=== PATIENT | female | born 1955 | race Asian ===

== ENCOUNTER 2017-10-02 04:01 | Emergency (ER) | payer BC, OTHER ==
[~2017-10-02] VITALS: Ht 165.1 cm; Wt 92.8 kg
[~2017-10-02 04:01] MED LIST: ACET-1311 PO; ADVAIR INHALER INH; ATOR10TA82 PO; CEVI30CA PO; ETAN50IN2 SQ; FENT25DI10 TD; FOLI1TAB8 PO; METH15TA2 PO; MIRT30TA2 PO; OMEP40CA PO; OXYC1TAB3 PO; PRED-301 PO; SNG10 PO; SYN25 PO
[2017-10-02 04:05] VITALS: TEMP 36.7; Ht 165.1 cm; Wt 92.8 kg
[2017-10-02 05:31] VITALS: BP 132/87; PULSE 65; O2SAT 96
--- NOTE | 2017-10-02 08:26 | EMERGENCY ROOM VISIT NOTE ---
History Report prepared by Joe: Kecia Dawson Under the Supervision of: Dr. Marian Gardner D.O. First contact with patient: 04:07 Chief Complaint: EYE ASSESSMENT Stated Complaint: VISUAL DISTURBANCE POST EYE SURGERY History of Present Illness The patient is a 62 year old female who presents to the Emergency Room for an eye assessment. The patient states that she had a shunt placed in her left eye for Glaucoma on September 13. She states that she has had follow ups on Fridays and the pressure has continued to increase. She states that they put her on Pred Forte and Combigan. She reports that tonight she had white flashes of light in her left eye that last a second. She states that she called the institute where she had the surgery and they told her to lie flat and come to the ED. The patient complains of a headache. She reports that she has been taking two 5 mg Oxycodone 2-3 times a day. She notes that she last took it 10 hours ago. The patient notes that the swelling has come down a lot. Source of History: patient Onset: this morning Position: eye (left) Quality: pressure Timing: worsening Associated Symptoms: + headache Note: The patient complains of a flashing white light. Review of Systems See HPI for pertinent positives & negatives. A total of 10 systems reviewed and were otherwise negative. Past Medical & Surgical Medical Problems: (1) Asthma (2) Bronchitis (3) Hypertension (4) Pneumonia Surgical Problems: (1) H/O arthroscopy of right knee Family History Diabetes mellitus Heart disease Hypertension Social History Smoking Status: Never Smoker Alcohol Use: none Drug Use: none Marital Status: Housing Status: lives with significant other Occupation Status: employed Current/Historical Medications Scheduled Acetaminophen (Tylenol), 325 MG PO Q4 Atorvastatin (Lipitor), 10 MG PO DAILY Cevimeline Hcl (Evoxac), 30 MG PO DAILY Etanercept (Enbrel), 50 MG SQ WK Fentanyl (Duragesic), 25 MCG TD [id number] Folic Acid (Folvite), 1 TAB PO DAILY Levothyroxine (Synthroid *), 0.025 MG PO DAILY Methotrexate (Trexall), 15 MG PO WK Mirtazapine Soltab (Remeron Soltab), 30 MG PO DAILY Montelukast (Singulair *), 10 MG PO DAILY Omeprazole (Prilosec), 40 MG PO DAILY Prednisone (Prednisone), 5 MG PO DAILY Scheduled PRN Oxycodone Ir (Roxicodone Ir), 1 TAB PO DAILY PRN for Severe Pain Miscellaneous Medications [Advair Inhaler], 1 PUFF INH Allergies Coded Allergies: Erythromycin (Verified Allergy, Intermediate, swelling of eyes, 10/11/15) pt states allergy to e-mycin eye drops Lisinopril (Verified Allergy, Intermediate, cough, 10/11/15) BEE STING (Verified Allergy, Unknown, swelling. sob, 02/26/14) Uncoded Allergies: NKDA (Allergy, Mild, 09/30/06) Physical Exam Vital Signs Date Time Temp Pulse Resp B/P (MAP) Pulse Ox O2 Delivery O2 Flow Rate FiO2 10/02/17 05:31 65 16 132/87 96 10/02/17 04:05 36.7 64 20 155/88 92 Room Air Physical Exam Eyes - Both pupils are 3 mm and reactive to light. Sclera is not injected. Normal extraocular eye movements. Some edema surrounding the left eye. Medical Decision & Procedures ED Course 0412: Past medical records reviewed. The patient was evaluated in room B9. A complete history and physical exam was performed. I performed an intraocular pressure read. The left was 43, 37, and 39. The right was 21, 22, and 22. 0458: I discussed the patient's case with Dr. Quick. She states that shee will get me in contact with whom I need. 0519: I discussed the patient's case with Dr. Ochoa. He states that the patient should come directly to their ER at [facility],. 0522: Upon reevaluation, the patient was doing okay. I discussed findings and results with her. She verbalized agreement of the treatment plan. The patient was discharged home. Medical Decision The patient is a 62 year old female who presents to the Emergency Room for an eye assessment. Differential diagnoses include worsening glaucoma, blocked shunt, retinal detachment, temporal arteritis. The patient underwent retinal surgery in August and glaucoma surgery in September. Upon follow-up appointments with the eye doctor, her intraocular pressure had increased slightly from 6 to 14 then to 20. On physical exam here in the emergency department, the patient was noted to have elevated intraocular pressures of the left eye. In light of a recent shunt placement and glaucoma, she would be best served back at the [facility]. The patient's family was willing to drive her there directly. Medication Reconcilliation Current Medication List: was personally reviewed by me Blood Pressure Screening Patient's blood pressure: Normal blood pressure Blood pressure disposition: Did not require urgent referral Consults Time Called: [phone] Consulting Physician: Dr. Quick- [facility] Returned Call: [phone] I discussed the patient's case with Dr. Quick. He states that he will get me in contact with whom I need. Additional Consults: Time Called: [phone] Consulted Physician: Dr. Ochoa- [facility] Returned Call: 518 Additional Comments: I discussed the patient's case with Dr. Ochoa. He states that the patient should come directly to their ER Impression Primary Impression: Elevated IOP Scribe Attestation The scribe's documentation has been prepared under my direction and personally reviewed by me in its entirety. I confirm that the note above accurately reflects all work, treatment, procedures, and medical decision making performed by me. Departure Information Dispostion Home / Self-Care Referrals Patricia Doran M.D. 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
== END 2017-10-02 05:30 | disposition home or self-care (01) ==
LOC: EDBD 04:01 → C.EDB 04:03
DX: H40.052 Ocular hypertension, left eye (principal); J45.909 Unspecified asthma, uncomplicated; I10 Essential (primary) hypertension; Z87.01 Personal history of pneumonia (recurrent); Z83.3 Family history of diabetes mellitus; Z82.49 Family history of ischemic heart disease and other diseases of the circulatory system; Z79.899 Other long term (current) drug therapy

== ENCOUNTER 2019-02-14 20:28 | Observation (INO) ==
--- OUTSIDE RECORDS SUMMARY | 2019-02-14 20:31 | External Medical Summary | Continuity of Care Document ---
:1955 Author Name Jeaneth Jimenez, Provider Address Unavailable Unavailable , Care Team Providers Name Role Phone Efren Carlisle M.D. Unavailable [email or web address] LENCHO LY Crow Unavailable Unavailable Unavailable Unavailable Unavailable Assessments Assessed Problems:HypothyroidAllergic rhinitisRheumatoid arthritisInterstitial lung disease Problems Osteoarthritis (715.90) (M19.90) Psoriasis (696.1) (L40.9) Cataract (366.9) (H26.9) Retinal edema (362.83) (H35.81) SOB (shortness of breath) (786.05) (R06.02) Allergic rhinitis (477.9) (J30.9) Hypothyroid (244.9) (E03.9) Interstitial lung disease (515) (J84.9) Rheumatoid arthritis (714.0) (M06.9) Allergies and Adverse Reactions Erythromycin OINT (Allergy) Lisinopril TABS (Allergy) Reaction: Coug h Bee sting (Allergy) Medications Losartan Potassium 25 MG Oral Tablet; TAKE 1 TABLET DAILY. Refills: 0 Levothyroxine Sodium 88 MCG Oral Tablet; TAKE 1 TABLET DAILY DIRECTED. Quantity: 30 Refills: 5 Lipitor 20 MG Oral Tablet; TAKE 1 TABLET DAILY AT BEDTIME. Refills: 0 Albuterol Sulfate HFA AERS; INHALE 2 PUFFS EVERY 4 HOURS NEEDED Refills: 0 Singulair 10 MG Oral Tablet; TAKE 1 TABLET AT BEDTIME DAILY. Refills: 0 Multi Vitamin/Minerals Oral Tablet; TAKE 1 TABLET DAILY. Refills: 0 Ipratropium-Albuterol 0.5-2.5 (3) MG/3ML Inhalation Solution; USE 1 UNIT DOSE IN NEBULIZER 4 TIMES DAILY. Tony Carlisle Start: 28-Oct-2015 Quantity: 2 3 ML Vial (60 Vials) Refills: 2 Calcium 500 + D TABS; TAKE 1 TABLET DAILY. Refills: 0 Ocuvite TABS; TAKE 1 TABLET DAILY. Refills: 0 EpiPen 2-Elmer 0.3 MG/0.3ML ERIC Refills: 0 OxyIR 5 MG CAPS; TAKE 1 CAPSULE EVERY 6 HOURS NEEDED FOR PAIN. Refills: 0 Enbrel SureClick 50 MG/ML Subcutaneous S olution Auto-injector; inject 50mg once weekly Refills: 0 Remeron 30 MG Oral Tablet; TAKE 1 TABLET AT BEDTIME. Refills: 0 fentaNYL 25 MCG/HR Transdermal Patch 72 Hour; APPLY 1 PATCH EVERY 3 DAYS Quantity: 5 Refills: 0 PrednisoLONE 5 MG TABS; one daily Refills: 0 Folic Acid 1 MG Oral Tablet; TAKE 1 TABLET DAILY. Quantity: 30 Refills: 5 Methotrexate 2.5 MG Oral Tablet; TAKE 6 TABLETS WEEKLY. Refills: 0 Omeprazole 40 MG Oral Capsule Delayed Release; TAKE 1 CAPSUL E TWICE DAILY. Quantity: 60 Refills: 5 Procedures History of Knee Replacement Status: Comp leted Immunizations Influenza On: 04-Aug-2013 Family History Mother Family history of eye disorder (V19.19) (Z83.518) Status: Ac tive Family history of glaucoma (V19.11) (Z83.511) Status: Active Family history of cardiac disorder (V17.49) (Z82.49) Status: Active Family history of diabetes mellitus (V18.0) (Z83.3) Status: Active Father Family history of cardiac disorder (V17.49) (Z82.49) Status: Active Family history of cataracts (V19.19) (Z83.518) Status: Activ e Family history of hypertension (V17.49) (Z82.49) Status: Act jm Brother Family history of diabetes mellitus (V18.0) (Z83.3) Status: Active Social History - Smoking Status Never smoker Interventions Medication ChangesIpratropium-Albuterol 0.5-2.5 (3) MG/3ML Inhalation Solution - StartFollow-ups/ReferralsFollow-up visit in 1 month; Done: 28 Oct 2015Suppdiana Nebulizer; Done: 30 Oct 2015Discussion/SummaryPatient will return to the clinic with pulmonary function studies after her visit to [place] where shewill be seeing her relatives. I see no reason why she cannot make this trip and we'll outfit with her a portable nebulizer with DuoNeb solution to use every 4 hours when necessary. I suspect patient ismore symptomatic then I can appreciate today and follow-up CT scan of her chest will need to be doneand possibly even bronchoscopic evaluation if her symptoms continue or worsen to rule out an opportunistic infection or other etiology. Suspect a degree of bronchiectasis and there is a suggestion of air trapping on CAT scan as well. Approximately 60 Minutes was spent with the patient. Greater than 50% of time with patient was spent on counseling and coordinating care. Plan of Treatment Planned Observations Planned Goals not documented Results No Known Results Results not documented Encounters Appointment; Efren Carlisle M.D. 28-Oct-2015 13:00 Encounter Diagnosis: Problem not documented
[2019-02-14] MEDS ORDERED: KETOROLAC TROMETHAMINE 15 MG/ML VIAL IV ONE (20:52)
[2019-02-14] MEDS ORDERED: ASPIRIN CHEW 324 MG PO STA (20:52)
[2019-02-14 22:31] LABS: Basophils # (auto) 0.03 K/uL (0-0.2); Basophils % (auto) 0.3 %; Eosinophils # (auto) 0.32 K/uL (0-0.5); Eosinophils % (auto) 3.4 %; Hematocrit (blood only) 41.6 % (37-47); Hemoglobin 14.2 g/dL (12.0-16.0); Immature Granulocytes # (auto) 0.03 K/uL (0.00-0.02); Immature Granulocytes % (auto) 0.3 %; Lymphocytes # (auto) 3.31 K/uL (1.2-3.4); Lymphocytes % (auto) 35.7 %; Mean Corpuscular Hgb Conc 34.1 g/dL (32-36); Mean Corpuscular Volume 93.1 fL (80-100); Mean Platelet Volume 9.5 fL (7.4-10.4); Monocytes # (auto) 0.63 K/uL (0.11-0.59); Monocytes % (auto) 6.8 %; Neutrophils # (auto) 4.96 K/uL (1.4-6.5); Neutrophils % (auto) 53.5 %; Platelet Count 315 K/uL (130-400); RDW Coefficient of Variation 12.5 % (11.5-14.5); RDW Standard Deviation 42.6 fL (36.4-46.3); Red Blood Count 4.47 M/uL (4.2-5.4); White Blood Count 9.28 K/uL (4.8-10.8)
--- NOTE | 2019-02-14 22:45 | XRay Report ---
SINGLE VIEW CHEST CLINICAL HISTORY: Atypical chest pain. FINDINGS: An AP, portable, upright chest radiograph is compared to study dated 02/26/2014 and correlat ed with chest CT dated 09/27/2015. The examination is degraded by portable technique and patient rotat ion. The heart is top normal for projection. The pulmonary vasculature is noncongested. Chronic inte rstitial thickening is similar to previous. Patchy airspace opacities are noted in the left midlung r ight lung appears clear. No large pleural effusion or pneumothorax is seen. The skeletal structures a re osteopenic. The bony thorax is grossly intact. IMPRESSION: 1. Patchy airspace opacities are identified in the left midlung. This could represent scarring/atelec tasis versus a mild infectious/inflammatory pneumonitis. Clinical correlation will be required and ra diographic follow-up to resolution is recommended. 2. The lungs are otherwise clear. Electronically signed by: Mo Daigle M.D. 02/14/2019 10:44 PM
[2019-02-14 22:57] LABS: Alanine Aminotransferase 68 U/L (12-78); Albumin Globulin Ratio 0.7 (0.9-2); Alkaline Phosphatase 82 U/L (45-117); BUN Creatinine Ratio 14.4 (10-20); Bilirubin,Total 0.4 mg/dl (0.2-1); Blood Urea Nitrogen 12 mg/dl (7-18); Calcium 9.4 mg/dl (8.5-10.1); Carbon Dioxide 25 mmol/L (21-32); Chloride 107 mmol/L (98-107); Creatinine Clr Calc Pharmacy 72.5 ml/min; Est GFR (African American) 84.5; Est GFR (Non-African American) 72.9; Globulin 4.4 gm/dl (2.5-4.0); Glucose 158 mg/dl (70-99); Sodium 142 mmol/L (136-145); Total Protein 7.4 gm/dl (6.4-8.2); Troponin I < 0.015 ng/ml (0-0.045)
[2019-02-14] MEDS ORDERED: LABETALOL HCL IV 5 MG/ML 20ML IV STA (23:24)
[2019-02-15] MEDS ORDERED: LABETALOL HCL IV 5 MG/ML 20ML IV STA (00:08)
--- NOTE | 2019-02-15 00:12 | Emergency Department Note ---
Entered by Kathy Chapman acting as a scribe for History of Present Illness General Chief complaint: Hypertension Stated complaint: HBP 224/214 REF BY DOC Source: patient History of Present Illness Onset (ago): day(s) 5 Severity: similar to prior episodes Pain Consistency: + other (persistent) Maximum Pain Intensity: 5 Quality: + other (high blood pressure) Associated symptoms: + other (negative diarrhea; positive left shoulder pain with radiation down left arm); no headaches, no nausea/vomiting and no shortness of breath Treatments prior to arrival: other (100mg Losartan; 5mg Norvasc) The patient is a 63 year old female who presents to the Emergency Room with complaints of persistent high blood pressure that began 5 days prior to arrival. The patient states that her PCP recently increased her Losartan dose to 100mg and began the patient on 5mg of Norvasc. She states that she took all of her medication today. The patient states that she took a nap today and states that when she woke up, she had left shoulder pain that radiated down her left arm. The patient denies headache, nausea, vomiting, diarrhea, and shortness of breath. Patient denies any chest pain. No exertional complaints. No cough or runny nose. Home Medications Home Medications Medication Instructions Recorded Confirmed Type C,E,zinc,copper [id number] 1 cap PO DAILY 02/14/19 02/14/19 History [Ocuvite Adult 50 Plus] abatacept [Orencia] 125 mg SUBCUT WK 02/14/19 02/14/19 History albuterol sulfate [ProAir HFA] 2 puff INHALATION Q6H PRN 02/14/19 02/14/19 History amlodipine 5 mg PO DAILY 02/14/19 02/14/19 History atorvastatin [Lipitor] 20 mg PO QPM 02/14/19 02/14/19 History bimatoprost 1 drp OPB HS 02/14/19 02/14/19 History brinzolamide-brimonidine 1 drp OPL BID 02/14/19 02/14/19 History [Simbrinza] calcium carbonate [Calcium 500] 500 mg PO DAILY 02/14/19 02/14/19 History clindamycin HCl 300 mg PO UD 02/14/19 02/14/19 History epinephrine [EpiPen] 0.3 mg IM UD PRN 02/14/19 02/14/19 History folic acid 1 mg PO DAILY 02/14/19 02/14/19 History levothyroxine [Synthroid] 112 mcg PO DAILY 02/14/19 02/14/19 History losartan [Cozaar] 25 mg PO DAILY 02/14/19 02/14/19 History metformin [Glucophage XR] 500 mg PO BID 02/14/19 02/14/19 History montelukast [Singulair] 10 mg PO PM 02/14/19 02/14/19 History multivitamin 1 tab PO DAILY 02/14/19 02/14/19 History oxycodone [Roxicodone] 5 mg PO Q4 PRN 02/14/19 02/14/19 History prednisone 3 mg PO DAILY 02/14/19 02/14/19 History timolol maleate [Timoptic] 1 drp OPL BID 02/14/19 02/14/19 History Allergies Allergy/AdvReac Type Severity Reaction Status Date / Time erythromycin base Allergy Intermediate swelling Verified 02/14/19 22:02 of eyes lisinopril Allergy Intermediate cough Verified 02/14/19 22:02 bee venom protein (honey bee) Allergy Unknown swelling. Verified 02/14/19 22:02 sob [id number] Allergy Mild Unknown Uncoded 02/14/19 22:02 Past Med/Surg History Medical History Diabetes Hypertension (Chronic) Asthma (Chronic) Social History Feels Safe at Home: Yes Smoking Status: Never smoker Review of Systems See HPI for pertinent positives & negatives. and A total of 10 systems reviewed and were otherwise negative Physical Exam Vital Signs Vital Signs - 24 hr 02/14/19 20:30 02/14/19 20:43 02/14/19 21:02 Temperature 36.9 C Temperature Source Oral Sepsis Action Taken by Nursing No Action Required Pulse Rate 96 H 77 76 Pulse Rate [Finger] Pulse Rate from SpO2 Sensor 74 76 Respiratory Rate 20 19 18 Respiratory Effort / Characteristics Non-Labored Spontaneous Respiratory Depth Normal Blood Pressure 184/109 H 169/115 H Blood Pressure [Right Arm] Blood Pressure Mean 134 133 Blood Pressure Mean [Right Arm] Pulse Oximetry 97 95 96 Oxygen Delivery Method Room Air 02/14/19 21:10 02/14/19 21:12 02/14/19 21:20 Temperature Temperature Source Sepsis Action Taken by Nursing Pulse Rate 79 76 Pulse Rate [Finger] Pulse Rate from SpO2 Sensor Respiratory Rate 23 14 Respiratory Effort / Characteristics Respiratory Depth Blood Pressure Blood Pressure [Right Arm] Blood Pressure Mean Blood Pressure Mean [Right Arm] Pulse Oximetry 98 Oxygen Delivery Method Room Air 02/14/19 21:30 02/14/19 21:40 02/14/19 21:48 Temperature Temperature Source Sepsis Action Taken by Nursing Pulse Rate 74 74 73 Pulse Rate [Finger] Pulse Rate from SpO2 Sensor 74 Respiratory Rate 20 18 13 Respiratory Effort / Characteristics Respiratory Depth Blood Pressure 175/109 H Blood Pressure [Right Arm] Blood Pressure Mean 131 Blood Pressure Mean [Right Arm] Pulse Oximetry 96 Oxygen Delivery Method 02/14/19 21:50 02/14/19 22:00 02/14/19 22:01 Temperature Temperature Source Sepsis Action Taken by Nursing Pulse Rate 71 73 74 Pulse Rate [Finger] Pulse Rate from SpO2 Sensor 71 Respiratory Rate 18 17 25 H Respiratory Effort / Characteristics Respiratory Depth Blood Pressure 167/99 H Blood Pressure [Right Arm] Blood Pressure Mean 121 Blood Pressure Mean [Right Arm] Pulse Oximetry 97 Oxygen Delivery Method 02/14/19 22:10 02/14/19 22:57 02/14/19 23:27 Temperature Temperature Source Sepsis Action Taken by Nursing Pulse Rate 79 Pulse Rate [Finger] 73 75 Pulse Rate from SpO2 Sensor 79 Respiratory Rate 22 18 18 Respiratory Effort / Characteristics Respiratory Depth Blood Pressure Blood Pressure [Right Arm] 190/119 H 179/106 H Blood Pressure Mean Blood Pressure Mean [Right Arm] 142 130 Pulse Oximetry 95 96 96 Oxygen Delivery Method Room Air Room Air GENERAL: Sitting up in bed. Alert, well appearing, well nourished, no distress, non-toxic EYE EXAM: normal conjunctiva OROPHARYNX: no exudate, no erythema, lips, buccal mucosa, and tongue normal and mucous membranes are moist NECK: supple, no nuchal rigidity, no adenopathy, non-tender LUNGS: Clear to auscultation. Normal chest wall mechanics HEART: no murmurs, S1 normal and S2 normal ABDOMEN: abdomen soft, non-tender, normo-active bowel sounds, no masses, no rebound or guarding. BACK: Back is symmetrical on inspection and there is no deformity, no midline tenderness, no CVA tenderness. SKIN: no rashes and no bruising UPPER EXTREMITIES: upper extremities are grossly normal. Tenderness on posterior left shoulder, similar to stated complaint but not same. Radial pulses 2/4. LOWER EXTREMITIES: No pitting edema. NEURO EXAM: Normal sensorium, cranial nerves II-XII grossly intact, normal speech, no gross weakness of arms, no gross weakness of legs. Course ED COURSE: Vital signs were reviewed and showed hypertensive. The patients medical record was reviewed The above diagnostic studies were performed and reviewed. ED treatments and interventions as stated above. 2046: The patient was evaluated in room B9. A complete history and physical examination was performed. 2222: Upon reevaluation, the patient is resting. I discussed my findings with the patient and she understands and agrees with the treatment plan. 2327: I discussed the case with Dr. Osborne Hospitalist. Based on the patients age, coexisting illnesses, exam and lab findings the decision to treat as an inpatient was made. The patient remained stable while under my care. The patient will be evaluated for further management. Administered Medications Discontinued Medications Aspirin (Aspirin) 324 mg PO NOW STA Stop: 02/14/19 20:53 Last Admin: 02/14/19 21:01 Dose: 324 mg Documented by: [id number] Ketorolac Tromethamine (Toradol) 10 mg IV NOW ONE Stop: 02/14/19 20:53 Last Admin: 02/14/19 22:18 Dose: 10 mg Documented by: [id number] Labetalol HCl (Normodyne) 10 mg IV NOW STA Stop: 02/14/19 23:25 Last Admin: 02/14/19 23:33 Dose: 10 mg Documented by: [id number] Cosigned by: [id number] Medical Decision Making Differential Diagnosis Differential diagnoses includes but is not limited to acute coronary syndrome, myocardial infarction, pericarditis, pulmonary embolus, aortic dissection, pneumonia, pneumothorax, musculoskeletal, shingles, esophageal. Medical Records Attestation: I reviewed the patient's medical records. Home Medications Current Medication List: was personally reviewed by me Laboratory Data Attestation: I reviewed the patient's lab results. Result diagrams: 02/14/19 22:11 02/14/19 22:11 Lab Results 02/14/19 02/14/19 Range/Units 22:11 22:11 WBC 9.28 (4.8-10.8) K/uL RBC 4.47 (4.2-5.4) M/uL Hgb 14.2 (12.0-16.0) g/dL Hct 41.6 (37-47) % MCV 93.1 (80-100) fL MCH 31.8 (25-34) pg MCHC 34.1 (32-36) g/dL RDW Std Deviation 42.6 (36.4-46.3) fL RDW Coeff of [place] 12.5 (11.5-14.5) % Plt Count 315 (130-400) K/uL MPV 9.5 (7.4-10.4) fL Immature Gran % (Auto) 0.3 % Neut % (Auto) 53.5 % Lymph % (Auto) 35.7 % [place] % (Auto) 6.8 % Eos % (Auto) 3.4 % Baso % (Auto) 0.3 % Immature Gran # (Auto) 0.03 H (0.00-0.02) K/uL Neut # (Auto) 4.96 (1.4-6.5) K/uL Lymph # (Auto) 3.31 (1.2-3.4) K/uL [place] # (Auto) 0.63 H (0.11-0.59) K/uL Eos # (Auto) 0.32 (0-0.5) K/uL Baso # (Auto) 0.03 (0-0.2) K/uL Sodium 142 (136-145) mmol/L Potassium (3.5-5.1) mmol/L Chloride 107 (98-107) mmol/L Carbon Dioxide 25 (21-32) mmol/L Anion Gap 9.0 (3-11) BUN 12 (7-18) mg/dl Creatinine 0.85 (0.6-1.2) mg/dl Est Cr Clr Drug Dosing 72.5 ml/min Est GFR ( Amer) 84.5 Est GFR (Non-Af Amer) 72.9 BUN/Creatinine Ratio 14.4 (10-20) Glucose 158 H (70-99) mg/dl Calcium 9.4 (8.5-10.1) mg/dl Total Bilirubin 0.4 (0.2-1) mg/dl AST (15-37) U/L ALT 68 (12-78) U/L Alkaline Phosphatase 82 (45-117) U/L Troponin I < 0.015 (0-0.045) ng/ml Total Protein 7.4 (6.4-8.2) gm/dl Albumin 3.0 L (3.4-5.0) gm/dl Globulin 4.4 H (2.5-4.0) gm/dl Albumin/Globulin Ratio 0.7 L (0.9-2) Lipase 134 (73-393) U/L Imaging Data Radiologist's Impression: Radiology results as stated below per my review and t he radiologist's interpretation: SINGLE VIEW CHEST CLINICAL HISTORY: Atypical chest pain. FINDINGS: An AP, portable, upright chest radiograph is compared to study dated 02/26/2014 and correlated with chest CT dated 09/27/2015. The examination is degraded by portable technique and patient rotation. The heart is top normal for projection. The pulmonary vasculature is noncongested. Chronic interstitial thickening is similar to previous. Patchy airspace opacities are noted in the left midlung right lung appears clear. No large pleural effusion or pneumothorax is seen. The skeletal structures are osteopenic. The bony thorax is grossly intact. IMPRESSION: 1. Patchy airspace opacities are identified in the left midlung. This could represent scarring/atelectasis versus a mild infectious/inflammatory pneumonitis. Clinical correlation will be required and radiographic follow-up to resolution is recommended. 2. The lungs are otherwise clear. Electronically signed by: Mo Daigle M.D. 02/14/2019 10:44 PM ECG Data Attestation: I personally reviewed and interpreted this ECG as follows: Indication: other (hypertension) Rate (beats per minute): 82 Rhythm: sinus rhythm Findings: + other (normal axis; nonspecific ST abnormalities high lateral leads ); no PVC Comparison ECG Date: from (02/26/2014) Change: no significant change Blood Pressure Blood Pressure Findings: Elevated blood pressure Blood Pressure Disposition: further management by hospitalist KAILA Naidu Patient is a 63-year-old female who over the past week has been having increasing elevations in her blood pressure. She is followed with Dr. Doran who is her PCP and placed her on Norvasc 5 mg and increased her losartan to 100 mg. Patient notes her systolic blood pressures at home have been in the 200s. She complains of some left shoulder pain as well. Upon presentation systolics are in the 190s. IV was established blood work was obtained showed no significant leukocytosis or anemia. BMP was unremarkable. Glucose was slightly elevated. ALT bilirubin and troponin were normal. Lipase was normal. EKG was nondiagnostic. Chest x-ray with a questionable infiltrate in the left midlung but no right upper respiratory symptoms. Patient was updated at bedside in regards to her lab work and EKG. Diastolic blood pressures were in the 130s. With these significant elevated systolic and diastolic blood pressure she was given 2 separate doses of IV labetalol 10mg and blood pressure did trend down. Patient was monitored closely. Discussed with hospitalist. Patient was admitted for further work-up of her hypertension. She denies any headaches or change in vision. No weakness or numbness in her arms or legs. She is otherwise at her baseline. Impression & Plan Hypertension, Shoulder pain, left Critical Care Time Critical Care Time: Yes Total Critical Care Time: 35 I have personally spent 35 minutes of critical care time in the direct managemen t of this patient. This includes bedside care, interpretation of diagnostic studies, and testing, discussion with consultants, patient, and family members, and other required patient management activities. This 35 minutes is in excess of all separately billable procedures. Discharge Plan Visit Data Chief Complaint: Hypertension Stated Complaint: HBP 224/214 REF BY DOC ED Provider: Sha Henderson Discharge Problem: Hypertension, Shoulder pain, left Patient Disposition: Being Evaluated by Hospitalist Forms Stand Alone Forms: My [facility] Prescriptions Prescriptions: No Action multivitamin Tablet 1 tab PO DAILY RF: 0 atorvastatin [Lipitor] 20 mg tablet 20 mg PO QPM RF: 0 clindamycin HCl 300 mg Capsule 300 mg PO UD RF: 0 bimatoprost 0.03 % drops 1 drp OPB HS RF: 0 amlodipine 5 mg Tablet 5 mg PO DAILY RF: 0 calcium carbonate [Calcium 500] 500 mg calcium (1,250 mg) Tablet 500 mg PO DAILY RF: 0 prednisone 1 mg tablet 3 mg PO DAILY RF: 0 losartan [Cozaar] 25 mg tablet 25 mg PO DAILY RF: 0 folic acid 1 mg Tablet 1 mg PO DAILY RF: 0 montelukast [Singulair] 10 mg Tablet 10 mg PO PM RF: 0 epinephrine [EpiPen] 0.3 mg/0.3 mL Auto-Injector 0.3 mg IM UD PRN (Reason: ALLERIC REACTION) RF: 0 albuterol sulfate [ProAir HFA] 90 mcg/actuation Hfa Aerosol Inhaler 2 puff INHALATION Q6H PRN (Reason: Shortness Of Breath Or Wheezing) RF: 0 timolol maleate [Timoptic] 0.5 % drops 1 drp OPL BID RF: 0 metformin [Glucophage XR] 500 mg tablet extended release 24 hr 500 mg PO BID RF: 0 levothyroxine [Synthroid] 112 mcg tablet 112 mcg PO DAILY RF: 0 oxycodone [Roxicodone] 5 mg tablet 5 mg PO Q4 PRN (Reason: Pain) RF: 0 Orencia 125 mg/mL Syringe 125 mg SUBCUT WK RF: 0 Ocuvite Adult 50 Plus 250-5-1 mg Capsule 1 cap PO DAILY RF: 0 Simbrinza 1-0.2 % drops,suspension 1 drp OPL BID RF: 0 Referrals Referrals: Patricia Doran MD [Primary Care Provider] - Discharge Problem: Hypertension Qualifiers: Hypertension type: unspecified Qualified Code(s): I10 - Essential (primary) hypertension Shoulder pain, left Qualifiers: Chronicity: acute Qualified Code(s): M25.512 - Pain in left shoulder The scribe's documentation has been prepared under my direction and personally reviewed by me in its entirety. I confirm that the note above accurately reflects all work, treatment, procedures, and medical decision making performed by me.
[2019-02-15] MEDS ORDERED: NITROGLYCERIN SL 0.4 MG/TAB TAB SL STA (00:26)
--- NOTE | 2019-02-15 00:32 | History & Physical Report ---
Date of Service February 15, 2019 Assessment & Plan (1) Chest pain: Likely from uncontrolled blood pressure Rule out ACS hyperlipidemia on statin Rx DM 2 on oral meds, well controlled as of recent outpatient hemoglobin A1c of 6.9 last December 2018 rheumatoid arthritis on daily prednisone Rx, stable symptoms hypothyroidism, euthyroid as of recent outpatient TSH OBS PCU Titrate home BP meds Aspirin for CAD prevention for now until ACS ruled out Follow troponin TTE, Cardiology consult RE chest pain ISS BG goal 140 to 180, may need basal insulin to attain goal DVT prophylaxis. Lovenox subcu Full code Patient's requesting updates from providers. Dr. Yuri Gramajo, contact #[phone]. History of Present Illness Chief Complaint: Chest discomfort Primary Care Provider: Patricia Doran MD History obtained from patient, family, and records. Medical history significant for hypertension, hyperlipidemia, DM 2 on oral meds, rheumatoid arthritis on daily prednisone Rx, hypothyroidism, glaucoma. Last week patient randomly checked her blood pressure at home, SBP 170s as per patient. Never that high. Patient denies unusual stress. Almost 2 weeks ago she started on a new diet which she is tolerating so far. Denies NSAID intake, dietary discretion. Patient also noted vertical headache symptoms with nausea, ice will get red from time to time. 2 days ago, patient noted transient left-sided chest discomfort. Patient seen at PCP's office yesterday. Blood pressure 156/104. PVCs noted on EKG as per . Home losartan increased to 50 mg BID dosing, Norvasc added to regimen. Outpatient Cardiology referral for stress test contemplated. Yesterday afternoon, patient woke up from her nap with left sided chest discomfort going to her shoulder and her back. Nonpleuritic, no SOB. At the ER, SBP 190s at the highest. Patient received aspirin, Toradol, labetalol at the ER without relief of discomfort. Some relief of chest discomfort with nitroglycerin administered at the ER. 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 Verified 02/14/19 22:02 sob [id number] Allergy Mild Unknown Uncoded 02/14/19 22:02 Home Medications Home Medications Medication Instructions Recorded Confirmed Type C,E,zinc,copper [id number] 1 cap PO DAILY 02/14/19 02/14/19 History [Ocuvite Adult 50 Plus] abatacept [Orencia] 125 mg SUBCUT WK 02/14/19 02/14/19 History albuterol sulfate [ProAir HFA] 2 puff INHALATION Q6H PRN 02/14/19 02/14/19 History amlodipine 5 mg PO DAILY 02/14/19 02/14/19 History atorvastatin [Lipitor] 20 mg PO QPM 02/14/19 02/14/19 History bimatoprost 1 drp OPB HS 02/14/19 02/14/19 History brinzolamide-brimonidine 1 drp OPL BID 02/14/19 02/14/19 History [Simbrinza] calcium carbonate [Calcium 500] 500 mg PO DAILY 02/14/19 02/14/19 History clindamycin HCl 300 mg PO UD 02/14/19 02/14/19 History epinephrine [EpiPen] 0.3 mg IM UD PRN 02/14/19 02/14/19 History folic acid 1 mg PO DAILY 02/14/19 02/14/19 History levothyroxine [Synthroid] 112 mcg PO DAILY 02/14/19 02/14/19 History losartan [Cozaar] 25 mg PO DAILY 02/14/19 02/14/19 History metformin [Glucophage XR] 500 mg PO BID 02/14/19 02/14/19 History montelukast [Singulair] 10 mg PO PM 02/14/19 02/14/19 History multivitamin 1 tab PO DAILY 02/14/19 02/14/19 History oxycodone [Roxicodone] 5 mg PO Q4 PRN 02/14/19 02/14/19 History prednisone 3 mg PO DAILY 02/14/19 02/14/19 History timolol maleate [Timoptic] 1 drp OPL BID 02/14/19 02/14/19 History Past Med/Surg History Medical History Diabetes Hypertension (Chronic) Asthma (Chronic) Social History Preferred Language: Salvad[place] Communication Ability: Effective 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 Beliefs That Will Affect Care: None Current Living Situation: Spouse Other Information That Helps Us Care for You: No Feels Safe at Home: Yes Safety Concerns: Feels Safe At This Time Smoking Status: Never smoker Do You Dip or Chew Tobacco: No Second Hand Exposure: No Tobacco Cessation Education Requested by Patient: No Hx Alcohol Use: No Hx Substance Use: No Review of Systems Review of Systems: As per HPI, all 10 systems reviewed, all other ROS negative Physical Exam Physical Exam: GENERAL: Slightly uncomfortable and slightly anxious, obese, no respiratory distress SKIN: Normal color, warm HEENT: [place] palpebral conjunctivae, no ptosis, dry buccal mucosa NECK : Supple, short neck, no tenderness CHEST : CTA, no tenderness HEART : RRR, systolic murmur ABDOMEN: Some distention, nontender EXTREMITIES : No LE swelling/tenderness, no other conspicuous deformities noted NEUROLOGIC : Coherent, no facial asymmetry, no other gross focality Results & Data Vital Signs (Past 12 Hours) Vital Signs Temp Pulse Pulse Resp BP BP Pulse Ox 02/15/19 00:15 66 18 145/91 H 99 02/14/19 23:27 75 18 179/106 H 96 02/14/19 22:57 73 18 190/119 H 96 02/14/19 22:10 79 22 95 02/14/19 22:01 74 25 H 167/99 H 02/14/19 22:00 73 17 02/14/19 21:50 71 18 97 02/14/19 21:48 73 13 175/109 H 96 02/14/19 21:40 74 18 02/14/19 21:30 74 20 02/14/19 21:20 76 14 02/14/19 21:12 98 02/14/19 21:10 79 23 02/14/19 21:02 76 18 96 02/14/19 20:43 77 19 169/115 H 95 02/14/19 20:30 36.9 C 96 H 20 184/109 H 97 Laboratory Results Laboratory Results WBC 9.28 K/uL (4.8-10.8) 02/14/19 22:11 RBC 4.47 M/uL (4.2-5.4) 02/14/19 22:11 Hgb 14.2 g/dL (12.0-16.0) 02/14/19 22:11 Hct 41.6 % (37-47) 02/14/19 22:11 MCV 93.1 fL (80-100) 02/14/19 22:11 MCH 31.8 pg (25-34) 02/14/19 22:11 MCHC 34.1 g/dL (32-36) 02/14/19 22:11 RDW Std Deviation 42.6 fL (36.4-46.3) 02/14/19 22:11 RDW Coeff of [place] 12.5 % (11.5-14.5) 02/14/19 22:11 Plt Count 315 K/uL (130-400) 02/14/19 22:11 MPV 9.5 fL (7.4-10.4) 02/14/19 22:11 Immature Gran % (Auto) 0.3 % 02/14/19 22:11 Neut % (Auto) 53.5 % 02/14/19 22:11 Lymph % (Auto) 35.7 % 02/14/19 22:11 [place] % (Auto) 6.8 % 02/14/19 22:11 Eos % (Auto) 3.4 % 02/14/19 22:11 Baso % (Auto) 0.3 % 02/14/19 22:11 Immature Gran # (Auto) 0.03 K/uL (0.00-0.02) H 02/14/19 22:11 Neut # (Auto) 4.96 K/uL (1.4-6.5) 02/14/19 22:11 Lymph # (Auto) 3.31 K/uL (1.2-3.4) 02/14/19 22:11 [place] # (Auto) 0.63 K/uL (0.11-0.59) H 02/14/19 22:11 Eos # (Auto) 0.32 K/uL (0-0.5) 02/14/19 22:11 Baso # (Auto) 0.03 K/uL (0-0.2) 02/14/19 22:11 Sodium 142 mmol/L (136-145) 02/14/19 22:11 Potassium mmol/L (3.5-5.1) 02/14/19 22:11 Chloride 107 mmol/L (98-107) 02/14/19 22:11 Carbon Dioxide 25 mmol/L (21-32) 02/14/19 22:11 Anion Gap 9.0 (3-11) 02/14/19 22:11 BUN 12 mg/dl (7-18) 02/14/19 22:11 Creatinine 0.85 mg/dl (0.6-1.2) 02/14/19 22:11 Est Cr Clr Drug Dosing 72.5 ml/min 02/14/19 22:11 Est GFR ( Amer) 84.5 02/14/19 22:11 Est GFR (Non-Af Amer) 72.9 02/14/19 22:11 BUN/Creatinine Ratio 14.4 (10-20) 02/14/19 22:11 Glucose 158 mg/dl (70-99) H 02/14/19 22:11 Calcium 9.4 mg/dl (8.5-10.1) 02/14/19 22:11 Total Bilirubin 0.4 mg/dl (0.2-1) 02/14/19 22:11 AST U/L (15-37) 02/14/19 22:11 ALT 68 U/L (12-78) 02/14/19 22:11 Alkaline Phosphatase 82 U/L (45-117) 02/14/19 22:11 Troponin I < 0.015 ng/ml (0-0.045) 02/14/19 22:11 Total Protein 7.4 gm/dl (6.4-8.2) 02/14/19 22:11 Albumin 3.0 gm/dl (3.4-5.0) L 02/14/19 22:11 Globulin 4.4 gm/dl (2.5-4.0) H 02/14/19 22:11 Albumin/Globulin Ratio 0.7 (0.9-2) L 02/14/19 22:11 Lipase 134 U/L (73-393) 02/14/19 22:[address] head initial read: No acute intracranial process. Involutional changes. Bilateral cataract surgery. CT chest initial read: No aortic dissection. No central pulmonary embolus. Mild patchy infiltrates EKG as per my interpretation: Rate 80, NSR, LAD, LAFB, LAE, no ischemia
[2019-02-15] MEDS ORDERED: TRAMADOL HCL 50 MG TABLET PO PRN (00:33)
[2019-02-15] MEDS ORDERED: PROMETHAZINE HCL 12.5 MG in SODIUM CHLORIDE 0.9% 50 ML IV PRN (00:33)
[2019-02-15 00:46] LABS: Potassium 3.8 mmol/L (3.5-5.1)
[2019-02-15 00:58] LABS: Partial Thromboplastin Ratio 0.9; Partial Thromboplastin Time 23.1 Seconds (21.0-31.0)
[2019-02-15] MEDS ORDERED: POTASSIUM CHLORIDE 20 MEQ TABCR PO STA (01:09)
[2019-02-15] MEDS ORDERED: LACTATED RINGER'S 1,000 ML IV SCH (01:15)
[2019-02-15] MEDS ORDERED: MoRPHine SULFATE 4 MG/ML 1 ML CARP\\VIAL IV PRN (01:33)
[2019-02-15] MEDS ORDERED: OPTIRAY 320 125ml IV PRN (01:50)
[2019-02-15] MEDS ORDERED: LOSARTAN POTASSIUM 50 MG TAB PO SCH ×2 (03:10→21:00)
[2019-02-15] MEDS ORDERED: GLUCOSE 10 TABS/TUBE PO PRN (03:39)
[2019-02-15] MEDS ORDERED: DEXTROSE 50% 50 ML SYRINGE IV PRN (03:39)
[2019-02-15] MEDS ORDERED: GLUCAGON FOR INJ 1 MG VIAL SQ PRN (03:39)
[2019-02-15] MEDS ORDERED: NITROGLYCERIN SL 0.4 MG/TAB TAB SL PRN (03:39)
[2019-02-15] MEDS ORDERED: LORazepam 0.25 MG/0.5 ML VIAL IV PRN (03:39)
[2019-02-15] MEDS ORDERED: GLUCOSE 40% GEL 15 GM TUBE PO PRN (03:39)
[2019-02-15] MEDS ORDERED: CARBOHYDRATES FOR HYPOGLYCEMIA PO PRN (03:39)
[2019-02-15] MEDS: ACETAMINOPHEN 325 MG TAB PO PRN ×2 (04:10→23:31)
[2019-02-15 04:11] LABS: Basophils # (auto) 0.04 K/uL (0-0.2); Basophils % (auto) 0.4 %; Eosinophils # (auto) 0.25 K/uL (0-0.5); Eosinophils % (auto) 2.7 %; Hematocrit (blood only) 43.2 % (37-47); Hemoglobin 14.8 g/dL (12.0-16.0); Immature Granulocytes # (auto) 0.02 K/uL (0.00-0.02); Immature Granulocytes % (auto) 0.2 %; Lymphocytes % (auto) 31.8 %; Mean Corpuscular Hgb Conc 34.3 g/dL (32-36); Mean Corpuscular Volume 93.5 fL (80-100); Mean Platelet Volume 9.7 fL (7.4-10.4); Monocytes # (auto) 0.56 K/uL (0.11-0.59); Monocytes % (auto) 5.9 %; Neutrophils # (auto) 5.55 K/uL (1.4-6.5); Platelet Count 297 K/uL (130-400); RDW Coefficient of Variation 12.6 % (11.5-14.5); RDW Standard Deviation 42.3 fL (36.4-46.3); Red Blood Count 4.62 M/uL (4.2-5.4); White Blood Count 9.42 K/uL (4.8-10.8)
[2019-02-15 04:22] LABS: Partial Thromboplastin Ratio 0.9; Partial Thromboplastin Time 24.9 Seconds (21.0-31.0)
[2019-02-15] MEDS: INSULIN ASPART 100 UNITS/ML 3 ML PEN SC SCH ×5 (04:24→20:35)
[2019-02-15 04:29] LABS: Blood Urea Nitrogen 11 mg/dl (7-18); Carbon Dioxide 26 mmol/L (21-32); Chloride 106 mmol/L (98-107); Creatinine Clr Calc Pharmacy 68.9 ml/min; Est GFR (African American) 79.9; Glucose 134 mg/dl (70-99); Potassium 3.9 mmol/L (3.5-5.1); Sodium 139 mmol/L (136-145)
[2019-02-15 04:34] LABS: Chol HDL Ratio 5; Cholesterol 219 mg/dl (0-200); HDL Cholesterol 48 mg/dl; LDL Cholesterol Calculated 143 mg/dl; Triglycerides 141 mg/dl (0-150); Troponin I < 0.015 ng/ml (0-0.045); VLDL Cholesterol 28 mg/dl
[2019-02-15 05:51] LABS: Albumin Level 3.2 gm/dl (3.4-5.0); Bilirubin Direct 0.1 mg/dl (0-0.2); Bilirubin,Total 0.5 mg/dl (0.2-1); Total Protein 7.6 gm/dl (6.4-8.2)
[2019-02-15] MEDS: LEVOTHYROXINE SODIUM 112 MCG TABLET PO SCH (05:59)
--- NOTE | 2019-02-15 06:34 | CT Scan Report ---
CT head/brain wo con CLINICAL HISTORY: 63 years-old Female with fulton. Acute headache TECHNIQUE: Multiple axial CT images of the head were obtained without contrast. A dose lowering tech nique was utilized adhering to the principles of ALARA. CT DOSE: 638.56 mGycm COMPARISON: None. FINDINGS: No acute intracranial hemorrhage, midline shift, intracranial mass, hydrocephalus, territorial ischem ia or abnormal extra-axial collection. Cerebral vascular calcifications are noted. Mild degree of pat seth white matter hypodensities suggest chronic microvascular ischemic disease. Homogeneous increased density about the left globe. Prior right-sided cataract repair. The calvarium is intact. The paranasal sinuses, mastoid air cells, and middle ear cavities are clear. IMPRESSION: No acute intracranial abnormality. The above report was generated using voice recognition software. It may contain grammatical, syntax o r spelling errors. Electronically signed by: Pa Hall M.D. 02/15/2019 6:33 AM
--- NOTE | 2019-02-15 06:51 | CT Scan Report ---
CT ANGIOGRAPHY OF THE CHEST, ABDOMEN, AND PELVIS CLINICAL HISTORY: Chest and back pain. Evaluate for dissection. COMPARISON STUDY: Chest CT September 27, 2015. Chest radiograph February 14, 2019. TECHNIQUE: Before and following the IV administration of 118 mL of Optiray-320, helical axial images of the chest, abdomen and pelvis were obtained. Maximal intensity projections and sagittal and coron al reformats were viewed on an independent 3D workstation. IV contrast was administered without comp lication. Automated exposure control was utilized for the study. A dose lowering technique was util ized adhering to the principles of ALARA. CT DOSE: 806.70 mGycm FINDINGS: The caliber of the thoracic aorta is normal. There is no intramural hematoma or thoracic a ortic dissection. The size of the heart is at the upper limits of normal. There is no pericardial eff usion. There is no pulmonary embolus. Prominent mediastinal lymph nodes are unchanged and CT of 2015. These are benign. There is no pneumothorax or pleural effusion. The central airways are patent. Note is made of right middle lobe and lingular mild airspace opacity with bronchiectasis. Sim ilar findings were shown CT of September 27, 2015. There is no lobar consolidation. Bony thorax is unre markable. Upper abdomen is unremarkable. IMPRESSION: 1. No thoracic aortic dissection. 2. No pulmonary embolus. 3. Mild right middle lobe and lingular airspace opacities with bronchiectasis. The findings may refle ct an atypical infectious process. Electronically signed by: Michael Navas M.D. 02/15/2019 6:49 AM
[2019-02-15] MEDS ORDERED: PERFLUTREN LIPID MICROSPHERE (DEFINITY) IV ONE (07:17)
[2019-02-15] MEDS: FOLIC ACID 1 MG TAB PO SCH (08:16)
[2019-02-15] MEDS: predniSONE 1 MG TAB PO SCH (08:16)
[2019-02-15] MEDS: ASPIRIN 81 MG ECTAB PO SCH (08:16)
[2019-02-15] MEDS: AMLODIPINE BESYLATE 5 MG TAB PO SCH (08:16)
[2019-02-15] MEDS: MULTIVITAMIN TAB PO SCH (08:16)
[2019-02-15] MEDS: SIMBRINZA~ORDER AWAITING ACTION SCH ×2 (08:17→15:15)
[2019-02-15] MEDS: TIMOLOL MALEATE 0.25% OP SOLN 5 ML BTL OPL SCH ×2 (08:17→20:34)
[2019-02-15 08:19] LABS: INR 1.1 (0.9-1.1); Prothrombin Time 10.9 Seconds (9.0-12.0)
[2019-02-15] MEDS: OXYCODONE HCL IR 5 MG TAB (IMMEDIATE RELEASE) PO PRN ×3 (08:19→20:27)
[2019-02-15] MEDS: ENOXAPARIN INJ 40 MG/0.4 ML SYR SQ SCH (10:26)
--- NOTE | 2019-02-15 11:54 | Cardiology Consultation ---
Date of Consultation February 15, 2019 Assessment & Plan (1) Chest pain: Atypical for angina , however , has significant risk factors. Need to optimize BP prior to pursuing ischemic work-up. (2) Hypertension: Blood pressure noted to be significantly elevated recently compared to her previous well-controlled baseline. The patient and her who is a retired physician brings up a good point that she recently started the immune modulating medication Orencia. This is a small incidence of causing high blood pressure. This however may be [id number]-mill hypertension. Further evaluation will proceed with a renal duplex for noninvasive assessment of renal artery stenosis. I have added a random serum aldosterone and renin level. These are send out laboratories. After these are drawn, will consider adding spironolactone as I find that this is a useful blood pressure medication it is very effective. It is noted that she has approximately a 20 mmHg difference between her arms. The blood pressure in the left arm at 9:43 AM was 145/88, right arm it was 167/102. She had a CT of the chest, but evaluation of the right arm circulation is somewhat limited because of where the contrast bolus fluids from the venous system obscuring the right arm. (3) Dyslipidemia: Increase atorvastatin from 20 mg to 40 mg. Advance diet after renal duplex completed. Possible stress echo 02/16. History of Present Illness Attending Physician: Jose Manuel Espinal MD History of Present Illness Britni Gramajo is a 63 year old female seen in cardiology consultation per the request of Dr. Enriquez for the evaluation of chest discomfort and hypertension. She does not follow as outpatient with cardiology and this is her first assessment. She has a past medical history of hypertension, dyslipidemia, hypothyroidism, type 2 diabetes mellitus, and rheumatoid arthritis. She is on a chronic dose of prednisone 3 mg daily. She describes that she has been on the immune modulating medication Orencia (abatacept) for the last 2 months. Recently the patient's mother who was in her 80s and has a history of hypertension was visiting her. The patient was therefore monitoring her mother's blood pressure and helping administer her medications. She had taken her mother's blood pressure and thought that she would take her own blood pressure also. She therefore found a reading on herself at home in the 170/150 mmHg range. She contacted her primary care provider and her losartan dose of 25 mg 1 time per day was increased to 50 mg daily. The patient continue to follow her blood pressure at home and the dose of losartan was increased to 50 mg 2 times per day. She was then seen in office follow-up and amlodipine was added to her regimen. She notes recent occasional left shoulder pain and mild chest discomfort that has not occurred with exertion. The symptoms persisted yesterday prompting evaluation in the emergency room. Her initial blood pressure reading in the emergency room was 184/109. Her systolic blood pressures remained elevated for the most part overnight last n ight and even into the 170s this morning. Her most recent reading at 1115 having had her morning medications was 138/87. Last night and again this morning revealed normal sinus rhythm with very mild nonspecific repolarization abnormalities. Troponin has been negative x2 thus far. Allergies Allergy/AdvReac Type Severity Reaction Status Date / Time erythromycin base Allergy Intermediate swelling Verified 02/14/19 22:02 of eyes lisinopril Allergy Intermediate cough Verified 02/14/19 22:02 bee venom protein (honey bee) Allergy Unknown swelling. Verified 02/14/19 22:02 sob [id number] Allergy Mild Unknown Uncoded 02/14/19 22:02 Home Medications Home Medications Medication Instructions Recorded Confirmed Type C,E,zinc,copper [id number] 1 cap PO DAILY 02/14/19 02/14/19 History [Ocuvite Adult 50 Plus] abatacept [Orencia] 125 mg SUBCUT WK 02/14/19 02/14/19 History albuterol sulfate [ProAir HFA] 2 puff INHALATION Q6H PRN 02/14/19 02/14/19 History amlodipine 5 mg PO DAILY 02/14/19 02/14/19 History atorvastatin [Lipitor] 20 mg PO QPM 02/14/19 02/14/19 History bimatoprost 1 drp OPB HS 02/14/19 02/14/19 History brinzolamide-brimonidine 1 drp OPL BID 02/14/19 02/14/19 History [Simbrinza] calcium carbonate [Calcium 500] 500 mg PO DAILY 02/14/19 02/14/19 History clindamycin HCl 300 mg PO UD 02/14/19 02/14/19 History epinephrine [EpiPen] 0.3 mg IM UD PRN 02/14/19 02/14/19 History folic acid 1 mg PO DAILY 02/14/19 02/14/19 History levothyroxine [Synthroid] 112 mcg PO DAILY 02/14/19 02/14/19 History losartan [Cozaar] 25 mg PO DAILY 02/14/19 02/14/19 History metformin [Glucophage XR] 500 mg PO BID 02/14/19 02/14/19 History montelukast [Singulair] 10 mg PO PM 02/14/19 02/14/19 History multivitamin 1 tab PO DAILY 02/14/19 02/14/19 History oxycodone [Roxicodone] 5 mg PO Q4 PRN 02/14/19 02/14/19 History prednisone 3 mg PO DAILY 02/14/19 02/14/19 History timolol maleate [Timoptic] 1 drp OPL BID 02/14/19 02/14/19 History Patient History Medical History Diabetes Hypertension (Chronic) Asthma (Chronic) Social History Preferred Language: Estonian Communication Ability: Effective 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 Beliefs That Will Affect Care: None Current Living Situation: Spouse Other Information That Helps Us Care for You: No Feels Safe at Home: Yes Safety Concerns: Feels Safe At This Time Smoking Status: Never smoker Do You Dip or Chew Tobacco: No Second Hand Exposure: No Tobacco Cessation Education Requested by Patient: No Hx Alcohol Use: No Hx Substance Use: No Review of Systems Review of Systems: All systems reviewed & are unremarkable except as noted in HPI & below Physical Exam Physical Exam: General: no acute distress and stated age Eyes: conjunctiva are pink and non-injected, sclera clear Neck: normal jugular venous pulse, no hepatojugular reflux Chest: normal shape and normal respiratory effort Lungs: clear to auscultation and percussion Cardiac Exam: - regular heart sounds, no murmurs, rubs, or gallops, no jugular venous distention Abdomen: abdomen soft, non-tender, no abnormal masses and no hepatosplenomegaly Extremities: no edema and no cyanosis Neuro:awake, coversant, follows commands, no focal motor deficits Psych: appropriate affect and insight. Results & Data Vital Signs (Past 12 Hours) Vital Signs Temp Pulse Pulse Resp BP BP Pulse Ox 02/15/19 11:15 36.6 C 62 18 138/87 97 02/15/19 09:43 145/88 H 167/102 H 02/15/19 08:00 69 02/15/19 07:54 36.6 C 66 20 164/100 H 179/120 H 96 02/15/19 06:00 36.7 C 68 20 141/88 H 98 02/15/19 03:57 68 02/15/19 03:30 36.6 C 70 18 147/105 H 94 02/15/19 03:07 75 20 164/100 H 96 02/15/19 01:57 73 18 158/94 H 98 02/15/19 00:50 78 18 135/87 90 02/15/19 00:43 68 18 158/102 H 68 L 02/15/19 00:15 66 18 145/91 H 99 Laboratory Results Cardiac Enzymes 02/14/19 02/15/19 02/15/19 Range/Units 22:11 00:24 03:58 AST 58 H (15-37) U/L Troponin I < 0.015 < 0.015 (0-0.045) ng/ml 02/15/19 Range/Units 03:58 AST 52 H (15-37) U/L Troponin I (0-0.045) ng/ml Coagulation 02/15/19 02/15/19 02/15/19 Range/Units 00:24 03:58 03:58 PT 10.9 (9.0-12.0) Seconds APTT 23.1 24.9 Cancelled (21.0-31.0) Seconds Lipids 02/15/19 Range/Units 03:58 Triglycerides 141 (0-150) mg/dl Cholesterol 219 H (0-200) mg/dl HDL Cholesterol 48 mg/dl Cholesterol/HDL Ratio 5 CBC 02/14/19 02/15/19 Range/Units 22:11 03:58 WBC 9.28 9.42 (4.8-10.8) K/uL RBC 4.47 4.62 (4.2-5.4) M/uL Hgb 14.2 14.8 (12.0-16.0) g/dL Hct 41.6 43.2 (37-47) % Plt Count 315 297 (130-400) K/uL Neut # (Auto) 4.96 5.55 (1.4-6.5) K/uL Lymph # (Auto) 3.31 3.00 (1.2-3.4) K/uL [place] # (Auto) 0.63 H 0.56 (0.11-0.59) K/uL Eos # (Auto) 0.32 0.25 (0-0.5) K/uL Baso # (Auto) 0.03 0.04 (0-0.2) K/uL Comprehensive Metabolic Panel 02/14/19 02/15/19 02/15/19 Range/Units 22:11 00:24 03:58 Sodium 142 139 (136-145) mmol/L Potassium 3.8 3.9 (3.5-5.1) mmol/L Chloride 107 106 (98-107) mmol/L Carbon Dioxide 25 26 (21-32) mmol/L BUN 12 11 (7-18) mg/dl Creatinine 0.85 0.89 (0.6-1.2) mg/dl Glucose 158 H 134 H (70-99) mg/dl Calcium 9.4 9.0 (8.5-10.1) mg/dl Direct Bilirubin (0-0.2) mg/dl AST 58 H (15-37) U/L ALT 68 (12-78) U/L Alkaline Phosphatase 82 (45-117) U/L Total Protein 7.4 (6.4-8.2) gm/dl Albumin 3.0 L (3.4-5.0) gm/dl 02/15/19 Range/Units 03:58 Sodium (136-145) mmol/L Potassium (3.5-5.1) mmol/L Chloride (98-107) mmol/L Carbon Dioxide (21-32) mmol/L BUN (7-18) mg/dl Creatinine (0.6-1.2) mg/dl Glucose (70-99) mg/dl Calcium (8.5-10.1) mg/dl Direct Bilirubin 0.1 (0-0.2) mg/dl AST 52 H (15-37) U/L ALT 67 (12-78) U/L Alkaline Phosphatase 84 (45-117) U/L Total Protein 7.6 (6.4-8.2) gm/dl Albumin 3.2 L (3.4-5.0) gm/dl Intake and Output 02/14/19 02/15/19 02/15/19 22:59 06:59 14:59 Output Total 200 / 200 Balance -200 / -200 Output: Urine 200 / 200 Other: Weight 84 kg 83.2 kg Diagnostic Findings Echocardiogram revealed normal resting wall motion, no significant left ventricular hypertrophy, no significant valvular heart disease. CT of the brain without acute intracranial process CT of the chest: No thoracic aortic dissection, no pulmonary embolism, radiology report raises concern for airspace opacities bronchiectasis. Medications Administered Current Inpatient Medications Acetaminophen (Tylenol) 650 mg PO Q4H PRN PRN Reason: Pain or Fever Stop: 03/17/19 03:38 Last Admin: 02/15/19 04:10 Dose: 650 mg Documented by: Amlodipine Besylate (Norvasc) 5 mg PO DAILY [facility] Stop: 03/17/19 08:59 Last Admin: 02/15/19 08:16 Dose: 5 mg Documented by: Aspirin (Ecotrin Ectab) 81 mg PO QAM [facility] Stop: 03/17/19 08:59 Last Admin: 02/15/19 08:16 Dose: 81 mg Documented by: Atorvastatin Calcium (Lipitor) 40 mg PO HS [facility] Stop: 03/17/19 20:59 Bimatoprost (Lumigan 0.01%) 1 drops OPB HS [facility] Stop: 03/17/19 20:59 Dextrose (Dextrose 50%) 25 - 50 ml IV UD PRN; Protocol PRN Reason: Hypoglycemia Protocol Stop: 03/17/19 03:38 Enoxaparin Sodium (Lovenox) 40 mg SQ QAM [facility] Stop: 03/17/19 08:59 Last Admin: 02/15/19 10:26 Dose: 40 mg Documented by: Folic Acid (Folvite) 1 mg PO DAILY [facility] Stop: 03/17/19 08:59 Last Admin: 02/15/19 08:16 Dose: 1 mg Documented by: Glucagon (Glucagen) 1 mg SQ UD PRN; Protocol PRN Reason: Hypoglycemia Protocol Stop: 03/17/19 03:38 Glucose (Glucose 40%) 15 - 30 gm PO UD PRN; Protocol PRN Reason: Hypoglycemia Protocol Stop: 03/17/19 03:38 Glucose (Dex4 Glucose) 4 - 8 tabs PO UD PRN; Protocol PRN Reason: Hypoglycemia Protocol Stop: 03/17/19 03:38 Promethazine HCl 12.5 mg/ (Sodium Chloride) 50.5 mls @ 202 mls/hr IV Q6H PRN PRN Reason: Nausea And Vomiting Stop: 03/17/19 00:32 Lactated Ringer's (Lr) 1,000 mls @ 40 mls/hr IV .Q24H [facility] Stop: 03/17/19 01:14 Last Admin: 02/15/19 02:08 Dose: 40 mls/hr Documented by: Lorazepam (Ativan) 0.25 mg in 0.5 mls @ 0.5 mls/min IV Q4H PRN PRN Reason: Anxiety Stop: 03/17/19 03:38 Insulin Aspart (Novolog Flexpen) 0 units SC ACHS [facility] Stop: 03/17/19 03:38 Last Admin: 02/15/19 07:49 Dose: Not Given Documented by: Levothyroxine Sodium (Synthroid) 112 mcg PO DAILYBB [facility] Stop: 03/17/19 06:29 Last Admin: 02/15/19 05:59 Dose: 112 mcg Documented by: Losartan Potassium (Cozaar) 50 mg PO BID [facility] Stop: 03/17/19 11:29 Miscellaneous (Order Awaiting Action) 1 ea N/A QS [facility] Stop: 03/17/19 07:59 Last Admin: 02/15/19 08:17 Dose: Not Given Documented by: Miscellaneous (Carbohydrates For Hypoglycemia) 15 - 30 gm PO UD PRN PRN Reason: Hypoglycemia Treatment Stop: 03/17/19 03:38 Montelukast Sodium (Singulair) 10 mg PO PM [facility] Stop: 03/17/19 20:59 Morphine Sulfate (Morphine Sulfate) 4 mg IV Q4H PRN PRN Reason: Pain Stop: 03/01/19 01:32 Multivitamins (Multivitamin Tab) 1 tab PO DAILY [facility] Stop: 03/17/19 08:59 Last Admin: 02/15/19 08:16 Dose: 1 tab Documented by: Nitroglycerin (Nitrostat) 0.4 mg SL UD PRN PRN Reason: Chest Pain Stop: 03/17/19 03:38 Oxycodone HCl (Roxicodone Immediate Rel) 5 mg PO Q4 PRN PRN Reason: Pain Stop: 03/01/19 03:38 Last Admin: 02/15/19 08:19 Dose: 5 mg Documented by: Prednisone (Prednisone) 3 mg PO DAILY [facility] Stop: 03/17/19 08:59 Last Admin: 02/15/19 08:16 Dose: 3 mg Documented by: Timolol Maleate (Timoptic 0.25% Oph) 1 drops OPL BID [facility] Stop: 03/17/19 08:59 Last Admin: 02/15/19 08:17 Dose: 1 drops Documented by: (1) Hypertension Hypertension type: unspecified Qualified Code(s): I10 - Essential (primary) hypertension
[2019-02-15] MEDS: LOSARTAN POTASSIUM 50 MG TAB PO SCH ×2 (12:05→20:33)
--- NOTE | 2019-02-15 14:01 | Ultrasound Report ---
US duplex renal artery CLINICAL HISTORY: hypertension COMPARISON STUDY: None. FINDINGS: The right kidney measures 10.5 cm and the left kidney measures 10.4 cm. Peak systolic veloc ities within the right renal artery is 99 cm/s in the left renal artery is 79 cm/s. A few small galls tones are noted. Resistive indices within the bilateral renal arcuate arteries are less than 0.7. The bilateral renal veins are patent. IMPRESSION: 1. No evidence for renal artery stenosis. 2. Cholelithiasis. Electronically signed by: Manny Hutchins M.D. 02/15/2019 2:00 PM
--- NOTE | 2019-02-15 15:02 | Communication Note ---
Date of Service: February 15, [address] scan of the chest were reviewed with radiology. Test is insufficient to exclude upper extremity peripheral arterial disease. The blood pressure taken noninvasively in the right arm is 20 mmHg higher than that taken in the left upper arm. We will proceed with bilateral upper extremity arterial duplex studies to exclude PAD.
--- NOTE | 2019-02-15 16:19 | Ultrasound Report ---
US carotid doppler BI CLINICAL HISTORY: 63 years-old Female presenting with syncope, nausea and vomiting, subclavian diseas e suspected due to asymmetric pressures, BP 20 mm Hg higher in right arm. TECHNIQUE: Real-time grayscale and color and spectral Doppler ultrasound imaging of the bilateral car otid arteries was performed. Stenosis measurements were based on NASCET-like criteria (distal lumen d iameter as the denominator for stenosis measurement). COMPARISON: None. FINDINGS: RIGHT: Common carotid artery (CCA): Patent. Peak systolic velocity (PSV) 70 cm/s. Internal carotid artery (ICA): Patent. PSV 52 cm/s. End diastolic velocity (EDV) 19 cm/s. ICA/CCA (systolic) ratio: 0.7. External carotid artery (ECA): Patent. PSV 46 cm/s. Subclavian artery: Patent. PSV 75 cm/s. LEFT: CCA: Atherosclerosis at the carotid bulb. PSV 81 cm/s. ICA: Atherosclerosis of the proximal ICA. PSV 50 cm/s. EDV 19 cm/s. ICA/CCA (systolic) ratio: 0.6. ECA: Patent. PSV 72 cm/s. Subclavian artery: Patent. 88 cm/s. Bilateral antegrade flow within the vertebral arteries. Blood pressure: Brachial: Right: 163/101 mmHg, Left: 161/83 mmHg. Reference ranges: Stenosis measurements are compared to reference velocity parameters by the Society of Radiologists in Ultrasound (SRU) consensus and Sonographic NASCET index (S-NASCET). * SRU Primary parameters: ICA PSV <125 cm/s = normal or less than 50% stenosis; ICA PSV 125-230 cm/s = 50-69% stenosis; ICA PSV >230 cm/s = greater than or equal to 70% stenosis. * SRU Additional parameters: ICA/CCA PSV ratio <2 = normal or less than 50% stenosis; ratio 2-4 = 5 0-69% stenosis; ratio >4 = greater than or equal to 70% stenosis. ICA EDV <40 cm/s = normal or less t fletcher 50% stenosis; ICA EDV 40-100 cm/s = 50-69% stenosis; ICA EDV >100 cm/s = greater than or equal to 70% stenosis. * S-NASCET parameters: Deceleration spectral broadening + PSV <125 cm/s = less than 50% stenosis; pa nsystolic spectral broadening + PSV <125 cm/s = 16-49% stenosis; pansystolic spectral broadening + PS V >125 cm/s + EDV <110 cm/s or ICA/CCA PSV ratio 2-4 = 50-69% stenosis; pansystolic spectral broadeni ng + PSV >270 cm/s OR EDV >110 cm/s OR ICA/CCA PSV ratio >4 = 70-79% stenosis; EDV >140 cm/s = 80-99% stenosis. IMPRESSION: 1. No hemodynamically significant stenosis seen within the carotid arteries. 2. Systemic hypertension. 3. Asymmetric right upper extremity diastolic hypertension. Electronically signed by: Rahul Newton M.D. 02/15/2019 4:17 PM
[2019-02-15] MEDS: MONTELUKAST SODIUM 10 MG TABLET PO SCH (20:33)
[2019-02-15] MEDS: ATORVASTATIN 40 MG TAB PO SCH (20:33)
[2019-02-15] MEDS: BIMATOPROST 0.01% OP SOLN 2.5 ML BTL OPB SCH (20:34)
[2019-02-15] MEDS ORDERED: ATORVASTATIN 20 MG TAB PO SCH (21:00)
[2019-02-15] MEDS ORDERED: SIMBRINZA~NON-FORMULARY PATIENT'S OWN MED OPL SCH (21:00)
[2019-02-15] MEDS: SIMBRINZA~NON-FORMULARY PATIENT'S OWN MED OPL SCH (21:03)
--- NOTE | 2019-02-15 21:49 | Hospitalist Progress Note ---
Date of Service February 15, 2019 Assessment & Plan (1) Chest pain: Patient presented with chest pain. Serum troponins negative x2. Cardiology consulted. Echocardiogram demonstrated normal left ventricular wall motion and systolic function. Further evaluation per Cardiology. (2) Hypertension: Blood pressures as high as 190/119. Blood pressures in right upper extremity noted to be about 20 mm higher than the left upper extremity. No apparent renal vascular disease on renal arterial duplex. Serum aldosterone and plasma renin activity ordered, results pending. Continue amlodipine 5 mg daily. Losartan dose increased to 50 mg BID. Follow and titrate therapy. (3) Asthma: Pulmonary status stable. (4) Diabetes mellitus type 2, controlled: Diabetes type 2 managed with metformin. Recent hemoglobin A1c in clinic was 6.9 in December. Hold metformin during hospital stay. Fasting blood sugar this morning = 121. Insulin coverage as necessary. (5) Dyslipidemia: LDL-C 143. Continue atorvastatin; consider increasing dose, depending on findings from cardiovascular evaluation. (6) Hypothyroidism: Continue levothyroxine. (7) Rheumatoid arthritis: Continue prednisone. (8) DVT prophylaxis: SQ enoxaparin. Ambulate. (9) Discharge planning issues: Anticipated discharge to home. Internal Medicine follow-up with Dr. Patricia Doran. Subjective Recheck for chest pain and elevated blood pressures. Patient seen in their room around 17:45. Her was visiting. Feels better. No further chest pain. No shortness of breath. Review of Systems: Constitutional- no fever. Cardiac- as noted above. Pulmonary- no cough or SOB. GI- no nausea, vomiting, diarrhea, melena, hematochezia. - no urinary symptoms. Otherwise, as noted above. Physical Exam Constitutional: no acute distress Respiratory: no respiratory distress Auscultation: lungs clear to auscultation bilaterally Cardiovascular: Rate/Rhythm: regular rate and regular rhythm Heart Sounds: no gallop, no murmur and no cardiac rub Vessels: no JVD Extremities: no calf tenderness and no edema Gastrointestinal (Abdomen): normal bowel sounds, soft, nontender, no hepatosplenomegaly Skin: no rashes, warm and dry Psychiatric: Orientation: alert and oriented x 3 Results & Data Vital Signs (Past 12 Hours) Vital Signs Temp Pulse Resp BP BP Pulse Ox 02/15/19 19:38 36.3 C L 68 20 132/77 97 02/15/19 17:27 141/87 H 120/81 02/15/19 15:19 36.3 C L 71 18 145/91 H 93 02/15/19 11:15 36.6 C 62 18 138/87 97 Laboratory Results Troponin less than 0.015 ECG Additional Comments: EKG performed at 08: 5 4 reviewed and demonstrated normal sinus rhythm at 66/mi nute, some baseline artifact, low T wave amplitude in aVL, V5-V6. (1) Hypertension Hypertension type: unspecified Qualified Code(s): I10 - Essential (primary) hypertension
[2019-02-16] MEDS: OXYCODONE HCL IR 5 MG TAB (IMMEDIATE RELEASE) PO PRN ×2 (05:45→22:09)
[2019-02-16] MEDS: LEVOTHYROXINE SODIUM 112 MCG TABLET PO SCH (05:45)
[2019-02-16 07:22] LABS: Basophils # (auto) 0.04 K/uL (0-0.2); Basophils % (auto) 0.5 %; Eosinophils # (auto) 0.27 K/uL (0-0.5); Eosinophils % (auto) 3.1 %; Hematocrit (blood only) 41.3 % (37-47); Hemoglobin 13.8 g/dL (12.0-16.0); Immature Granulocytes # (auto) 0.01 K/uL (0.00-0.02); Immature Granulocytes % (auto) 0.1 %; Lymphocytes # (auto) 3.59 K/uL (1.2-3.4); Mean Corpuscular Hgb Conc 33.4 g/dL (32-36); Mean Corpuscular Volume 94.7 fL (80-100); Monocytes # (auto) 0.62 K/uL (0.11-0.59); Monocytes % (auto) 7.1 %; Neutrophils # (auto) 4.22 K/uL (1.4-6.5); Neutrophils % (auto) 48.2 %; Platelet Count 319 K/uL (130-400); RDW Coefficient of Variation 12.6 % (11.5-14.5); RDW Standard Deviation 43.5 fL (36.4-46.3); Red Blood Count 4.36 M/uL (4.2-5.4); White Blood Count 8.75 K/uL (4.8-10.8)
[2019-02-16] MEDS: INSULIN ASPART 100 UNITS/ML 3 ML PEN SC SCH ×4 (08:15→22:10)
[2019-02-16] MEDS: ENOXAPARIN INJ 40 MG/0.4 ML SYR SQ SCH (11:20)
[2019-02-16] MEDS: SIMBRINZA~NON-FORMULARY PATIENT'S OWN MED OPL SCH ×2 (11:21→22:04)
[2019-02-16] MEDS: predniSONE 1 MG TAB PO SCH (11:21)
[2019-02-16] MEDS: FOLIC ACID 1 MG TAB PO SCH (11:21)
[2019-02-16] MEDS: MULTIVITAMIN TAB PO SCH (11:21)
[2019-02-16] MEDS: ASPIRIN 81 MG ECTAB PO SCH (11:21)
[2019-02-16] MEDS: AMLODIPINE BESYLATE 5 MG TAB PO SCH (11:21)
[2019-02-16] MEDS: TIMOLOL MALEATE 0.25% OP SOLN 5 ML BTL OPL SCH ×2 (11:22→22:04)
[2019-02-16] MEDS: LOSARTAN POTASSIUM 50 MG TAB PO SCH ×2 (11:22→22:02)
--- NOTE | 2019-02-16 14:20 | Cardiology Progress Note ---
Date of Service February 16, 2019 Assessment & Plan (1) Chest pain: Patient's chest pain is atypical for angina, cardiac enzymes negative. She underwent an exercise stress echocardiogram and achieved a below average workload of just barely over 3 minutes on a Clarke protocol. The EKG and post exercise wall motion were grossly normal. I counseled the patient that there was no focal abnormality in the test, I would consider it somewhat equivocal as due to her exercise capacity, the sensitivity the test is reduced. We discussed her significant underlying coronary heart risk factors including diabetes, hypertension, dyslipidemia, rheumatoid arthritis, and her ethnicity. Although her symptoms are atypical, I believe her pretest probability for underlying coronary heart disease is high, I think she would be best served by proceeding with invasive coronary angiography to definitively rule in or rule out obstructive CAD. Had a long conversation with the patient, the patient's , as well as her 2 children who are both physicians. I also discussed things per her request with her primary care provider Dr. Doran. Patient is agreeable to proceeding with cardiac catheterization which is to be performed by Dr. Ansari of interventional cardiology. (2) Hypertension: Blood pressure improved with current treatment plan of losartan, amlodipine. (3) Dyslipidemia: Continue atorvastatin. Subjective Chief complaint: Follow-up chest pain, hypertension Subjective: Patient seen prior to, during, and post exercise stress echocardiogram this morning. This morning at breakfast while sitting in bed, she had a recurrent brief episode of left-sided chest discomfort that radiated down her left shoulder and arm. This resolved without intervention. She went on to have a light breakfast. She then underwent exercise stress echocardiogram as delineated below. Review of Systems Review of Systems: All systems reviewed & are unremarkable except as noted in HPI & below Physical Exam Physical Exam: General: no acute distress and stated age Eyes: conjunctiva are pink and non-injected, sclera clear Neck: normal jugular venous pulse, no hepatojugular reflux Chest: normal shape and normal respiratory effort Lungs: clear to auscultation and percussion Cardiac Exam: - regular heart sounds, no murmurs, rubs, or gallops, no jugular venous distention Abdomen: abdomen soft, non-tender, no abnormal masses and no hepatosplenomegaly Extremities: no edema and no cyanosis Neuro:awake, coversant, follows commands, no focal motor deficits Psych: appropriate affect and insight. Results & Data Vital Signs (Past 12 Hours) Vital Signs Temp Pulse Resp BP BP Pulse Ox 02/16/19 11:26 36.9 C 74 18 129/87 95 02/16/19 03:17 36.5 C 73 18 119/79 131/87 97 Laboratory Results CBC 02/16/19 Range/Units 06:52 WBC 8.75 (4.8-10.8) K/uL RBC 4.36 (4.2-5.4) M/uL Hgb 13.8 (12.0-16.0) g/dL Hct 41.3 (37-47) % Plt Count 319 (130-400) K/uL Neut # (Auto) 4.22 (1.4-6.5) K/uL Lymph # (Auto) 3.59 H (1.2-3.4) K/uL [place] # (Auto) 0.62 H (0.11-0.59) K/uL Eos # (Auto) 0.27 (0-0.5) K/uL Baso # (Auto) 0.04 (0-0.2) K/uL Intake and Output 02/15/19 02/16/19 02/16/19 22:59 06:59 14:59 Intake Total 840 / 960 120 / 960 200 / 200 Output Total 200 / 750 350 / 750 Balance 640 / 210 -230 / 210 200 / 200 Intake: IV 520 / 520 Lr 1,000 ml @ 40 mls/hr IV . 520 / 520 Q24H [facility] Rx#:[id number] Oral 320 / 440 120 / 440 200 / 200 Output: Urine 200 / 750 350 / 750 Other: # Unmeasured Voids 2 Weight 83.2 kg 82.6 kg Medications Administered Current Inpatient Medications Acetaminophen (Tylenol) 650 mg PO Q4H PRN PRN Reason: Pain or Fever Stop: 03/17/19 03:38 Last Admin: 02/15/19 23:31 Dose: 650 mg Documented by: Amlodipine Besylate (Norvasc) 5 mg PO DAILY [facility] Stop: 03/17/19 08:59 Last Admin: 02/16/19 11:21 Dose: 5 mg Documented by: Aspirin (Ecotrin Ectab) 81 mg PO QAM [facility] Stop: 03/17/19 08:59 Last Admin: 02/16/19 11:21 Dose: 81 mg Documented by: Atorvastatin Calcium (Lipitor) 40 mg PO HS [facility] Stop: 03/17/19 20:59 Last Admin: 02/15/19 20:33 Dose: 40 mg Documented by: Bimatoprost (Lumigan 0.01%) 1 drops OPB HS [facility] Stop: 03/17/19 20:59 Last Admin: 02/15/19 20:34 Dose: 1 drops Documented by: Dextrose (Dextrose 50%) 25 - 50 ml IV UD PRN; Protocol PRN Reason: Hypoglycemia Protocol Stop: 03/17/19 03:38 Enoxaparin Sodium (Lovenox) 40 mg SQ QAM [facility] Stop: 03/17/19 08:59 Last Admin: 02/16/19 11:20 Dose: 40 mg Documented by: Folic Acid (Folvite) 1 mg PO DAILY [facility] Stop: 03/17/19 08:59 Last Admin: 02/16/19 11:21 Dose: 1 mg Documented by: Glucagon (Glucagen) 1 mg SQ UD PRN; Protocol PRN Reason: Hypoglycemia Protocol Stop: 03/17/19 03:38 Glucose (Glucose 40%) 15 - 30 gm PO UD PRN; Protocol PRN Reason: Hypoglycemia Protocol Stop: 03/17/19 03:38 Glucose (Dex4 Glucose) 4 - 8 tabs PO UD PRN; Protocol PRN Reason: Hypoglycemia Protocol Stop: 03/17/19 03:38 Promethazine HCl 12.5 mg/ (Sodium Chloride) 50.5 mls @ 202 mls/hr IV Q6H PRN PRN Reason: Nausea And Vomiting Stop: 03/17/19 00:32 Lorazepam (Ativan) 0.25 mg in 0.5 mls @ 0.5 mls/min IV Q4H PRN PRN Reason: Anxiety Stop: 03/17/19 03:38 Insulin Aspart (Novolog Flexpen) 0 units SC ACHS [facility] Stop: 03/17/19 03:38 Last Admin: 02/16/19 11:36 Dose: Not Given Documented by: Levothyroxine Sodium (Synthroid) 112 mcg PO DAILYBB [facility] Stop: 03/17/19 06:29 Last Admin: 02/16/19 05:45 Dose: 112 mcg Documented by: Losartan Potassium (Cozaar) 50 mg PO BID [facility] Stop: 03/17/19 11:29 Last Admin: 02/16/19 11:22 Dose: 50 mg Documented by: Miscellaneous (Carbohydrates For Hypoglycemia) 15 - 30 gm PO UD PRN PRN Reason: Hypoglycemia Treatment Stop: 03/17/19 03:38 Montelukast Sodium (Singulair) 10 mg PO PM [facility] Stop: 03/17/19 20:59 Last Admin: 02/15/19 20:33 Dose: 10 mg Documented by: Morphine Sulfate (Morphine Sulfate) 4 mg IV Q4H PRN PRN Reason: Pain Stop: 03/01/19 01:32 Multivitamins (Multivitamin Tab) 1 tab PO DAILY [facility] Stop: 03/17/19 08:59 Last Admin: 02/16/19 11:21 Dose: 1 tab Documented by: Nitroglycerin (Nitrostat) 0.4 mg SL UD PRN PRN Reason: Chest Pain Stop: 03/17/19 03:38 Simbrinza~Non- Formulary Patient's Own Med 1 ea OPL BID [facility] Stop: 03/17/19 20:59 Last Admin: 02/16/19 11:21 Dose: 1 drops Documented by: Oxycodone HCl (Roxicodone Immediate Rel) 5 mg PO Q4 PRN PRN Reason: Pain Stop: 03/01/19 03:38 Last Admin: 02/16/19 05:45 Dose: 5 mg Documented by: Prednisone (Prednisone) 3 mg PO DAILY [facility] Stop: 03/17/19 08:59 Last Admin: 02/16/19 11:21 Dose: 3 mg Documented by: Timolol Maleate (Timoptic 0.25% Oph) 1 drops OPL BID [facility] Stop: 03/17/19 08:59 Last Admin: 02/16/19 11:22 Dose: 1 drops Documented by: (1) Hypertension Hypertension type: unspecified Qualified Code(s): I10 - Essential (primary) hypertension
[2019-02-16] MEDS ORDERED: MIDAZOLAM HCL 1 MG/ML 2ML VIAL ONE (14:29)
[2019-02-16] MEDS ORDERED: fentaNYL citrate 100 MCG/2 ML VIAL ONE (14:29)
[2019-02-16] MEDS ORDERED: NiCARDipine HCL INJ 2.5 MG/ML 10 ML AMP ONE (14:29)
[2019-02-16] MEDS ORDERED: HEPARIN (PORCINE) 1000 UNIT/ML 10 ML (CATH LAB USE ONLY) ONE (14:29)
[2019-02-16] MEDS ORDERED: NITROGLYCERIN/D5W 100MCG/ML 20ML SYR ONE (14:30)
--- NOTE | 2019-02-16 15:10 | Pre Anesthesia Assessment ---
Date of Service February 16, 2019 Pre Sedation Assessment Vital Signs Temp Pulse Pulse Resp BP BP Pulse Ox 02/16/19 11:26 36.9 C 74 18 129/87 95 02/16/19 03:17 36.5 C 73 18 119/79 131/87 97 02/15/19 23:25 36.7 C 65 18 143/88 H 136/85 98 02/15/19 22:50 65 02/15/19 19:38 36.3 C L 68 20 132/77 97 02/15/19 17:27 141/87 H 120/81 02/15/19 15:19 36.3 C L 71 18 145/91 H 93 Cardiovascular RRR, no murmur, no edema Respiratory normal respiratory effort, lungs clear to auscultation Pre-Sedation Airway Assessment Smoking Status: Never smoker Hx Sleep Apnea: No Hx Difficult Intubation: No Short, Thick Neck: No Thyromental Distance: > or= 3.5 Finger Breadths Oral Cavity: + WNL Mallampati Class: III Procedure Planning Contraindications for Sedation: none Current Medications Reviewed: Yes Notes The planned sedation has been discussed with the patient. Informed Consent was obtained. I have identified the patient, determined the appropriateness of sedation and have assessed the patient immediately prior to the procedure. All medicine(s) and interventions are by my order.
--- NOTE | 2019-02-16 16:01 | Cardiac Catheterization ---
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 Essentially normal coronary arteries 2. Normal intracardiac filling pressure Recommendations: Continued ASCVD risk factor modification and evaluation for noncardiac causes of chest pain. 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
--- NOTE | 2019-02-16 16:01 | Post Anesthesia Assessment ---
Date of Service February 16, 2019 Post Sedation Assessment Vital Signs Temp Pulse Pulse Resp BP BP Pulse Ox 02/16/19 11:26 36.9 C 74 18 129/87 95 02/16/19 03:17 36.5 C 73 18 119/79 131/87 97 02/15/19 23:25 36.7 C 65 18 143/88 H 136/85 98 02/15/19 22:50 65 02/15/19 19:38 36.3 C L 68 20 132/77 97 02/15/19 17:27 141/87 H 120/81 Recovery Score Activity: Moves 4 extremities Respiration: Deep Breath/Cough Circulation: +/-20% PreAnes Value Consciousness: Fully Awake Oxygen Saturation: O2 needed for >90% Discharge Sedation Level of Care: Fast Track Phase II Post Sedation Plan On clinical assessment, the patient appears to have tolerated the sedation without complications. Patient is recovering as anticipated. Patient will continue to be monitored by nursing and may be discharged when sedation discharge criteria are met per below protocol. Upon Completions of procedure and additional 15 minutes continue every 5 minute vital signs and the P.A.R. score; then discharge to a Phase I or Fast Track to Phase II per the following guidelines: * Discharge Patient to appropriate Phase II area if PAR is 8 or greater or return to pre- procedure baseline. The post - procedure orders will be as directed. * If PAR score is less than 8 or not return to pre-procedure baseline then patient will follow Phase I monitoring till PAR is reached for Phase II. The Phase I may be done in procedure room or may call to secure a Phase I area. * If naloxone or flumazenil are used for reversal, hold in Phase I for continued monitoring from when last reversal dose was given for a minimum of 60 minutes or longer pending the nurse and/or physician discretion of patient condition before discharge to Phase II. Please call the Sedation Physician to re-evaluate and complete post-note for discharge to Phase II area. Do NOT discharge from procedure sedation or Phase 1 until post- sedation evaluation note is complete by procedure /sedation MD Sedation Discharge Instructions to be given to the patient at discharge to home.
[2019-02-16] MEDS: SODIUM CHLORIDE 0.9% 1000ML 1,000 ML IV SCH (16:15)
--- NOTE | 2019-02-16 18:28 | Communication Note ---
Date of Service: February 16, 2019 Patient reassessed post cardiac catheterization. Coronary angiography revealed mild luminal irregularities, no obstructive CAD to explain her chest pain symptoms. She tolerated the procedure well and is resting comfortably in bed. She feels exhausted, and would like to remain in the hospital overnight for recovery and for further optimization of her blood pressure. I have ordered a diet for her, and normal saline solution, 80 mL's per hour, x1 L.
--- NOTE | 2019-02-16 21:35 | Hospitalist Progress Note ---
Date of Service February 16, 2019 Assessment & Plan (1) Chest pain: Patient presented with chest pain. Serum troponins negative x2. Cardiology consulted. Echocardiogram demonstrated normal left ventricular wall motion and systolic function. Exercise stress echocardiogram did not show any evidence of stress-induced ischemia, but adequate workload was not achieved. Cardiac catheterization showed essentially normal coronaries. Ongoing risk factor reduction. (2) Hypertension: Blood pressures as high as 190/119. Blood pressures in right upper extremity noted to be about 20 mm higher than the left upper extremity. No apparent renal vascular disease on renal arterial duplex. Serum aldosterone and plasma renin activity ordered, results pending. Continue amlodipine 5 mg daily. Losartan dose increased to 50 mg BID. Follow and titrate therapy. BP's should be followed in RUE. (3) Asthma: Pulmonary status stable. (4) Diabetes mellitus type 2, controlled: Diabetes type 2 managed with metformin. Recent hemoglobin A1c in clinic was 6.9 in December. Hold metformin during hospital stay. Fasting blood sugar this morning = 130. Insulin coverage as necessary. (5) Dyslipidemia: LDL-C 143. Atorvastatin dose increased to 40 mg daily. (6) Hypothyroidism: Continue levothyroxine. (7) Rheumatoid arthritis: Continue prednisone. (8) DVT prophylaxis: SQ enoxaparin. Ambulate. (9) Discharge planning issues: Anticipated discharge to home. Internal Medicine follow-up with Dr. Patricia Doran. Subjective Recheck for chest pain and elevated blood pressures. Patient seen in their room around 20:00. visiting. Stress echocardiogram performed earlier today; there was no apparent stress-induced ischemia, but target heart rate was not achieved. Cardiac catheterization recommended and patient agreed. Procedure was performed by Dr. Ansari using a right radial approach. There was no significant coronary disease. Tired after events of the day. No further chest pain. No shortness of breath. Review of Systems: Constitutional- no fever. Cardiac- as noted above. Pulmonary- no cough or SOB. GI- no nausea, vomiting Otherwise, as noted above. Physical Exam Constitutional: no acute distress Respiratory: no respiratory distress Auscultation: lungs clear to auscultation bilaterally Cardiovascular: Rate/Rhythm: regular rate and regular rhythm Heart Sounds: no gallop, no murmur and no cardiac rub Vessels: no JVD Extremities: no calf tenderness and no edema Gastrointestinal (Abdomen): normal bowel sounds, soft, nontender, no hepato splenomegaly Musculoskeletal: Extremities: extremities normal to inspection (compression band right wrist; no hematoma) Skin: no rashes, warm and dry Psychiatric: Orientation: alert and oriented x 3 Results & Data Vital Signs (Past 12 Hours) Vital Signs Temp Pulse Resp BP Pulse Ox 02/16/19 20:07 36.4 C L 72 18 128/82 95 02/16/19 19:38 36.4 C L 73 16 134/75 95 02/16/19 19:37 36.4 C L 73 16 134/75 95 02/16/19 18:38 84 140/84 02/16/19 18:25 81 143/84 H 02/16/19 18:23 77 133/85 02/16/19 17:16 68 H 129/85 02/16/19 17:01 67 124/83 02/16/19 16:46 69 138/90 02/16/19 16:30 76 145/93 H 96 02/16/19 16:15 36.9 C 69 16 139/86 94 02/16/19 11:26 36.9 C 74 18 129/87 95 Laboratory Results Laboratory Results - last 24 hr 02/16/19 02/16/19 02/16/19 06:52 07:28 11:24 WBC 8.75 RBC 4.36 Hgb 13.8 Hct 41.3 MCV 94.7 MCH 31.7 MCHC 33.4 RDW Std Deviation 43.5 RDW Coeff of [place] 12.6 Plt Count 319 MPV 10.0 Immature Gran % (Auto) 0.1 Neut % (Auto) 48.2 Lymph % (Auto) 41.0 [place] % (Auto) 7.1 Eos % (Auto) 3.1 Baso % (Auto) 0.5 Immature Gran # (Auto) 0.01 Neut # (Auto) 4.22 Lymph # (Auto) 3.59 H [place] # (Auto) 0.62 H Eos # (Auto) 0.27 Baso # (Auto) 0.04 POC Glucose 130 H 134 H 02/16/19 02/16/19 16:14 20:14 WBC RBC Hgb Hct MCV MCH MCHC RDW Std Deviation RDW Coeff of [place] Plt Count MPV Immature Gran % (Auto) Neut % (Auto) Lymph % (Auto) [place] % (Auto) Eos % (Auto) Baso % (Auto) Immature Gran # (Auto) Neut # (Auto) Lymph # (Auto) [place] # (Auto) Eos # (Auto) Baso # (Auto) POC Glucose 129 H 146 H (1) Hypertension Hypertension type: unspecified Qualified Code(s): I10 - Essential (primary) hypertension
[2019-02-16] MEDS: ATORVASTATIN 40 MG TAB PO SCH (22:03)
[2019-02-16] MEDS: BIMATOPROST 0.01% OP SOLN 2.5 ML BTL OPB SCH (22:03)
[2019-02-16] MEDS: MONTELUKAST SODIUM 10 MG TABLET PO SCH (22:05)
[2019-02-17] MEDS: SODIUM CHLORIDE 0.9% 1000ML 1,000 ML IV SCH (05:53)
[2019-02-17] MEDS: LEVOTHYROXINE SODIUM 112 MCG TABLET PO SCH (06:11)
[2019-02-17] MEDS: OXYCODONE HCL IR 5 MG TAB (IMMEDIATE RELEASE) PO PRN (06:11)
[2019-02-17] MEDS: FOLIC ACID 1 MG TAB PO SCH (07:57)
[2019-02-17] MEDS: predniSONE 1 MG TAB PO SCH (07:58)
[2019-02-17] MEDS: MULTIVITAMIN TAB PO SCH (07:59)
[2019-02-17] MEDS: ASPIRIN 81 MG ECTAB PO SCH (07:59)
[2019-02-17] MEDS: AMLODIPINE BESYLATE 5 MG TAB PO SCH (07:59)
[2019-02-17] MEDS: LOSARTAN POTASSIUM 50 MG TAB PO SCH (07:59)
[2019-02-17] MEDS: ENOXAPARIN INJ 40 MG/0.4 ML SYR SQ SCH (08:00)
[2019-02-17] MEDS: TIMOLOL MALEATE 0.25% OP SOLN 5 ML BTL OPL SCH (08:01)
[2019-02-17] MEDS: INSULIN ASPART 100 UNITS/ML 3 ML PEN SC SCH ×2 (08:02→12:17)
[2019-02-17] MEDS ORDERED: FAMOTIDINE 20 MG TAB PO SCH (09:00)
[2019-02-17] MEDS: SIMBRINZA~NON-FORMULARY PATIENT'S OWN MED OPL SCH (09:14)
[2019-02-17 10:08] LABS: BUN Creatinine Ratio 9.6 (10-20); Calcium 8.6 mg/dl (8.5-10.1); Creatinine Clr Calc Pharmacy 66.4 ml/min; Est GFR (African American) 76.8; Est GFR (Non-African American) 66.3; Potassium 3.4 mmol/L (3.5-5.1)
[2019-02-17] MEDS ORDERED: POTASSIUM CHLORIDE 20 MEQ TABCR PO STA (11:21)
--- NOTE | 2019-02-17 11:35 | Cardiology Progress Note ---
Date of Service February 17, 2019 Assessment & Plan (1) Hypertension: Continue current medication program including amlodipine 5 mg daily, losartan 50 mg twice daily (can be transitioned to 100 mg daily as an outpatient after she is out of her 50 mg tablets for ease of administration). -Future considerations include adding a potassium sparing diuretic such as spironolactone as her potassium is typically on the lower end. Follow-up renin aldosterone level as an outpatient. Not back yet. (2) Unequal blood pressure in upper extremities: No evidence of obstructive left subclavian stenosis. Her blood pressure in the right upper extremity in the right arm has for the most part persistently been 20 points higher. On recent vital signs, they have been relatively similar. CT angiogram excluded thoracic aortic pathology, no significant subclavian stenosis noted by a carotid duplex evaluation of the subclavian's. -After right radial artery cardiac catheterization site he has couple would preferentially use the right upper arm for blood pressures so that we are not underestimating her blood pressure. -She has no symptoms of symptomatic subclavian disease. (3) Chest pain: Symptoms were atypical for angina however the patient had significant underlying risk factors noted including age, diabetes, hypertension, dyslipidemia, and rheumatoid arthritis is a chronic inflammatory condition. A stress echocardiogram was negative at a low level of exercise it was felt that the sensitivity for detecting ischemia was therefore compromised due to the low workload having only achieved 3 minutes on a standard Clarke protocol. She therefore underwent invasive coronary angiography performed 02/16/[address] Elan Wilson -angiographically normal LAD -moderate caliber vessel with luminal irregularities Circumflex -large caliber vessel, angiographically normal RCA -large caliber vessel, dominant, mid segment luminal irregularities -I do not believe her symptoms were due to angina. Continue risk factor modification. -Given very mild CAD, would consider discharge on aspirin 81 mg daily (4) Dyslipidemia: Atorvastatin has been increased from 20 mg daily to 40 mg daily. If she has problems with myalgias, will consider transitioning to rosuvastatin as outpatient. (5) Rheumatoid arthritis: Continue prior to hospital dose of prednisone, continue Orencia, discontinue meloxicam as it may provoke hypertension and increased risk of coronary heart event. -Follow-up with rheumatology at [facility]. -Patient is stable from my perspective for discharge after she receives her potassium supplementation. She would like to follow-up with me regarding hypertension as an outpatient, and appointment will be arranged. Recommend short-term follow-up with PCP, cardiology follow-up with an interval of 4 to 6 weeks. Subjective Chief complaint: Follow-up chest pain Subjective: Patient feeling very well today. She feels well rested. I think the reassurance of having had a normal cardiac catheterization is improved her outlook. Blood pressures have trended toward improvement. Many of these readings however were taken via the left arm as we are trying to spare the right arm given recent radial artery access. Kidney function is stable, potassium is mildly low. Review of Systems Review of Systems: All systems reviewed & are unremarkable except as noted in HPI & below Physical Exam Physical Exam: General: no acute distress and stated age Eyes: conjunctiva are pink and non-injected, sclera clear Neck: normal jugular venous pulse, no hepatojugular reflux Chest: normal shape and normal respiratory effort Lungs: clear to auscultation and percussion Cardiac Exam: - regular heart sounds, no murmurs, rubs, or gallops, no jugular venous distention Abdomen: abdomen soft, non-tender, no abnormal masses and no hepatosplenomegaly Musculoskeletal: no gait disturbance, no weakness Extremities: no edema and no cyanosis -Right radial artery access site, very minimal ecchymosis, no stigmata of peripheral emboli, no hematoma Neuro:awake, coversant, follows commands, no focal motor deficits Psych: appropriate affect and insight. Results & Data Vital Signs (Past 12 Hours) Vital Signs Temp Pulse Pulse Resp BP BP Pulse Ox 02/17/19 11:19 36.6 C 69 18 121/79 94 02/17/19 10:47 36.6 C 78 18 138/88 144/88 H 96 02/17/19 07:03 36.6 C 78 18 138/88 96 02/17/19 07:00 77 02/17/19 04:26 36.7 C 78 16 144/88 H 96 02/17/19 03:00 02/16/19 23:25 36.8 C 78 16 122/81 96 Pulse Ox 02/17/19 11:19 02/17/19 10:47 02/17/19 07:03 02/17/19 07:00 02/17/19 04:26 02/17/19 03:00 97 02/16/19 23:25 Laboratory Results Comprehensive Metabolic Panel 02/17/19 Range/Units 09:19 Sodium 142 (136-145) mmol/L Potassium 3.4 L (3.5-5.1) mmol/L Chloride 109 H (98-107) mmol/L Carbon Dioxide 26 (21-32) mmol/L BUN 9 (7-18) mg/dl Creatinine 0.92 (0.6-1.2) mg/dl Glucose 197 H (70-99) mg/dl Calcium 8.6 (8.5-10.1) mg/dl Intake and Output 02/16/19 02/17/19 02/17/19 22:59 06:59 14:59 Intake Total 560 / 1960 1200 / 1960 169.333 / 169.333 Output Total 425 / 725 300 / 725 Balance 135 / 1235 900 / 1235 169.333 / 169.333 Intake: IV 1000 / 1000 169.333 / 169.333 Nss 1000ML 1,000 ml @ 80 mls/hr 1000 / 1000 169.333 / 169.333 IV .[id number] [facility] Rx#:[id number] Oral 560 / 960 200 / 960 Output: Urine 425 / 725 300 / 725 Other: Weight 82.6 kg Patient Weight 02/18/19 06:59 Weight 82.6 kg Diagnostic Findings Calculated LDL cholesterol this admission was 143 mg/dL Total cholesterol 219 HDL cholesterol 48 Triglyceride level 141 Medications Administered Current Inpatient Medications Acetaminophen (Tylenol) 650 mg PO Q4H PRN PRN Reason: Pain or Fever Stop: 03/17/19 03:38 Last Admin: 02/15/19 23:31 Dose: 650 mg Documented by: Amlodipine Besylate (Norvasc) 5 mg PO DAILY [facility] Stop: 03/17/19 08:59 Last Admin: 02/17/19 07:59 Dose: 5 mg Documented by: Aspirin (Ecotrin Ectab) 81 mg PO QAM [facility] Stop: 03/17/19 08:59 Last Admin: 02/17/19 07:59 Dose: 81 mg Documented by: Atorvastatin Calcium (Lipitor) [address] [facility] Stop: 03/17/19 20:59 Last Admin: 02/16/19 22:03 Dose: 40 mg Documented by: Bimatoprost (Lumigan 0.01%) [address] [facility] Stop: 03/17/19 20:59 Last Admin: 02/16/19 22:03 Dose: 1 drops Documented by: Dextrose (Dextrose 50%) 25 - 50 ml IV UD PRN; Protocol PRN Reason: Hypoglycemia Protocol Stop: 03/17/19 03:38 Enoxaparin Sodium (Lovenox) 40 mg SQ QAM [facility] Stop: 03/17/19 08:59 Last Admin: 02/17/19 08:00 Dose: 40 mg Documented by: Famotidine (Pepcid) 20 mg PO BID [facility] Stop: 03/19/19 08:59 Last Admin: 02/17/19 09:11 Dose: 20 mg Documented by: Folic Acid (Folvite) 1 mg PO DAILY [facility] Stop: 03/17/19 08:59 Last Admin: 02/17/19 07:57 Dose: 1 mg Documented by: Glucagon (Glucagen) 1 mg SQ UD PRN; Protocol PRN Reason: Hypoglycemia Protocol Stop: 03/17/19 03:38 Glucose (Glucose 40%) 15 - 30 gm PO UD PRN; Protocol PRN Reason: Hypoglycemia Protocol Stop: 03/17/19 03:38 Glucose (Dex4 Glucose) 4 - 8 tabs PO UD PRN; Protocol PRN Reason: Hypoglycemia Protocol Stop: 03/17/19 03:38 Promethazine HCl 12.5 mg/ (Sodium Chloride) 50.5 mls @ 202 mls/hr IV Q6H PRN PRN Reason: Nausea And Vomiting Stop: 03/17/19 00:32 Lorazepam (Ativan) 0.25 mg in 0.5 mls @ 0.5 mls/min IV Q4H PRN PRN Reason: Anxiety Stop: 03/17/19 03:38 Insulin Aspart (Novolog Flexpen) 0 units SC ACHS [facility] Stop: 03/17/19 03:38 Last Admin: 02/17/19 08:02 Dose: Not Given Documented by: Levothyroxine Sodium (Synthroid) 112 mcg PO DAILYBB [facility] Stop: 03/17/19 06:29 Last Admin: 02/17/19 06:11 Dose: 112 mcg Documented by: Losartan Potassium (Cozaar) 50 mg PO BID [facility] Stop: 03/17/19 11:29 Last Admin: 02/17/19 07:59 Dose: 50 mg Documented by: Miscellaneous (Carbohydrates For Hypoglycemia) 15 - 30 gm PO UD PRN PRN Reason: Hypoglycemia Treatment Stop: 03/17/19 03:38 Montelukast Sodium (Singulair) 10 mg PO PM [facility] Stop: 03/17/19 20:59 Last Admin: 02/16/19 22:05 Dose: 10 mg Documented by: Morphine Sulfate (Morphine Sulfate) 4 mg IV Q4H PRN PRN Reason: Pain Stop: 03/01/19 01:32 Multivitamins (Multivitamin Tab) 1 tab PO DAILY [facility] Stop: 03/17/19 08:59 Last Admin: 02/17/19 07:59 Dose: 1 tab Documented by: Nitroglycerin (Nitrostat) 0.4 mg SL UD PRN PRN Reason: Chest Pain Stop: 03/17/19 03:38 Simbrinza~Non- Formulary Patient's Own Med 1 ea OPL BID [facility] Stop: 03/17/19 20:59 Last Admin: 02/17/19 09:14 Dose: 1 drops Documented by: Oxycodone HCl (Roxicodone Immediate Rel) 5 mg PO Q4 PRN PRN Reason: Pain Stop: 03/01/19 03:38 Last Admin: 02/17/19 06:11 Dose: 5 mg Documented by: Potassium Chloride (Klor-Con M20) 40 meq PO NOW STA Stop: 02/17/19 11:22 Prednisone (Prednisone) 3 mg PO DAILY [facility] Stop: 03/17/19 08:59 Last Admin: 02/17/19 07:58 Dose: 3 mg Documented by: Timolol Maleate (Timoptic 0.25% Oph) 1 drops OPL BID [facility] Stop: 03/17/19 08:59 Last Admin: 02/17/19 08:01 Dose: 1 drops Documented by: (1) Hypertension Hypertension type: unspecified Qualified Code(s): I10 - Essential (primary) hypertension
--- NOTE | 2019-02-17 12:08 | Hospitalist Progress Note ---
Date of Service February 17, 2019 Assessment & Plan (1) Chest pain: Patient presented with chest pain. Serum troponins negative x2. Cardiology consulted. Echocardiogram demonstrated normal left ventricular wall motion and systolic function. Exercise stress echocardiogram did not show any evidence of stress-induced ischemia, but adequate workload was not achieved. Cardiac catheterization showed essentially normal coronaries. Ongoing risk factor reduction. (2) Hypertension: Blood pressures as high as 190/119. Blood pressures in right upper extremity noted to be about 20 mm higher than the left upper extremity. No significant stenosis of left subclavian artery noted on CTA chest or carotid duplex (although imaging was suboptimal). No apparent renal vascular disease on renal arterial duplex. Serum aldosterone and plasma renin activity ordered, results pending. Continue amlodipine 5 mg daily. Losartan dose increased to 50 mg BID. Follow and titrate therapy. BP's should be followed in RUE. (3) Carotid artery disease: Carotid duplex 02/15/19 showed atherosclerosis of left common carotid and left ICA without significant stenosis. ASA + lipid management. Follow-up carotid duplex in 1-2 years recommended. (4) Asthma: Pulmonary status stable. (5) Diabetes mellitus type 2, controlled: Diabetes type 2 managed with metformin. Recent hemoglobin A1c in clinic was 6.9 in December. Hold metformin during hospital stay. Received insulin coverage as necessary. Fasting blood sugar today = 125. Discharge on usual dose of metformin. (6) Dyslipidemia: LDL-C 143. Atorvastatin dose increased to 40 mg daily. (7) Hypothyroidism: Continue levothyroxine. (8) Rheumatoid arthritis: Continue prednisone. (9) Hypokalemia: K 3.4. Received oral KCl. Will not discharge on KCl replacement because of recently increased dose of losartan. Follow. (10) DVT prophylaxis: SQ enoxaparin. Ambulate. (11) Discharge planning issues: Anticipated discharge to home. Internal Medicine follow-up with Dr. Patricia Doran. Subjective Recheck for chest pain and elevated blood pressures. Feels well. No chest pain or shortness of breath. Blood pressures under better control. Ambulating. Physical Exam Constitutional: no acute distress Respiratory: no respiratory distress Auscultation: lungs clear to auscultation bilaterally Cardiovascular: Rate/Rhythm: regular rate and regular rhythm Heart Sounds: no gallop, no murmur and no cardiac rub Vessels: no JVD Extremities: no calf tenderness and no edema Gastrointestinal (Abdomen): normal bowel sounds, soft, nontender, no hepatosplenomegaly Musculoskeletal: Extremities: extremities normal to inspection (no hematoma right wrist) Skin: no rashes, warm and dry Psychiatric: Orientation: alert and oriented x 3 Results & Data Vital Signs (Past 12 Hours) Vital Signs Temp Pulse Pulse Resp BP BP Pulse Ox 02/17/19 11:19 36.6 C 69 18 121/79 94 02/17/19 10:47 36.6 C 78 18 138/88 144/88 H 96 02/17/19 07:03 36.6 C 78 18 138/88 96 02/17/19 07:00 77 02/17/19 04:26 36.7 C 78 16 144/88 H 96 02/17/19 03:00 Pulse Ox 02/17/19 11:19 02/17/19 10:47 02/17/19 07:03 02/17/19 07:00 02/17/19 04:26 02/17/19 03:00 97 (1) Hypertension Hypertension type: unspecified Qualified Code(s): I10 - Essential (primary) hypertension
--- NOTE | 2019-02-19 08:47 | Discharge Summary ---
Date of Service Date of Admission: 02/15/19 Date of Discharge: 02/17/19 Admission HPI Per Admitting Provider History obtained from patient, family, and records. Medical history significant for hypertension, hyperlipidemia, DM 2 on oral meds, rheumatoid arthritis on daily prednisone Rx, hypothyroidism, glaucoma. Last week patient randomly checked her blood pressure at home, SBP 170s as per patient. Never that high. Patient denies unusual stress. Almost 2 weeks ago she started on a new diet which she is tolerating so far. Denies NSAID intake, dietary discretion. Patient also noted vertical headache symptoms with nausea, ice will get red from time to time. 2 days ago, patient noted transient left-sided chest discomfort. Patient seen at PCP's office yesterday. Blood pressure 156/104. PVCs noted on EKG as per . Home losartan increased to 50 mg BID dosing, Norvasc added to regimen. Outpatient Cardiology referral for stress test contemplated. Yesterday afternoon, patient woke up from her nap with left sided chest discomfort going to her shoulder and her back. Nonpleuritic, no SOB. At the ER, SBP 190s at the highest. Patient received aspirin, Toradol, labetalol at the ER without relief of discomfort. Some relief of chest discomfort with nitroglycerin administered at the ER. Admission Exam Per Admitting Provider GENERAL: Slightly uncomfortable and slightly anxious, obese, no respiratory distress SKIN: Normal color, warm HEENT: [place] palpebral conjunctivae, no ptosis, dry buccal mucosa NECK : Supple, short neck, no tenderness CHEST : CTA, no tenderness HEART : RRR, systolic murmur ABDOMEN: Some distention, nontender EXTREMITIES : No LE swelling/tenderness, no other conspicuous deformities noted NEUROLOGIC : Coherent, no facial asymmetry, no other gross focality Principal Diagnosis chest pain hypertensive urgency Discharge Data Allergies Allergy/AdvReac Type Severity Reaction Status Date / Time erythromycin base Allergy Intermediate swelling Verified 02/14/19 22:02 of eyes lisinopril Allergy Intermediate cough Verified 02/14/19 22:02 bee venom protein (honey bee) Allergy Unknown swelling. Verified 02/14/19 22:02 sob [id number] Allergy Mild Unknown Uncoded 02/14/19 22:02 Consultations 02/14/19 23:24 ED Decision to Admit Stat 02/15/19 03:39 Consult Cardiology Routine Procedures Performed Operation Date: 02/16/19 15:00 Actual Procedures p Cath, Left with Cors and Vent - Chet Ansari MD s Cineradiography w/Routine Exam - Chet Ansari MD Ordered Studies 02/15/19 00:27 CT angio chest dissec wo/w con Urgent CT head/brain wo con Urgent 02/15/19 10:46 US duplex renal artery Routine 02/15/19 15:05 US carotid doppler BI Routine 02/16/19 14:41 CL Cath Imgs for PACS use only Routine Hospital Course (1) Chest pain: Patient presented with chest pain. Serum troponins negative x2. Cardiology consulted. Echocardiogram demonstrated normal left ventricular wall motion and systolic f unction. Exercise stress echocardiogram did not show any evidence of stress-induced ischemia, but adequate workload was not achieved. Cardiac catheterization showed essentially normal coronaries. Ongoing risk factor reduction. (2) Hypertension: Blood pressures as high as 190/119. Blood pressures in right upper extremity noted to be about 20 mm higher than the left upper extremity. No significant stenosis of left subclavian artery noted on CTA chest or carotid duplex (although imaging was suboptimal). No apparent renal vascular disease on renal arterial duplex. Serum aldosterone and plasma renin activity ordered, results pending at time of discharge. Continue amlodipine 5 mg daily. Losartan dose increased to 50 mg BID. BP's morning of DC 138/88, 121/79. Follow and titrate therapy. BP's should be followed in RUE. (3) Carotid artery disease: Carotid duplex 02/15/19 showed atherosclerosis of left common carotid and left ICA without significant stenosis. ASA + lipid management. Follow-up carotid duplex in 1-2 years recommended. (4) Asthma: Pulmonary status stable. (5) Diabetes mellitus type 2, controlled: Diabetes type 2 managed with metformin. Recent hemoglobin A1c in clinic was 6.9 in December. Hold metformin during hospital stay. Received insulin coverage as necessary. Fasting blood sugar day of discharge was 125. Discharge on usual dose of metformin. (6) Dyslipidemia: LDL-C 143. Atorvastatin dose increased to 40 mg daily in light of carotid artery disease and risk factors for CAD. (7) Hypothyroidism: Continue levothyroxine. (8) Rheumatoid arthritis: Continue prednisone and abatacept. (9) Hypokalemia: K 3.4. Received oral KCl. Did not discharge on KCl replacement because of recently increased dose of losartan. Follow. (10) DVT prophylaxis: SQ enoxaparin. Ambulate. (11) Discharge planning issues: Anticipated discharge to home. Internal Medicine follow-up with Dr. Patricia Doran. Total Time Total Time Spent Total Time Spent (In Minutes): 30 Discharge Plan Discharge Items Patient Disposition: Home - Self-Care Reason For Visit: HYPERTENSION Discharge Diagnosis: chest pain- no sign of heart attack hypertension Condition: Good Discharge Goals: Decrease discomfort, Improve disease control and Prevent disease Activity: As commented below Activity Comment: See cardiac cath instructions. Non-emergency contact: Primary Care Provider and Hospitalist Call non-emergency contact if: you have any medication questions and your symptoms worsen Follow-up/Referrals: Mukesh Laird DO [Seismograph Recorder] - Patricia Doran MD [Primary Care Provider] - (Date & Time 02/21/2019 11:00 AM Leticia Mckeon MD (covering for Dr. Doran) General Internal Medicine [facility] ) Diet: Heart Healthy Add Provider Instructions: SUMMARY OF TEST RESULTS: LDL cholesterol = 143 CT angiogram of chest did not show any signs of pulmonary emboli (blood clots) or aortic dissection. Ultrasound of kidney arteries did not show any sign of blockage; gallstones were noted in the gallbladder. Ultrasound of carotid arteries showed some plaque, but did not show any significant blockage. Cardiac catheterization did not show any significant blockage in coronary arteries. MEDICATION CHANGES: losartan (Cozaar) dose increased to 50 mg twice a day for better blood pressure control atorvastatin (Lipitor) dose increased to 40 mg at bedtime for better cholesterol control aspirin, enteric coated 81 mg daily to help prevent heart attacks and strokes New prescriptions sent to [facility]. Best to avoid medications like ibuprofen (Advil and Motrin), naproxen (Aleve), meloxicam (Mobic) and other anti-inflammatory medications. They can cause high blood pressure, ulcers, and other complications. OTHER INSTRUCTIONS: Blood pressure runs higher in your right arm compared to left. Have your blood pressure checked in the right arm for more consistent readings. Please have blood work done in the office next week: basic metabolic profile (will include kidney tests and potassium) Seek medical attention if you have: * temperature above 101 * chest pain or trouble breathing * abdominal pain, nausea, vomiting * diarrhea, dark stools or bloody stools * any unanswered questions or concerns Call 911 if symptoms are severe. Please take good care of yourself. Call if you have any questions or problems. My cell # is [phone]. You can also reach a [facility] hospitalist on duty at [facility] 24 hours a day by calling [phone]. Prescriptions: New atorvastatin 40 mg tablet 40 mg PO HS Qty: 30 RF: 5 losartan 50 mg tablet 50 mg PO BID Qty: 60 RF: 5 aspirin [Aspirin Low Dose] 81 mg tablet,delayed release (DR/EC) 81 mg PO DAILY Qty: 30 RF: 12 Continued multivitamin Tablet 1 tab PO DAILY RF: 0 clindamycin HCl 300 mg Capsule 300 mg PO UD RF: 0 bimatoprost 0.03 % drops 1 drp OPB HS RF: 0 amlodipine 5 mg Tablet 5 mg PO DAILY RF: 0 calcium carbonate [Calcium 500] 500 mg calcium (1,250 mg) Tablet 500 mg PO DAILY RF: 0 prednisone 1 mg tablet 3 mg PO DAILY RF: 0 folic acid 1 mg Tablet 1 mg PO DAILY RF: 0 montelukast [Singulair] 10 mg Tablet 10 mg PO PM RF: 0 epinephrine [EpiPen] 0.3 mg/0.3 mL Auto-Injector 0.3 mg IM UD PRN (Reason: ALLERIC REACTION) RF: 0 albuterol sulfate [ProAir HFA] 90 mcg/actuation Hfa Aerosol Inhaler 2 puff INHALATION Q6H PRN (Reason: Shortness Of Breath Or Wheezing) RF: 0 timolol maleate [Timoptic] 0.5 % drops 1 drp OPL BID RF: 0 metformin [Glucophage XR] 500 mg tablet extended release 24 hr 500 mg PO BID RF: 0 levothyroxine [Synthroid] 112 mcg tablet 112 mcg PO DAILY RF: 0 oxycodone [Roxicodone] 5 mg tablet 5 mg PO Q4 PRN (Reason: Pain) RF: 0 Orencia 125 mg/mL Syringe 125 mg SUBCUT WK RF: 0 Ocuvite Adult 50 Plus 250-5-1 mg Capsule 1 cap PO DAILY RF: 0 Simbrinza 1-0.2 % drops,suspension 1 drp OPL BID RF: 0 Discontinued atorvastatin [Lipitor] 20 mg tablet 20 mg PO QPM RF: 0 losartan 50 mg Tablet 50 mg PO DAILY RF: 0 Stand-Alone Forms: [facility] Discharge Orders: Discharge Order (Routine); Ordered 02/17/19 Ordered By: Jose Manuel Espinal Admission Data Admit Date/Time: 02/15/19 02:42 Attending Provider: Jose Manuel Espinal Admit Provider: Aaron Aguila Primary Care Provider: Patricia Doran Other Providers: Aaron Aguila ; Jose Guadalupe Wayne Service: Telemetry Other Interventions: Discharge Summary Assessment (RN) Last Done: 02/17/19 10:47 DC Date/Time DO NOT enter until pt leaves facility: 02/17/19 13:05
== END 2019-02-17 13:05 | disposition home or self-care (01) ==
LOC: 2S 20:28 → ED 20:28 → 2S 02-15 03:25

== ENCOUNTER 2021-01-01 22:34 | Inpatient (IN) ==
--- NOTE | 2021-01-01 23:47 | Emergency Department Note ---
Impression & Plan Acute CVA (cerebrovascular accident) ED Provider Note NAME: PINKY CLARK AGE: 65 SEX: F ARRIVES VIA: Ambulance INFORMANT: Patient, and her ED PROVIDER(S): Marian Gardner DO CHIEF COMPLAINT: Left leg weakness; difficulty with ambulation PLAN: Disposition: Admitted to the [facility] service Condition: Stable MEDICAL DECISION MAKING: This is a 65-year-old female patient with a history of stroke who presents to the emergency department with worsening lower extremity weakness and gait instab ility. The patient was outside the window for TPA as she had some onset of symptoms yesterday. Initially, on nursing assessment, the patient had to use her upper extremities to move her left lower extremity because she seems so weak in that extremity. On my evaluation and exam of the patient, she was easily able to move the left leg and hold it up in the air without any difficulty. I felt this was an improvement in her symptoms and described this as waxing and waning neurological symptoms. The and the patient did not agree with this assessment and felt that the patient's overall condition had declined since she arrived here in the emergency department. For example, when she got up from the bed to ambulate to the bathroom she seemed to be less stable or steady on her feet and needed more assistance. Because of this decline, I had the patient evaluated by the [facility]. The neurologist did not believe that she was a candidate for TPA at this point since some of her symptoms began yesterday and that she was not a candidate for any more aggressive therapies. I discussed the case with the [facility] and they will evaluate for inpatient care and order the MRI of the brain. Triage Nursing notes reviewed and agree with them. Additional history obtained from the patient's who is at the bedside Prior medical records reviewed Vital Signs: reviewed and remarkable for mild hypertension Differential diagnosis: TIA, CVA, UTI, hypoglycemia ER treatment provided: IV normal saline hydration Diagnostics interpreted by me: ECG: Normal sinus rhythm at a rate of 68 with T wave inversions in lead III. This is a new finding comparison to an EKG from 2019. There is no acute signs of ischemia and no ectopy. Cardiac Monitoring: Normal sinus rhythm at a rate of 65 Laboratory studies: See below Imaging studies: As per stat rad CT head: Comparison made to prior study of February 15, 2019 No ICH, mass-effect or edema. No evidence of acute cortical stroke. Visualized sinuses and mastoid air cells are clear. CTA head: Intracranial vascular structures including the anterior, middle and posterior cerebral arteries and the basilar artery enhance normally. Dural sinuses enhance normally. There is no enhancing mass. Impression no vascular occlusion. CTA neck: Cervical vascular structures including the common carotid arteries, internal carotid arteries and vertebral arteries enhance normally with no aneurysm dissection or occlusion. There are coarse interstitial markings in the pulmonary upper lobes with areas of bronchiectasis and some peripheral tree-in-bud configuration suggesting chronic inflammation. Consultations: Dr. Sin neurology HPI: 65/F arrives for evaluation of strokelike symptoms. The patient explains that she did not feel like herself since yesterday. She describes a headache and extreme fatigue and tiredness since yesterday. She noticed that she had to hold onto things in order to ambulate around her house. Last night she took her usual dose of aspirin but also took a half a tablet of Plavix. The patient had been prescribed Plavix back in September when she suffered a stroke of her thalamus but the Plavix has been stopped because of rectal bleeding. Patient also noticed some tingling in the left lower lip was unsure whether this was stroke symptoms were just dry lips. The patient became more concerned tonight at around 9:30 PM when she noticed more specific weakness in her left leg and difficulty with walking as well as a heaviness to the left side of her face. ROS: See above HPI for pertinent positives & negatives. A total of 10 systems reviewed and were otherwise negative. PAST MEDICAL HISTORY:Thalamic stroke; see below PAST SURGICAL HISTORY:See Below FAMILY HISTORY:See Below SOCIAL HISTORY:See Below HOME MEDICATIONS:See list ALLERGIES:See list VITALS:See Below PHYSICAL EXAMINATION: HEENT: Head - normocephalic and atraumatic. Pupils are equal, round, and reactive to light. Extraocular eye muscles are intact and sclera are anicteric. Ears - bilaterally patent canals with noninjected tympanic membranes and no evidence of hemotympanum. Nose - moist nasal mucosa without discharge. Mouth - moist buccal mucosa. Oropharynx is nonerythematous and there is no tonsillar exudate or edema noted. Neck: Supple; no JVD, nuchal rigidity, cervical lymphadenopathy. Heart: Regular rate and rhythm. There is a normal S1 and S2 with no murmurs, clicks, or gallops appreciated. Lungs: Clear to auscultation bilaterally with no wheezes, rales, or rhonchi. Abdomen: Soft, completely nontender, nondistended, with good bowel sounds. There are no palpable pulsatile masses or hepatosplenomegaly. There is no guarding, rigidity, or rebound noted. Extremities: No evidence of cyanosis, clubbing, or edema. There are easily palpable peripheral pulses. Neuro:The patient is awake and alert, oriented to day, time, and place. With cerebellar testing, the patient has normal rapid alternating hand movement on the right but slow rapid alternating hand movement on the left. The patient has equal life insurance specialist strength bilaterally. There is some questionable weakness with shoulder abduction on the left. Patient does have some weakness of the left hip with flexion. However there is normal pedal push and pull in both feet. The patient has difficulty performing haho-ah-lobm testing. Cranial nerves II through XII are grossly intact. The patient has slight left hand/arm drift with testing. ED COURSE: Times/Reassessments: 2300: The patient was evaluated in room B5. A complete history and physical was performed. Laboratory studies were drawn as above. A twelve-lead EKG was obtained. An order was placed for continuous cardiac monitoring. The patient was in a normal sinus rhythm at a rate of 65. The patient went for CT scan of the brain along with a CTA of the head and neck. I reviewed these results with the patient and her . The voiced concern that the patient's lower extremity weakness has progressed since the onset of symptoms at 9:30 PM. I offered to have the patient acutely evaluated by the [facility] neurologist. I discussed the case with Dr. Castellon to make her aware of the patient. She performed an independent evaluation of the patient. She recommended IV fluid hydration, oral Aggrenox, and MRI of the brain. I discussed the case with the [facility] and they will evaluate for further inpatient management. Marian Gardner DO Past Med/Surg History Medical History (Updated 01/02/21 @ 05:24 by Marian Gardner DO) Asthma Carotid artery disease duplex 02/15/19 atherosclerosis of left common carotid and left ICA without significant stenosis Diabetes mellitus type 2, controlled Dyslipidemia Hypertension Hypothyroidism Rheumatoid arthritis Unequal blood pressure in upper extremities Social History Smoking Status: Never smoker Second Hand Exposure: No; Do You Dip or Chew Tobacco: No; Hx Alcohol Use: No Hx Substance Use: No Preferred Language: Ethiopian Communication Ability: Effective Inserter Promotional Item Required: No Beliefs That Will Affect Care: None Current Living Situation: Spouse Other Information That Helps Us Care for You: No Feels Safe at Home: Yes Safety Concerns: Feels Safe At This Time Assistive Devices: Glasses Allergies Allergies Allergy/AdvReac Type Severity Reaction Status Date / Time erythromycin base Allergy Intermediate swelling Verified 01/02/21 00:20 of eyes lisinopril Allergy Intermediate cough Verified 01/02/21 00:20 bee venom protein (honey bee) Allergy Unknown swelling. Verified 01/02/21 00:20 sob Sulfa (Sulfonamide Allergy Difficulty Verified 01/02/21 00:20 Antibiotics) Breathing Home Meds Home Medications Medication Instructions Recorded Confirmed Orencia 125 mg SUBCUT WK 02/14/19 01/02/21 Simbrinza 1 drp OPL BID 02/14/19 01/02/21 albuterol sulfate [ProAir HFA] 2 puff INHALATION Q6H PRN 02/14/19 01/02/21 bimatoprost 1 drp OPB HS 02/14/19 01/02/21 clindamycin HCl 300 mg PO UD PRN 02/14/19 01/02/21 epinephrine [EpiPen] 0.3 mg IM UD PRN 02/14/19 01/02/21 folic acid 1 mg PO DAILY 02/14/19 01/02/21 levothyroxine [Synthroid] 112 mcg PO DAILY 02/14/19 01/02/21 metformin [Glucophage XR] 500 mg PO QAM 02/14/19 01/02/21 montelukast [Singulair] 10 mg PO PM 02/14/19 01/02/21 multivitamin 1 tab PO DAILY 02/14/19 01/02/21 oxycodone [Roxicodone] 5 mg PO Q4 PRN 02/14/19 01/02/21 prednisone 2 mg PO DAILY 02/14/19 01/02/21 timolol maleate [Timoptic] 1 drp OPL BID 02/14/19 01/02/21 aspirin 325 mg PO DAILY 01/02/21 01/02/21 atorvastatin 40 mg PO DAILY 01/02/21 01/02/21 duloxetine 20 mg PO DAILY 01/02/21 01/02/21 hydroxychloroquine 400 mg PO DAILY 01/02/21 01/02/21 Results & Data (ED) Vital Signs Vital Signs - 24 hr 01/01/21 22:46 01/01/21 23:00 01/02/21 00:01 Temperature 36.8 C Temperature Source Oral Pulse Rate 67 69 66 Pulse Rate [Apical] Respiratory Rate 12 18 20 Respiratory Effort / Characteristics Respiratory Depth Normal Respiratory Pattern Blood Pressure 146/94 H 133/92 159/87 H Blood Pressure [Left Arm] Blood Pressure Mean 111 105 111 Blood Pressure Mean [Left Arm] Blood Pressure Position [Left Arm] Pulse Oximetry 97 98 98 Oxygen Delivery Method Room Air Room Air Sepsis Recent Fever Within 48 Hours No Sepsis New/Unexplained Change in Mental Status No Sepsis Action Taken by Nursing No Action Required 01/02/21 01:30 01/02/21 03:00 01/02/21 03:30 Temperature Temperature Source Pulse Rate 67 Pulse Rate [Apical] 68 63 Respiratory Rate 19 18 16 Respiratory Effort / Characteristics Non-Labored Spontaneous Non-Labored Spontaneous Respiratory Depth Normal Normal Respiratory Pattern Regular Regular Blood Pressure 151/95 H Blood Pressure [Left Arm] 155/98 H 150/91 H Blood Pressure Mean 113 Blood Pressure Mean [Left Arm] 117 110 Blood Pressure Position [Left Arm] Lying Pulse Oximetry 99 97 97 Oxygen Delivery Method Room Air Room Air Room Air Sepsis Recent Fever Within 48 Hours Sepsis New/Unexplained Change in Mental Status Sepsis Action Taken by Nursing 01/02/21 04:00 Temperature Temperature Source Pulse Rate Pulse Rate [Apical] 61 Respiratory Rate 18 Respiratory Effort / Characteristics Non-Labored Spontaneous Respiratory Depth Normal Respiratory Pattern Regular Blood Pressure Blood Pressure [Left Arm] 133/88 Blood Pressure Mean Blood Pressure Mean [Left Arm] 103 Blood Pressure Position [Left Arm] Lying Pulse Oximetry 97 Oxygen Delivery Method Room Air Sepsis Recent Fever Within 48 Hours Sepsis New/Unexplained Change in Mental Status Sepsis Action Taken by Nursing Laboratory Data Result diagrams: 01/01/21 23:44 01/01/21 23:44 Lab Results 01/01/21 01/01/21 01/01/21 Range/Units 23:44 23:44 23:44 WBC 8.15 (4.8-10.8) K/uL RBC 4.80 (4.2-5.4) M/uL Hgb 14.9 (12.0-16.0) g/dL Hct 44.2 (37-47) % MCV 92.1 (80-100) fL MCH 31.0 (25-34) pg MCHC 33.7 (32-36) g/dL RDW Std Deviation 44.2 (36.4-46.3) fL RDW Coeff of [place] 13.1 (11.5-14.5) % Plt Count 269 (130-400) K/uL MPV 10.1 (7.4-10.4) fL Immature Gran % (Auto) 0.1 % Neut % (Auto) 41.8 % Lymph % (Auto) 48.5 % [place] % (Auto) 6.5 % Eos % (Auto) 2.9 % Baso % (Auto) 0.2 % Neut # (Auto) 3.40 (1.4-6.5) K/uL Lymph # (Auto) 3.95 H (1.2-3.4) K/uL [place] # (Auto) 0.53 (0.11-0.59) K/uL Eos # (Auto) 0.24 (0-0.5) K/uL Baso # (Auto) 0.02 (0-0.2) K/uL Immature Gran # (Auto) 0.01 (0.00-0.02) K/uL PT 10.5 (9.0-12.0) Seconds INR 1.0 (0.9-1.1) APTT 25.1 (21.0-31.0) Seconds PTT Ratio 1.0 Sodium (136-145) mmol/L Potassium (3.5-5.1) mmol/L Chloride (98-107) mmol/L Carbon Dioxide (21-32) mmol/L Anion Gap (3-11) BUN (7-18) mg/dl Creatinine (0.6-1.2) mg/dl Est Cr Clr Drug Dosing ml/min Est GFR ( Amer) Est GFR (Non-Af Amer) BUN/Creatinine Ratio (10-20) Glucose (70-99) mg/dl Calcium (8.5-10.1) mg/dl Magnesium (1.8-2.4) mg/dl Total Bilirubin (0.2-1) mg/dl AST (15-37) U/L ALT (12-78) U/L Alkaline Phosphatase (45-117) U/L Troponin I (0-0.045) ng/ml Total Protein (6.4-8.2) gm/dl Albumin (3.4-5.0) gm/dl Globulin (2.5-4.0) gm/dl Albumin/Globulin Ratio (0.9-2) COVID-19 Eval Order SARS-CoV-2 (PCR) (Negative) Influenza Type A (PCR) (Neg) Influenza Type B (PCR) (Neg) RSV (RT-PCR) (Neg) Blood Type B Positive Antibody Screen NEGATIVE 01/01/21 01/02/21 01/02/21 Range/Units 23:44 01:02 01:02 WBC (4.8-10.8) K/uL RBC (4.2-5.4) M/uL Hgb (12.0-16.0) g/dL Hct (37-47) % MCV (80-100) fL MCH (25-34) pg MCHC (32-36) g/dL RDW Std Deviation (36.4-46.3) fL RDW Coeff of [place] (11.5-14.5) % Plt Count (130-400) K/uL MPV (7.4-10.4) fL Immature Gran % (Auto) % Neut % (Auto) % Lymph % (Auto) % [place] % (Auto) % Eos % (Auto) % Baso % (Auto) % Neut # (Auto) (1.4-6.5) K/uL Lymph # (Auto) (1.2-3.4) K/uL [place] # (Auto) (0.11-0.59) K/uL Eos # (Auto) (0-0.5) K/uL Baso # (Auto) (0-0.2) K/uL Immature Gran # (Auto) (0.00-0.02) K/uL PT (9.0-12.0) Seconds INR (0.9-1.1) APTT (21.0-31.0) Seconds PTT Ratio Sodium 142 (136-145) mmol/L Potassium 3.8 (3.5-5.1) mmol/L Chloride 108 H (98-107) mmol/L Carbon Dioxide 30 (21-32) mmol/L Anion Gap 4.0 (3-11) BUN 8 (7-18) mg/dl Creatinine 0.70 (0.6-1.2) mg/dl Est Cr Clr Drug Dosing 83.7 ml/min Est GFR ( Amer) 105.4 Est GFR (Non-Af Amer) 90.9 BUN/Creatinine Ratio 11.6 (10-20) Glucose 85 (70-99) mg/dl Calcium 9.1 (8.5-10.1) mg/dl Magnesium 2.2 (1.8-2.4) mg/dl Total Bilirubin 0.4 (0.2-1) mg/dl AST 24 (15-37) U/L ALT 31 (12-78) U/L Alkaline Phosphatase 88 (45-117) U/L Troponin I < 0.015 (0-0.045) ng/ml Total Protein 8.5 H (6.4-8.2) gm/dl Albumin 3.6 (3.4-5.0) gm/dl Globulin 4.9 H (2.5-4.0) gm/dl Albumin/Globulin Ratio 0.7 L (0.9-2) COVID-19 Eval Order CovFluRsv at [facility] SARS-CoV-2 (PCR) NEGATIVE (Negative) Influenza Type A (PCR) Negative (Neg) Influenza Type B (PCR) Negative (Neg) RSV (RT-PCR) Negative (Neg) Blood Type Antibody Screen Administered Medications Dipyridamole/Aspirin (Dipyridamole/Aspirin Cap) 1 cap PO BID FOR[facility]LY [facility], 1928–1983 Stop: 02/01/21 03:59 Last Admin: 01/02/21 04:12 Dose: 1 cap Documented by: [id number] Discontinued Medications Sodium Chloride (Nss) 500 mls @ 125 mls/hr IV .Q4H FOR[facility]LY [facility], 1928–1983 Stop: 02/01/21 03:14 Last Admin: 01/02/21 03:12 Dose: 125 mls/hr Documented by: [id number] Ioversol (Optiray 350 500ml) 125 ml IV ONCE ONE Stop: 01/02/21 01:07 Last Admin: 01/02/21 01:06 Dose: 121 ml Documented by: [id number] Discharge Plan Visit Data Chief Complaint: Neuro Symptoms/Deficit Stated Complaint: Abnormal gait ED Provider: Marian Gardner Discharge Problem: Acute CVA (cerebrovascular accident) Patient Disposition: Admitted As Inpatient
[2021-01-02] LABS: Basophils # (auto) 0.02 K/uL (0-0.2); Basophils % (auto) 0.2 %; Eosinophils # (auto) 0.24 K/uL (0-0.5); Eosinophils % (auto) 2.9 %; Hematocrit (blood only) 44.2 % (37-47); Hemoglobin 14.9 g/dL (12.0-16.0); Immature Granulocytes # (auto) 0.01 K/uL (0.00-0.02); Immature Granulocytes % (auto) 0.1 %; Lymphocytes # (auto) 3.95 K/uL (1.2-3.4); Lymphocytes % (auto) 48.5 %; Mean Corpuscular Hgb Conc 33.7 g/dL (32-36); Mean Corpuscular Volume 92.1 fL (80-100); Mean Platelet Volume 10.1 fL (7.4-10.4); Monocytes # (auto) 0.53 K/uL (0.11-0.59); Monocytes % (auto) 6.5 %; Neutrophils % (auto) 41.8 %; Platelet Count 269 K/uL (130-400); RDW Coefficient of Variation 13.1 % (11.5-14.5); RDW Standard Deviation 44.2 fL (36.4-46.3); White Blood Count 8.15 K/uL (4.8-10.8)
[2021-01-02 00:10] LABS: Partial Thromboplastin Time 25.1 Seconds (21.0-31.0); Prothrombin Time 10.5 Seconds (9.0-12.0)
[2021-01-02 00:18] LABS: Alanine Aminotransferase 31 U/L (12-78); Albumin Level 3.6 gm/dl (3.4-5.0); Aspartate Aminotransferase 24 U/L (15-37); BUN Creatinine Ratio 11.6 (10-20); Blood Urea Nitrogen 8 mg/dl (7-18); Calcium 9.1 mg/dl (8.5-10.1); Carbon Dioxide 30 mmol/L (21-32); Chloride 108 mmol/L (98-107); Creatinine Clr Calc Pharmacy 83.7 ml/min; Est GFR (African American) 105.4; Est GFR (Non-African American) 90.9; Glucose 85 mg/dl (70-99); Magnesium 2.2 mg/dl (1.8-2.4); Potassium 3.8 mmol/L (3.5-5.1); Sodium 142 mmol/L (136-145)
[2021-01-02 00:23] LABS: Albumin Globulin Ratio 0.7 (0.9-2); Alkaline Phosphatase 88 U/L (45-117); Bilirubin,Total 0.4 mg/dl (0.2-1); Globulin 4.9 gm/dl (2.5-4.0); Total Protein 8.5 gm/dl (6.4-8.2); Troponin I < 0.015 ng/ml (0-0.045)
[2021-01-02] MEDS ORDERED: OPTIRAY 350 500ml IV ONE (01:06)
[2021-01-02 01:52] LABS: Influenza A virus by PCR Negative (Neg); Influenza B virus by PCR Negative (Neg); RSV by PCR Negative (Neg); SARS CoV2 RNA(COVID-19) InHosp NEGATIVE (Negative)
[2021-01-02] MEDS ORDERED: SODIUM CHLORIDE 0.9% 500 ML IV SCH (03:15)
[2021-01-02] MEDS: DIPYRIDAMOLE/ASPIRIN CAP PO SCH ×2 (04:12→08:29)
[2021-01-02] MEDS ORDERED: POLYETHYLENE (MIRALAX) 17 GM PACK PO PRN (04:46)
[2021-01-02] MEDS ORDERED: PHARMACIST DISCHARGE MED REC CONSULT PRN (04:46)
[2021-01-02] MEDS ORDERED: ONDANSETRON INJ 2 MG/ML 2 ML VIAL IV PRN (04:46)
[2021-01-02] MEDS ORDERED: SODIUM CHLORIDE 0.9% 1000ML 1,000 ML IV SCH (04:46)
[2021-01-02] MEDS ORDERED: NITROGLYCERIN SL 0.4 MG/TAB TAB SL PRN (04:46)
[2021-01-02] MEDS ORDERED: EPINEPHrine INJ 1 MG/ML AMP IM PRN (04:58)
[2021-01-02] MEDS ORDERED: DEXTROSE 50% 50 ML SYRINGE IV PRN (05:00)
[2021-01-02] MEDS ORDERED: GLUCOSE 40% GEL 15 GM TUBE PO PRN (05:00)
[2021-01-02] MEDS ORDERED: GLUCAGON FOR INJ 1 MG VIAL SQ PRN (05:00)
[2021-01-02] MEDS ORDERED: CARBOHYDRATES FOR HYPOGLYCEMIA PO PRN (05:00)
[2021-01-02] MEDS ORDERED: ALBUTEROL HFA 8 GM INHALER INH PRN (05:00)
[2021-01-02] MEDS ORDERED: GLUCOSE 10 TABS/TUBE PO PRN (05:00)
[2021-01-02] MEDS ORDERED: oxyCODONE HCL IR 5 MG TAB (IMMEDIATE RELEASE) PO PRN (05:06)
[2021-01-02] MEDS ORDERED: LEVOTHYROXINE SODIUM 112 MCG TABLET PO SCH (06:30)
--- NOTE | 2021-01-02 06:57 | CT Scan Report ---
CT angio neck with con, CT angio head w con, CT head/brain wo con CLINICAL HISTORY: 65 years-old Female with Stroke Like Symptoms. Acute strokelike symptoms COMPARISON STUDY: Head CT 02/15/2019, CTA chest 02/15/2019 TECHNIQUE: Following the IV administration of 121 mL of Optiray, CT angiogram of the head and neck wa s performed from the aortic arch to the skull apex. Images are reviewed in the axial, sagittal, and c oronal planes. 3-D MIPS images are created and assessed. IV contrast was administered without complic ation. Noncontrast head CT also obtained. All measurements were calculated based on NASCET criteria. A dose lowering technique was utilized adhering to the principles of ALARA. CT DOSE: 1206.41 mGy.cm FINDINGS: CT HEAD: No acute intracranial hemorrhage, midline shift, abnormal extra-axial collection, hydrocephalus, acut e territorial infarct or intracranial mass. 4 mm hypodensity of the right thalamus appears new from c omparison. Increased density of the left globe suggestive of a lobular prosthesis. Prior right-sided lens replacement. No acute calvarial fracture. Mastoid air cells and paranasal sinuses are clear. Unr emarkable soft tissues. CTA HEAD AND NECK: The opacified imaged pulmonary artery is unremarkable. Three-vessel morphology of the thoracic aortic arch. There is patency of the imaged great vessels. Mild mixed plaque of the left carotid bulb. The common and internal carotid arteries are widely patent. The middle and anterior cerebral arteries are patent. Codominant and widely patent vertebral arteries. The basilar and posterior cerebral arteries are patent. The cerebral venous sinuses are patent. No abnormal intracranial enhancement. Airspace and reticular nodular opacities of the lung apices, right middle lobe and lingula with bronc hiectasis has progressed from comparison. IMPRESSION: 1. No acute intracranial hemorrhage, midline shift or acute territorial infarct. 2. 4 mm hypodensity of the right thalamus is new from 2019 suggestive of an age-indeterminate lacunar infarct. 3. Unremarkable CTA of the head and neck. 4. 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 ACT 112: Negative or not required by law. The above report was generated using voice recognition software. It may contain grammatical, syntax o r spelling errors. Electronically signed by: Pa Hall M.D. 01/02/2021 6:56 AM
[2021-01-02] MEDS ORDERED: GADOBUTROL 65ML VIAL IV ONE (07:30)
[2021-01-02] MEDS ORDERED: SIMBRINZA~ORDER AWAITING ACTION SCH (08:00)
--- NOTE | 2021-01-02 08:03 | Magnetic Resonance Report ---
MR brain wo/w con HISTORY: 65 years-old Female cva acute strokelike symptoms COMPARISON: CT of the head, CTA head and neck studies of same day TECHNIQUE: Multiplanar multisequence MRI of the brain was obtained both with and without the use of 6 .2 mL Gadavist FINDINGS: Floor Installer localizer images demonstrate no gross extracranial abnormality. Motion degraded exam. No restri cted diffusion to suggest acute or subacute infarct. No acute intracranial hemorrhage, midline shift, abnormal extra-axial collection, hydrocephalus or intracranial mass. No pathologic blooming artifact . Cerebral venous sinuses and major arterial flow voids are patent. Mastoid air cells are clear. Left globe prosthesis. Paranasal sinuses are clear. The skull and soft tissues are within normal limits. Prior right-sided lens repair. Age-related involutional changes. Mild white matter hypodensities are noted throughout the white matter. No abnormal intra-axial or extra-axial enhancement. IMPRESSION: 1. No acute intracranial abnormality, specifically there is no acute or subacute infarct. 2. Age-related involutional changes with mild chronic microvascular ischemic disease. 3. No abnormal enhancement. ACT 112: Negative or not required by law. The above report was generated using voice recognition software. It may contain grammatical, syntax o r spelling errors. Electronically signed by: Pa Hall M.D. 01/02/2021 8:02 AM
--- NOTE | 2021-01-02 08:17 | History and Physical Report ---
DATE OF ADMISSION: 01/02/2021 CHIEF COMPLAINT: Stroke-like symptoms. HISTORY OF PRESENT ILLNESS: A 65-year-old female with past medical history significant for rheumatoid arthritis, hypothyroidism, diabetes, history of bronchiectasis, history of pneumonia with pseudomonas species, allergic rhinitis, restrictive lung disease, asthma, urge incontinence of urine, macular degeneration, psoriasis, history of CVA, who presents with stroke-like symptoms. The patient had loss of balance and weakness in the left hand and left leg at the end of September and she was taken to hospital and MRI showed right thalamus chronic infarct and subacute left subcortical infarct and she was treated with aspirin and Plavix for 3 weeks. Plavix was stopped because of rectal bleed .She also had an MRI scan in October, which did not show any new lesions. Today presents because of lower extremity weakness that started around 9:30 p.m. tonight, more in the left lower extremity, but she also had some weakness in the right lower extremity and also some facial heaviness in the left side and some tingliness in her left side lips which worried her and she came to the hospital. There were waxing and waning symptoms. Initial workup with CT scan of the head and CTA of the head and neck were unremarkable. Because of ongoing symptoms, [facility] was contacted by the ER and was recommended for MRI scan and to start on Aggrenox. The patient is currently resting comfortably and hemodynamically stable. She has some headache, no blurred visions, no earache, no runny nose, no sore throat, no cough. She has some chronic cough and sometimes food feels like it is stuck in the throat, which is nothing new. Denies any chest pain, no shortness of breath, no nausea, no abdominal pain. She is constipated from her chronic pain medications. Normal bladder movements. ALLERGIES: BEE VENOM, ERYTHROMYCIN BASE, LISINOPRIL, SULFASALAZINE. PAST MEDICAL HISTORY: As mentioned above. PAST SURGICAL HISTORY: Right total knee arthroplasty, colonoscopy, EGDs, cataracts, repair of detached retina. MEDICATIONS: The patient is on albuterol 2 puffs inhalation q.6h. p.r.n., aspirin 325 mg p.o. daily, atorvastatin 40 mg p.o. daily, bimatoprost 1 drop ophthalmic at bedtime, clindamycin 300 mg p.r.n., duloxetine 20 mg p.o. daily, EpiPen 0.3 mg IM p.r.n., folic acid 1 mg p.o. daily, hydroxychloroquine 400 mg p.o. daily, levothyroxine 112 mcg p.o. daily, metformin XR 500 mg p.o. a.m., Singulair 10 mg p.o. p.m., multivitamin 1 tablet p.o. daily, Orencia 125 mg subcutaneous weekly, oxycodone 5 mg p.o. q. 4 hours p.r.n., prednisone 2 mg p.o. daily, Simbrinza 1 drop ophthalmic b.i.d., timolol 1 drop ophthalmic b.i.d. FAMILY HISTORY: Significant for father had ARDS, cataracts, heart disorder, hypertension; brother has diabetes; mother had diabetes, eye problems, glaucoma, heart disorder. SOCIAL HISTORY: . No smoking, no alcohol, no drug use. REVIEW OF SYSTEMS: As per HPI. Rest of the review of systems negative. PHYSICAL EXAMINATION: GENERAL: The patient is of moderate build, not in acute distress. VITAL SIGNS: Temperature 36.8, pulse 61, respiratory rate 18, blood pressure 133/88, oxygen 97% on room air. HEENT: Pupils equal, round, and reactive to light. Oral mucosa moist. Tongue midline. No facial droop seen. NECK: No JVD, no neck masses. CARDIOVASCULAR: S1, S2 heard, regular rate and rhythm, no murmur, no gallop. RESPIRATORY SYSTEM: Normal AP diameter. No accessory muscle use. No wheezing, no crackles. ABDOMEN: Soft, bowel sounds present, nontender. No distention. CENTRAL NERVOUS SYSTEM: Alert and oriented. Cranial nerves II-XII grossly intact. Power 5/5 in right side extremities, 4/5 in left upper extremity and 2/5 in the left lower extremity. Sensation is intact. Coordination of movement normal. No pronator drift. Position sense intact. Difficult to do [id number] test. EXTREMITIES: No edema, no erythema. LABORATORY DATA: WBC 8.15, hemoglobin 14.9, hematocrit 44.2, platelets 269. PT 10.5, INR 1, APTT 25.1. Sodium 142, potassium 3.8, chloride 108, bicarbonate 30, BUN 8, creatinine 0.7, serum glucose 85, calcium 9.1, magnesium 2.2, total bilirubin 0.4, AST 24, ALT 31, alkaline phosphatase 88, troponin I less than 0.015. SARS-CoV-2 PCR negative. Influenza A and B PCR negative, RSV PCR negative. IMAGING DATA: CT of the head, preliminary report, no acute findings. CTA of the head, no acute findings. CTA of the neck, no acute findings. EKG: Normal sinus rhythm at a rate of 65, some nonspecific T-wave abnormality in the inferior leads. ASSESSMENT AND PLAN: This is a 65-year-old female who presents with stroke-like symptoms. 1. Stroke-like symptoms: There is more increased weakness in the lower extremities and imbalance. Had a right thalamic and left subcortical stroke in September; on aspirin and statin. [facility] was contacted by the ER and recommended MRI scan and Aggrenox, will start it. Will do a full stroke workup with MRI scan of the head, echo, speech evaluation, neuro evaluation, PT and OT evaluation, and monitor in the tele floor. Continue her statin, aspirin, and start on Aggrenox for now. 2. Diabetes: Hold metformin. Placed on insulin sliding scale. Follow the blood sugars, follow HbA1c levels. 3. History of rheumatoid arthritis: Continue her Plaquenil and prednisone, chronic pain medication, and she is also on Orencia subcutaneous q. weekly. Follow up with rheumatology. 4. History of hypothyroidism: Continue Synthroid. 5. Hyperlipidemia: On statin. Follow the lipid profile. 6. History of depression: Continue duloxetine. 7. History of asthma: Albuterol p.r.n. 8. Deep venous thrombosis prophylaxis: Sequential compression devices. DISPOSITION: Admit to tele floor. PT and OT prior to discharge. Social service to help with discharge planning. Level 1 full code. MTDD
[2021-01-02] MEDS: INSULIN ASPART 100 UNITS/ML 3 ML PEN SC SCH ×2 (08:47→12:39)
[2021-01-02] MEDS ORDERED: TIMOLOL MALEATE 0.25% OP SOLN 5 ML BTL OPL SCH (09:00)
[2021-01-02] MEDS ORDERED: ASPIRIN 325 MG ECTAB PO SCH (09:00)
[2021-01-02] MEDS ORDERED: HYDROXYCHLOROQUINE SULFATE 200 MG TAB PO SCH (09:00)
[2021-01-02] MEDS ORDERED: DULoxetine HCL 20 MG CAP PO SCH (09:00)
[2021-01-02] MEDS ORDERED: MULTIVITAMIN TAB PO SCH (09:00)
[2021-01-02] MEDS ORDERED: ATORVASTATIN 40 MG TAB PO SCH (09:00)
[2021-01-02] MEDS ORDERED: predniSONE 1 MG TAB PO SCH (09:00)
[2021-01-02] MEDS ORDERED: FOLIC ACID 1 MG TAB PO SCH (09:00)
[2021-01-02] MEDS: ACETAMINOPHEN 325 MG TAB PO PRN ×2 (10:58→12:50)
--- NOTE | 2021-01-02 11:36 | Neurology Consultation ---
Date of Consultation January 02, 2021 Supervising Physician Co-Signing Physician Notes I have seen and discussed above patient with Dr Jose Manuel Jewell, neurology History of Present Illness Reason for Consultation: stroke like symptoms Requesting Physician: Lilibeth Lerma MD Attending Physician: Lilibeth Lerma MD History of Present Illness Britni is a 65 year old female with PMH RA, hypothyroidism, DM, bronchiectasis, pneumonia, allergic rhinitis, restrictive lung disease, asthma, urge incontinence of urine, MD, psoriasis, history of CVA vs L hemicranial headache. she presented to the [facility] 01/02/2021 with stroke-like symptoms. She had a loss of balance and weakness in the left hand and left leg at the end of September and she was taken to hospital and MRI showed right thalamus chronic infarct and subacute left subcortical infarct and she was treated with aspirin and Plavix for 3 weeks. She also had an MRI scan in October, which did not show any new lesions. There were waxing and waning symptoms. CT scan of the head and CTA of the head and neck were unremarkable. She had some headache. Allergies Allergy/AdvReac Type Severity Reaction Status Date / Time erythromycin base Allergy Intermediate swelling Verified 01/02/21 00:20 of eyes lisinopril Allergy Intermediate cough Verified 01/02/21 00:20 bee venom protein (honey bee) Allergy Unknown swelling. Verified 01/02/21 00:20 sob Sulfa (Sulfonamide Allergy Difficulty Verified 01/02/21 00:20 Antibiotics) Breathing Home Medications Medication Instructions Recorded Confirmed Type Orencia 125 mg SUBCUT WK 02/14/19 01/02/21 History Simbrinza 1 drp OPL BID 02/14/19 01/02/21 History albuterol sulfate [ProAir HFA] 2 puff INHALATION Q6H PRN 02/14/19 01/02/21 History bimatoprost 1 drp OPB HS 02/14/19 01/02/21 History clindamycin HCl 300 mg PO UD PRN 02/14/19 01/02/21 History epinephrine [EpiPen] 0.3 mg IM UD PRN 02/14/19 01/02/21 History folic acid 1 mg PO DAILY 02/14/19 01/02/21 History levothyroxine [Synthroid] 112 mcg PO DAILY 02/14/19 01/02/21 History metformin [Glucophage XR] 500 mg PO QAM 02/14/19 01/02/21 History montelukast [Singulair] 10 mg PO PM 02/14/19 01/02/21 History multivitamin 1 tab PO DAILY 02/14/19 01/02/21 History oxycodone [Roxicodone] 5 mg PO Q4 PRN 02/14/19 01/02/21 History prednisone 2 mg PO DAILY 02/14/19 01/02/21 History timolol maleate [Timoptic] 1 drp OPL BID 02/14/19 01/02/21 History aspirin 325 mg PO DAILY 01/02/21 01/02/21 History atorvastatin 40 mg PO DAILY 01/02/21 01/02/21 History duloxetine 20 mg PO DAILY 01/02/21 01/02/21 History hydroxychloroquine 400 mg PO DAILY 01/02/21 01/02/21 History Patient History Medical History (Updated 01/02/21 @ 05:24 by Marian Gardner DO) Asthma Carotid artery disease duplex 02/15/19 atherosclerosis of left common carotid and left ICA without significant stenosis Diabetes mellitus type 2, controlled Dyslipidemia Hypertension Hypothyroidism Rheumatoid arthritis Unequal blood pressure in upper extremities Social History Smoking Status: Never smoker Second Hand Exposure: No; Do You Dip or Chew Tobacco: No; Hx Alcohol Use: No Hx Substance Use: No Preferred Language: Iranian Communication Ability: Effective Community Outreach Coordinator Required: No Beliefs That Will Affect Care: None marital status: Current Living Situation: Spouse How many Children do You have: 4 Other Information That Helps Us Care for You: No Feels Safe at Home: Yes Safety Concerns: Feels Safe At This Time Assistive Devices: Glasses Results & Data ([facility]) Vital Signs (Past 12 Hours) Vital Signs Temp Pulse Pulse Resp BP BP BP 01/02/21 04:49 36.7 C 65 16 158/93 H 01/02/21 04:00 61 18 133/88 01/02/21 03:30 63 16 150/91 H 01/02/21 03:00 68 18 155/98 H 01/02/21 01:30 67 19 151/95 H 01/02/21 00:01 66 20 159/87 H Pulse Ox 01/02/21 04:49 98 04/29/21 04:00 97 01/02/21 03:30 97 01/02/21 03:00 97 01/02/21 01:30 99 01/02/21 00:01 98 Laboratory Results Abnormal lab results 01/01/21 01/01/21 Range/Units 23:44 23:44 Lymph # (Auto) 3.95 H (1.2-3.4) K/uL Chloride 108 H (98-107) mmol/L Total Protein 8.5 H (6.4-8.2) gm/dl Globulin 4.9 H (2.5-4.0) gm/dl Albumin/Globulin Ratio 0.7 L (0.9-2) Diagnostic Findings MRI brain-No acute intracranial abnormality, specifically there is no acute or subacute infarct. Age-related involutional changes with mild chronic microvascular ischemic disease. No abnormal enhancement. CTA head/neck-. No acute intracranial hemorrhage, midline shift or acute territorial infarct. 4 mm hypodensity of the right thalamus is new from 2019 suggestive of an age-indeterminate lacunar infarct. Unremarkable CTA of the head and neck. Reticular nodular and airspace opacities of the lung apices, right middle lobe and lingula with associated areas of bronchiectasis have progressed from comparison and are suggestive of an atypical infectious pneum onitis such as nontuberculous mycobacterium.
[2021-01-02] MEDS ORDERED: MoRPHine SULFATE 2 MG/ML CARP ONE (12:42)
--- NOTE | 2021-01-02 17:07 | Communication Note ---
Date of Service: January 02, 2021 Spoke with [facility], discussed with on-call neurology is Dr Falcon Patient is accepted to be transferred, Currently neurology does not have any bed opening, patient is placed on the earliest waiting list, Tentative bed availability either late today or early as tomorrow Will finish up discharge paperwork's Will be transferred to [facility] whenever bed available, excepting physician/neurology Dr. Ezekiel Lerma MD
[2021-01-02] MEDS ORDERED: ACETAMINOPHEN 325 MG TAB PO PRN (20:37)
[2021-01-02] MEDS ORDERED: ATORVASTATIN 40 MG TAB PO STA (20:49)
[2021-01-02] MEDS ORDERED: MONTELUKAST SODIUM 10 MG TABLET PO SCH (21:00)
--- NOTE | 2021-01-03 06:24 | Electrocardiogram Report ---
Test Reason : Blood Pressure : / mmHG Vent. Rate : 065 BPM Atrial Rate : 065 BPM P-R Int : 220 ms QRS Dur : 102 ms QT Int : 416 ms P-R-T Axes : 000 -28 146 degrees QTc Int : 432 ms Sinus rhythm with 1st degree A-V block Low voltage QRS Inferior infarct , age undetermined Nonspecific T wave abnormality Abnormal ECG When compared with ECG of 16-FEB-2019 08:44, Nonspecific T wave abnormality now evident in Inferior leads Confirmed by Yosef Mazariegos ([id number]) on 01/03/2021 6:23:38 AM Referred By: REFERRED SELF Confirmed By:Yosef Mazariegos
[2021-01-03] MEDS ORDERED: CLOTRIMAZOLE 10 MG TROCHE BUCCAL PRN (07:37)
[2021-01-03] MEDS ORDERED: ALBUTEROL HFA 8 GM INHALER INH PRN (07:42)
[2021-01-03] MEDS ORDERED: NITROGLYCERIN SL 0.4 MG/TAB TAB SL PRN (07:43)
[2021-01-03] MEDS ORDERED: POLYETHYLENE (MIRALAX) 17 GM PACK PO PRN (07:43)
[2021-01-03] MEDS ORDERED: EPINEPHrine INJ 1 MG/ML AMP IM PRN (07:43)
[2021-01-03] MEDS ORDERED: ONDANSETRON INJ 2 MG/ML 2 ML VIAL IV PRN (07:43)
[2021-01-03] MEDS ORDERED: oxyCODONE HCL IR 5 MG TAB (IMMEDIATE RELEASE) PO PRN (07:44)
[2021-01-03] MEDS ORDERED: GLUCOSE 40% GEL 15 GM TUBE PO PRN (07:45)
[2021-01-03] MEDS ORDERED: PHARMACIST DISCHARGE MED REC CONSULT PRN (07:45)
[2021-01-03] MEDS ORDERED: LEVOTHYROXINE SODIUM 112 MCG TABLET PO SCH (07:45)
[2021-01-03] MEDS ORDERED: DEXTROSE 50% 50 ML SYRINGE IV PRN (07:46)
[2021-01-03] MEDS ORDERED: GLUCAGON FOR INJ 1 MG VIAL SQ PRN (07:46)
[2021-01-03] MEDS ORDERED: CARBOHYDRATES FOR HYPOGLYCEMIA PO PRN (07:46)
[2021-01-03] MEDS ORDERED: GLUCOSE 10 TABS/TUBE PO PRN (07:46)
[2021-01-03] MEDS: INSULIN ASPART 100 UNITS/ML 3 ML PEN SC SCH ×3 (08:38→17:07)
[2021-01-03] MEDS ORDERED: ATORVASTATIN 40 MG TAB PO SCH (09:00)
[2021-01-03] MEDS ORDERED: DULoxetine HCL 20 MG CAP PO SCH (09:00)
[2021-01-03] MEDS ORDERED: TIMOLOL MALEATE 0.25% OP SOLN 5 ML BTL OPL SCH (09:00)
[2021-01-03] MEDS ORDERED: predniSONE 1 MG TAB PO SCH (09:00)
[2021-01-03] MEDS ORDERED: DIPYRIDAMOLE/ASPIRIN CAP PO SCH (09:00)
[2021-01-03] MEDS ORDERED: MULTIVITAMIN TAB PO SCH (09:00)
[2021-01-03] MEDS ORDERED: FOLIC ACID 1 MG TAB PO SCH (09:00)
[2021-01-03] MEDS ORDERED: HYDROXYCHLOROQUINE SULFATE 200 MG TAB PO SCH (09:00)
[2021-01-03] MEDS ORDERED: ACETAMINOPHEN 500 MG TAB PO ONE (10:54)
[2021-01-03] MEDS ORDERED: KETOROLAC TROMETHAMINE 15 MG/ML VIAL IV ONE (11:54)
[2021-01-03] MEDS ORDERED: STROKE PATIENT DISCHARGE STA (15:07)
--- NOTE | 2021-01-03 16:36 | Communication Note ---
Date of Service: January 02, 2021 Patient developed intractable headache, Associated with nausea, headache improved after giving Toradol Patient reports he has been having on and off headache for past several years, was seen with neurology Her presentation is not typical of her migraine headache. No aura, no photo or sound sensitivity. Still has persistently bilateral lower extremity weakness with not much improvement Waiting for bed availability at [facility] Gabriele Lerma MD
--- NOTE | 2021-01-03 16:40 | Discharge Summary ---
Date of Service January 03, 2021 Admission HPI Per Admitting Provider Prior History of stroke bilateral lower extremity paraplegia Left sided weakness Principal Diagnosis Prior History of stroke bilateral lower extremity paraplegia Left sided weakness Discharge Exam Physical exam: General: No acute distress, alert awake oriented x3 HEENT: PERRLA, EOMI, Heart: Regular S1-S2, no carotid bruit, no JVD, no lower extremity edema Lungs: Clear to auscultate, no wheeze or rales Abdomen: Soft nontender, no organomegaly Extremity: No cyanosis, no deformity, weakness on bilateral lower ext , shuffling gait Neuro: No focal neurological deficit normal speech, normal visual field, Motor strength : normal sensation , wekness on left upper ext 3/5 , bilateral lower ext weakness , un able to do heel [place] test Psych: Alert awake oriented x3, normal affect Discharge Data Allergies Allergy/AdvReac Type Severity Reaction Status Date / Time erythromycin base Allergy Intermediate swelling Verified 01/02/21 00:20 of eyes lisinopril Allergy Intermediate cough Verified 01/02/21 00:20 bee venom protein (honey bee) Allergy Unknown swelling. Verified 01/02/21 00:20 sob Sulfa (Sulfonamide Allergy Difficulty Verified 01/02/21 00:20 Antibiotics) Breathing Consultations 01/02/21 03:04 ED Decision to Admit Stat Ordered Studies 01/01/21 23:33 CT angio head w con Urgent CT angio neck with con Urgent CT head/brain wo con Urgent 01/02/21 03:55 MR brain wo/w con Urgent Hospital Course (1) Lower extremity weakness: Patient admitted with bilateral lower extremity weakness, unable to walk, shuffling gait. History of prior stroke almost a year ago, Has been on aspirin and Plavix for short duration, Plavix was discontinued secondary to bright red blood per rectum/possible GI bleed Taking aspirin full-strength 325 mg daily Presented with sudden onset of worsening of left-sided weakness, unable to walk, no dysphagia, no dysarthria no change in consciousness Patient was seen by neurology in the ER Detail imaging CTA of head neck, MRI of brain, shows old right thalamic infarct, no evidence of acute CVA Patient's presentation is not correlates any acute stroke, Differentials could be given very symptoms at typical presentation of transverse myelitis, Dr. Jewell, neurologist, commence, patient will benefit with transfer to tertiary/higher level of care, [facility] for further neuro evaluation, May require intravenous IgG, EMG study. Case discussed with on-call [facility] neurology in [place] Dr. Falcon Patient is accepted to be transferred neurology bed available at [facility] today Patient is transferred to [place] in stable condition, accepting physician neurology Dr. Ezekiel Lerma MD Total Time Total Time Spent Total Time Spent (In Minutes): 40 mins Total Time Includes: Examination of the Patient, Discharge Planning, Medication Reconciliation and Communication With Other Providers Discharge Plan Discharge Items Patient Disposition: Transfer Acute Care Hospital Reason For Visit: Abnormal gait Discharge Diagnosis: Prior History of stroke bilateral lower extremity paraplegia Left sided weakness Activity: Resume your previous activity Non-emergency contact: Primary Care Provider Call non-emergency contact if: you have any medication questions Follow-up/Referrals: Patricia Doran MD [Primary Care Provider] - Diet: Heart Healthy Addtl Attending Provider Instructions: pt is transferred to [facility] for further care , accepting physician Neurology Dr Falcon Pending Studies at Discharge: No Stand-Alone Forms: My [facility] Skilled Items Patient informed of condition?: Yes DNR: No Discharge Level of Care: Other Communicable Disease: No Discharge Prognosis: Stable Lines: None Urinary Catheter: No Medications and DC Order Prescriptions: Continued multivitamin Tablet 1 tab PO DAILY RF: 0 clindamycin HCl 300 mg Capsule 300 mg PO UD PRN (Reason: Prophylaxis) RF: 0 bimatoprost 0.03 % drops 1 drp OPB HS RF: 0 prednisone 1 mg tablet 2 mg PO DAILY RF: 0 folic acid 1 mg Tablet 1 mg PO DAILY RF: 0 montelukast [Singulair] 10 mg Tablet 10 mg PO PM RF: 0 epinephrine [EpiPen] 0.3 mg/0.3 mL Auto-Injector 0.3 mg IM UD PRN (Reason: ALLERIC REACTION) RF: 0 albuterol sulfate [ProAir HFA] 90 mcg/actuation Hfa Aerosol Inhaler 2 puff INHALATION Q6H PRN (Reason: Shortness Of Breath Or Wheezing) RF: 0 timolol maleate [Timoptic] 0.5 % drops 1 drp OPL BID RF: 0 metformin [Glucophage XR] 500 mg tablet extended release 24 hr 500 mg PO QAM RF: 0 levothyroxine [Synthroid] 112 mcg tablet 112 mcg PO DAILY RF: 0 oxycodone [Roxicodone] 5 mg tablet 5 mg PO Q4 PRN (Reason: Pain) RF: 0 Orencia 125 mg/mL Syringe 125 mg SUBCUT WK RF: 0 Simbrinza 1-0.2 % drops,suspension 1 drp OPL BID RF: 0 duloxetine 20 mg capsule,delayed release(DR/EC) 20 mg PO DAILY RF: 0 hydroxychloroquine 200 mg tablet 400 mg PO DAILY RF: 0 atorvastatin 40 mg tablet 40 mg PO DAILY RF: 0 clotrimazole 10 mg Mary 10 mg PO QID PRN (Reason: Mouth Irritation) RF: 0 Discontinued aspirin 325 mg Tablet 325 mg PO DAILY RF: 0 Discharge Orders: Discharge Order (Routine); Ordered 01/03/21 Ordered By: Liilbeth Lerma Admission Data Admit Date/Time: 01/02/21 03:50 Attending Provider: Lilibeth Lerma Admit Provider: Anam Duran Primary Care Provider: Patricia Doran Other Providers: Maximo May ; Anam Duran
== END 2021-01-03 17:25 | disposition short-term general hospital (02) | DRG 53 ==
LOC: ED 22:34 → 2S 01-02 03:50 → ED 01-02 04:12 → SUATTDRO 01-02 04:12 → EDINP 01-02 04:12 → 2W 01-02 13:58
DX: E78.5 Hyperlipidemia, unspecified; G82.20 Paraplegia, unspecified; Z88.2 Allergy status to sulfonamides; Z83.3 Family history of diabetes mellitus; E03.9 Hypothyroidism, unspecified; J45.909 Unspecified asthma, uncomplicated; Z86.73 Personal history of transient ischemic attack (TIA), and cerebral infarction without residual deficits; R53.1 Weakness; Z79.84 Long term (current) use of oral hypoglycemic drugs; I65.22 Occlusion and stenosis of left carotid artery; E11.9 Type 2 diabetes mellitus without complications; M06.9 Rheumatoid arthritis, unspecified; Z79.82 Long term (current) use of aspirin

== ENCOUNTER 2023-08-07 11:20 | Inpatient (IN) ==
--- OUTSIDE RECORDS SUMMARY | 2023-08-07 11:26 | External Medical Summary | Summary of Care ---
Author Name Unknown Organization [facility] Address [address] [facility] [place] [address] Phone [phone] Care Team Providers Care [employer] Specialist Name Role Phone Patricia Doran MD Primary Care Provider + Reason for Visit * Reason Onset Date Comments Films 06/15/2023 Encounter Details Date Type Department Care Team Description 06/15/2023 Telephone Radiology Film File [address], [place] [id number] Edward Champion MD [address] [place], [place] [id number] Films Allergies Active Allergy Reactions Severity Noted Date Comments Bee Venom 06/07/2015 Celecoxib 03/02/2023 Increased BP Erythromycin Base Conjunctivitis 01/17/2010 Opthalmic ointment Lisinopril 02/10/2012 cough Sulfasalazine 02/15/2020 GI upset,swealling in hands documented as of this encounter (statuses as of 06/15/2023) Medications Medication Sig Dispensed Refills Start Date End Date Status MULTIVITAMINS OR TABS daily 0 06/12/2002 Active OCUVITE PO TABS Take by mouth . 0 01/19/2014 Active Clindamycin HCl 300 MG Capsule Takes when goes to dentist 0 04/07/2017 Active Calcium 500 MG TabletIndications: Vitamin D deficiency Take 1 Tablet by mouth in the morning. With food.. 100 Tab 11 01/20/2018 Active bimatoprost (LUMIGAN) 0.01 % ophthalmic solution Instill 1 Drop into both eyes at bedtime. 3 mL 12 01/20/2018 Active Brinzolamide-Brimo nidine 1-0.2 % Ophthalmic Suspension Instill into eye 2 times a day. L eye only. 0 Active predniSONE (DELTASONE) 1 MG Tablet Take 2 Tablets by mouth in the morning. Patient taking 2mg daily. . 0 Active Dextran 70-Hypromellose (PF) 0.1-0.3 % Ophthalmic Solution Instill 0.1 Drops into both eyes as needed. 0 11/13/2018 Active fluticasone-salmet rand (ADVAIR DISKUS) 500-50 MCG/DOSE inhaler Inhale 1 Puff by mouth 2 times a day. 1 Each 5 11/24/2019 Active loratadine ODT (CLARITIN REDITAB) 10 MG TBDPIndications:Se asonal allergic rhinitis due to pollen Place 1 Tab on tongue daily. 30 Tab 3 03/20/2020 Active Folic Acid 1 MG Oral TabletIndications: Arthritis, rheumatoid (HCC) Take 1 Tab by mouth daily. 90 Tab 1 07/05/2020 Active EpiPen 2-Elmer 0.3 MG/0.3ML Injection Solution Auto-injector For a severe reaction: Inject in outer thigh following instructions on package and go to the Emergency room. 2 Each 3 06/05/2021 Active diphenhydrAMINE HCl 25 MG Oral Tablet (Benadryl) Take 2 tablets at onset suspected insect sting allergic reaction; may repeat every 4-6 hrs. as needed. 30 Tab 0 06/05/2021 Active guaiFENesin 100 MG/5ML Oral Liquid Take 10 mL by mouth 3 times a day as needed for Cough. 0 Active Compressor NebulizerIndicatio ns:Moderate persistent asthma without complication,Bronc hiectasis without complication (HCC) Inhale via nebulizer . Use as directed. Pt has diagnosis of bronchiectasis and mild persistent asthma 1 Each 1 04/23/2022 Active Clobetasol Propionate 0.05 % External Gel (Temovate) APPLY A THIN AMOUNT TO AFFECTED AREA TWICE DAILY 0 07/20/2022 Active Levothyroxine Sodium 88 MCG Oral Tablet Take 112 mcg by mouth in the morning. 0 08/03/2022 Active Timolol Maleate 0.5 % Ophthalmic Solution (Timoptic) INSTILL 1 DROP INTO THE LEFT EYE DAILY 0 08/03/2022 Active Montelukast Sodium 10 MG Oral Tablet (Singulair)Indicat ions:Allergic rhinitis Take 1 Tablet by mouth every evening. 90 Tablet 1 12/29/2022 Active oxygen IN GAS Administer 2 L/min(Oxygen) into nostril as needed for Shortness of Breath. Diagnosis: MAAME, Bronchiectesis, aspergillus infection of the lung. 1 Each 0 02/26/2023 Active Hydroxychloroquine Sulfate 200 MG Oral Tablet (Plaquenil) One and half pill daily 60 Tablet 3 03/02/2023 Active Ipratropium-Albute rol 0.5-2.5 (3) MG/3ML Inhalation Solution (Duoneb) Inhale 3 mL via nebulizer in the morning and 3 mL at noon and 3 mL in the evening and 3 mL before bedtime. 120 mL 3 03/02/2023 Active Respiratory Therapy Supplies Device Please provide Acapella Device for expectoration assist as instructed. 1 Each 3 03/18/2023 Active DULoxetine HCl 60 MG Oral Capsule Delayed Release Particles (Cymbalta) Take 1 Capsule by mouth in the morning. 1 daily. 0 02/24/2023 Active Leflunomide 10 MG Oral Tablet (Arava) Take 1.5 tabs daily 135 Tablet 4 05/24/2023 Active dexAMETHasone Sodium Phosphate 4 MG/ML Injection Solution (Decadron) To use with ionophoresis as per physical therapy. PT states needs 120 mg. 30 mL 0 06/04/2023 Active documented as of this encounter (statuses as of 06/15/2023) Active Problems Problem Noted Date Encounter for therapeutic drug monitorin g 09/30/2021 Immunodeficiency 02/18/2021 Ambulatory dysfunction 01/04/2021 Restrictive lung disease 07/17/2020 Bronchiectasis without complication 07/07 Pulmonary nodules 07/17/2020 Moderate persistent asthma without compl ication 07/17/2020 Advanced directives, counseling/discussi on 02/24/2019 Urge incontinence of urine 02/24/2019 Diabetes mellitus without complication 0 12/05/2018 Controlled substance agreement signed Rheumatoid arthritis involvi ng multiple sites with positive rheumatoid factor 02/27/2016 Retinal edema 11/21/2009 After cataract not obscuring vision 11/2001 Overview: ICD-10 update of inactive term GENERAL OSTEOARTHROSIS 12/13/2000 Other psoriasis 12/13/2000 Acquired hypothyroidism Allergic rhinitis Subjective weakness documented as of this encounter (statuses as of 06/15/2023) Resolved Problems Problem Noted Date Resolved Date Protein-calorie malnutrition 02/18/2021 Atherosclerosis of aorta 02/18/2021 022 Pneumonia of right middle lobe due to Pseudomona s species 07/17/2020 04/23/2022 Osteomyelitis 12/05/2018 07/17/2020 Diabetic cataract 12/05/2018 07/17/2020 Exudative age-related macula r degeneration, left eye, with inactive choroidal neovascularization 12/05/2018 04/23/2022 Arthritis, rheumatoid 11/01/2014 02/27/2016 Asthma with severity to be determined 02/10/2005 08/08/2013 Overview: ICD-10 update of inactive term Other cataract 07/03/2002 07/06/2017 Asthma with severity to be determined 07/19/2012 Overview: ICD-10 update of inactive term Allergic rhinitis 08/14/2020 documented as of this encounter (statuses as of 06/15/2023) Immunizations Name Administration Dates Next Due COVID-19 mRNA, LNP-s, No Pre serve, 2-Dose Series (Moderna) 09/10/2020 COVID-19 mRNA, LNP-s, No Pre serve, 2-Dose Series (Pfizer) 08/25/2021,12/14/2020,11/23/2020 PPD 11/01/2014,11/08/2008 Pneumococcal Conjugate Vacc, 13 Valent (Prevnar) 01/20/2018 Pneumococcal Polysaccharide PPV23 (Pneumovax) 06/20/2019,11/08/2008 SEASONAL INFLUENZA, PF, 6 M & Above, IM , (FLULAVAL or FLUZONE) 06/17/2020,06/20/2019,07/07/2018,07/06 Seasonal Influenza, Quadriva lent Hd (Fluzone Hd) 07/16/2022,06/20/2021 Seasonal Influenza, Quadriva lent, No Preserve, IM 07/08/2016 Seasonal Influenza, Split, I IV3, With Preserve, Inj 06/10/2015,08/04/2013 TD, Preservative Free 02/26/2015 TDAP (age 11 and older)(Adacel) 03/18/2011 Zoster Vaccine Recombinant (Shingrix) 06/17/2020 ,03/14/2020 documented as of this encounter Social History Tobacco Use Types Packs/Day Years Used Date Smoking Tobacco: Never Smokeless Tobacco: Never Comments:No passive smoke ex posures Alcohol Use Standard Drinks/Week Comments No 0 (1 standard drink = 0.6 oz pur e alcohol) Food Insecurity Answer Date Recorded Within the past 12 months, y ou worried that your food would run out before you got money to buy more. Never true 03/14/2020 Within the past 12 months, t he food you bought just didn't last and you didn't have money to get more. Never true 03/14/2020 Sex Assigned at Date Recorded Female 02/14/2019 9:09 AM E DT Job Start Date Occupation Industry Not on file Not on file Not on file documented as of this encounter Functional Status Functional Status Response Date of Assess ment Are you deaf or do you have serious difficulty h earing? No 01/03/2021 Are you blind or do you have serious difficulty seeing, even when wearing glasses? No 01/03/2021 Do you have serious difficul ty walking or climbing stairs? (5 years old or older) Yes 01/03/2021 Do you have difficulty dress ing or bathing? (5 years old or older) No 01/03/2021 Because of a physical, menta l, or emotional condition, do you have difficulty doing errands alone such as visiting a doctor s office or shopping? (15 years old or older) No 01/04/20 21 Cognitive Status Response Date of Assessm ent Because of a physical, menta l, or emotional condition, do you have serious difficulty concentrating, remembering, or making decisions? (5 years old or older No 01/03/2021 documented as of this encounter Miscellaneous Notes * Telephone Encounter - JULIUS Joseph - 06/15/2023 3:05 PM EDT Received a fax requesting the 06/10/23 CT images be shared with [facility]. [place] Authorization not on file however documentation in the chart can be used to ascertain established care with this provider/office. Images uploaded to [facility]. documented in this encounter Plan of Treatment Upcoming Encounters Date Type Specialty Care Team Description 06/17/2023 Office Visit Internal Medicine Patricia Doran MD [address] [facility] [place] [address] 07/02/2023 Office Visit Cardiology Erik Sosa, DO [address] [place] [address] 08/10/2023 Office Visit Pulmonary Mc Randall [facility] [address] [facility] [address] 10/15/2023 Office Visit Rheumatology Saran Boateng MD [address] [place] [address] 11/05/2023 Office Visit Cardiology Mukesh Laird, DO [address] [place] [address] Scheduled Procedures Name Priority Associated Diagnoses Date/Ti me COLONOSCOPY FLEXIBLE PROXIMAL DIAGNOSTIC Recall History of colon polyps Health Maintenance Due Date Last Done Comments DIABETES-EYE EXAM 06/20/2020 06/20/2019, , 06/24/2011, Additional history exists Depression Screening 05/21/2021 05/21/2020 Albumin/Creatinine Ratio 03/05/2023 022, 02/18/2021, 06/20/2019, Additional history exists Mammogram 03/05/2023 03/05/2022, 06/07, 02/20/2020, Additional history exists COVID-19 Vaccine (3-24 season) 2023 08/25/2021, 12/14/2020, 11/23/2020, Additional history exists Influenza Vaccine (FLU shot) (#1) 2023 07/16/2022, 06/20/2021, 06/17/2020, Additional history exists HbA1c 09/01/2023 03/02/2023, 07/08, 03/05/2022, Additional history exists Diabetic Foot Exam 03/02/2024 03/02/2023, 0 03/05/2022, 06/17/2020, Additional history exists TSH 03/02/2024 03/02/2023, 07/08, 03/05/2022, Additional history exists GFR 06/02/2024 06/02/2023, 02/05, 11/06/2022, Additional history exists Pneumococcal Vaccine: 65+ Years (4 - PPSV23 or PCV20) 06/20/2024 06/20/2019, 01/20/2018, 11/08/2008 DTaP,Tdap,and Td Vaccines (3 - Td or Tdap) 02/26/2025 02/26/2015, 03/18/2011 COLONOSCOPY-EVERY 5 YRS AGES 18-100 02/26/2026 02/26/2021, 02/26/2021, 04/16/2014, Additional history exists Lipid Panel 07/24/2026 07/24/2021, 07/0 05/2020, 09/20/2019, Additional history exists DXA Scan 06/16/2029 06/16/2022, 01/06, 02/03/2019, Additional history exists Pap Smear Discontinued 05/19/2019, 05/07, 11/08/2008, Additional history exists Zoster Vaccines Completed 06/17/2020, 03/14/2020 GARDASIL-HPV IMMUNIZATION SERIES Aged Out No longer eligible based on patient's age to complete this topic Hepatitis B Aged Out No longer eligi ble based on patient's age to complete this topic MENINGOCOCCAL (MENACTRA/MENVEO) Aged Out No longer eligible based on patient's age to complete this topic documented as of this encounter Medical Devices Implanted Type Area Rim Fire Priming Operator Device Identifier Shelf Expiration Date Model / Serial / Lot Lens 6.0 Sa60at - [id number] Implanted:Qty: 1 on 03/23/2007 at OR [facility] Left: Eye BETTY : SURGICAL 08/06/2011 SA60AT / [id number] / documented as of this encounter Advance Directives Latest Code Status on File Code Status Date Activated Date Inactivated Comments Full Code 01/03/2021 8:00 PM 01/10/2021 5:07 PM This o rder reflects the patients wishes and were consensually agreed upon. Question Answer Comments Discussion of Advance Directives occurred with: Patient Care Teams Diabetes [employer] Specialist Relationship Specialty Start Date End Date Patricia Doran MD [address] [place], [place] [address] PCP - General 12/17/08 documented as of this encounter
--- OUTSIDE RECORDS SUMMARY | 2023-08-07 11:26 | External Medical Summary ---
Author Name Unknown Address Unknown Organization K01:[facility] - [address] [place] [address] Laboratory Report Ordering Provider Test Date Status MALACHI MUSA 06/17/2023 16:49:27 Final Observation Date Value Abnormality Reference (Units ) Status TSH 06/17/2023 16:49:27 4.75 Above high normal 0. 27-4.20 (uIU/mL) Final Performing Location [facility] - [address] [place] [address]
--- OUTSIDE RECORDS SUMMARY | 2023-08-07 11:26 | External Medical Summary | Summary of Care ---
Author Name Unknown Organization [facility] Address [address] [facility] [place] [address] Phone [phone] Care Team Providers Care Clothes Marker Name Role Phone Patricia Doran MD Primary Care Provider + Encounter Details Date Type Department Care Team (Late st Contact Info) Description 04/09/2023 Telephone General Internal Medicine [facility] [address] [facility] [place] [address] [facility] [address] [facility] [address] Allergies Active Allergy Reactions Criticality Noted Date Comments Bee Venom 06/07/2015 Celecoxib 03/02/2023 Increased BP Erythromycin Base Conjunctivitis 01/17/2010 Opthalmic ointment Lisinopril 02/10/2012 cough Sulfasalazine 02/15/2020 GI upset,swealling in hands documented as of this encounter (statuses as of 07/09/2023) Medications Medication Sig Dispensed Refills Start Date End Date Status MULTIVITAMINS OR TABS daily 0 06/12/20 02 Active OCUVITE PO TABS Take by mouth . 0 01/20/20 14 Active Clindamycin HCl 300 MG Capsule Takes when goes to dentist 0 04/07/20 17 Active Calcium 500 MG TabletIndications :Vitamin D deficiency Take 1 Tablet by mouth in the morning. With food.. 100 Tab 11 01/21/20 18 Active bimatoprost (LUMIGAN) 0.01 % ophthalmic solution Instill 1 Drop into both eyes at bedtime. 3 mL 12 01/21/20 18 Active Brinzolamide-Brim onidine 1-0.2 % Ophthalmic Suspension Instill into eye 2 times a day. L eye only. 0 Active predniSONE (DELTASONE) 1 MG Tablet Take 2 Tablets by mouth in the morning. Patient taking 2mg daily. . 0 Active Dextran 70-Hypromellose (PF) 0.1-0.3 % Ophthalmic Solution Instill 0.1 Drops into both eyes as needed. 0 11/14/19 19 Active fluticasone-salme terol (ADVAIR DISKUS) 500-50 MCG/DOSE inhaler Inhale 1 Puff by mouth 2 times a day. 1 Each 5 11/24/19 20 Active Additional Information Patient not taking.Reported on 06/17/2023 loratadine ODT (CLARITIN REDITAB) 10 MG TBDPIndications:S easonal allergic rhinitis due to pollen Place 1 Tab on tongue daily. 30 Tab 3 03/20/20 20 Active Folic Acid 1 MG Oral TabletIndications :Arthritis, rheumatoid (HCC) Take 1 Tab by mouth daily. 90 Tab 1 07/05/20 20 Active EpiPen 2-Elmer 0.3 MG/0.3ML Injection Solution Auto-injector For a severe reaction: Inject in outer thigh following instructions on package and go to the Emergency room. 2 Each 3 06/05/20 21 Active diphenhydrAMINE HCl 25 MG Oral Tablet (Benadryl) Take 2 tablets at onset suspected insect sting allergic reaction; may repeat every 4-6 hrs. as needed. 30 Tab 0 06/05/20 21 Active guaiFENesin 100 MG/5ML Oral Liquid Take 10 mL by mouth 3 times a day as needed for Cough. 0 Active Compressor NebulizerIndicati ons:Moderate persistent asthma without complication,Bron chiectasis without complication (HCC) Inhale via nebulizer . Use as directed. Pt has diagnosis of bronchiectasis and mild persistent asthma 1 Each 1 04/23/20 22 Active Clobetasol Propionate 0.05 % External Gel (Temovate) APPLY A THIN AMOUNT TO AFFECTED AREA TWICE DAILY 0 11/14/20 22 Active Levothyroxine Sodium 88 MCG Oral Tablet Take 112 mcg by mouth in the morning. 0 08/03/20 Active Timolol Maleate 0.5 % Ophthalmic Solution (Timoptic) INSTILL 1 DROP INTO THE LEFT EYE DAILY 0 08/03/20 Active Montelukast Sodium 10 MG Oral Tablet (Singulair)Indica tions:Allergic rhinitis Take 1 Tablet by mouth every evening. 90 Tablet 1 12/30/19 Active oxygen IN GAS Administer 2 L/min(Oxygen) into nostril as needed for Shortness of Breath. Diagnosis: MAAME, Bronchiectesis, aspergillus infection of the lung. 1 Each 0 02/27/20 Active Additional Information Patient not taking.Reported on 06/17/2023 Hydroxychloroquin e Sulfate 200 MG Oral Tablet (Plaquenil) One and half pill daily 60 Tablet 3 03/02/20 Active Ipratropium-Albut rand 0.5-2.5 (3) MG/3ML Inhalation Solution (Duoneb) Inhale 3 mL via nebulizer in the morning and 3 mL at noon and 3 mL in the evening and 3 mL before bedtime. 120 mL 3 03/02/20 Active Respiratory Therapy Supplies Device Please provide Acapella Device for expectoration assist as instructed. 1 Each 3 03/18/20 Active DULoxetine HCl 60 MG Oral Capsule Delayed Release Particles (Cymbalta) Take 1 Capsule by mouth in the morning. 1 daily. 0 02/25/20 23 Active Orencia 250 MG Intravenous Solution Reconstituted (Abatacept) Administer intravenously Every Month. 0 023 Discontinued Leflunomide 10 MG Oral Tablet (Arava) Take 15 mg by mouth in the morning. 0 08/14/20 22 023 Discontinued(Re fill) Voriconazole 200 MG Oral Tablet (Vfend) 400 mg twice daily (every 12 hours) on day 1 and day 2, then 200 mg twice a day (every 12 hours) until end of therapy. 90 Tablet 2 11/05/19 23 023 Discontinued Sodium Chloride 3 % Inhalation Nebulization Solution Inhale 3 mL via nebulizer in the morning and 3 mL at noon and 3 mL before bedtime. 360 mL 0 03/18/20 023 documented as of this encounter (statuses as of 07/09/2023) Active Problems Problem Noted Date Diagnosed Date Encounter for therapeutic drug monitoring 2021 Immunodeficiency 02/18/2021 Ambulatory dysfunction 01/04/2021 Restrictive lung disease 07/17/2020 Bronchiectasis without complication 07/17/2020 Pulmonary nodules 07/17/2020 Moderate persistent asthma without complication 07/17/2020 Advanced directives, counseling/discussion 02/24 Urge incontinence of urine 02/24/2019 Controlled substance agreement signed 07/06/2017 Rheumatoid arthritis involvi ng multiple sites with positive rheumatoid factor 02/27/2016 Retinal edema 11/21/2009 After cataract not obscuring vision 08/08/2002 Overview: ICD-10 update of inactive term GENERAL OSTEOARTHROSIS 12/13/2000 Other psoriasis 12/13/2000 Acquired hypothyroidism Allergic rhinitis Subjective weakness documented as of this encounter (statuses as of 07/09/2023) Resolved Problems Problem Noted Date Diagnosed Date Resolved Date Protein-calorie malnutrition 02/18/2021 05/21/2022 Atherosclerosis of aorta 02/18/2021 Pneumonia of right middle lo be due to Pseudomonas species 07/17/2020 04/23/2022 Osteomyelitis 12/05/2018 07/17/2020 Diabetic cataract 12/05/2018 07/17/2020 Diabetes mellitus without complication 12/05/2018 06/17/2023 Exudative age-related macula r degeneration, left eye, with inactive choroidal neovascularization 12/05/2018 04/23/2022 Arthritis, rheumatoid 11/01/20142015 Asthma with severity to be determined 02/10/2005 08/08/2013 Overview: ICD-10 update of inactive term Other cataract 07/03/2002 07/06/2017 Asthma with severity to be determined 07/19/2012 Overview: ICD-10 update of inactive term Allergic rhinitis 08/14/2020 documented as of this encounter (statuses as of 07/09/2023) Immunizations Name Administration Dates Next Due COVID-19 [...] drink = 0.6 oz pur e alcohol) PHQ-2 Answer Date Recorded PHQ-2 Score 0 05/21/2020 Hunger Vital Sign Answer Date Recorded Worried About Running Out of Food in the Last Ye ar Never true 03/14/2020 Ran Out of Food in the Last Year Never true 03/14/2020 Sex and Gender Information Value Date Recorded Sex Assigned at Female 02/14/2019 9:09 AM EDT Gender Identity Female 02/14/2019 9:09 AM EDT Sexual Orientation Straight 02/14/2019 9: 09 AM EDT Job Start Date Occupation Industry Not on [...] No 01/03/2021 documented as of this encounter Plan of Treatment Upcoming Encounters Date Type Department Care Team (Late st Contact Info) Description 10/15/2023 11:00 AM EST Office Visit Rheumatology [place] [id number] [facility] [place] [address] Saran Boateng MD [address] [place] [address] 11/05/2023 2:30 PM EST Office Visit Cardiology, [facility] [address] [place] [address] Mukesh Laird, [address] [place] [address] 12/30/2023 10:00 AM EDT Office Visit General Internal Medicine [facility] [place] [address] [place] [address] Patricia Doran MD [address] [facility] [place] [address] Scheduled Procedures Name Priority Associated Diagnoses Date/Ti me COLONOSCOPY FLEXIBLE PROXIMAL DIAGNOSTIC Recall History of colon polyps Health Maintenance Due Date Last Done Comments Hepatitis B (1 of 3 - Risk 3-dose series) 2015 Depression Screening 05/21/2021 05/21/2020 Mammogram 03/05/2023 03/05/2022, 06/07, 02/20/2020, Additional history exists COVID-19 Vaccine ( season) 2023 08/25/2021, 12/14/2020, 11/23/2020, Additional history exists Influenza Vaccine (FLU shot) (#1) 2023 07/16/2022, 06/20/2021, 06/17/2020, Additional history exists TSH 06/17/2024 06/17/2023, 02/05, 07/31/2022, Additional history exists Pneumococcal Vaccine: 65+ Years (4 - PPSV23 or PCV20) 06/20/2024 06/20/2019, 01/20/2018, 11/08/2008 DTaP,Tdap,and Td Vaccines (3 - Td or Tdap) 02/26/2025 02/26/2015, 03/18/2011 COLONOSCOPY-EVERY 5 YRS AGES 18-100 02/26/2026 02/26/2021, 02/26/2021, 04/16/2014, Additional history exists Diabetes Screening 06/02/2026 06/02/2023, 0 03/02/2023, 03/02/2023, Additional history exists Lipid Panel 07/24/2026 07/24/2021, 07/0 05/2020, 09/20/2019, Additional history exists DXA Scan 06/16/2029 06/16/2022, 01/06, 02/03/2019, Additional history exists Pap Smear Discontinued 05/19/2019, 05/07, 11/08/2008, Additional history exists Zoster Vaccines Completed 06/17/2020, 03/14/2020 Albumin/Creatinine Ratio Discontinued 03/05/ 022, 02/18/2021, 06/20/2019, Additional history exists Diabetic Foot Exam Discontinued 03/02/2023, 0 03/05/2022, 06/17/2020, Additional history exists Diabetic Eye Exam Discontinued 06/04/2023, , 06/03/2023, Additional history exists GARDASIL-HPV IMMUNIZATION SERIES Aged Out No longer eligible based on patient's age to complete this topic MENINGOCOCCAL (MENACTRA/MENVEO) Aged Out No longer eligible based on patient's age to complete this topic documented as of this encounter Medical Devices Implanted Type Area Crop Duster Helper Device Identifier Shelf Expiration Date Model / Serial / Lot Lens 6.0 Sa60at - [id number] Implanted:Qty: 1 on 03/23/2007 at OR [facility] Left: Eye BETTY : SURGICAL 08/06/2011 SA60AT / [id number] / documented as of this encounter Advance Directives Latest Code Status on File Code Status Date Activated Date Inactivated Comments Full Code 01/03/2021 8:00 PM 01/10/2021 5:07 PM This o rder reflects the patients wishes and were consensually agreed upon. Question Answer Comments Discussion of Advance Directives occurred with: Patient Care Teams Clothes Marker Relationship Specialty Start Date End Date Patricia Doran MD [address] [place] [address] PCP - General 12/17/08 documented as of this encounter
--- OUTSIDE RECORDS SUMMARY | 2023-08-07 11:26 | External Medical Summary | Summary of Care ---
Author Name Unknown Organization [facility] Address [address] [place] [address] Phone [phone] Care Team Providers Care Community Engagement Coordinator Name Role Phone Patricia Doran MD Primary Care Provider + Reason for Visit * Reason Comments Follow Up Pt here for a 3m f/u Encounter Details Date Type Department Care Team (Late st Contact Info) Description 06/17/2023 3:40 PM EDT Office Visit General Internal Medicine [facility] [place] [address] [facility] [place] [id number] Patricia Doran MD [address] [facility] [place] [address] Rheumatoid arthritis involving multiple sites with positive rheumatoid factor (HCC)*; Immunodeficiency (HCC); Risk and functional assessment; Restrictive lung disease; Bronchiectasis without complication (HCC); Acquired hypothyroidism; Ambulatory dysfunction; Moderate persistent asthma without complication; Encounter for screening mammogram for breast cancer Allergies Active Allergy Reactions Criticality Noted Date Comments Bee Venom 06/07/2015 Celecoxib 03/02/2023 Increased BP Erythromycin Base Conjunctivitis 01/17/2010 Opthalmic ointment Lisinopril 02/10/2012 cough Sulfasalazine 02/15/2020 GI upset,swealling in hands documented as of this encounter (statuses as of 07/01/2023) Medications Medication Sig Dispensed Refills Start Date [...] a day. 1 Each 5 11/24/2019 Active Additional Information Patient not taking.Reported on 06/17/2023 loratadine ODT (CLARITIN REDITAB) 10 MG TBDPIndications:Se [...] the lung. 1 Each 0 02/26/2023 Active Additional Information Patient not taking.Reported on 06/17/2023 Hydroxychloroquine Sulfate 200 MG Oral Tablet (Plaquenil) [...] as of this encounter (statuses as of 07/01/2023) Active Problems Problem Noted Date Diagnosed Date [...] as of this encounter (statuses as of 07/01/2023) Resolved Problems Problem Noted Date Diagnosed Date [...] as of this encounter (statuses as of 07/01/2023) Immunizations Name Administration Dates Next Due COVID-19 [...] Date Smoking Tobacco: Never Smokeless Tobacco: Never Tobacco Cessation:Counseling Given: Not Answered Comments:No passive smoke exposures Alcohol Use Standard Drinks/Week Comments No 0 [...] on file documented as of this encounter Last Filed Vital Signs Vital Sign Reading Time Taken Comments Blood Pressure 122/76 06/17/2023 3:47 PM EDT Pulse 80 06/17/2023 3:47 PM EDT Temperature 37.2 C (98.9 F) 06/17/2023 3:47 PM ED T Respiratory Rate 16 06/17/2023 3:47 PM EDT Oxygen Saturation 95% 06/17/2023 3:47 PM EDT Inhaled Oxygen Concentration - - Weight - - Height - - Body Mass Index - - documented in this encounter Functional Status Functional Status Response [...] No 01/03/2021 documented as of this encounter Patient Instructions * Patient Instructions* Shirley Bowden LPN - 06/17/2023 3:47 PM EDT Patient Instructions - Fall Prevention (This education is for all patients over 65 regardless of symptoms) Remember to take your current medications as prescribed. In order to prevent falls, you are encouraged to: Exercise Utilize assistive/adaptive devices Avoid multifocal lenses when walking Avoid hazards in home Maintain a regular toileting schedule Any questions please contact our office. Preventing Falls in the Home (This education is for all patients over 65 regardless of symptoms) As you get older, falls are more likely. Thats because your reaction time slows. Your muscles and joints may also get stiffer, making them less flexible. Illness, medications, and vision changes can also affect your balance. A fall could leave you unable to live on your own. To make your home safer, follow these tips: Floors Put nonskid pads under area rugs Remove throw rugs Replace worn floor coverings Tack carpets firmly to each step on carpeted stairs. Put nonskid strips on the edges of uncarpeted stairs Keep floors and stairs free of clutter and cords Arrange furniture so there are clear pathways Clean up any spills right away Bathrooms Install grab bars in the tub or shower Apply nonskid strips or put a nonskid rubber mat in the tub or shower Sit on a bath chair to bathe Use bathmats with nonskid backing Lighting Keep a flashlight in each room Put a nightlight along the pathway between the bedroom and the bathroom [employer] Patient Education Copyright 2008 - 2010 Ian except where otherwise noted Preventing Falls: Exercises to Improve Balance, Flexibility, Strength, and Staying Power (This education is for all patients over 65 regardless of symptoms) Certain types of exercises may help make you less likely to fall. Try the ones below. Or do other exercises that your healthcare provider suggests. Depending on your health, you may need to start slowly. Dont let that stop you. Even small amounts of exercise can help you. Be sure to talk to yourhealthcare provider before starting any exercise program. Improve Balance Many types of exercise can help improve balance. Arturo chi and yoga are good examples. Heres another one to try. You can do it anytime and almost anywhere. Stand next to a counter or solid support. Push yourself up onto your tiptoes. Hold for 5 seconds. If you start to lose your balance, hold on to the counter. Rest and repeat 5 times. Work up to holding for 20 to 30 seconds, if you can. Increase Flexibility Being more flexible makes it easier for you to move around safely. Try exercises like the seated hamstring stretch. Sit in a chair and put one foot on a stool. Straighten your leg and reach with both hands down either side of your leg. Reach as far down your leg as you can. Hold for about 20 seconds. Go back to the starting position. Then repeat 5 times. Switch legs. Build Strength Resistance exercises help build strength. You can do them without equipment. Or you can use weights, elastic bands, or special machines. One such exercise is called the biceps curl. You can hold a 1 pound weight or even a can of soup. Do this exercise at least 3 times a week. Strive for everyday. Sit up straight in a chair. Keep your elbow close to your body and your wrist straight. Bend your arm, moving your hand up to your shoulder. Then slowly lower your arm. Repeat 5 times. Switch to the other arm. Build Your Staying Power Aerobic exercises make your heart and lungs stronger so you can keep moving longer. Walking and swimming are two of the best types of exercises you can do. Using a stationary bike is great, too. Find an aerobic exercise that you enjoy. Start slowly and build up. Even 5 minutes is helpful. Aimfor a goal of 30 minutes, at least 3 times a week. You dont have to do 30 minutes in one session. Break it up and walk a little throughout the day. More Helpful Tips Start easy. Slowly work up to doing more. Talk with your healthcare provider about the best exercises for you. Call senior centers or health clubs about exercise programs. If needed, have a family member watch you walk every so often to check your stability. Exercise with a friend. Choose an activity you both enjoy. Try exercises that you can do anytime, anywhere. Here are two examples. Have someone with you when you first try these: Practice walking by placing one foot right in front of the other. Stand up and sit down 10 times. Repeat this throughout the day. Ian Patient Education Copyright 2008 - 2010 Ian except where otherwise noted. Preventing Falls: Moving Safely Using a Cane or Walker (This education is for all patients over 65 regardless of symptoms) Keep the cane away from your feet so you dont trip. A walking aid, such as a cane or walker, can help you stay more independent and avoid falls. Remember to keep your walking aid within easy reach when youre in a chair or in bed. And learn how to use it safely so you dont injure yourself. Using a Cane If you have a stronger side, hold the cane on that side. Get your balance. Move the cane and your weaker leg forward. Support your weight on both the cane and your weaker side. Step with your stronger leg. Start again from step 1. If youre using a folding walker, be sure you know how to lock it open. Check that its locked open before each use. Using a Walker Roll the walker (or lift it, if youre using one without wheels) forward about 12 inches. Step forward with your weaker leg first. Use the walker to help keep your balance. Bring your other foot forward to the center of the walker. Start again from step 1. Helpful Tips Check with your healthcare provider about the right walking aid to use. Ask about a walker with a seat attached. Check the tips of your cane or walker to make sure they have nonskid covers. Move slowly from room to room. Dont dillon. Sit down to get dressed. Use a zahra pack or backpack to keep your hands free. Get help for jobs that mean climbing, even on a stepstool. Ian Patient Education Copyright 2008 - 2010 Ian except where otherwise noted. Urinary Incontinence Plan of Care Documentation: (This education is for all patients over 65 regardless of symptoms) Current medications reconciled. Patient encouraged to: Practice kegal exercises Provide education materials Use the restroom every 2 hours throughout the day Limit caffeine, alcohol, spicy foods and acidic foods Keep a bladder diary Limit fluid intake 3-4 hours before bed Lose weight Prevent constipation Take fluid pills at a time when you can get to the bathroom quickly Control sugar better if diabetic Limit fluid intake to 60 oz. per day Wear support stockings (TEDs)if you have edema Shirley Bowden LPN 06/17/2023 Kegel Exercises Kegel exercises dont require special clothing or equipment. Theyre easy to learn and simple to do. And if you do them right, no one can tell youre doing them, so they can be done almost anywhere. Your doctor, nurse, or physical therapist can answer any questions you have and help you get started. A Weak Pelvic Floor The pelvic floor muscles may weaken due to aging, and vaginal childbirth, injury, surgery, chronic cough, or lack of exercise. If the pelvic floor is weak, your bladder and other pelvic organs may sag out of place. The urethra may also open too easily and allow urine to leak out. Kegel exercises can help you strengthen your pelvic floor muscles so they can better support the pelvic organs and control urine flow. How Kegel Exercises Are Done Try each of the Kegel exercises described below. When youre doing them, try not to move your leg, buttock, or stomach muscles. While youre urinating, try to stop the flow of urine. Start and stop it as often as you can. Contract as if you were stopping your urine stream, but do it when youre not urinating. Tighten your rectum as if trying not to pass gas. Contract your anus, but dont move your buttocks. Helpful Hints Do your Kegels as often as you can. The more you do them, the faster youll feel the results. Pick an activity you do often as a reminder. For instance, do your Kegels every time you sit down. Tighten your pelvic floor before you sneeze, get up from a chair, cough, laugh, or lift. This protects your pelvic floor from injury and can help prevent urine leakage. Try to hold each Kegel for a slow count to five. You probably wont be able to hold them for thatlong at first, but keep practicing. It will get easier as your pelvic floor gets stronger. Eventually, special weights that you place in your vagina may be recommended to help make your Kegels even more effective. Ian Patient Education Copyright 2008 - 2010 Ian except where otherwise noted. Here are some helpful tips for your urinary incontinence: (This education is for all patients over 65 regardless of symptoms) Practice Kegel exercises Use the restroom every 2 hours throughout the day Limit caffeine, alcohol, spicy foods, and acidic foods Keep a bladder diary Limit fluid intake 3-4 hours before bed Lose weight Prevent constipation Take fluid pills at a time when can get to the bathroom quickly Control sugar better if diabetic Limit fluid intake to 60 oz. per day Any questions, please feel free to contact our office. documented in this encounter Progress Notes * Shirley Bowden LPN - 06/17/2023 3:47 PM EDT Fall Risk Plan of Care Documentation: - Current medications reconciled Patient encouraged to: - Exercise - Provide education materials for Core strengthening - Utilize assistive/adaptive devices - Provide education materials - Avoid multifocal lenses when walking - Avoid hazards in home - Provide education materials - Maintain a regular toileting schedule Shirley Bowden LPN 06/17/2023 Urinary Incontinence Plan of Care Documentation: (This education is for all patients over 65 regardless of symptoms) Current medications reconciled. Patient encouraged to: Practice kegal exercises Provide education materials Use the restroom every 2 hours throughout the day Limit caffeine, alcohol, spicy foods and acidic foods Keep a bladder diary Limit fluid intake 3-4 hours before bed Lose weight Prevent constipation Take fluid pills at a time when you can get to the bathroom quickly Control sugar better if diabetic Limit fluid intake to 60 oz. 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 As she had a very high worry levels on monitoring her dose was reduced to 150 mg twice daily. She started having some side effects from voriconazole initially saw her ID team recommended switching to posaconazole however this ended up being prohibitively expensive so she stayed on voriconazole. Patient did notice some dry peeling lips and skin while on that medication with diffuse muscle weakness, worsened balanced and coordination which patient felt was secondary to voriconazole. Patient did have improvement in her cough though while on voriconazole after taking it for few weeks. Patient also ended up at [facility] in [place] end of December in the setting of new occipital stroke. She also had parainfluenza pneumonia and sepsis during that admission. After staying in the hospital for around we she was discharged to rehab for 5 weeks and finally went home on 02/15. Patient is currently on prednisone 2 mg, aura, Plaquenil. Previously she was on abatacept with a good response but this was put on hold in setting of or aspergillosis treatment. Patient also had a right total knee replacement for a tibial tubercle fracture following a fall in the past. Patient has done PT and OT and have also tried cortisone injection. She has been following up with ophthalmology for retinal and corneal care. Hemoglobin AIC Results: Lab Results Component Value Date/Time HEMOGLOBIN A1C - [facility] 5.5 03/02/2023 12:27 PM HEMOGLOBIN A1C - [facility] 5.8 (H) 07/31/2022 02:06 PM HEMOGLOBIN A1C - [facility] 6.2 (H) 03/05/2022 11:17 AM HEMOGLOBIN A1C - [facility] 6.3 (H) 03/14/2020 10:49 AM HEMOGLOBIN A1C - [facility] 7.0 (H) 06/20/2019 01:12 PM HEMOGLOBIN A1C - [facility] 6.9 (H) 12/05/2018 11:08 AM HEMOGLOBIN A1C POCT - [facility] 5.6 02/18/2021 12:00 PM Patient was also seen by Dr. Laird and also Dr. Sosa for essential hypertension and hyperlipidemia. Last visit was on 03/25/2023 . As per recent visit at [facility]: Chest imaging: Chest CT (including site performed if outside [facility]): CTA chest 01/04/23 ([facility]) CT chest 10/16/22 ([facility]) Cavitary nodules ADRIANE, bronchiectasis RML and lingula Pulmonary Function Testing: PFT Results on 11/17/22 PFT Absolute Value % Predicted Post BD Absolute Post BD % Predicted FEV1 1.73 80 FVC 2.06 75 FEV1/FVC 84 67 TLC 3.27 70 RV 1.22 63 DLCO 13.48 mL/min/mmHg 78 Last six FEV1 % predicted: Lab Results Component Value Date FEV1PP 80 11/17/2022 Other testing: TTE: EKG 11/18/22: normal sinus rhythm, QTc 470 At this point patient has completed 6 months of voriconazole and at recent visit she was advised tostop the medication and get the repeat CT chest as a follow- up. It was also decided that patient would likely need a repeat bronchoscopy for culture in the future. Patient has been following up with Dr. Boateng for rheumatoid arthritis here locally 2. She was advised to stay off on Orencia at this time and continue Arava, Plaquenil and low dose of prednisone.Patient had CBCD and CMP done which she usually gets every 3 months by Rheumatology. Reviewed all the labs. Discussed portion control, hydration, diet, regular walking with fall precautions. Patient was also seen by ortho Dr. Gann in [place] for her right knee pain where she had surgerydone. No further workup needed as patient was overall feeling well at the visit. X-ray showed chronic changes and nothing acute. Chief Complaint Patient presents with Follow Up Pt here for a 3m f/u Patient is here for the recheck. Chart reviewed with the patient including current meds, last labs and HM. Overall stable but concerned about her eye sight. Follows with Dr. Graham. Overall breathing is okay. Discussed fall precautions, balanced diet, hydration. Feels some anxiety and sadness with what's going on with her health. Family and very supportive. No fever, chills. Patient Active Problem List Diagnosis Code GENERAL OSTEOARTHROSIS M15.9 Other psoriasis L40.8 After cataract not obscuring vision H26.499 Acquired hypothyroidism E03.9 Allergic rhinitis J30.9 Retinal edema H35.81 Rheumatoid arthritis involving multiple sites with positive rheumatoid factor ([facility]) M05.79 Controlled substance agreement signed Z79.899 Diabetes mellitus without complication ([facility]) E11.9 Advanced directives, counseling/discussion Z71.89 Urge incontinence of urine N39.41 Restrictive lung disease J98.4 Bronchiectasis without complication ([facility]) J47.9 Pulmonary nodules R91.8 Moderate persistent asthma without complication J45.40 Ambulatory dysfunction R26.2 Subjective weakness R53.1 Immunodeficiency ([facility]) D84.9 Encounter for therapeutic drug monitoring Z51.81 Current Outpatient Medications Medication Sig Dispense Refill MULTIVITAMINS OR TABS daily 0 OCUVITE PO TABS Take by mouth . Clindamycin HCl 300 MG Capsule Takes when goes to dentist Calcium 500 MG Tablet Take 1 Tablet by mouth in the morning. With food.. 100 Tab 11 bimatoprost (LUMIGAN) 0.01 % ophthalmic solution Instill 1 Drop into both eyes at bedtime. 3 mL 12 Brinzolamide-Brimonidine 1-0.2 % Ophthalmic Suspension Instill into eye 2 times a day. L eye only. predniSONE (DELTASONE) 1 MG Tablet Take 2 Tablets by mouth in the morning. Patient taking 2mg daily. . Dextran 70-Hypromellose (PF) 0.1-0.3 % Ophthalmic Solution Instill 0.1 Drops into both eyes as needed. fluticasone-salmeterol (ADVAIR DISKUS) 500-50 MCG/DOSE inhaler Inhale 1 Puff by mouth 2 times a day. 1 Each 5 loratadine ODT (CLARITIN REDITAB) [address] 1 Tab on tongue daily. 30 Tab 3 Folic Acid 1 MG Oral Tablet Take 1 Tab by mouth daily. 90 Tab 1 EpiPen 2-Elmer 0.3 MG/0.3ML Injection Solution Auto-injector For a severe reaction: Inject in outer thigh following instructions on package and go to the Emergency room. 2 Each 3 diphenhydrAMINE HCl 25 MG Oral Tablet (Benadryl) Take 2 tablets at onset suspected insect sting allergic reaction; may repeat every 4-6 hrs. as needed. 30 Tab 0 guaiFENesin 100 MG/5ML Oral Liquid Take 10 mL by mouth 3 times a day as needed for Cough. Compressor Nebulizer Inhale via nebulizer . Use as directed. Pt has diagnosis of bronchiectasis and mild persistent asthma 1 Each 1 Clobetasol Propionate 0.05 % External Gel (Temovate) APPLY A THIN AMOUNT TO AFFECTED AREA TWICE DAILY Levothyroxine Sodium 88 MCG Oral Tablet Take 112 mcg by mouth in the morning. Timolol Maleate 0.5 % Ophthalmic Solution (Timoptic) INSTILL 1 DROP INTO THE LEFT EYE DAILY Montelukast Sodium 10 MG Oral Tablet (Singulair) Take 1 Tablet by mouth every evening. 90 Tablet 1 oxygen IN GAS Administer 2 L/min(Oxygen) into nostril as needed for Shortness of Breath. Diagnosis:MAAME, Bronchiectesis, aspergillus infection of the lung. 1 Each 0 Hydroxychloroquine Sulfate 200 MG Oral Tablet (Plaquenil) One and half pill daily 60 Tablet 3 Ipratropium-Albuterol 0.5-2.5 (3) MG/3ML Inhalation Solution (Duoneb) Inhale 3 mL via nebulizer in the morning and 3 mL at noon and 3 mL in the evening and 3 mL before bedtime. 120 mL 3 Respiratory Therapy Supplies Device Please provide Acapella Device for expectoration assist as instructed. 1 Each 3 DULoxetine HCl 60 MG Oral Capsule Delayed Release Particles (Cymbalta) Take 1 Capsule by mouth in the morning. 1 daily. Leflunomide 10 MG Oral Tablet (Arava) Take 1.5 tabs daily 135 Tablet 4 dexAMETHasone Sodium Phosphate 4 MG/ML Injection Solution (Decadron) To use with ionophoresis as per physical therapy. PT states needs 120 mg. 30 mL 0 No current facility-administered medications for this visit. The patient's medication list was reviewed and updated as needed. Review of patient's allergies indicates: Allergen Reactions Bee Venom Celebrex [Celecoxib] Increased BP Erythromycin Base Conjunctivitis Opthalmic ointment Lisinopril cough Sulfasalazine GI upset,swealling in hands Past Medical History: Diagnosis Date Allergic rhinitis Asthma Asthma with severity to be determined Atherosclerosis of aorta ([facility]) 02/18/2021 Benign neoplasm of colon 04/16/2013 adenomatous polyp, repeat 5 yrs Bronchiectasis without complication ([facility]) 07/17/2020 Diabetes mellitus without complication ([facility]) 12/05/2018 Exudative age-related macular degeneration, left eye, with inactive choroidal neovascularization ([facility]) 12/05/2018 GENERAL OSTEOARTHROSIS 12/13/2000 Glaucoma Hypercholesterolemia Hypothyroidism Other psoriasis 12/13/2000 Pneumonia Pneumonia of right middle lobe due to Pseudomonas species ([facility]) 07/17/2020 Protein-calorie malnutrition ([facility]) 02/18/2021 Pulmonary nodules 07/17/2020 Restrictive lung disease 07/17/2020 Retinal edema 11/21/2009 Rheumatoid arthritis involving multiple sites with positive rheumatoid factor ([facility]) 02/27/2016 Senile cataract Cataract Senile Urge incontinence of urine 02/24/2019 Social History Socioeconomic History Marital status: Spouse name: Yuri Number of children: 4 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 History 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 Tobacco Use Smoking status: Never Smokeless tobacco: Never Tobacco comments: No passive smoke exposures Vaping Use Vaping Use: Never used Substance and Sexual Activity Alcohol use: No Drug use: No Sexual activity: Not Currently Family History Problem Relation Age of Onset Eye Problems Mother Glaucoma Mother Heart Disorder Mother Diabetes Mother Arthritis Father RA Heart Disorder Father Hypertension Father Cataracts Father Other (ARDS) Father Other (Diabetes, HTN) Sister Asthma Brother Diabetes Brother No Known Problems Daughter Psoriasis Daughter PsA as well No Known Problems Daughter No Known Problems Son All system negative except as per hpi. OBJECTIVE: LMP 05/15/2002 Blood pressure 122/76, pulse 80, temperature 37.2 C (98.9 F), resp. rate 16, last menstrual period 05/15/2002, SpO2 95%. PHYSICAL EXAM: HEENT: PERRLA, EOMI, anicteric sclera, b/l tympanic membrane is pearly white, no erythema, no pharyngeal erythema, no lymphadenopathy, neck supple CVS: RRR, no murmurs, rubs or gallops, s1 s 2normal. RESP: clear to auscultation, no wheezing or crackles ABD: soft, NT/ND EXT: no edema, cyanosis, peripheral pulses palpable bilaterally No large joint swelling, no redness, range of motion normal. Skin normal. Gait normal. Mood stable No focal weakness ASSESSMENT AND PLAN: Rheumatoid arthritis involving multiple sites with positive rheumatoid factor (HCC) (Primary) Continue current meds. Follows with Rheumatology. Immunodeficiency (HCC) Risk and functional assessment Restrictive lung disease Reviewed all records from [facility] s/s at this time. Bronchiectasis without complication (HCC) Acquired hypothyroidism - TSH; Future; Expected date: 06/17/2023 On levoxyl. Ambulatory dysfunction Fall precautions advised. Moderate persistent asthma without complication Encounter for screening mammogram for breast cancer - MAMMOGRAM SCREENING DONNA BILATERAL; Future; Expected date: 06/24/2023 Follow Up: Return in about 6 months (around 12/17/2023) for Return with Physician, Labs Today. | For: Return with Physician, Labs Today Patricia Doran MD documented in this encounter Plan of Treatment Upcoming Encounters Date Type Department Care Team (Late st Contact Info) Description 07/02/2023 2:00 PM EDT Office Visit Cardiology, [facility] [address] [facility] [place] [address] Erik Sosa, [address] [facility] [place] [address] 07/08/2023 12:30 PM EDT Imaging Radiology [facility] [address] [facility] [address] [place] [address] 08/10/2023 1:40 PM EST Office Visit Pulmonary Medicine, [facility] [address] [facility] [place] [address] Mc Randall MD [address] [facility] [place] [address] 10/15/2023 11:00 AM EST Office Visit Rheumatology [facility] [address] [facility] [place], [place] [address] Saran Boateng MD [address] [facility] [place] [address] 11/05/2023 2:30 PM EST Office Visit Cardiology, [facility] [address] [place] [address] Mukesh Laird, [address] [place] [address] 12/30/2023 10:00 AM EDT Office Visit General Internal Medicine [facility] [address] [facility] [place] [address] Patricia Doran MD [address] [facility] [place] [address] Scheduled Orders Name Type Priority Associated Diagnoses Orde r Schedule MAMMOGRAM SCREENING DONNA BILATERAL Medical Imaging Routine Encounter for screening mammogram for breast cancer Expected: 06/24/2023, Expires: 07/18/2024 Scheduled Procedures Name Priority Associated Diagnoses Date/Ti [...] Additional history exists Lipid Panel 07/24/2026 07/24/2021, 0705/2020, 09/20/2019, Additional history exists DXA Scan 06/16/2029 06/16/2022, 01/06, 02/03/2019, Additional history exists Pap Smear Discontinued 05/19/2019, 05/07, 11/08/2008, Additional history exists Zoster Vaccines Completed 06/17/2020, 03/14/2020 Albumin/Creatinine Ratio Discontinued 022, 02/18/2021, 06/20/2019, Additional history exists Diabetic Foot Exam Discontinued 03/02/2023, 0 03/05/2022, 06/17/2020, Additional history exists GARDASIL-HPV IMMUNIZATION SERIES Aged Out No longer eligible based on patient's age to complete this topic MENINGOCOCCAL (MENACTRA/MENVEO) Aged Out No longer eligible based on patient's age to complete this topic documented as of this encounter Medical Devices Implanted Type Area Corn Detasseler Device Identifier Shelf Expiration Date Model / Serial / Lot Lens 6.0 Sa60at - [id number] Implanted:Qty: 1 on 03/23/2007 at OR [facility] Left: Eye BETTY : SURGICAL 08/06/2011 SA60AT / [id number] / documented as of this encounter Results * (ABNORMAL) TSH (06/17/2023 4:49 PM EDT) TSH 4.75(H) 0.27 - 4.20 uIU/mL 06/17/2023 10:14 PM EDT LABORATORY [facility] Blood Venous blood specimen / Unknown Venipuncture / Unknown 06/17/2023 4:49 PM EDT 06/17/2023 4:49 PM EDT Patricia Doran MD LAB BLOOD ORDERA BLES [facility] [address] [place] [address] documented in this encounter Visit Diagnoses Diagnosis Rheumatoid arthritis involving multiple sites with positive rheumatoid factor (HCC)- Primary Immunodeficiency (HCC) Unspecified immunity deficiency Risk and functional assessment Screening for unspecified condition Restrictive lung disease Other diseases of lung, not elsewhere classified Bronchiectasis without complication (HCC) Bronchiectasis without acute exacerbation Acquired hypothyroidism Unspecified hypothyroidism Ambulatory dysfunction Moderate persistent asthma without complication Unspecified asthma Encounter for screening mammogram for breast cancer documented in this encounter Advance Directives Latest Code Status on File Code Status Date Activated Date Inactivated Comments Full Code 01/03/2021 8:00 PM 01/10/2021 5:07 PM This o rder reflects the patients wishes and were consensually agreed upon. Question Answer Comments Discussion of Advance Directives occurred with: Patient Care Teams Community Engagement Coordinator Relationship Specialty Start Date End Date Patricia Doran MD [address] [place] [address] [place] [address] PCP - General 12/17/08 documented as of this encounter"
--- OUTSIDE RECORDS SUMMARY | 2023-08-07 11:26 | External Medical Summary | Summary of Care ---
Author Name Unknown Organization [facility] Address [address] [facility] [address] Phone [phone] Care Team Providers Care Sorority Mother Name Role Phone Patricia Doran MD Primary Care Provider + Reason for Visit * Reason Comments Outpatient Testing Encounter Details Date Type Department Care Team Description 06/17/2023 Laboratory [facility] [place] [address] [place] [address] [facility] [address] [facility] [place] [address] Acquired hypothyroidism Allergies Active Allergy Reactions Severity Noted Date Comments Bee Venom 06/07/2015 Celecoxib 03/02/2023 Increased BP Erythromycin Base Conjunctivitis 01/17/2010 Opthalmic ointment Lisinopril 02/10/2012 cough Sulfasalazine 02/15/2020 GI upset,swealling in hands documented as of this encounter (statuses as of 06/17/2023) Medications Medication Sig Dispensed Refills Start Date [...] as of this encounter (statuses as of 06/17/2023) Active Problems Problem Noted Date Encounter for therapeutic drug monitorin g 09/30/2021 Immunodeficiency 02/18/2021 Ambulatory dysfunction 01/04/2021 Restrictive lung disease 07/17/2020 Bronchiectasis without complication 07/07 Pulmonary nodules 07/17/2020 Moderate persistent asthma without compl ication 07/17/2020 Advanced directives, counseling/discussi on 02/24/2019 Urge incontinence of urine 02/24/2019 Controlled substance agreement signed Rheumatoid arthritis involvi ng multiple sites with positive rheumatoid factor 02/27/2016 Retinal edema 11/21/2009 After cataract not obscuring vision 11/2001 Overview: ICD-10 update of inactive term GENERAL OSTEOARTHROSIS 12/13/2000 Other psoriasis 12/13/2000 Acquired hypothyroidism Allergic rhinitis Subjective weakness documented as of this encounter (statuses as of 06/17/2023) Resolved Problems Problem Noted Date Resolved Date Protein-calorie malnutrition 02/18/2021 Atherosclerosis of aorta 02/18/2021 022 Pneumonia of right middle lobe due to Pseudomona s species 07/17/2020 04/23/2022 Osteomyelitis 12/05/2018 07/17/2020 Diabetic cataract 12/05/2018 07/17/2020 Diabetes mellitus without complication 9 06/17/2023 Exudative age-related macula r degeneration, left eye, with inactive choroidal neovascularization 12/05/2018 04/23/2022 Arthritis, rheumatoid 11/01/2014 02/27/2016 Asthma with severity to be determined 02/10/2005 08/08/2013 Overview: ICD-10 update of inactive term Other cataract 07/03/2002 07/06/2017 Asthma with severity to be determined 07/19/2012 Overview: ICD-10 update of inactive term Allergic rhinitis 08/14/2020 documented as of this encounter (statuses as of 06/17/2023) Immunizations Name Administration Dates Next Due COVID-19 [...] Encounters Date Type Specialty Care Team Description 07/02/2023 Office Visit Cardiology Erik Sosa, DO [address] [place] [address] 07/08/2023 Imaging Radiology 08/10/2023 Office Visit Pulmonary Mc Randall MD [address] [facility] [place] [id number] 10/15/2023 Office Visit Rheumatology Saran Boateng MD [address] [place] [address] 11/05/2023 Office Visit Cardiology Mukesh Laird, DO [address] [place] [address] 12/30/2023 Office Visit Internal Medicine Patricia Doran MD [address] [place] [address] Pending Results Name Type Priority Associated Diagnoses Date /Time TSH Lab Routine Acquired hypothyroidism 06/17/2023 4:49 PM EDT Scheduled Procedures Name Priority Associated Diagnoses Date/Ti me COLONOSCOPY FLEXIBLE PROXIMAL DIAGNOSTIC Recall History of colon polyps Health Maintenance Due Date Last Done Comments Depression Screening 05/21/2021 05/21/2020 Mammogram 03/05/2023 03/05/2022, 06/07, 02/20/2020, Additional history exists COVID-19 Vaccine ( season) 2023 08/25/2021, 12/14/2020, 11/23/2020, Additional history exists Influenza Vaccine (FLU shot) (#1) 2023 07/16/2022, 06/20/2021, 06/17/2020, Additional history exists TSH 03/02/2024 03/02/2023, 07/08, 03/05/2022, Additional history exists Pneumococcal Vaccine: 65+ Years [...] this encounter Medical Devices Implanted Type Area Software Controls Engineer Device Identifier Shelf Expiration Date Model / Serial / Lot Lens 6.0 Sa60at - [id number] Implanted:Qty: 1 on 03/23/2007 at OR [facility] Left: Eye BETTY : SURGICAL 08/06/2011 [id number] / [id number] / documented as of this encounter Visit Diagnoses Diagnosis Acquired hypothyroidism Unspecified hypothyroidism documented in this encounter Advance Directives Latest Code Status on File Code Status Date Activated Date Inactivated Comments Full Code 01/03/2021 8:00 PM 01/10/2021 5:07 PM This o rder reflects the patients wishes and were consensually agreed upon. Question Answer Comments Discussion of Advance Directives occurred with: Patient Care Teams Sorority Mother Relationship Specialty Start Date End Date Patricia Doran MD [address] [facility] [place] [address] PCP - General 12/17/08 documented as of this encounter
--- OUTSIDE RECORDS SUMMARY | 2023-08-07 11:27 | External Medical Summary | Summary of Care ---
Author Name Unknown Organization [facility] Address [address] [place] [address] Phone [phone] Care Team Providers Care Jewel Inspector Name Role Phone Patricia Doran MD Primary Care Provider + Reason for Visit * Reason Onset Date Comments Order Request 06/01/2023 Encounter Details Date Type Department Care Team Description 06/01/2023 Telephone Rheumatology [address] [place] [address] Services, Scheduling [address] [place] [address] Order Request Allergies Active Allergy Reactions Severity Noted Date Comments Bee Venom 06/07/2015 Celecoxib 03/02/2023 Increased BP Erythromycin Base Conjunctivitis 01/17/2010 Opthalmic ointment Lisinopril 02/10/2012 cough Sulfasalazine 02/15/2020 GI upset,swealling in hands documented as of this encounter (statuses as of 06/14/2023) Medications Medication Sig Dispensed Refills Start Date End Date Status MULTIVITAMINS OR TABS daily 0 2 Active OCUVITE PO TABS Take by mouth . 0 4 Active Clindamycin HCl 300 MG Capsule Takes when goes to dentist 0 7 Active Calcium 500 MG TabletIndication s:Vitamin D deficiency Take 1 Tablet by mouth in the morning. With food.. 100 Tab 11 8 Active bimatoprost (LUMIGAN) 0.01 % ophthalmic solution Instill 1 Drop into both eyes at bedtime. 3 mL 12 8 Active Brinzolamide-Amee monidine 1-0.2 % Ophthalmic Suspension Instill into eye 2 times a day. L eye only. 0 Active predniSONE (DELTASONE) 1 MG Tablet Take 2 Tablets by mouth in the morning. Patient taking 2mg daily. . 0 Active Dextran 70-Hypromellose (PF) 0.1-0.3 % Ophthalmic Solution Instill 0.1 Drops into both eyes as needed. 0 9 Active fluticasone-salm eterol (ADVAIR DISKUS) 500-50 MCG/DOSE inhaler Inhale 1 Puff by mouth 2 times a day. 1 Each 5 0 Active loratadine ODT (CLARITIN REDITAB) 10 MG TBDPIndications: Seasonal allergic rhinitis due to pollen Place 1 Tab on tongue daily. 30 Tab 3 0 Active Folic Acid 1 MG Oral TabletIndication s:Arthritis, rheumatoid (HCC) Take 1 Tab by mouth daily. 90 Tab 1 0 Active EpiPen 2-Elmer 0.3 MG/0.3ML Injection Solution Auto-injector For a severe reaction: Inject in outer thigh following instructions on package and go to the Emergency room. 2 Each 3 1 Active diphenhydrAMINE HCl 25 MG Oral Tablet (Benadryl) Take 2 tablets at onset suspected insect sting allergic reaction; may repeat every 4-6 hrs. as needed. 30 Tab 0 1 Active guaiFENesin 100 MG/5ML Oral Liquid Take 10 mL by mouth 3 times a day as needed for Cough. 0 Active Compressor NebulizerIndicat ions:Moderate persistent asthma without complication,Bro nchiectasis without complication (HCC) Inhale via nebulizer . Use as directed. Pt has diagnosis of bronchiectasis and mild persistent asthma 1 Each 1 2 Active Clobetasol Propionate 0.05 % External Gel (Temovate) APPLY A THIN AMOUNT TO AFFECTED AREA TWICE DAILY 0 2 Active Levothyroxine Sodium 88 MCG Oral Tablet Take 112 mcg by mouth in the morning. 0 2 Active Timolol Maleate 0.5 % Ophthalmic Solution (Timoptic) INSTILL 1 DROP INTO THE LEFT EYE DAILY 0 2 Active Montelukast Sodium 10 MG Oral Tablet (Singulair)Indic ations:Allergic rhinitis Take 1 Tablet by mouth every evening. 90 Tablet 1 3 Active oxygen IN GAS Administer 2 L/min(Oxygen) into nostril as needed for Shortness of Breath. Diagnosis: MAAME, Bronchiectesis, aspergillus infection of the lung. 1 Each 0 3 Active Hydroxychloroqui ne Sulfate 200 MG Oral Tablet (Plaquenil) One and half pill daily 60 Tablet 3 3 Active Ipratropium-Albu terol 0.5-2.5 (3) MG/3ML Inhalation Solution (Duoneb) Inhale 3 mL via nebulizer in the morning and 3 mL at noon and 3 mL in the evening and 3 mL before bedtime. 120 mL 3 3 Active Respiratory Therapy Supplies Device Please provide Acapella Device for expectoration assist as instructed. 1 Each 3 3 Active DULoxetine HCl 60 MG Oral Capsule Delayed Release Particles (Cymbalta) Take 1 Capsule by mouth in the morning. 1 daily. 0 3 Active Leflunomide 10 MG Oral Tablet (Arava) Take 1.5 tabs daily 135 Tablet 4 3 Active dexAMETHasone Sodium Phosphate 4 MG/ML Injection Solution (Decadron) To use with ionophoresis as per physical therapy. PT states needs 120 mg. 30 mL 0 3 Active Voriconazole 200 MG Oral Tablet (Vfend) 400 mg twice daily (every 12 hours) on day 1 and day 2, then 200 mg twice a day (every 12 hours) until end of therapy. 90 Tablet 2 3 06/07/20 23 Discontinued documented as of this encounter (statuses as of 06/14/2023) Active Problems Problem Noted Date Encounter for [...] edema 11/21/2009 After cataract not obscuring vision 12/11/2001 Overview: ICD-10 update of inactive term GENERAL OSTEOARTHROSIS 12/13/2000 Other psoriasis 12/13/2000 Acquired hypothyroidism Allergic rhinitis Subjective weakness documented as of this encounter (statuses as of 06/14/2023) Resolved Problems Problem Noted Date Resolved Date [...] as of this encounter (statuses as of 06/14/2023) Immunizations Name Administration Dates Next Due COVID-19 [...] Miscellaneous Notes * Telephone Encounter - JULIUS Chambers - 06/01/2023 2:48 PM EDT I have Lavinia from [facility] calling and requesting medication for this patient. Dexamethasone. Please advise [phone] is her number to call documented in this encounter Plan of Treatment Upcoming Encounters Date Type Specialty Care Team Description 06/17/2023 Office Visit Internal Medicine Patricia Doran MD [address] [facility] [place] [address] 07/02/2023 Office Visit Cardiology Erik Sosa, [address] [place] [address] 08/10/2023 Office Visit Pulmonary [facility] Randall [facility] [address] [facility] [id number] 10/15/2023 Office Visit Rheumatology Saran Boateng MD [address] [place] [address] 11/05/2023 Office Visit Cardiology Mukesh Laird, DO [address] [place] [address] Scheduled Procedures Name Priority Associated Diagnoses Date/Ti me COLONOSCOPY FLEXIBLE PROXIMAL DIAGNOSTIC Recall History of colon polyps Health Maintenance Due Date Last Done Comments DIABETES-EYE EXAM 06/20/2020 06/20/2019, , 06/24/2011, Additional history exists Depression Screening 05/21/2021 05/21/2020 Albumin/Creatinine Ratio 03/05/2023 022, 02/18/2021, 06/20/2019, Additional history exists Mammogram 03/05/2023 03/05/2022, 06/07, 02/20/2020, Additional history exists COVID-19 Vaccine ( - 2022- season) 2023 08/25/2021, 12/14/2020, 11/23/2020, Additional history [...] this encounter Medical Devices Implanted Type Area Corporate Counselor Device Identifier Shelf Expiration Date Model / Serial / Lot Lens 6.0 Sa60at - [id number] Implanted:Qty: 1 on 03/23/2007 at OR [facility] Left: Eye BETTY : SURGICAL 08/06/2011 SA60AT / [id number] / documented as of this encounter Advance Directives Latest Code Status on File Code Status Date Activated Date Inactivated Comments Full Code 01/03/2021 8:00 PM 01/10/2021 5:07 PM This o rder reflects the patients wishes and were consensually agreed upon. Question Answer Comments Discussion of Advance Directives occurred with: Patient Care Teams Jewel Inspector Relationship Specialty Start Date End Date Patricia Doran [facility] [address] [facility] [address] PCP - General 12/17/08 documented as of this encounter
--- OUTSIDE RECORDS SUMMARY | 2023-08-07 11:27 | External Medical Summary | Summary of Care ---
Author Name Unknown Organization [facility] Address [address] [place] [address] Phone [phone] Care Team Providers Care Fashion Consultant Name Role Phone Patricia Doran MD Primary Care Provider + Reason for Visit * Reason Onset Date Comments Appointment 04/30/2023 Encounter Details Date Type Department Care Team Description 04/30/2023 Telephone Rheumat[address] [place] [address] Services, Scheduling [address] [place] [address] Appointment Allergies Active Allergy Reactions Severity Noted Date Comments Bee Venom 06/07/2015 Celecoxib 03/02/2023 Increased BP Erythromycin Base Conjunctivitis 01/17/2010 Opthalmic ointment Lisinopril 02/10/2012 cough Sulfasalazine 02/15/2020 GI upset,swealling in hands documented as of this encounter (statuses as of 05/05/2023) Medications Medication Sig Dispensed Refills Start Date End Date Status MULTIVITAMINS OR TABS daily 0 06/12/2002 Active OCUVITE PO TABS Take by mouth . 0 01/19/2014 Active Clindamycin HCl 300 MG Capsule Takes when goes to dentist 0 04/07/2017 Active Calcium 500 MG TabletIndications:V itamin D deficiency Take 1 Tablet by mouth in the morning. With food.. 100 Tab 11 01/20/2018 Active bimatoprost (LUMIGAN) 0.01 % ophthalmic solution Instill 1 Drop into both eyes at bedtime. 3 mL 12 01/20/2018 Active Brinzolamide-Brimon idine 1-0.2 % Ophthalmic Suspension Instill into eye 2 times a day. L eye only. 0 Active predniSONE (DELTASONE) 1 MG Tablet Take 2 Tablets by mouth in the morning. Patient taking 2mg daily. . 0 Active Dextran 70-Hypromellose (PF) 0.1-0.3 % Ophthalmic Solution Instill 0.1 Drops into both eyes as needed. 0 11/13/2018 Active fluticasone-salmete rol (ADVAIR DISKUS) 500-50 MCG/DOSE inhaler Inhale 1 Puff by mouth 2 times a day. 1 Each 5 11/24/2019 Active loratadine ODT (CLARITIN REDITAB) 10 MG TBDPIndications:Sea cyndy allergic rhinitis due to pollen Place 1 Tab on tongue daily. 30 Tab 3 03/20/2020 Active Folic Acid 1 MG Oral TabletIndications:A rthritis, rheumatoid (HCC) Take 1 Tab by mouth [...] day as needed for Cough. 0 Active Orencia 250 MG Intravenous Solution Reconstituted (Abatacept) Administer intravenously Every Month. 0 Active Compressor NebulizerIndication s:Moderate persistent asthma without complication,Bronch iectasis without complication (HCC) Inhale via nebulizer . Use as directed. Pt has diagnosis of bronchiectasis and mild persistent asthma 1 Each 1 04/23/2022 Active Clobetasol Propionate 0.05 % External Gel (Temovate) APPLY A THIN AMOUNT TO AFFECTED AREA TWICE DAILY 0 07/20/2022 Active Leflunomide 10 MG Oral Tablet (Arava) Take 1 Tablet by mouth in the morning. 0 08/14/2022 Active Levothyroxine Sodium 88 MCG Oral Tablet Take 112 mcg by mouth in the morning. 0 08/03/2022 Active Timolol Maleate 0.5 % Ophthalmic Solution (Timoptic) INSTILL 1 DROP INTO THE LEFT EYE DAILY 0 08/03/2022 Active Voriconazole 200 MG Oral Tablet (Vfend) 400 mg twice daily (every 12 hours) on day 1 and day 2, then 200 mg twice a day (every 12 hours) until end of therapy. 90 Tablet 2 11/04/2022 Active Montelukast Sodium 10 MG Oral Tablet (Singulair)Indicati ons:Allergic rhinitis Take 1 Tablet by mouth every evening. 90 Tablet 1 12/29/2022 Active oxygen IN GAS Administer 2 L/min(Oxygen) into nostril as needed for Shortness of Breath. Diagnosis: MAAME, Bronchiectesis, aspergillus infection of the lung. 1 Each 0 02/26/2023 Active Hydroxychloroquine Sulfate 200 MG Oral Tablet (Plaquenil) One and half pill daily 60 Tablet 3 03/02/2023 Active Ipratropium-Albuter ol 0.5-2.5 (3) MG/3ML Inhalation Solution (Duoneb) Inhale [...] the morning. 1 daily. 0 02/24/2023 Active documented as of this encounter (statuses as of 05/05/2023) Active Problems Problem Noted Date Encounter for [...] as of this encounter (statuses as of 05/05/2023) Resolved Problems Problem Noted Date Resolved Date [...] as of this encounter (statuses as of 05/05/2023) Immunizations Name Administration Dates Next Due COVID-19 mRNA, LNP-s, No Pre serve, 2-Dose Series (Moderna) 09/10/2020 COVID-19 mRNA, LNP-s, No Pre serve, 2-Dose Series (Pfizer) 08/25/2021,12/14/2020,11/23/2020 PPD 11/01/2014,11/08/2008 Pneumococcal Conjugate Vacc, 13 Valent (Prevnar) 01/20/2018 Pneumococcal Polysaccharide PPV23 (Pneumovax) 06/20/2019,11/08/2008 Seasonal Influenza, PF, 6 mo ns & Above, IM , (Flulaval) 06/17/2020,06/20/2019,07/07/2018,07/06 Seasonal Influenza, Quadriva lent Hd (Fluzone [...] encounter Miscellaneous Notes * Telephone Encounter - Saran Boateng MD - 05/05/2023 12:47 PM EDT Email sent the patient to discuss * Telephone Encounter - JULIUS Everett - 05/03/2023 9:36 AM EDT Pt last appt 03/19/23. Please advise as to whether pt needs a appt sooner than Oct. * Telephone Encounter - JULIUS Chambers - 04/30/2023 3:20 PM EDT Patient's ortho doctor is suggesting she sees her Rhuem doctor. She is scheduled with Dr. Boateng, but not until October. Please advise documented in this encounter Plan of Treatment Upcoming Encounters Date Type Specialty Care Team Description 06/07/2023 Office Visit Orthopedics Carlo Gann MD [address] [place] [id number] 06/17/2023 Office Visit Internal Medicine Patricia Doran MD [address] [place] [address] 07/02/2023 Office Visit Cardiology Erik Sosa DO [address] [place] [address] 08/10/2023 Office Visit Pulmonary Mc Randall MD [address] [place] [address] 10/15/2023 Office Visit Rheumatology Saran Boateng MD [facility] [place] [address] 11/05/2023 Office Visit Cardiology Mukesh Laird, DO [address] [place] [address] Scheduled Procedures Name Priority Associated Diagnoses Date/Ti me COLONOSCOPY FLEXIBLE PROXIMAL DIAGNOSTIC Recall History of colon polyps Health Maintenance Due Date Last Done Comments DIABETES-EYE EXAM 06/20/2020 06/20/2019, , 06/24/2011, Additional history exists Depression Screening, Annual for Pts 12 and Over 05/21/2021 05/21/2020 COVID-19 Vaccine (5 - Mixed Product risk series) 10/20/2021 08/25/2021, 12/14/2020, 11/23/2020, Additional history exists Albumin/Creatinine Ratio 03/05/2023 022, 02/18/2021, 06/20/2019, Additional history exists Mammogram 03/05/2023 03/05/2022, 06/07, 02/20/2020, Additional history exists Influenza Vaccine (FLU shot) (#1) 2023 07/16/2022, 06/20/2021, 06/17/2020, Additional history exists HbA1c 09/01/2023 03/02/2023, 07/08, 03/05/2022, Additional history exists DIABETES-FOOT EXAM 03/02/2024 03/02/2023, 0 03/05/2022, 06/17/2020, Additional history exists GFR 03/02/2024 03/02/2023, 03/0 11/2022, 07/31/2022, Additional history exists TSH 03/02/2024 03/02/2023, 07/08, 03/05/2022, Additional history exists Pneumococcal Vaccine: 65+ Years (4 - PPSV23 or PCV20) 06/20/2024 06/20/2019, 01/20/2018, 11/08/2008 DTaP,Tdap,and Td Vaccines (3 - Td or Tdap) 02/26/2025 02/26/2015, 03/18/2011 COLONOSCOPY-EVERY 5 YRS AGES 18-100 02/26/2026 02/26/2021, 02/26/2021, 04/16/2014, Additional history exists Lipid Panel 07/24/2026 07/24/2021, 070 05/2020, 09/20/2019, Additional history exists DXA Scan [...] this encounter Medical Devices Implanted Type Area Carpentry Professional Device Identifier Shelf Expiration Date Model / Serial / Lot Lens 6.0 Sa60at - [id number] Implanted:Qty: 1 on 03/23/2007 at OR [facility] Left: Eye BETTY : SURGICAL 08/06/2011 SA60AT / [id number] / documented as of this encounter Advance Directives Latest Code Status on File Code Status Date Activated Date Inactivated Comments Full Code 01/03/2021 8:00 PM 01/10/2021 5:07 PM This o rder reflects the patients wishes and were consensually agreed upon. Question Answer Comments Discussion of Advance Directives occurred with: Patient Care Teams Fashion Consultant Relationship Specialty Start Date End Date Patricia Doran MD [address] [place] [address] [place] [address] PCP - General 12/17/08 documented as of this encounter
--- OUTSIDE RECORDS SUMMARY | 2023-08-07 11:27 | External Medical Summary | Summary of Care ---
Author Name Unknown Organization [facility] Address [address] [facility] [place] [address] Phone [phone] Care Team Providers Care Technical Administrator Name Role Phone Patricia Doran MD Primary Care Provider + Reason for Visit * Reason Comments Rheum Follow Up RA Encounter Details Date Type Department Care Team Description 05/24/2023 Office [address] [place] [address] Saran Boateng MD [facility] [employer] [facility] [place] [address] Rheumatoid arthritis involving multiple sites with positive rheumatoid factor (HCC)*; Bronchiectasis without complication (HCC); Encounter for therapeutic drug monitoring Allergies Active Allergy Reactions Severity Noted Date Comments Bee Venom 06/07/2015 Celecoxib 03/02/2023 Increased BP Erythromycin Base Conjunctivitis 01/17/2010 Opthalmic ointment Lisinopril 02/10/2012 cough Sulfasalazine 02/15/2020 GI upset,swealling in hands documented as of this encounter (statuses as of 05/24/2023) Medications Medication Sig Dispensed Refills Start Date [...] day. 1 Each 5 11/24/19 20 Active loratadine ODT (CLARITIN REDITAB) 10 MG TBDPIndications:S [...] AMOUNT TO AFFECTED AREA TWICE DAILY 0 07/20/20 Active Levothyroxine Sodium 88 MCG Oral Tablet Take 112 mcg by mouth in the morning. 0 08/03/20 Active Timolol Maleate 0.5 % Ophthalmic Solution (Timoptic) INSTILL 1 DROP INTO THE LEFT EYE DAILY 0 08/03/20 Active Voriconazole 200 MG Oral Tablet (Vfend) 400 mg twice daily (every 12 hours) on day 1 and day 2, then 200 mg twice a day (every 12 hours) until end of therapy. 90 Tablet 2 11/05/19 23 Active Montelukast Sodium 10 MG Oral Tablet (Singulair)Indica tions:Allergic rhinitis Take 1 Tablet by mouth every evening. 90 Tablet 1 12/30/19 Active oxygen IN GAS Administer 2 L/min(Oxygen) into nostril as needed for Shortness of Breath. Diagnosis: MAAME, Bronchiectesis, aspergillus infection of the lung. 1 Each 0 02/27/20 Active Hydroxychloroquin e Sulfate 200 MG Oral Tablet (Plaquenil) One and half pill daily 60 Tablet 3 03/02/20 23 Active Ipratropium-Albut rand 0.5-2.5 (3) MG/3ML Inhalation Solution (Duoneb) Inhale 3 mL via nebulizer in the morning and 3 mL at noon and 3 mL in the evening and 3 mL before bedtime. 120 mL 3 03/02/20 Active Respiratory Therapy Supplies Device Please provide Acapella Device for expectoration assist as instructed. 1 Each 3 03/18/20 23 Active DULoxetine HCl 60 MG Oral Capsule Delayed Release Particles (Cymbalta) Take 1 Capsule by mouth in the morning. 1 daily. 0 02/25/20 23 Active Leflunomide 10 MG Oral Tablet (Arava) Take 1.5 tabs daily 135 Tablet 4 05/24/20 23 Active Orencia 250 MG Intravenous Solution Reconstituted (Abatacept) Administer intravenously Every Month. 0 023 Discontinued Leflunomide 10 MG Oral Tablet (Arava) Take 15 mg by mouth in the morning. 0 08/14/20 22 023 Discontinued(Re fill) documented as of this encounter (statuses as of 05/24/2023) Active Problems Problem Noted Date Encounter for [...] as of this encounter (statuses as of 05/24/2023) Resolved Problems Problem Noted Date Resolved Date [...] as of this encounter (statuses as of 05/24/2023) Immunizations Name Administration Dates Next Due COVID-19 [...] Sign Reading Time Taken Comments Blood Pressure 118/62 05/24/2023 9:31 AM EDT Pulse - - Temperature 36.1 C (97 F) 05/24/2023 9:31 AM EDT Respiratory Rate - - Oxygen Saturation - - Inhaled Oxygen Concentration - - Weight - [...] No 01/03/2021 documented as of this encounter Progress Notes * Saran Boateng MD - 05/24/2023 9:35 AM EDT Images from the original note were not included. Assessment and Plan Rheumatoid arthritis involving multiple sites with positive rheumatoid factor (HCC) Bronchiectasis without complication (HCC) Encounter for therapeutic drug monitoring Her rheumatoid arthritis is actually doing well with soft tissue tenderness around her right replaced knee. No evidence for active RA of the knee. Can stay off Orencia even if she comes off the antifungals. Continue with Plaquenil and leflunomide. Continue with labs every 3 months. Return to clinicin October as scheduled. Rheumatology Synopsis: [facility] RA SYNOPSIS Date of RA Diagnosis: 09/06/14 (03/19/2023 1:00 PM) Current Treatment: HCQ; LEF (03/19/2023 1:00 PM) Previous Treatment: ABT; TCZ; MTX; ETA; ADA (03/19/2023 1:00 PM) 2009 Classification Criteria: Y (03/19/2023 1:00 PM) Seropositive or seronegative: Seropositive (03/19/2023 1:00 PM) RF and/or CCP: Dual Positive (03/19/2023 1:00 PM) Disease activity: Stable Patient History History of Present Illness HPI:67 year old female presented to rheumatology clinic for Rheum Follow Up (RA) She reports that she developed sudden onset of sharp pain of the right replaced knee. She states that she had pain with walking but ok with rest. She went to ED and imaging was was fine for the hardware. She saw Dr Gann orthopaedics and did not feel it was the hardware either. He wondered if it was her RA since she has been off her biologic for some time now. She is following with [facility] for lung infections (on antifungal) and sees them again on . Hoping the treatments end on Wednesday. She remains on Plaquenil and Arava at 15 mg daily. She is been off Orencia for some time. Feels likeshe does not need to go back to it even if she stops lung treatments. She is being sent to physicaltherapy for her knee. She did see [facility] as well who replaced her knee. ROS: Review of Systems was asked and the following other significant symptoms are present: cough, joint pain, GI issues Subjective Patient's past history, medications, and allergies were reviewed. Medications: Current Outpatient Medications Medication Instructions bimatoprost (LUMIGAN) 0.01 % ophthalmic solution 1 Drop, Both eyes, HS Brinzolamide-Brimonidine 1-0.2 % Ophthalmic Suspension Ophthalmic, BID (.AM/PM), L eye only. Calcium 500 mg, Oral, Daily(AM), With food. Clindamycin HCl 300 MG Capsule Takes when goes to dentist Clobetasol Propionate 0.05 % External Gel (Temovate) APPLY A THIN AMOUNT TO AFFECTED AREA TWICE DAILY Compressor Nebulizer Nebulizer, Use as directed.

Pt has diagnosis of bronchiectasis and mild persistent asthma Dextran 70-Hypromellose (PF) 0.1-0.3 % Ophthalmic Solution 0.1 Drops, Both eyes, PRN diphenhydrAMINE HCl 25 MG Oral Tablet (Benadryl) Take 2 tablets at onset suspected insect sting allergic reaction; may repeat every 4-6 hrs. as needed. DULoxetine (CYMBALTA) 60 mg, Oral, Daily(AM), 1 daily EpiPen 2-Elmer 0.3 MG/0.3ML Injection Solution Auto-injector For a severe reaction: Inject in outer thigh following instructions on package and go to the Emergency room. fluticasone-salmeterol (ADVAIR DISKUS) 500-50 MCG/DOSE inhaler 1 Puff, Inhalation, BID (.AM/PM) folic acid 1 mg, Oral, Daily(AM) guaiFENesin (ROBITUSSIN) 200 mg, Oral, TID PRN Hydroxychloroquine Sulfate 200 MG Oral Tablet (Plaquenil) One and half pill daily Ipratropium-Albuterol 0.5-2.5 (3) MG/3ML Inhalation Solution (Duoneb) 3 mL, Nebulizer, QID(AM/NOON/PM/HS) Leflunomide (ARAVA) 15 mg, Oral, Daily(AM) levothyroxine (LEVOXYL) 112 mcg, Oral, Daily(AM) loratadine ODT (CLARITIN REDITAB) 10 mg, On Tongue, Daily(AM) montelukast (SINGULAIR) 10 mg, Oral, QPM-2000 MULTIVITAMINS OR TABS daily OCUVITE PO TABS Take by mouth . Orencia 250 MG Intravenous Solution Reconstituted (Abatacept) Intravenous, QMONTH oxygen IN GAS 2 L/min(Oxygen), Nasal, PRN, Diagnosis: MAAME, Bronchiectesis, aspergillus infection ofthe lung. predniSONE (DELTASONE) 2 mg, Oral, Daily(AM), Patient taking 2mg daily. Respiratory Therapy Supplies Device Please provide Acapella Device for expectoration assist as instructed. Timolol Maleate 0.5 % Ophthalmic Solution (Timoptic) INSTILL 1 DROP INTO THE LEFT EYE DAILY Voriconazole 200 MG Oral Tablet (Vfend) 400 mg twice daily (every 12 hours) on day 1 and day 2, then 200 mg twice a day (every 12 hours) until end of therapy. Objective Physical Exam BP 118/62 | Temp 36.1 C (97 F) | LMP 05/15/2002 Constitutional: no acute distress Neck: supple, normal range of motion CV: normal rate and rhythm, no murmur, gallops or rub Chest: coarse breath sounds and some rhonchi, no wheezing Abdomen: normal: soft, bowel sounds normal, no masses, tenderness or organomegaly Musculoskeletal: tenderness around replaced right knee. No synovitis Skin: warm, dry, intact: MSK/Joint exam (Homunculus) MSK Exam findings: Homunculus exam Studies: Labs and other studies reviewed with pertinent findings noted below: Disease Treatment Response CDAI Scoring - Patient Global: 50 mm Provider Global: 20 mm Tender: 1 Swollen: 0 CDAI: 8 CDAI (Clinical Disease Activity Index) [facility] Outcomes measures: Serial CDAI: Synopsis SmartLink 05/24/2023 09:20 03/19/2023 13:20 CDAI CDAI 8 34 - Serial CDAI: - Yes - Remission: - Yes - low disease activity - Disease Activity: Stable On csDMARD: Yes On Biologic DMARD: No Vaccination status: COVID: Vaccine and/or Health maintenance status Incomplete Influenza:Flu Vaccine pending for this season Pneumococcal:Vaccine Series complete Zoster:Vaccine Series Complete Last Hepatitis and TB testing: Hepatitis B: Tested, result reviewed Hepatitis C: Tested, result reviewed PPD or TB-Gold: Tested, result reviewed Lab Results Component Value Date HBSAG NEGATIVE 12/05/2018 HEPB <3.5 12/05/2018 HEPB NEGATIVE 12/05/2018 HCVAB NEGATIVE 12/05/2018 PPD INDURATION Date/Time Value Ref Range Status 11/10/2008 12:00 AM 0mm mm - documented in this encounter Nursing Notes * Shireen De Luna LPN - 05/24/2023 9:32 AM EDT Chief Complaint Patient presents with Rheum Follow Up RA documented in this encounter Plan of Treatment Upcoming Encounters Date Type Specialty Care Team Description 06/07/2023 Office Visit Orthopedics Carlo Gann MD [address] [place] [phone] 06/17/2023 Office Visit Internal Medicine Patricia Doran MD [address] [facility] [place], [place] [phone] 07/02/2023 Office Visit Cardiology Erik Sosa DO [address] [place] [address] 08/10/2023 Office Visit Pulmonary Mc Randall MD [address] [place] [address] 10/15/2023 Office Visit Rheumatology [facility] [address] [facility] [address] 11/05/2023 Office Visit Cardiology Mukesh Laird, DO [address] [place] [address] Scheduled Orders Name Type Priority Associated Diagnoses Orde r Schedule CBC WITH WBC DIFFERENTIAL Lab Routine Rheumatoid arthritis involving multiple sites with positive rheumatoid factor (HCC) Encounter for therapeutic drug monitoring Every 3 Months for 999 Occurrences starting 05/24/2023 until 05/24/2024 COMPREHENSIVE METABOLIC PANEL Lab Routine Rheumatoid arthritis involving multiple sites with positive rheumatoid factor (HCC) Encounter for therapeutic drug monitoring Every 3 Months for 999 Occurrences starting 05/24/2023 until 05/24/2024 Scheduled Procedures Name Priority Associated Diagnoses Date/Ti me COLONOSCOPY FLEXIBLE PROXIMAL DIAGNOSTIC Recall History of colon polyps Health Maintenance Due Date Last Done Comments DIABETES-EYE EXAM 06/20/2020 06/20/2019, , 06/24/2011, Additional history exists Depression Screening 05/21/2021 05/21/2020 COVID-19 Vaccine (5 - Mixed [...] 06/17/2020, Additional history exists GFR 03/02/2024 03/02/2023, 11/2022, 07/31/2022, Additional history exists TSH 03/02/2024 03/02/2023, 07/08, 03/05/2022, Additional history exists Pneumococcal Vaccine: 65+ Years (4 - PPSV23 or PCV20) 06/20/2024 06/20/2019, 01/20/2018, 11/08/2008 DTaP,Tdap,and Td Vaccines (3 - Td or Tdap) 02/26/2025 02/26/2015, 03/18/2011 COLONOSCOPY-EVERY 5 YRS AGES 18-100 02/26/2026 02/26/2021, 02/26/2021, 04/16/2014, Additional history exists Lipid Panel 07/24/2026 07/24/2021, 05/2020, 09/20/2019, Additional history exists DXA Scan [...] this encounter Medical Devices Implanted Type Area Railroad Signal Operator Device Identifier Shelf Expiration Date Model / Serial / Lot Lens 6.0 Sa60at - [id number] Implanted:Qty: 1 on 03/23/2007 at OR [facility] Left: Eye BETTY : SURGICAL 08/06/2011 SA60AT / [id number] / documented as of this encounter Visit Diagnoses Diagnosis Rheumatoid arthritis involving multiple sites with positive rheumatoid factor (HCC)- Primary Bronchiectasis without complication (HCC) Bronchiectasis without acute exacerbation Encounter for therapeutic drug monitoring documented in this encounter Advance Directives Latest Code Status on File Code Status Date Activated Date Inactivated Comments Full Code 01/03/2021 8:00 PM 01/10/2021 5:07 PM This o rder reflects the patients wishes and were consensually agreed upon. Question Answer Comments Discussion of Advance Directives occurred with: Patient Care Teams Technical Administrator Relationship Specialty Start Date End Date Patricia Doran MD [address] [facility] [place], [place] [id number] PCP - General 12/17/08 documented as of this encounter"
--- OUTSIDE RECORDS SUMMARY | 2023-08-07 11:27 | External Medical Summary ---
Author Name Unknown Address Unknown Organization [facility] [address] [place] [id number] Laboratory Report Ordering Provider Test Date Status TAMIKAMARCIO 06/02/2023 13:17:11 Final Observation Date Value Abnormality Reference (Units ) Status BUN 06/02/2023 13:17:11 13 6-20 (mg/dL) Final Creatinine 06/02/2023 13:17:11 0.7 0.5-1.0 (mg/dL) Final Glomerular filtration rate/1.73 sq M.predicted [Volume Rate/Area] in Serum, Plasma or Blood by Creatinine-based formula (CKD-EPI) 06/02/2023 13:17:11 89 >=60 (mL/min) Final eGFR is calculated based on the CKD-EPI 2020 equation SODIUM 06/02/2023 13:17:11 143 135-146 (m mol/L) Final Potassium 06/02/2023 13:17:11 4.0 3.5-5.1 (m mol/L) Final Cl 06/02/2023 13:17:11 107 98-107 (mm ol/L) Final CO2 06/02/2023 13:17:11 24 22-32 (mmo l/L) Final Anion gap 06/02/2023 13:17:11 12 7-15 (mmol /L) Final Glucose 06/02/2023 13:17:11 130 Above high normal 70 -120 (mg/dL) Final Albumin 06/02/2023 13:17:11 4.1 3.8-5.0 (g /dL) Final AST (Aspartate aminotransferase) 06/02/2023 13:17:11 28 10-35 (U/L) Fin al Alk Phos 06/02/2023 13:17:11 100 35-130 (U/ L) Final Bilirubin, Total 06/02/2023 13:17:11 0.2 <=1 .2 (mg/dL) Final Calcium 06/02/2023 13:17:11 9.4 8.4-10.2 ( mg/dL) Final Protein 06/02/2023 13:17:11 7.2 6.0-8.3 (g /dL) Final ALT (Alanine aminotransferase) 06/02/2023 13:17:11 22 10-35 (U/L) Phil cleaning Performing Location [facility] [address] [facility] [address]
--- OUTSIDE RECORDS SUMMARY | 2023-08-07 11:27 | External Medical Summary | Summary of Care ---
Author Name Unknown Organization [facility] Address [address] [facility] [address] Phone [phone] Care Team Providers Care Hand Polisher Name Role Phone Patricia Doran MD Primary Care Provider + Reason for Visit * Reason Comments NEW PATIENT Right knee pain x 1 month. Had right tka in 2015 at [facility]. * Evaluate & Treat - Unlimited Visits (Within 10 days (routine)) - Authorized Specialty Diagnoses / Procedures Referred By Rolf samayoa Referred To Contact Orthopaedic Surgery / Orthopedics Diagnoses Acute pain of right knee Hx of total knee replacement, right Tressa Patten MD [address] [place] [address] Carlo Gann MD [address] [place] [address] Referral ID Status Reason Start Date Expiration Date Visits Requested Visits Authorized [id number] Authorized Specialty Services Required 04/19/[phone] Encounter Details Date Type Department Care Team Description 04/30/2023 [place] [address] [place] [address] Carlo Gann MD [address] [place] [address] Acute pain of right knee* Allergies Active Allergy Reactions Severity Noted Date Comments Bee Venom 06/07/2015 Celecoxib 03/02/2023 Increased BP Erythromycin Base Conjunctivitis 01/17/2010 Opthalmic ointment Lisinopril 02/10/2012 cough Sulfasalazine 02/15/2020 GI upset,swealling in hands documented as of this encounter (statuses as of 04/30/2023) Medications Medication Sig Dispensed Refills Start Date [...] as of this encounter (statuses as of 04/30/2023) Active Problems Problem Noted Date Encounter for [...] as of this encounter (statuses as of 04/30/2023) Resolved Problems Problem Noted Date Resolved Date [...] as of this encounter (statuses as of 04/30/2023) Immunizations Name Administration Dates Next Due COVID-19 [...] Sign Reading Time Taken Comments Blood Pressure - - Pulse - - Temperature - - Respiratory Rate - - Oxygen Saturation - - Inhaled Oxygen Concentration - - Weight - - Height 162.6 cm (5' 4") 04/30/2023 1:38 PM EDT Body Mass Index - - documented in [...] (15 years old or older) No 01/04/20 Cognitive Status Response Date of Assessm ent Because of a physical, menta l, or emotional condition, do you have serious difficulty concentrating, remembering, or making decisions? (5 years old or older No 01/03/2021 documented as of this encounter Progress Notes * Carlo Gann MD - 04/30/2023 3:09 PM EDT Patient Name: Britni Gramajo PHD CC: NEW PATIENT (Right knee pain x 1 month. Had right tka in 2015 at [facility]. ) HPI: Britni Gramajo PHD, 67 year old female comes in for evaluation of Right knee pain. She had right total knee arthroplasty done in 2014 at [facility]. She is a known case of rheumatoid arthritis. 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 She also got some infection in her kidney and pyelonephritis in December for which she received antibiotic. She report pain in her right knee which is acute onset approximately started 4 weeks ago. She reported the pain is progressively getting worse. She denies any fever or chills. She is difficulty in walking and activities. ROS- Denies any recent illness. Past Medical History: Diagnosis Date Allergic rhinitis Asthma Asthma with severity to be determined Atherosclerosis of aorta (HCC) 02/18/2021 Benign neoplasm of colon 04/16/2013 adenomatous polyp, repeat 5 yrs Bronchiectasis without complication (HCC) 07/17/2020 Diabetes mellitus without complication (HCC) 12/05/2018 Exudative age-related macular degeneration, left eye, with inactive choroidal neovascularization (HCC) 12/05/2018 GENERAL OSTEOARTHROSIS 12/13/2000 Glaucoma Hypercholesterolemia Hypothyroidism Other psoriasis 12/13/2000 Pneumonia Pneumonia of right middle lobe due to Pseudomonas species ([facility]) 07/17/2020 Protein-calorie malnutrition (HCC) 02/18/2021 Pulmonary nodules 07/17/2020 Restrictive lung disease 07/17/2020 Retinal edema 11/21/2009 Rheumatoid arthritis involving multiple sites with positive rheumatoid factor ([facility]) 02/27/2016 Senile cataract Cataract Senile Urge incontinence of urine 02/24/2019 Past Surgical History: Procedure Laterality Date ANKLE ARTHROSCOPY/SURGERY Right fusion surgery ARTHROPLASTY KNEE TOTAL Right 2015 BRONCHOSCOPY, DIAGNOSTIC N/A 10/29/2022 BRONCHOSCOPY DIAGNOSTIC WITH OR WITHOUT WASHING performed by Mariano Pickard MD at [facility] COLONOSCOPY, DIAGNOSTIC (RECTUM) 04/16/2014 adenomatous polyp, repeat 5 yrs/COLONOSCOPY FLEXIBLE PROXIMAL DIAGNOSTIC performed by Palomo Griffiths MD at [facility]COPY [facility] COLONOSCOPY, DIAGNOSTIC (RECTUM) 02/26/2021 benign adenomatous polyp, diverticulosis, repeat 5 yrs / COLONOSCOPY FLEXIBLE PROXIMAL DIAGNOSTIC performed by Tevin Razo MD at [facility]COPY [facility] EGD, FLEXIBLE, DIAGNOSTIC 08/28/2015 duodenal ulcer, erosive duodenitis, normal bx EGD, FLEXIBLE, DIAGNOSTIC 08/28/2015 ESOPHAGOGASTRODUODENOSCOPY (EGD), FLEXIBLE, TRANSORAL, DIAGNOSTIC performed by Palomo Griffiths MD at [facility]COPY [facility] EGD, FLEXIBLE, DIAGNOSTIC 02/26/2021 mild acid reflux / ESOPHAGOGASTRODUODENOSCOPY (EGD), FLEXIBLE, TRANSORAL, DIAGNOSTIC performed by Tevin Razo MD at [facility]COPY [facility] EGD, FLEXIBLE, DIAGNOSTIC N/A 11/05/2022 [facility], EGD, white plaques seen in hypopharynx, GE junction at 36cm mild ring at the GE junction FLUORO GUIDED SPINE INJECTION 10/05/2022 FLUROSCOPIC GUIDANCE AND LOCALIZATION OF NEEDLE OR CATHETER TIP FOR SPINE OR PARASPINOUS DIAGNOSTICperformed by Shubham Sung DO at OR [facility] PLANNING MANAGEMENT IT SPECIALIST PAP DIAGNOSTIC 09/2000 INFORMATION Left 09/13/2017 Left Eye Ahmed Glaucoma Valve Implant model# FP7 INFORMATION 2019 Heart Cath. INJECTION OF EYE DRUG 11/22/2009 #1 Avastin OS, Dr. Castro INJECTION OF EYE DRUG 12/20/2009 #2 Avastin OS, Dr. Castro IR BIOPSY 10/20/2019 MAMMOGRAM - BILATERAL 01/2001 PARAVERTEBRAL BLOCK, THORACIC; SINGLE INJ 10/05/2022 PARAVERTEBRAL BLOCK (PVB) (PARASPINOUS BLOCK), THORACIC; SINGLE INJECTION SITE (INCLUDES IMAGING GUIDANCE, WHEN PERFORMED) performed by Shubham Sung DO at OR [facility] REMOVE CATARACT, INSERT LENS PROSTH 03/23/2007 EXTRACAPSULAR CATARACT REMOVAL WITH INTRAOCULAR LENS performed by ASHANTI ROSARIO at [facility] REPAIR DETACHED RETINA, INJECTION Left Family History Problem Relation Age of Onset Eye Problems Mother Glaucoma Mother Heart Disorder Mother Diabetes Mother Arthritis Father RA Heart Disorder Father Hypertension Father Cataracts Father Other (ARDS) Father Other (Diabetes, HTN) Sister Asthma Brother Diabetes Brother No Known Problems Daughter Psoriasis Daughter PsA as well No Known Problems Daughter No Known Problems Son Social History Social History Narrative Not on file Examination, Ht 1.626 m (5' 4") | LMP 05/15/2002 | BMI 25.75 kg/m | BSA 1.75 m General- Patient is Stable, oriented in time, place and person, not in acute distress, Right Knee- well-healed incision, no effusion, neutral alignment, generalized synovitis of the kneejoint. Generalized tenderness of the knee joint mediolaterally. Range of motion from 0-110 without any pain, good stability of the knee joint Hip ROM- Not painful Grossly intact neurovascular status. Radiographic evaluation- Radiographs reviewed independently shows cemented total knee arthroplasty without any loosening or acute complication without any significant joint effusion. Plan-I discussed all clinical and radiographic finding in detail with the patient patient accompanied. She has a complex history of her rheumatoid and complication related to rheumatoid medications. Had differential diagnosis discussion in detail with patient and patient's family member regarding her knee pain could be secondary to could be secondary to flare-up of the rheumatoid considering history of rheumatoid and discontinuation of the rheumatoid medication, periprosthetic joint infection,, possible loosening which is not obviously seen on radiographs, discussed possible some inflammation possibly from gout. Recommended patient to consider some lab work including CRP, ESR, which may not provide significantinformation considering her history of rheumatoid another infections. I also ordered blood culture and procalcitonin to see systemic effect of infection. Discussed option of aspiration of the knee joint discussed the possible complication associated with aspiration and possibly we may not get any fluid considering there is no effusion visible on radiographs and clinical examination. Patient patient's family would like to wait for aspiration they do not want to proceed with aspiration today. Patient has appointment with installation tech, I recommended them to follow-up with installation tech for possibly flare-up of the rheumatoid. Had very well understanding of all the discussion. They will follow up with us in a month her before that if any questions or consider worsening symptoms. They also will follow up with PCP to find out any more lab test that will help us to differentiate infection versus flare-up of the rheumatoid arthritis. They understood the discussion very well. I spent a total of 40-54 minutes (exact time 45 mins) on the date of service in preparation, delivery, and documentation of the care provided to Britni Gramajo PHD excluding any time spent in the performance of separately billed services. This chart was completed in part utilizing [employer] Speech Voice Recognition Software. Grammatical errors, random word insertions, prounoun errors and incomplete sentences are an occasional consequence of this system due to software limitations, ambient noise, and hardware issues. Any formal questions or concerns about the content, text, or information contained within the body of this dictation should be directly addressed to the provider for clarification. documented in this encounter Nursing Notes * Genesis Mosley LPN - 04/30/2023 1:39 PM EDT Chief Complaint Patient presents with NEW PATIENT Right knee pain x 1 month. Had right tka in 2015 at [facility]. documented in this encounter Plan of Treatment Upcoming Encounters Date Type Specialty Care Team Description 06/07/2023 Office Visit Orthopedics Carlo Gann MD [address] [place] [address] 06/17/2023 Office Visit Internal Medicine Patricia Doran MD [address] [place] [address] 07/02/2023 Office Visit Cardiology Erik Sosa, DO [address] [place] [address] 08/10/2023 Office Visit Pulmonary Mc Randall MD [address] [facility] [place] [address] 10/15/2023 Office Visit Rheumatology Saran Boateng MD [address] [facility] [place] [address] 11/05/2023 Office Visit Cardiology Mukesh Laird, DO [address] [place] [address] Pending Results Name Type Priority Associated Diagnoses Date /Time ERYTHROCYTE SEDIMENTATION RATE (ESR) Lab Routine Acute pain of right knee 04/30/2023 2:50 PM EDT CRP (INFLAMMATORY MARKER) Lab Routine Acute pain of right knee 04/30/2023 2:50 PM EDT CULTURE, BLOOD Lab Routine Acute pain of right knee 04/30/2023 2:50 PM EDT PROCALCITONIN Lab Routine Acute pain of right knee 04/30/2023 2:50 PM EDT Scheduled Procedures Name Priority Associated Diagnoses Date/Ti me COLONOSCOPY FLEXIBLE PROXIMAL DIAGNOSTIC Recall History of colon polyps Health Maintenance Due Date Last Done Comments DIABETES-EYE EXAM 06/20/2020 06/20/2019, , 06/24/2011, Additional history exists Depression Screening, Annual for Pts 12 and Over 05/21/2021 05/21/2020 COVID-19 Vaccine (5 - Mixed Product risk series) 10/20/2021 08/25/2021, 12/14/2020, 11/23/2020, Additional history exists Albumin/Creatinine Ratio 03/05/202303/05/2 022, 02/18/2021, 06/20/2019, Additional history exists Mammogram [...] this encounter Medical Devices Implanted Type Area Insurance Claims Examiner Device Identifier Shelf Expiration Date Model / Serial / Lot Lens 6.0 Sa60at - [id number] Implanted:Qty: 1 on 03/23/2007 at [facility] Left: Eye BETTY : SURGICAL 08/06/2011 SA60AT / [id number] / documented as of this encounter Visit Diagnoses Diagnosis Acute pain of right knee- Primary documented in this encounter Advance Directives Latest Code Status on File Code Status Date Activated Date Inactivated Comments Full Code 01/03/2021 8:00 PM 01/10/2021 5:07 PM This o rder reflects the patients wishes and were consensually agreed upon. Question Answer Comments Discussion of Advance Directives occurred with: Patient Care Teams Hand Polisher Relationship Specialty Start Date End Date Patricia Doran MD [address] [facility] [place] [address] PCP - General 12/17/08 documented as of this encounter
--- OUTSIDE RECORDS SUMMARY | 2023-08-07 11:27 | External Medical Summary | Summary of Care ---
Author Name Unknown Organization [facility] Address [address] [place] [address] Phone [phone] Care Team Providers Care Rehabilitation Services Coordinator Name Role Phone Patricia Doran MD Primary Care Provider + Reason for Visit * Reason Onset Date Comments Appointment 04/30/2023 Encounter Details Date Type Department Care Team Description 04/30/2023 Telephone Rheumatology [address] [place] [address] Services, Scheduling [address] [place] [address] Appointment Allergies Active Allergy Reactions Severity Noted [...] [address] [place] [id number] 06/17/2023 Office Visit Internal Medicine Patricia Doran MD [address] [place] [address] 07/02/2023 Office Visit Cardiology Erik Sosa DO [address] [place] [address] 08/10/2023 Office Visit Pulmonary Mc Randall MD [address] [place] [address] 10/15/2023 Office Visit Rheumatology Saran Boateng MD [facility] [place] [address] 11/05/2023 Office Visit Cardiology Mukesh Laird, DO [address] [place] [address] Scheduled Procedures Name Priority Associated Diagnoses Date/Ti [...] this encounter Medical Devices Implanted Type Area University President Device Identifier Shelf Expiration Date Model / Serial / Lot Lens 6.0 Sa60at - [id number] Implanted:Qty: 1 on 03/23/2007 at [facility] Left: Eye BETTY : SURGICAL 08/06/2011 SA60AT / [id number] / documented as of this encounter Advance Directives Latest Code Status on File Code Status Date Activated Date Inactivated Comments Full Code 01/03/2021 8:00 PM 01/10/2021 5:07 PM This o rder reflects the patients wishes and were consensually agreed upon. Question Answer Comments Discussion of Advance Directives occurred with: Patient Care Teams Rehabilitation Services Coordinator Relationship Specialty Start Date End Date Patricia Doran MD [address] [place] [address] [place] [address] PCP - General 12/17/08 documented as of this encounter
--- OUTSIDE RECORDS SUMMARY | 2023-08-07 11:27 | External Medical Summary | Summary of Care ---
Author Name Unknown Organization [facility] Address [address] [facility] [address] Phone [phone] Care Team Providers Care Manager Fixed Income Name Role Phone Patricia Doran MD Primary Care Provider + Reason for Visit * Reason Comments Outpatient Testing Encounter Details Date Type Department Care Team Description 06/02/2023 Laboratory [facility], [facility] [address] [facility] [place] [address] [place] [facility] [address] [facility] [address] Rheumatoid arthritis involving multiple sites with positive rheumatoid factor (HCC); Encounter for therapeutic drug monitoring Allergies Active Allergy Reactions Severity Noted Date Comments Bee Venom 06/07/2015 Celecoxib 03/02/2023 Increased BP Erythromycin Base Conjunctivitis 01/17/2010 Opthalmic ointment Lisinopril 02/10/2012 cough Sulfasalazine 02/15/2020 GI upset,swealling in hands documented as of this encounter (statuses as of 06/02/2023) Medications Medication Sig Dispensed Refills Start Date [...] tabs daily 135 Tablet 4 05/24/2023 Active documented as of this encounter (statuses as of 06/02/2023) Active Problems Problem Noted Date Encounter for [...] as of this encounter (statuses as of 06/02/2023) Resolved Problems Problem Noted Date Resolved Date [...] as of this encounter (statuses as of 06/02/2023) Immunizations Name Administration Dates Next Due COVID-19 [...] [address] [place] [address] 06/17/2023 Office Visit Internal Medicine Patricia Doran MD [address] [facility], [place] [phone] 07/02/2023 Office Visit Cardiology Erik Sosa, DO [address] [place] [address] 08/10/2023 Office Visit Pulmonary Mc Randall MD [address] [place] [phone] 10/15/2023 Office Visit Rheumatology Saran Boateng MD [address] [place] [address] 11/05/2023 Office Visit Cardiology Mukesh Laird, DO [address] [place] [address] Pending Results Name Type Priority Associated Diagnoses Date /Time COMPREHENSIVE METABOLIC PANEL Lab Routine Rheumatoid arthritis involving multiple sites with positive rheumatoid factor (HCC) Encounter for therapeutic drug monitoring 06/02/2023 1:17 PM EDT Scheduled Procedures Name Priority Associated Diagnoses Date/Ti me COLONOSCOPY FLEXIBLE PROXIMAL DIAGNOSTIC Recall History of colon polyps Health Maintenance Due Date Last Done Comments DIABETES-EYE EXAM 06/20/2020 06/20/2019, , 06/24/2011, Additional history exists Depression Screening 05/21/2021 05/21/2020 COVID-19 Vaccine (5 - Mixed Product risk series) 10/20/2021 08/25/2021, 12/14/2020, 11/23/2020, Additional history exists Albumin/Creatinine Ratio 03/05/202303/05/ 022, 02/18/2021, 06/20/2019, Additional history exists Mammogram [...] this encounter Medical Devices Implanted Type Area Remote Sensing Technologist Device Identifier Shelf Expiration Date Model / Serial / Lot Lens 6.0 Sa60at - [id number] Implanted:Qty: 1 on 03/23/2007 at [facility] Left: Eye BETTY : SURGICAL 08/06/2011 SA60AT / [id number] / documented as of this encounter Procedures Procedure Name Priority Date/Time Associated Diagnosis Comments DIFFERENTIAL, AUTOMATED Routine 06/02/2023 1:17 PM EDT Rheumatoid arthritis involving multiple sites with positive rheumatoid factor (HCC) Encounter for therapeutic drug monitoring CBC Routine 06/02/2023 1:17 PM EDT Rheumatoid arthritis involving multiple sites with positive rheumatoid factor (HCC) Encounter for therapeutic drug monitoring CBC Routine 06/02/2023 1:17 PM EDT Rheumatoid arthritis involving multiple sites with positive rheumatoid factor (HCC) Encounter for therapeutic drug monitoring documented in this encounter Results * (ABNORMAL) DIFFERENTIAL, AUTOMATED (06/02/2023 1:17 PM EDT) WBC 8.59 4.00 - 10.80 K/uL 06/02/2023 1:32 PM EDT [facility] Neutrophils % 57.6 40.0 - 75.0 % 06/02/2023 1:32 PM EDT [facility] Lymphocytes % 25.5 18.0 - 42.0 % 06/02/2023 1:32 PM EDT [facility] Monocytes % 7.6 1.0 - 11.0 % 06/02/2023 1:32 PM EDT [facility] Eosinophils % 8.5(H) 0.0 - 6.0 % 06/02/2023 1:32 PM EDT [facility] Basophils % 0.8 0.0 - 2.0 % 06/02/2023 1:32 PM EDT [facility] Absolute Neutrophils 4.95 1.80 - 7.70 K/uL 06/02/2023 1:32 PM EDT [facility] Absolute Lymphocytes 2.19 1.00 - 4.80 K/ul 06/02/2023 1:32 PM EDT [facility] Absolute Monocytes 0.65 0.00 - 1.10 K/uL 06/02/2023 1:32 PM EDT [facility] Absolute Eosinophils 0.73(H) 0.00 - 0.70 K/uL 06/02/2023 1:32 PM EDT [facility] Absolute Basophils 0.07 0.00 - 0.20 K/uL 06/02/2023 1:32 PM EDT [facility] Blood Venous blood specimen / Unknown Venipuncture / Unknown 06/02/2023 1:17 PM EDT 06/02/2023 1:17 PM EDT Saran Boateng MD LAB BLOOD ORDERABLE S Performing Organization Address City/State/[facility] Co de Phone Number [facility] [address] [place] [address] * CBC (06/02/2023 1:17 PM EDT) WBC 8.59 4.00 - 10.80 K/uL 06/02/2023 1:32 PM EDT [facility] RBC 4.33 3.85 - 5.15 M/uL 06/02/2023 1:32 PM EDT [facility] HGB 13.4 12.0 - 15.3 g/dL 06/02/2023 1:32 PM EDT [facility] HCT 42.3 36.0 - 45.2 % 06/02/2023 1:32 PM EDT [facility] MCV 97.7 81.5 - 97.5 fL 06/02/2023 1:32 PM EDT [facility] MCH 30.9 27.0 - 34.0 pg 06/02/2023 1:32 PM EDT [facility] MCHC 31.7 32.0 - 36.0 g/dL 06/02/2023 1:32 PM EDT [facility] RDW 13.1 11.5 - 15.5 % 06/02/2023 1:32 PM EDT [facility] PLT 302 140 - 400 K/uL 06/02/2023 1:32 PM EDT [facility] MPV 9.7 6.6 - 11.1 fL 06/02/2023 1:32 PM EDT [facility] Blood Venous blood specimen / Unknown Venipuncture / Unknown 06/02/2023 1:17 PM EDT 06/02/2023 1:17 PM EDT Saran Boateng MD LAB BLOOD ORDERABLE S [facility] [address] [facility] [place] [address] documented in this encounter Visit Diagnoses Diagnosis Rheumatoid arthritis involving multiple sites with positive rheumatoid factor (HCC) Encounter for therapeutic drug monitoring documented in this encounter Advance Directives Latest Code Status on File Code Status Date Activated Date Inactivated Comments Full Code 01/03/2021 8:00 PM 01/10/2021 5:07 PM This o rder reflects the patients wishes and were consensually agreed upon. Question Answer Comments Discussion of Advance Directives occurred with: Patient Care Teams Manager Fixed Income Relationship Specialty Start Date End Date Patricia Doran MD [address] [facility] [place] [address] PCP - General 12/17/08 documented as of this encounter
--- OUTSIDE RECORDS SUMMARY | 2023-08-07 11:27 | External Medical Summary ---
Author Name Unknown Address Unknown Organization [id number] [place] [address] Laboratory Report Ordering Provider Test Date Status MARCIO LUNDBERG 06/02/2023 13:17:11 Final Observation Date Value Abnormality Reference (Units ) Status SYNC LEUKOCYTES IN BLOOD BY AUTOMATED COUNT 06/02/2023 13:17:11 8.59 4.00-10.80 (K/uL) Final Segs 06/02/2023 13:17:11 57.6 40.0-75.0 (%) Final Lymphs % 06/02/2023 13:17:11 25.5 18.0-42.0 (%) Final Monos 06/02/2023 13:17:11 7.6 1.0-11.0 (%) Final Eosinophils 06/02/2023 13:17:11 8.5 Above high normal 0.0-6.0 (%) Final Basos 06/02/2023 13:17:11 0.8 0.0-2.0 (%) Final Absolute Segs 06/02/2023 13:17:11 4.95 1.80-7.70 (K/uL) Final Lymphs, absolute 06/02/2023 13:17:11 2.19 1.00-4.80 (K/ul) Final Monos, Abs 06/02/2023 13:17:11 0.65 0.00-1.10 (K/uL) Final Eos, Abs 06/02/2023 13:17:11 0.73 Above high normal 0.00-0.70 (K/uL) Final Basos, Abs 06/02/2023 13:17:11 0.07 0.00-0.20 (K/uL) Final Performing Location [facility] [place] [facility] [place] [id number]
--- OUTSIDE RECORDS SUMMARY | 2023-08-07 11:27 | External Medical Summary ---
Author Name Unknown Address Unknown Organization [id number] [facility] [address] [place] [address] Laboratory Report Ordering Provider Test Date Status TAMIKAANGELO FIERROTORO 06/02/2023 13:17:11 Final Observation Date Value Abnormality Reference (Units ) Status WBC, Total 06/02/2023 13:17:11 8.59 4.00-10.8 0 (K/uL) Final RBC 06/02/2023 13:17:11 4.33 3.85-5.15 (M/uL) Final Hemoglobin 06/02/2023 13:17:11 13.4 12.0-15.3 (g/dL) Final HCT 06/02/2023 13:17:11 42.3 36.0-45.2 (%) Final MCV 06/02/2023 13:17:11 97.7 81.5-97.5 (fL) Final MCH 06/02/2023 13:17:11 30.9 27.0-34.0 (pg) Final MCHC 06/02/2023 13:17:11 31.7 32.0-36.0 (g/dL) Final RDW 06/02/2023 13:17:11 13.1 11.5-15.5 (%) Final Platelets 06/02/2023 13:17:11 302 140-400 (K /uL) Final MPV 06/02/2023 13:17:11 9.7 6.6-11.1 ( fL) Final Performing Location [facility] [place] [address]
--- OUTSIDE RECORDS SUMMARY | 2023-08-07 11:27 | External Medical Summary | Summary of Care ---
Author Name Unknown Organization [facility] Address [address] [place] [address] Phone [phone] Care Team Providers Care Coagulator Name Role Phone Patricia Doran MD Primary Care Provider + Reason for Visit * Reason Onset Date Comments Order Request 06/01/2023 Encounter Details Date Type Department Care Team Description 06/01/2023 Telephone Rheumatology [address] [place] [address] Services, Scheduling [address] [place] [address] Order Request Allergies Active Allergy Reactions Severity Noted Date Comments Bee Venom 06/07/2015 Celecoxib 03/02/2023 Increased BP Erythromycin Base Conjunctivitis 01/17/2010 Opthalmic ointment Lisinopril 02/10/2012 cough Sulfasalazine 02/15/2020 GI upset,swealling in hands documented as of this encounter (statuses as of 06/04/2023) Medications Medication Sig Dispensed Refills Start Date [...] as of this encounter (statuses as of 06/04/2023) Active Problems Problem Noted Date Encounter for [...] as of this encounter (statuses as of 06/04/2023) Resolved Problems Problem Noted Date Resolved Date [...] as of this encounter (statuses as of 06/04/2023) Immunizations Name Administration Dates Next Due COVID-19 [...] medication for this patient. Dexamethasone. Please advise [phone] is her number to call documented in this encounter Plan of Treatment Upcoming Encounters Date Type Specialty Care Team Description 06/07/2023 Office Visit Orthopedics Carlo Gann MD [address] [place] [phone] 06/10/2023 Imaging Radiology 06/17/2023 Office Visit Internal Medicine Patricia Doran MD [address] [place], [place] [address] 07/02/2023 Office Visit Cardiology Erik Sosa, DO [address] [place] [address] 08/10/2023 Office Visit Pulmonary Mc Randall MD [address] [facility] [place] [phone] 10/15/2023 Office Visit Rheumatology Saran Boateng MD [address] [facility] [place], [place] [address] 11/05/2023 Office Visit Cardiology Mukesh Laird, DO [address] [place] [address] Scheduled Procedures Name Priority Associated Diagnoses Date/Ti [...] this encounter Medical Devices Implanted Type Area Transportation Planner Device Identifier Shelf Expiration Date Model / Serial / Lot Lens 6.0 Sa60at - [id number] Implanted:Qty: 1 on 03/23/2007 at OR [facility] Left: Eye BETTY : SURGICAL 08/06/2011 SA60AT / [id number] / documented as of this encounter Advance Directives Latest Code Status on File Code Status Date Activated Date Inactivated Comments Full Code 01/03/2021 8:00 PM 01/10/2021 5:07 PM This o rder reflects the patients wishes and were consensually agreed upon. Question Answer Comments Discussion of Advance Directives occurred with: Patient Care Teams Coagulator Relationship Specialty Start Date End Date Patricia Doran MD [address] [facility] [place] [address] PCP - General 12/17/08 documented as of this encounter
--- OUTSIDE RECORDS SUMMARY | 2023-08-07 11:27 | External Medical Summary | Summary of Care ---
Author Name Unknown Organization [facility] Address [address] [facility] [place] [address] Phone [phone] Care Team Providers Care Information Technology Director Name Role Phone Patricia Doran MD Primary Care Provider + Reason for Referral * Precert (Within 10 days (routine)) - Authorized Specialty Diagnoses / Procedures Referred By Contac t Referred To Contact Radiology Diagnoses Pulmonary mycobacteria (HCC) Procedures CT CHEST WO CONTRAST Edward Champion [address] [place] [address] Referral ID Status Reason Start Date Expiration Date V isits Requested Visits Authorized [id number] Authorized 06/02/2023 999 999 Encounter Details Date Type Department Care Team Description 06/02/2023 Orders Only Radiology [facility] 1st [facility] [address] [facility] [place] [address] Requisition, External Radiology [address] [place] [address] Pulmonary mycobacteria (HCC)* Allergies Active Allergy Reactions Severity Noted Date [...] [address] [place] [id number] 06/10/2023 Imaging Radiology 06/17/2023 Office Visit Internal Medicine Patricia Doran MD [address] [place] [facility] [place] [address] 07/02/2023 Office Visit Cardiology Erik Sosa, DO [address] [place] [address] 08/10/2023 Office Visit Pulmonary Mc Randall MD [address] [facility] [address] 10/15/2023 Office Visit Rheumatology Saran Boateng MD [address] [place] [address] 11/05/2023 Office Visit Cardiology Mukesh Laird, DO [address] [place] [address] Scheduled Orders Name Type Priority Associated Diagnoses Orde r Schedule CT CHEST WO CONTRAST Medical Imaging Routine Pulmonary mycobacteria (HCC) Ordered: 06/02/2023 Scheduled Procedures Name Priority Associated Diagnoses Date/Ti [...] this encounter Medical Devices Implanted Type Area Mechanical Test Technician Device Identifier Shelf Expiration Date Model / Serial / Lot Lens 6.0 Sa60at - [id number] Implanted:Qty: 1 on 03/23/2007 at [facility] Left: Eye BETTY : SURGICAL 08/06/2011 SA60AT / [id number] / documented as of this encounter Visit Diagnoses Diagnosis 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 Question Answer Comments Discussion of Advance Directives occurred with: Patient Care Teams Information Technology Director Relationship Specialty Start Date End Date Patricia Doran MD [address] [facility] [place] [address] PCP - General 12/17/08 documented as of this encounter
--- OUTSIDE RECORDS SUMMARY | 2023-08-07 11:27 | External Medical Summary | Summary of Care ---
Author Name Unknown Organization [facility] Address [address] [place] [address] Phone [phone] Care Team Providers Care Mortgage Branch Manager Name Role Phone Patricia Doran MD Primary Care Provider + Reason for Visit * Reason Onset Date Comments Appointment 04/30/2023 Encounter Details Date Type Department Care Team Description 04/30/2023 Telephone Rheumatology [address] [place] [address] Services, Scheduling [address] [place] [address] Appointment Allergies Active Allergy Reactions Severity Noted Date Comments Bee Venom 06/07/2015 Celecoxib 03/02/2023 Increased BP Erythromycin Base Conjunctivitis 01/17/2010 Opthalmic ointment Lisinopril 02/10/2012 cough Sulfasalazine 02/15/2020 GI upset,swealling in hands documented as of this encounter (statuses as of 05/07/2023) Medications Medication Sig Dispensed Refills Start Date [...] as of this encounter (statuses as of 05/07/2023) Active Problems Problem Noted Date Encounter for [...] as of this encounter (statuses as of 05/07/2023) Resolved Problems Problem Noted Date Resolved Date [...] as of this encounter (statuses as of 05/07/2023) Immunizations Name Administration Dates Next Due COVID-19 [...] Encounters Date Type Specialty Care Team Description 05/24/2023 Office Visit Rheumatology Saran Boateng MD [address] [facility] [place], [place] [address] 06/07/2023 Office Visit Orthopedics Carol Gann MD [address] [place] [address] 06/17/2023 Office Visit Internal Medicine Patricia Doran MD [address] [facility] [place] [address] 07/02/2023 Office Visit Cardiology Erik Sosa DO [address] [place] [address] 08/10/2023 Office Visit Pulmonary Mc Randall MD [address] [facility] [place] [phone] 10/15/2023 Office Visit Rheumatology Saran Boateng MD [address] [facility] [place], [place] [address] 11/05/2023 Office Visit Cardiology Mukesh Laird, DO [address] [place] [address] Scheduled Procedures Name Priority Associated Diagnoses Date/Ti [...] this encounter Medical Devices Implanted Type Area Marketing Analyst Device Identifier Shelf Expiration Date Model / Serial / Lot Lens 6.0 Sa60at - [id number] Implanted:Qty: 1 on 03/23/2007 at OR [facility] Left: Eye BETTY : SURGICAL 08/06/2011 SA60AT / [id number] / documented as of this encounter Advance Directives Latest Code Status on File Code Status Date Activated Date Inactivated Comments Full Code 01/03/2021 8:00 PM 01/10/2021 5:07 PM This o rder reflects the patients wishes and were consensually agreed upon. Question Answer Comments Discussion of Advance Directives occurred with: Patient Care Teams Mortgage Branch Manager Relationship Specialty Start Date End Date Patricia Doran MD [address] [facility] [place] [address] PCP - General 12/17/08 documented as of this encounter
--- OUTSIDE RECORDS SUMMARY | 2023-08-07 11:28 | External Medical Summary | Summary of Care ---
Author Name Unknown Organization [facility] Address [address] [facility] [place] [address] Phone [phone] Care Team Providers Care Planting Machine Crewman Name Role Phone Patricia Doran MD Primary Care Provider + Encounter Details Date Type Department Care Team Description 04/29/2023 Patient Reported Data Patient Survey Ortho [facility] Allergies Active Allergy Reactions Severity Noted Date Comments Bee Venom 06/07/2015 Celecoxib 03/02/2023 Increased BP Erythromycin Base Conjunctivitis 01/17/2010 Opthalmic ointment Lisinopril 02/10/2012 cough Sulfasalazine 02/15/2020 GI upset,swealling in hands documented as of this encounter (statuses as of 04/29/2023) Medications Medication Sig Dispensed Refills Start Date [...] as of this encounter (statuses as of 04/29/2023) Active Problems Problem Noted Date Encounter for [...] as of this encounter (statuses as of 04/29/2023) Resolved Problems Problem Noted Date Resolved Date [...] as of this encounter (statuses as of 04/29/2023) Immunizations Name Administration Dates Next Due COVID-19 [...] Encounters Date Type Specialty Care Team Description 04/30/2023 Office Visit Orthopedics Carlo Gann MD [address] [place] [address] 06/17/2023 Office Visit Internal Medicine Patricia Doran MD [address] [facility] [place] [address] 07/02/2023 Office Visit Cardiology Erik Sosa, DO [address] [place] [address] 08/10/2023 Office Visit Pulmonary Mc Randall MD [address] [place] [address] 10/15/2023 Office Visit Rheumatology Saran Boateng MD [address] [place] [address] 11/05/2023 Office Visit Cardiology Mukesh Laird, DO [address] [place] [address] Scheduled Procedures Name Priority Associated Diagnoses Date/Ti [...] 06/17/2020, Additional history exists GFR 03/02/2024 03/02/2023, 030 11/2022, 07/31/2022, Additional history exists TSH 03/02/2024 [...] Additional history exists Pap Smear Discontinued 05/19/2019, 01/2009, 11/08/2008 Zoster Vaccines Completed 06/17/2020, 03/14/2020 GARDASIL-HPV IMMUNIZATION SERIES Aged Out No longer eligible based on patient's age to complete this topic Hepatitis B Aged Out No longer eligi ble based on patient's age to complete this topic MENINGOCOCCAL (MENACTRA/MENVEO) Aged Out No longer eligible based on patient's age to complete this topic documented as of this encounter Medical Devices Implanted Type Area First Dyer Device Identifier Shelf Expiration Date Model / Serial / Lot Lens 6.0 Sa60at - [id number] Implanted:Qty: 1 on 03/23/2007 at [facility] Left: Eye BETTY : SURGICAL 08/06/2011 ANGELINA / [id number] / documented as of this encounter Advance Directives Latest Code Status on File Code Status Date Activated Date Inactivated Comments Full Code 01/03/2021 8:00 PM 01/10/2021 5:07 PM This o rder reflects the patients wishes and were consensually agreed upon. Question Answer Comments Discussion of Advance Directives occurred with: Patient Care Teams Planting Machine Crewman Relationship Specialty Start Date End Date Patricia Doran MD [address] [place] [address] PCP - General 12/17/08 documented as of this encounter
--- OUTSIDE RECORDS SUMMARY | 2023-08-07 11:28 | External Medical Summary | Summary of Care ---
Author Name Unknown Organization [facility] Address [address] [place] [address] Phone [phone] Care Team Providers Care Environmental Health And Safety Leader Name Role Phone Patricia Doran MD Primary Care Provider + Encounter Details Date Type Department Care Team Description 04/27/2023 Orders Only Outcomes Research Department [address] [place] [address] Irene Moody CHRA My[facility] Research Other*[id number] Allergies Active Allergy Reactions Severity Noted Date Comments Bee Venom 06/07/2015 Celecoxib 03/02/2023 Increased BP Erythromycin Base Conjunctivitis 01/17/2010 Opthalmic ointment Lisinopril 02/10/2012 cough Sulfasalazine 02/15/2020 GI upset,swealling in hands documented as of this encounter (statuses as of 04/27/2023) Medications Medication Sig Dispensed Refills Start Date [...] as instructed. 1 Each 3 03/18/2023 Active Sodium Chloride 3 % Inhalation Nebulization Solution Inhale 3 mL via nebulizer in the morning and 3 mL at noon and 3 mL before bedtime. 360 mL 0 03/18/2023 Active DULoxetine HCl 60 MG Oral Capsule Delayed Release Particles (Cymbalta) Take 1 Capsule by mouth in the morning. 1 daily. 0 02/24/2023 Active documented as of this encounter (statuses as of 04/27/2023) Active Problems Problem Noted Date Encounter for [...] as of this encounter (statuses as of 04/27/2023) Resolved Problems Problem Noted Date Resolved Date [...] as of this encounter (statuses as of 04/27/2023) Immunizations Name Administration Dates Next Due COVID-19 [...] [address] [place] [id number] 06/17/2023 Office Visit Internal Medicine Patricia Doran MD [address] [facility], [place] [phone] 07/02/2023 Office Visit Cardiology Erik Sosa, DO [address] [place] [address] 08/10/2023 Office Visit Pulmonary Mc Randall MD [address] [facility] [address] 10/15/2023 Office Visit Rheumatology Saran Boateng MD [address] [facility] [place] [address] 11/05/2023 Office Visit Cardiology Mukesh Laird, DO [address] [place] [address] Scheduled Orders Name Type Priority Associated Diagnoses Orde r Schedule MYCODE SUBSEQUENT ADULT Lab Routine [facility] Research Other*[id number] Every 6 Months for 2 Occurrences starting 04/27/2023 until 05/16/2024 Scheduled Procedures Name Priority Associated Diagnoses Date/Ti [...] this encounter Medical Devices Implanted Type Area Ammonia Distiller Device Identifier Shelf Expiration Date Model / Serial / Lot Lens 6.0 Sa60at - [id number] Implanted:Qty: 1 on 03/23/2007 at [facility] Left: Eye BETTY : SURGICAL 08/06/2011 SA60AT / [id number] / documented as of this encounter Visit Diagnoses Diagnosis My[facility] Research Other*[id number] documented in this encounter Advance Directives Latest Code Status on File Code Status Date Activated Date Inactivated Comments Full Code 01/03/2021 8:00 PM 01/10/2021 5:07 PM This o rder reflects the patients wishes and were consensually agreed upon. Question Answer Comments Discussion of Advance Directives occurred with: Patient Care Teams Environmental Health And Safety Leader Relationship Specialty Start Date End Date Patricia Doran MD [address] [facility] [place] [address] PCP - General 12/17/08 documented as of this encounter
--- OUTSIDE RECORDS SUMMARY | 2023-08-07 11:28 | External Medical Summary | Summary of Care ---
Author Name Unknown Organization [facility] Address [address] [facility] [place] [address] Phone [phone] Care Team Providers Care Piercer Operator Name Role Phone Patricia Doran MD Primary [...] Internal Medicine Patricia Doran MD [address] [place] [facility] [place] [address] 07/02/2023 Office Visit Cardiology Erik Sosa, DO [address] [place] [address] 08/10/2023 Office Visit Pulmonary Mc Randall MD [address] [place] [address] 10/15/2023 Office Visit Rheumatology Saran Boateng MD [address] [facility] [place] [address] 11/05/2023 Office Visit Cardiology Mukesh Laird, DO [address] [place] [address] Scheduled Procedures Name Priority Associated Diagnoses Date/Ti [...] this encounter Medical Devices Implanted Type Area Information Technology Professor Device Identifier Shelf Expiration Date Model / Serial / Lot Lens 6.0 Sa60at - [id number] Implanted:Qty: 1 on 03/23/2007 at OR [facility] Left: Eye BETTY : SURGICAL 08/06/2011 ANGELINA / [id number] / documented as of this encounter Advance Directives Latest Code Status on File Code Status Date Activated Date Inactivated Comments Full Code 01/03/2021 8:00 PM 01/10/2021 5:07 PM This o rder reflects the patients wishes and were consensually agreed upon. Question Answer Comments Discussion of Advance Directives occurred with: Patient Care Teams Piercer Operator Relationship Specialty Start Date End Date Patricia Doran MD 200 [place] [address] PCP - General 12/17/08 documented as of this encounter
--- OUTSIDE RECORDS SUMMARY | 2023-08-07 11:28 | External Medical Summary | Summary of Care ---
Author Name Unknown Organization [facility] Address [address] [facility] [place] [address] Phone [phone] Care Team Providers Care Sweater Operator Name Role Phone Patricia Doran MD [...] Internal Medicine Patricia Doran MD [address] [place] [facility] [place] [address] 07/02/2023 Office Visit Cardiology Erik Sosa, DO [address] [place] [address] 08/10/2023 Office Visit Pulmonary Mc Randall MD [address] [place] [address] 10/15/2023 Office Visit Rheumatology Saran Boateng MD [address] [place] [address] 11/05/2023 Office Visit Cardiology Mukesh Laird, DO [address] [place] [address] Scheduled Procedures Name Priority Associated Diagnoses Date/Ti [...] this encounter Medical Devices Implanted Type Area Power Shovel Engineer Device Identifier Shelf Expiration Date Model / Serial / Lot Lens 6.0 Sa60at - [id number] Implanted:Qty: 1 on 03/23/2007 at OR [facility] Left: Eye BETTY : SURGICAL 08/06/2011 ANGELINA / [id number] / documented as of this encounter Advance Directives Latest Code Status on File Code Status Date Activated Date Inactivated Comments Full Code 01/03/2021 8:00 PM 01/10/2021 5:07 PM This o rder reflects the patients wishes and were consensually agreed upon. Question Answer Comments Discussion of Advance Directives occurred with: Patient Care Teams Sweater Operator Relationship Specialty Start Date End Date Patricia Doran MD 200 [facility] [place] [address] PCP - General 12/17/08 documented as of this encounter
--- OUTSIDE RECORDS SUMMARY | 2023-08-07 11:28 | External Medical Summary ---
Author Name Unknown Address Unknown Organization K01:[facility] - [address] [place] [address] Laboratory Report Ordering Provider Test Date Status JUDY,CONN 04/30/2023 14:50:03 Final Observation Date Value Abnormality Reference (Units ) Status CRP, low-sensitivity 04/30/2023 14:50:03 <3 <=5 (mg/L) Final Performing Location [facility] - [address] [place] [address]
--- OUTSIDE RECORDS SUMMARY | 2023-08-07 11:28 | External Medical Summary | Summary of Care ---
Author Name Unknown Organization [facility] Address [address] [facility] [place] [address] Phone [phone] Care Team Providers Care Tape Deck Installer Name Role Phone Patricia Doran MD Primary [...] Internal Medicine Patricia Doran MD [address] [place] [address] 07/02/2023 Office Visit Cardiology Erik Sosa, DO [address] [place] [address] 08/10/2023 Office Visit Pulmonary Mc Randall MD [address] [place] [address] 10/15/2023 Office Visit Rheumatology Saran Boateng MD [address] [facility] [place] [address] 11/05/2023 Office Visit Cardiology Mukesh Laird, DO [address] [place] [address] Scheduled Procedures Name Priority Associated Diagnoses Date/Ti [...] this encounter Medical Devices Implanted Type Area Respite Provider Device Identifier Shelf Expiration Date Model / Serial / Lot Lens 6.0 Sa60at - [id number] Implanted:Qty: 1 on 03/23/2007 at OR [facility] Left: Eye BETTY : SURGICAL 08/06/2011 ANGELINA / [id number] / documented as of this encounter Advance Directives Latest Code Status on File Code Status Date Activated Date Inactivated Comments Full Code 01/03/2021 8:00 PM 01/10/2021 5:07 PM This o rder reflects the patients wishes and were consensually agreed upon. Question Answer Comments Discussion of Advance Directives occurred with: Patient Care Teams Tape Deck Installer Relationship Specialty Start Date End Date Patricia Doran MD [address] [facility] [place] [address] PCP - General 12/17/08 documented as of this encounter
--- OUTSIDE RECORDS SUMMARY | 2023-08-07 11:28 | External Medical Summary | Summary of Care ---
Author Name Unknown Organization [facility] Address [address] [facility] [place] [address] Phone [phone] Care Team Providers Care Cyber Reverse Engineer Name Role Phone Patricia Doran MD Primary [...] [id number] 06/17/2023 Office Visit Internal Medicine Patricia Droan MD [address] [place] [address] 07/02/2023 Office Visit Cardiology Erik Sosa, DO [address] [place] [address] 08/10/2023 Office Visit Pulmonary Mc Randall MD [address] [place] [address] 10/15/2023 Office Visit Rheumatology Saran Boateng MD [address] [place] [address] 11/05/2023 Office Visit Cardiology Mukesh Laird, DO [address] [place] [address] Scheduled Procedures Name Priority Associated Diagnoses Date/Ti [...] this encounter Medical Devices Implanted Type Area Tenoner Operator Device Identifier Shelf Expiration Date Model / Serial / Lot Lens 6.0 Sa60at - [id number] Implanted:Qty: 1 on 03/23/2007 at OR [facility] Left: Eye BETTY : SURGICAL 08/06/2011 ANGELINA / [id number] / documented as of this encounter Advance Directives Latest Code Status on File Code Status Date Activated Date Inactivated Comments Full Code 01/03/2021 8:00 PM 01/10/2021 5:07 PM This o rder reflects the patients wishes and were consensually agreed upon. Question Answer Comments Discussion of Advance Directives occurred with: Patient Care Teams Cyber Reverse Engineer Relationship Specialty Start Date End Date Patricia Doran MD 200 [place] [address] PCP - General 12/17/08 documented as of this encounter
--- OUTSIDE RECORDS SUMMARY | 2023-08-07 11:28 | External Medical Summary ---
Author Name Unknown Address Unknown Organization K01:[facility] - [address] [facility] [place] [address] Laboratory Report Ordering Provider Test Date Status FABIEN KIM 04/30/2023 14:50:03 Final Observation Date Value Abnormality Reference (Units ) Status Erythrocyte sedimentation rate by Photometric method 04/30/2023 14:50:03 51 Above high normal <30 (mm/hour) Final Performing Location [facility] - [address] [place] [address]
--- OUTSIDE RECORDS SUMMARY | 2023-08-07 11:28 | External Medical Summary ---
Author Name Unknown Address Unknown Organization K01:[facility] - [facility] [address] [facility] [address] [facility] [address] Laboratory Report Ordering Provider Test Date Status FABIEN KIM 04/30/2023 14:50:03 Final Less than 0.5 ng/mL: Low ris k for progression to sepsis. Review patients condition for localized infections.

0.5 to 2.0 ng/mL: Intermediate risk for progresion to sepsis. Review underlying conditions. Recommend repeat PCT after 6 hours has elapsed.

Greater than 2.0 ng/mL: high risk for progression to sepsis unless other causes are known. Observation Date Value Abnormality Reference (Units ) Status Procalcitonin [Mass/volume] in Serum or Plasma by Immunoassay 04/30/2023 14:50:03 <0.06 <0.10 (ng/mL) Final Performing Location [facility] - [address] [facility] [address] [facility] [address]
--- OUTSIDE RECORDS SUMMARY | 2023-08-07 11:28 | External Medical Summary | Summary of Care ---
Author Name Unknown Organization [facility] Address [address] [facility] [place] [address] Phone [phone] Care Team Providers Care Community Relations Police Lieutenant Name Role Phone Patricia Doran MD Primary [...] Internal Medicine Patricia Doran MD [address] [place] [facility] [place] [address] 07/02/2023 Office Visit Cardiology Erik Sosa, DO [address] [place] [address] 08/10/2023 Office Visit Pulmonary Mc Randall MD [address] [place] [address] 10/15/2023 Office Visit Rheumatology Saran Boateng MD [address] [facility] [place] [address] 11/05/2023 Office Visit Cardiology Mukesh Laird, DO [address] [place] [address] Scheduled Procedures Name Priority Associated Diagnoses Date/Ti [...] this encounter Medical Devices Implanted Type Area Inker Machine Device Identifier Shelf Expiration Date Model / Serial / Lot Lens 6.0 Sa60at - [id number] Implanted:Qty: 1 on 03/23/2007 at [facility] Left: Eye BETTY : SURGICAL 08/06/2011 ANGELINA / [id number] / documented as of this encounter Advance Directives Latest Code Status on File Code Status Date Activated Date Inactivated Comments Full Code 01/03/2021 8:00 PM 01/10/2021 5:07 PM This o rder reflects the patients wishes and were consensually agreed upon. Question Answer Comments Discussion of Advance Directives occurred with: Patient Care Teams Community Relations Police Lieutenant Relationship Specialty Start Date End Date Patricia Doran MD [address] [place] [address] PCP - General 12/17/08 documented as of this encounter
--- OUTSIDE RECORDS SUMMARY | 2023-08-07 11:28 | External Medical Summary | Summary of Care ---
Author Name Unknown Organization [facility] Address [address] [facility] [address] Phone [phone] Care Team Providers Care Toggle Press Operator Name Role Phone Patricia Doran MD Primary Care Provider + Reason for Visit * Reason Comments Outpatient Testing Encounter Details Date Type Department Care Team Description 04/30/2023 Laboratory Laboratory, [facility] [address] [place] [address] [facility], Lab [address] [place] [address] [employer] 3D Research Other*[id number] Allergies Active Allergy Reactions Severity Noted Date [...] [address] [place] [id number] 06/17/2023 Office Visit Internal Medicine Patricia Doran MD [address] [facility], [place] [phone] 07/02/2023 Office Visit Cardiology Erik Sosa, DO [address] [place] [address] 08/10/2023 Office Visit [facility] [address] [facility] [id number] 10/15/2023 Office Visit Rheumatology Saran Boateng MD [address] [place] [address] 11/05/2023 Office Visit Cardiology Mukesh Laird, DO [address] [place] [address] Pending Results Name Type Priority Associated Diagnoses Date /Time MYCODE SUBSEQUENT ADULT Lab Routine My[employer] Research Other*[id number] 04/30/2023 2:50 PM EDT MYCODE SST1 Lab Routine [employer] Other*[id number] 04/30/2023 2:50 PM EDT MYCODE SST2 Lab Routine My[employer] Research Other*[id number] 04/30/2023 2:50 PM EDT Scheduled Procedures Name [...] this encounter Medical Devices Implanted Type Area Bindery Library Technical Assistant Device Identifier Shelf Expiration Date Model / Serial / Lot Lens 6.0 Sa60at - [id number] Implanted:Qty: 1 on 03/23/2007 at [facility] Left: Eye BETTY : SURGICAL 08/06/2011 SA60AT / [id number] / documented as of this encounter Visit Diagnoses Diagnosis My[employer] Research Other*[id number] documented in this encounter Advance Directives Latest Code Status on File Code Status Date Activated Date Inactivated Comments Full Code 01/03/2021 8:00 PM 01/10/2021 5:07 PM This o rder reflects the patients wishes and were consensually agreed upon. Question Answer Comments Discussion of Advance Directives occurred with: Patient Care Teams Toggle Press Operator Relationship Specialty Start Date End Date Patricia Doran MD [address] [place] [address] PCP - General 12/17/08 documented as of this encounter
--- OUTSIDE RECORDS SUMMARY | 2023-08-07 11:28 | External Medical Summary ---
Author Name Unknown Address Unknown Organization K1F:[facility] - [address] [place] [address] Od[place] [address] Laboratory Report Ordering Provider Test Date Status MARGOT KIML 04/30/2023 14:50:03 Final Observation Date Value Abnormality Reference (Units ) Status Bacteria identified in Specimen by Culture 04/30/2023 14:50:03 No growth Final Test: Culture, Blood
Spe cimen Source: Blood, Venous
Specimen Type: Blood
Specimen Date: 04/30/2023 2:50 PM
Result Date: 05/05/2023 4:01 PM
Result Status: Final result
Resulting Lab: [facility]
[address] [place] [address]
Odalis CHAMPION [address]

CULTURE

No growth

null Performing Location [facility] - [address] [place] [address] Ave. Odalis [place] [address]
--- OUTSIDE RECORDS SUMMARY | 2023-08-07 11:29 | External Medical Summary | Summary of Care ---
Author Name Unknown Organization [facility] Address [address] [facility] [place] [address] Phone [phone] Care Team Providers Care Hop Farm Worker Name Role Phone Patricia Doran MD Primary Care Provider + Reason for Referral * Evaluate & Treat - Unlimited Visits (Within 10 days (routine)) - Authorized Specialty Diagnoses / Procedures Referred By Rolf samayoa Referred To Contact Orthopaedic Surgery / Orthopedics Diagnoses Left knee pain, unspecified chronicity Patricia Doran MD [address] [place] [address] Referral ID Status Reason Start Date Expiration Date Visits Requested Visits Authorized [id number] Authorized Specialty Services Required 04/09/2023 999 999 Question Answer Referral Priority Within 10 days (routine) What body part is the patient being seen for? Thigh/Knee What condition is the patient being seen for? Sprain/Strain/Tear/Other Comments Significant knee pain, swealling. Hx of knee surgery in 2017 ER work up no lyme or infection 2 days back at [facility]. Worsening pain. Thanks. Reason for Visit * Reason Onset Date Comments Advice 04/06/2023 Encounter Details Date Type Department Care Team Description 04/06/2023 Telephone General Internal Medicine [facility] [address] [place] [address] Patricia Doran MD [address] [place], [place] [address] Advice Allergies Active Allergy Reactions Severity Noted Date Comments Bee Venom 06/07/2015 Celecoxib 03/02/2023 Increased BP Erythromycin Base Conjunctivitis 01/17/2010 Opthalmic ointment Lisinopril 02/10/2012 cough Sulfasalazine 02/15/2020 GI upset,swealling in hands documented as of this encounter (statuses as of 04/09/2023) Medications Medication Sig Dispensed Refills Start Date [...] as of this encounter (statuses as of 04/09/2023) Active Problems Problem Noted Date Encounter for [...] as of this encounter (statuses as of 04/09/2023) Resolved Problems Problem Noted Date Resolved Date [...] as of this encounter (statuses as of 04/09/2023) Immunizations Name Administration Dates Next Due COVID-19 mRNA, LNP-s, No Pre serve, 2-Dose Series (Moderna) 09/10/2020 COVID-19 mRNA, LNP-s, No Pre serve, 2-Dose Series (Pfizer) 08/25/2021,12/14/2020,11/23/2020 PPD 11/01/2014,11/08/2008 Pneumococcal Conjugate Vacc, 13 Valent (Prevnar) 01/20/2018 Pneumococcal Polysaccharide PPV23 (Pneumovax) 06/20/2019,11/08/2008 Seasonal Influenza, Quadriva lent Hd (Fluzone Hd) 07/16/2022,06/20/2021 Seasonal Influenza, Quadriva lent, No Preserve, 6 Mons & Above, IM 06/17/2020,06/20/2019,07/07/2018,07/06 Seasonal Influenza, Quadriva lent, No Preserve, IM [...] encounter Miscellaneous Notes * Telephone Encounter - Patricia Doran MD - 04/09/2023 8:41 PM EDT I spoke with patient. Has been waiting on Ortho visit. Had knee surgey in 2017 and now has worsening knee swealling, Pain. Had to go to ER 2 day sback. Xray and work up showed no infection. Requesting sooner ortho visit. Referral is in.please help with scheduling at [place] or [facility] with Dr. Gann if sooner available. * Telephone Encounter - Archana Gilliam LPN - 04/06/2023 10:44 AM EDT Call dropped during transfer. attempted to call pt back. No answer. Left message to return call. * Telephone Encounter - JULIUS Maldonado - 04/06/2023 10:41 AM EDT Reason for patient's call: Knee pain, advice on what to do Caller was transferred to [place] at the nurse line. documented in this encounter Plan of Treatment Upcoming Encounters Date Type Specialty Care Team Description 06/17/2023 Office Visit Internal Medicine Patricia Doran MD [address] [facility] [place] [address] 07/02/2023 Office Visit Cardiology Erik Sosa, DO [address] [place] [address] 08/02/2023 Office Visit [facility]monary [facility] [address] [facility] [id number] 10/15/2023 Office Visit Rheumatology Saran Boateng MD [address] [place] [address] 11/05/2023 Office Visit Cardiology Mukesh Laird, DO [address] [place] [address] Scheduled Procedures Name Priority Associated Diagnoses Date/Ti me COLONOSCOPY FLEXIBLE PROXIMAL DIAGNOSTIC Recall History of colon polyps Scheduled Referrals Name Type Priority Associated Diagnoses Orde r Schedule ORTHOPAEDICS REFERRAL OP Referral Within 10 days (routine) Left knee pain, unspecified chronicity Ordered: 04/09/2023 Health Maintenance Due Date Last Done Comments [...] history exists DXA Scan 06/16/2029 06/16/2022, 01/06, 06/17/2015, Additional history exists Pap Smear Discontinued 05/19/2019, 0 01/2009, 11/08/2008 Zoster Vaccines Completed 06/17/2020, 03/14/2020 [...] this encounter Medical Devices Implanted Type Area Industrial Organizational Psychologist Device Identifier Shelf Expiration Date Model / Serial / Lot Lens 6.0 Sa60at - [id number] Implanted:Qty: 1 on 03/23/2007 at [facility] Left: Eye BETTY : SURGICAL 08/06/2011 SA60AT / [id number] / documented as of this encounter Visit Diagnoses Diagnosis Left knee pain, unspecified chronicity- Primary documented in this encounter Advance Directives Latest Code Status on File Code Status Date Activated Date Inactivated Comments Full Code 01/03/2021 8:00 PM 01/10/2021 5:07 PM This o rder reflects the patients wishes and were consensually agreed upon. Question Answer Comments Discussion of Advance Directives occurred with: Patient Care Teams Hop Farm Worker Relationship Specialty Start Date End Date Patricia Doran MD [address] [facility] [place] [address] PCP - General 12/17/08 documented as of this encounter
--- OUTSIDE RECORDS SUMMARY | 2023-08-07 11:29 | External Medical Summary | Summary of Care ---
Author Name Unknown Organization [facility] Address [address] [facility] [address] Phone [phone] Care Team Providers Care Property Clerk Name Role Phone Patricia Doran MD Primary Care Provider + Reason for Visit * Reason Onset Date Comments Forms Request 03/04/2023 Order Request 03/04/2023 Encounter Details Date Type Department Care Team Description 03/04/2023 Telephone General Internal Medicine [facility] [place] [address] [facility] [place] [address] Patricia Doran MD [address] [place] [address] Forms Request; Order Request Allergies Active Allergy Reactions Severity Noted Date Comments Bee Venom 06/07/2015 Celecoxib 03/02/2023 Increased BP Erythromycin Base Conjunctivitis 01/17/2010 Opthalmic ointment Lisinopril 02/10/2012 cough Sulfasalazine 02/15/2020 GI upset,swealling in hands documented as of this encounter (statuses as of 03/23/2023) Medications Medication Sig Dispensed Refills Start Date End Date Status MULTIVITAMINS OR TABS daily 0 2 Active OCUVITE PO TABS Take by mouth . 0 4 Active Clindamycin HCl 300 MG Capsule Takes when goes to dentist 0 7 Active Calcium 500 MG TabletIndications :Vitamin D deficiency Take 1 Tablet by mouth in the morning. With food.. 100 Tab 11 8 Active bimatoprost (LUMIGAN) 0.01 % ophthalmic solution Instill 1 Drop into both eyes at bedtime. 3 mL 12 8 Active Brinzolamide-Brim onidine 1-0.2 % Ophthalmic Suspension Instill into eye 2 times a day. L eye only. 0 Active predniSONE (DELTASONE) 1 MG Tablet Take 2 Tablets by mouth in the morning. Patient taking 2mg daily. . 0 Active Dextran 70-Hypromellose (PF) 0.1-0.3 % Ophthalmic Solution Instill 0.1 Drops into both eyes as needed. 0 9 Active fluticasone-salme terol (ADVAIR DISKUS) 500-50 MCG/DOSE inhaler Inhale 1 Puff by mouth 2 times a day. 1 Each 5 0 Active Additional Information Patient not taking.Reported on 03/02/2023 loratadine ODT (CLARITIN REDITAB) 10 MG TBDPIndications:S easonal allergic rhinitis due to pollen Place 1 Tab on tongue daily. 30 Tab 3 0 Active Folic Acid 1 MG Oral TabletIndications [...] Intravenous Solution Reconstituted (Abatacept) Administer intravenously Every Month . 0 Active Compressor NebulizerIndicati ons:Moderate persistent asthma without complication,Bron chiectasis without complication (HCC) Inhale via nebulizer . Use as directed. Pt has diagnosis of bronchiectasis and mild persistent asthma 1 Each 1 2 Active Clobetasol Propionate 0.05 % External Gel (Temovate) APPLY A THIN AMOUNT TO AFFECTED AREA TWICE DAILY 0 2 Active Leflunomide 10 MG Oral Tablet (Arava) Take 1 Tablet by mouth in the morning. 0 2 Active Levothyroxine Sodium 88 MCG Oral Tablet Take 112 mcg by mouth in the morning. 0 2 Active Timolol Maleate 0.5 % Ophthalmic Solution (Timoptic) INSTILL 1 DROP INTO THE LEFT EYE DAILY 0 2 Active Voriconazole 200 MG Oral Tablet (Vfend) 400 mg twice daily (every 12 hours) on day 1 and day 2, then 200 mg twice a day (every 12 hours) until end of therapy. 90 Tablet 2 3 Active Montelukast Sodium 10 MG Oral Tablet (Singulair)Indica tions:Allergic rhinitis Take 1 Tablet by mouth every evening. 90 Tablet 1 3 Active oxygen IN GAS Administer 2 L/min(Oxygen) into nostril as needed for Shortness of Breath. Diagnosis: MAAME, Bronchiectesis, aspergillus infection of the lung. 1 Each 0 3 Active Hydroxychloroquin e Sulfate 200 MG Oral Tablet (Plaquenil) One and half pill daily 60 Tablet 3 3 Active Ipratropium-Albut rand 0.5-2.5 (3) MG/3ML Inhalation Solution (Duoneb) Inhale 3 mL via nebulizer in the morning and 3 mL at noon and 3 mL in the evening and 3 mL before bedtime. 120 mL 3 3 Active ProAir HFA 108 (90 Base) MCG/ACT Inhalation Aerosol Solution Inhale by mouth 2 Puffs every 4 hours as needed for Cough, Shortness of Breath or Wheezing. 0 1 03/19/20 23 Discontinued Spiriva Respimat 2.5 MCG/ACT Inhalation Aerosol Solution (Tiotropium [place] Monohydrate) Inhale 2 Puffs by mouth in the morning. 4 g 11 2 03/19/20 23 Discontinued Dexamethasone 0.5 MG/5ML Oral Elixir (Decadron) RINSE WITH 1 TEASPOONFUL FOR 2 MINUTES AND EXPECTORATE. USE TWICE DAILY 0 2 03/19/20 23 Discontinued oxygen IN GASIndications:Br onchiectasis without complication (HCC),Restrictive lung disease,Moderate persistent asthma without complication Administer 2 L/min(Oxygen) into nostril as needed (Pulse ox less than 88%). 1 Each 0 3 03/19/20 23 Discontinued documented as of this encounter (statuses as of 03/23/2023) Active Problems Problem Noted Date Encounter for [...] as of this encounter (statuses as of 03/23/2023) Resolved Problems Problem Noted Date Resolved Date [...] as of this encounter (statuses as of 03/23/2023) Immunizations Name Administration Dates Next Due COVID-19 [...] as of this encounter Miscellaneous Notes * Addendum Note - Patricia Doran MD - 03/23/2023 2:26 PM EDTAddended by: PATRICIA DORAN on: 03/23/2023 02:26 PM Modules accepted: Orders * Telephone Encounter - Patricia Doran MD - 03/23/2023 2:25 PM EDT Signed the orders. * Addendum Note - Brennan Marie LPN - 03/23/2023 1:52 PM EDTAddended by: BRENNAN MARIE on: 03/23/2023 01:52 PM Modules accepted: Orders * Telephone Encounter - Brennan Marie LPN - 03/23/2023 1:49 PM EDT Orders pended and awaiting signature. * Telephone Encounter - JULIUS Kim - 03/23/2023 12:25 PM EDT Maritza with [facility] ([facility] Faust) calling to advise they need a new rx for "portable oxygen concentrator" and "stationary oxygen concentrator" The DME that was originally sent stated oxygen in gas on 03/04/23. Please fax new order if agreeable: [phone] * Telephone Encounter - Harpal Nieves CMA - 03/04/2023 2:52 PM EDT Has been faxed, Called, left message for patient to return call. * Telephone Encounter - Patricia Doran MD - 03/04/2023 2:47 PM EDT Signed. Please fax and inform the patient. Thanks. * Telephone Encounter - Roxanne Aaron LPN - 03/04/2023 2:24 PM EDT Patient's stopped by the office to request oxygen prescription from Dr. Doran. He has been emailing a medicare rep and was told to obtain script from us. Script needs faxed to Moh[facility] Faust at [phone]. Rx pended. documented in this encounter Plan of Treatment Upcoming Encounters Date Type Specialty Care Team Description 03/25/2023 Office Visit Cardiology Erik Sosa DO [address] [place] [address] 04/09/2023 Office Visit Gynecology Obstetrics Josseline Ceballos CRNP [address] [place] [address] 06/17/2023 Office Visit Internal Medicine Patricia Doran MD [address] [place] [address] 08/02/2023 Office Visit Pulmonary Mc Randall MD [address] [facility] [place] [phone] 10/15/2023 Office Visit Rheumatology Saran Boateng MD [address] [place] [address] 11/05/2023 Office Visit Cardiology Mukesh Laird, DO [address] [place] [address] Scheduled Procedures Name Priority Associated Diagnoses Date/Ti [...] 06/17/2020, Additional history exists GFR 03/02/2024 03/02/2023, 0 11/2022, 07/31/2022, Additional history exists TSH 03/02/2024 [...] this encounter Medical Devices Implanted Type Area Plumbing Assembler Installer Device Identifier Shelf Expiration Date Model / Serial / Lot Lens 6.0 Sa60at - [id number] Implanted:Qty: 1 on 03/23/2007 at [facility] Left: Eye BETTY : SURGICAL 08/06/2011 SA60AT / [id number] / documented as of this encounter Visit Diagnoses Diagnosis Bronchiectasis without complication (HCC)- Primary Bronchiectasis without acute exacerbation Restrictive lung disease Other diseases of lung, not elsewhere classified Moderate persistent asthma without complication Unspecified asthma documented in this encounter Advance Directives Latest Code Status on File Code Status Date Activated Date Inactivated Comments Full Code 01/03/2021 8:00 PM 01/10/2021 5:07 PM This o rder reflects the patients wishes and were consensually agreed upon. Question Answer Comments Discussion of Advance Directives occurred with: Patient Care Teams Property Clerk Relationship Specialty Start Date End Date Patricia Doran MD [address] [facility] [place] [place] [address] PCP - General 12/17/08 documented as of this encounter
--- OUTSIDE RECORDS SUMMARY | 2023-08-07 11:29 | External Medical Summary | Summary of Care ---
Author Name Unknown Organization [facility] Address [address] [facility] [address] Phone [phone] Care Team Providers Care Social Service Liaison Name Role Phone Patricia Doran MD Primary Care Provider + Reason for Visit * Reason Comments Follow Up * Evaluate & Treat - Unlimited Visits (Within 10 days (routine)) - Authorized Specialty Diagnoses / Procedures Referred By Contact Referred To Contact Cardiovascular Medicine / Cardiology Diagnoses Palpitations SOB (shortness of breath) Patricia Doran MD [address] [place] [address] Referral ID Status Reason Start Date Expiration Date Visits Requested Visits Authorized [id number] Authorized Specialty Services Required 03/02/[phone] Encounter Details Date Type Department Care Team Description 03/25/2023 Office Visit Cardiology, [facility] [address] [place] [address] Erik Sosa DO [address] [place] [address] Essential hypertension*; Dyslipidemia; Cerebrovascular disease, arteriosclerotic, post-stroke; Rheumatoid arthritis involving multiple sites with positive rheumatoid factor (HCC) Allergies Active Allergy Reactions Severity Noted Date Comments Bee Venom 06/07/2015 Celecoxib 03/02/2023 Increased BP Erythromycin Base Conjunctivitis 01/17/2010 Opthalmic ointment Lisinopril 02/10/2012 cough Sulfasalazine 02/15/2020 GI upset,swealling in hands documented as of this encounter (statuses as of 03/25/2023) Medications Medication Sig Dispensed Refills Start Date [...] as of this encounter (statuses as of 03/25/2023) Active Problems Problem Noted Date Encounter for [...] as of this encounter (statuses as of 03/25/2023) Resolved Problems Problem Noted Date Resolved Date [...] as of this encounter (statuses as of 03/25/2023) Immunizations Name Administration Dates Next Due COVID-19 [...] Never Smokeless Tobacco: Never Tobacco Cessation:Counseling Given: Yes Comments:No passive smoke exposures Alcohol Use Standard [...] Sign Reading Time Taken Comments Blood Pressure 122/78 03/25/2023 8:16 AM EDT Pulse 76 03/25/2023 8:16 AM EDT Temperature - - Respiratory Rate 20 03/25/2023 8:16 AM EDT Oxygen Saturation - - Inhaled Oxygen Concentration - - Weight 68 kg (150 lb) 03/25/2023 8:16 AM EDT Height - - Body Mass Index 25.75 03/18/2023 3:06 PM EDT documented in this encounter Functional Status Functional [...] as of this encounter Progress Notes * Erik Sosa, DO - 03/25/2023 8:52 AM EDT Cardiology Outpatient Follow-up Britni Gramajo PHD is a 67 year old female who is seen for follow-up of arrhythmia. HPI: This is a 67-year-old very complex patient with a history rheumatoid arthritis and restrictive lungdisease due to her inflammatory arthritis. Her care has been spread across several different institutions. She was last seen by Dr. Laird for essential hypertension and dyslipidemia. Following that visit she was visiting her daughter in [place] and waiting for the of her grandchild. Shefell and lost consciousness in the bathroom. She was taken to [facility] where she was found to have had a parietal occipital lobe stroke. She spent several days in the hospital and then wasreferred to a rehab hospital for several weeks. According the patient she had no fractures. She mayhave been dehydrated and had sepsis at the same time she had her stroke which complicated her care.Her has records from the [facility] and has promised to bring them in so that we can scan them into the chart. Currently they are not available to me. The patient had a Zio monitor placed after the above and unfortunately it was just mailed in this week so we do not have those results. She currently is utilizing a walker to ambulate. She has no ongoing cardiac complaints. Past Medical History: Diagnosis Date Allergic rhinitis Asthma Asthma with severity to be determined Atherosclerosis of aorta ([facility]) 02/18/2021 Benign neoplasm of colon 04/16/2013 adenomatous polyp, repeat 5 yrs Bronchiectasis without complication ([facility]) 07/17/2020 Diabetes mellitus without complication ([facility]) 12/05/2018 Exudative age-related macular degeneration, left eye, with inactive choroidal neovascularization ([facility]) 12/05/2018 GENERAL OSTEOARTHROSIS 12/13/2000 Glaucoma Hypercholesterolemia Hypothyroidism Other psoriasis 12/13/2000 Pneumonia Pneumonia of right middle lobe due to Pseudomonas species ([facility]) 07/17/2020 Protein-calorie malnutrition ([facility]) 02/18/2021 Pulmonary nodules 07/17/2020 Restrictive lung disease 07/17/2020 Retinal edema 11/21/2009 Rheumatoid arthritis involving multiple sites with positive rheumatoid factor ([facility]) 02/27/2016 Senile cataract Cataract Senile Urge incontinence of urine 02/24/2019 Patient Active Problem List Diagnosis Code GENERAL OSTEOARTHROSIS M15.9 Other psoriasis L40.8 After cataract not obscuring vision H26.499 Acquired hypothyroidism E03.9 Allergic rhinitis J30.9 Retinal edema H35.81 Rheumatoid arthritis involving multiple sites with positive rheumatoid factor ([facility]) M05.79 Controlled substance agreement signed Z79.899 Diabetes mellitus without complication ([facility]) E11.9 Advanced directives, counseling/discussion Z71.89 Urge incontinence of urine N39.41 Restrictive lung disease J98.4 Bronchiectasis without complication ([facility]) J47.9 Pulmonary nodules R91.8 Moderate persistent asthma without complication J45.40 Ambulatory dysfunction R26.2 Subjective weakness R53.1 Immunodeficiency ([facility]) D84.9 Encounter for therapeutic drug monitoring Z51.81 Past Surgical History: Procedure Laterality Date ANKLE ARTHROSCOPY/SURGERY Right fusion surgery ARTHROPLASTY KNEE TOTAL Right 2015 BRONCHOSCOPY, DIAGNOSTIC N/A 10/29/2022 BRONCHOSCOPY DIAGNOSTIC WITH OR WITHOUT WASHING performed by Mariano Pickard MD at OR [facility] COLONOSCOPY, DIAGNOSTIC (RECTUM) 04/16/2014 adenomatous polyp, repeat 5 yrs/COLONOSCOPY FLEXIBLE PROXIMAL DIAGNOSTIC performed by Palomo Griffiths MD at ENDOSCOPY [facility] COLONOSCOPY, DIAGNOSTIC (RECTUM) 02/26/2021 benign adenomatous polyp, diverticulosis, repeat 5 yrs / COLONOSCOPY FLEXIBLE PROXIMAL DIAGNOSTIC performed by Tevin Razo MD at ENDOSCOPY [facility] EGD, FLEXIBLE, DIAGNOSTIC 08/28/2015 duodenal ulcer, erosive duodenitis, normal bx EGD, FLEXIBLE, DIAGNOSTIC 08/28/2015 ESOPHAGOGASTRODUODENOSCOPY (EGD), FLEXIBLE, TRANSORAL, DIAGNOSTIC performed by Palomo Griffiths MD at ENDOSCOPY [facility] EGD, FLEXIBLE, DIAGNOSTIC 02/26/2021 mild acid reflux / ESOPHAGOGASTRODUODENOSCOPY (EGD), FLEXIBLE, TRANSORAL, DIAGNOSTIC performed by Tevin Razo MD at ENDOSCOPY [facility] FLUORO GUIDED SPINE INJECTION 10/05/2022 FLUROSCOPIC GUIDANCE AND LOCALIZATION OF NEEDLE OR CATHETER TIP FOR SPINE OR PARASPINOUS DIAGNOSTICperformed by Shubham Sung DO at OR [facility] CYBER ENGINEER PAP DIAGNOSTIC 09/2000 INFORMATION Left 09/13/2017 Left Eye Ahmed Glaucoma Valve Implant model# FP7 INFORMATION 2019 Heart Cath. INJECTION OF EYE DRUG 11/22/2009 #1 Avastin OS, Dr. Castro INJECTION OF EYE DRUG 12/20/2009 #2 Avastin OS, Dr. Castro MAMMOGRAM - BILATERAL 01/2001 PARAVERTEBRAL BLOCK, THORACIC; SINGLE INJ 10/05/2022 PARAVERTEBRAL BLOCK (PVB) (PARASPINOUS BLOCK), THORACIC; SINGLE INJECTION SITE (INCLUDES IMAGING GUIDANCE, WHEN PERFORMED) performed by Shubham Sung DO at OR [facility] REMOVE CATARACT, INSERT LENS PROSTH 03/23/2007 EXTRACAPSULAR CATARACT REMOVAL WITH INTRAOCULAR LENS performed by ASHANTI ROSARIO at OR [facility] DETACHED RETINA, INJECTION Left Family History Problem Relation Age of Onset Eye Problems Mother Glaucoma Mother Heart Disorder Mother Diabetes Mother Arthritis Father RA Heart Disorder Father Hypertension Father Cataracts Father Other (ARDS) Father Other (Diabetes, HTN) Sister Asthma Brother Diabetes Brother No Known Problems Daughter Psoriasis Daughter PsA as well No Known Problems Daughter No Known Problems Son Social History Tobacco Use Smoking status: Never Smokeless tobacco: Never Tobacco comments: No passive smoke exposures Vaping Use Vaping Use: Never used Substance Use Topics Alcohol use: No Drug use: No Review of patient's allergies indicates: Allergen Reactions Bee Venom Celebrex [Celecoxib] Increased BP Erythromycin Base Conjunctivitis Opthalmic ointment Lisinopril cough Sulfasalazine GI upset,swealling in hands Current Outpatient Medications Medication Sig Dispense Refill MULTIVITAMINS OR TABS daily 0 OCUVITE PO TABS Take by mouth . Clindamycin HCl 300 MG Capsule Takes when goes to dentist Calcium 500 MG Tablet Take 1 Tablet by mouth in the morning. With food.. 100 Tab 11 bimatoprost (LUMIGAN) 0.01 % ophthalmic solution Instill 1 Drop into both eyes at bedtime. 3 mL12 Brinzolamide-Brimonidine 1-0.2 % Ophthalmic Suspension Instill into eye 2 times a day. L eye only. predniSONE (DELTASONE) 1 MG Tablet Take 2 Tablets by mouth in the morning. Patient taking 2mg daily. . Dextran 70-Hypromellose (PF) 0.1-0.3 % Ophthalmic Solution Instill 0.1 Drops into both eyes as needed. fluticasone-salmeterol (ADVAIR DISKUS) 500-50 MCG/DOSE inhaler Inhale 1 Puff by mouth 2 times aday. 1 Each 5 loratadine ODT (CLARITIN REDITAB) [...] Take 2 tablets at onset suspected insect stingallergic reaction; may repeat every 4-6 hrs. as needed. 30 Tab 0 guaiFENesin 100 MG/5ML Oral Liquid Take 10 mL by mouth 3 times a day as needed for Cough. Orencia 250 MG Intravenous Solution Reconstituted (Abatacept) Administer intravenously Every Month. Compressor Nebulizer Inhale via nebulizer . Use as directed. Pt has diagnosis of bronchiectasis and mild persistent asthma 1 Each 1 Clobetasol Propionate 0.05 % External Gel (Temovate) APPLY A THIN AMOUNT TO AFFECTED AREA TWICEDAILY Leflunomide 10 MG Oral Tablet (Arava) Take 1 Tablet by mouth in the morning. Levothyroxine Sodium 88 MCG Oral Tablet Take 112 mcg by mouth in the morning. Timolol Maleate 0.5 % Ophthalmic Solution (Timoptic) INSTILL 1 DROP INTO THE LEFT EYE DAILY Voriconazole 200 MG Oral Tablet (Vfend) 400 mg twice daily (every 12 hours) on day 1 and day 2,then 200 mg twice a day (every 12 hours) until end of therapy. 90 Tablet 2 Montelukast Sodium 10 MG Oral Tablet (Singulair) [...] Inhalation Solution (Duoneb) Inhale 3 mL via nebulizerin the morning and 3 mL at noon and 3 mL in the evening and 3 mL before bedtime. 120 mL 3 Respiratory Therapy Supplies Device Please provide Acapella Device for expectoration assist as instructed. 1 Each 3 Sodium Chloride 3 % Inhalation Nebulization Solution Inhale 3 mL via nebulizer in the morning and 3 mL at noon and 3 mL before bedtime. 360 mL 0 DULoxetine HCl 60 MG Oral Capsule Delayed Release Particles (Cymbalta) Take 1 Capsule by mouth in the morning. 1 daily. No current facility-administered medications for this visit. ROS: Review of Systems: See HPI for pertinent positives. All other review of systems is negative. PHYSICAL EXAMINATION BP 122/78 | Pulse 76 | Resp 20 | Wt 68 kg (150 lb) | LMP 05/15/2002 | BMI 25.75 kg/m | BSA 1.75 m Body mass index is 25.75 kg/m. General: no acute distress and stated age Head: normocephalic, no masses, lesions, tenderness or abnormalities Eyes: conjunctiva are pink and non-injected, sclera clear Neck: supple, no adenopathy, no bruits, normal jugular venous pulse, no hepatojugular reflux Chest: normal shape and normal respiratory effort Lungs: clear to auscultation and percussion Cardiac Exam: - regular rate & rhythm, no murmurs gallops or rubs - normal S1, normal S2 Pulses: 2(+) throughout Abdomen: abdomen soft, non-tender, no abnormal masses and no hepatosplenomegaly Musculoskeletal: no gait disturbance, no joint inflammation, no deforming arthritis Extremities: no edema and no cyanosis Neuro: grossly normal exam Laboratory Data Review: Latest Reference Range & Units 03/02/23 12:27 Sodium 135 - 146 mmol/L 140 Potassium 3.5 - 5.1 mmol/L 4.4 Chloride 98 - 107 mmol/L 106 CO2 22 - 32 mmol/L 21 (L) BUN 6 - 20 mg/dL 11 Creatinine 0.5 - 1.0 mg/dL 0.8 Estimated Glomerular Filtration Rate >=60 mL/min 80 Anion Gap 7 - 15 mmol/L 13 Glucose 70 - 120 mg/dL 121 (H) Calcium 8.4 - 10.2 mg/dL 9.2 Protein 6.0 - 8.3 g/dL 6.8 Estimated Average Glucose <126 mg/dL 111 Hemoglobin A1C 4.0 - 5.6 % 5.5 TSH 0.27 - 4.20 uIU/mL 0.19 (L) CBC Rpt CBC WITH WBC DIFFERENTIAL Rpt WBC 4.00 - 10.80 K/uL 8.40 HGB 12.0 - 15.3 g/dL 13.8 HCT 36.0 - 45.2 % 43.3 MCV 81.5 - 97.5 fL 96.7 PLT 140 - 400 K/uL 314 Absolute Neutrophils 1.80 - 7.70 K/uL 5.20 Absolute Lymphocytes 1.00 - 4.80 K/ul 1.92 Absolute Monocytes 0.00 - 1.10 K/uL 0.85 Absolute Eosinophils 0.00 - 0.70 K/uL 0.38 Absolute Basophils 0.00 - 0.20 K/uL 0.05 Vitamin B12 232 - 1,245 pg/mL >2,000 (H) Albumin 3.8 - 5.0 g/dL 4.0 AST 10 - 35 U/L 25 ALT 10 - 35 U/L 20 Alkaline Phosphatase 35 - 130 U/L 70 Bilirubin, Total <=1.2 mg/dL 0.2 (L): Data is abnormally low (H): Data is abnormally high Rpt: View report in Results Review for more information Impression: 1. Recent occipital parietal lobe stroke 2. Rheumatoid arthritis with complications of interstitiallung disease Plan: The patient is currently clinically stable. She has been treated over multiple different institutions which complicates her care. Her most recent hospital admission we do not have those records yet but her will be bringing in copies so that we can scan them into the chart. I think the most important thing presently is to review her Zio monitor when it is available so that we can exclude atrial fibrillation which may have contributed to her stroke. She is under the care of rheumatology through [facility]. She is also under the care of a auto cleaner at [facility]. I plan follow-up again in 3 months or earlier if needed. This chart was completed in part utilizing [employer] Speech Voice Recognition Software. Grammatical errors, random word insertions, prounoun errors, and incomplete sentences are an occasional consequence of this system due to software limitations, ambient noise, and hardware issues. Any formal questions or concerns about the content, text, or information contained within the body of this dictation should be directly addressed to the provider for clarification. Erik Sosa DO Cardiology[address] [address] 03/25/2023 documented in this encounter Nursing Notes * Rosanna Lemon LPN - 03/25/2023 8:15 AM EDT Examination Room: 16 Name: Britni Rox MONROE Date of : 1955 Reason for Visit: Follow up Problems/Concerns: Sob/palpitations/fast hr Interim Hosp(s): January 03 in [place] for SOB/Palpitations Chest Pain/SOB: Denies CP Jake Discussed: YES Patient was instructed to not get up on the exam table until directed and assisted by their provider; patient is to remain seated in the chair/ wheelchair/ exam table for fall prevention and safety reasons. Patient is aware to have assistance to step down off exam table with personnel. documented in this encounter Plan of Treatment Upcoming Encounters Date Type Specialty Care Team Description 04/09/2023 Office Visit Gynecology Obstetrics Josseline Ceballos CRNP [address] [place] [address] 06/17/2023 Office Visit Internal Medicine Patricia Doran MD [address] [place] [address] 07/02/2023 Office Visit Cardiology Erik Sosa, DO [address] [place] [address] 08/02/2023 Office Visit Pulmonary Mc Randall MD [address] [facility] [place] [address] 10/15/2023 Office Visit Rheumatology Saran Boateng MD [address] [place] [address] 11/05/2023 Office Visit Cardiology Mukesh Laird, DO [address] [place] [address] Scheduled Procedures Name Priority Associated Diagnoses Date/Ti me COLONOSCOPY FLEXIBLE PROXIMAL DIAGNOSTIC Recall History of colon polyps Scheduled Referrals Name Type Priority Associated Diagnoses Orde r Schedule CARDIOLOGY REFERRAL OP Referral Within 10 days (routine) Palpitations SOB (shortness of breath) Ordered: 03/02/2023 Health Maintenance Due Date Last Done Comments [...] this encounter Medical Devices Implanted Type Area Toddler Caregiver Device Identifier Shelf Expiration Date Model / Serial / Lot Lens 6.0 Sa60at - [id number] Implanted:Qty: 1 on 03/23/2007 at OR [facility] Left: Eye BETTY : SURGICAL 08/06/2011 SA60AT / [id number] / documented as of this encounter Visit Diagnoses Diagnosis Essential hypertension- Primary Unspecified essential hypertension Dyslipidemia Other and unspecified hyperlipidemia Cerebrovascular disease, arteriosclerotic, post-stroke Cerebral atherosclerosis Rheumatoid arthritis involving multiple sites with positive rheumatoid factor (HCC) documented in this encounter Advance Directives Latest Code Status on File Code Status Date Activated Date Inactivated Comments Full Code 01/03/2021 8:00 PM 01/10/2021 5:07 PM This o rder reflects the patients wishes and were consensually agreed upon. Question Answer Comments Discussion of Advance Directives occurred with: Patient Care Teams Social Service Liaison Relationship Specialty Start Date End Date Patricia Doran MD [address] [facility] [place] [address] PCP - General 12/17/08 documented as of this encounter"
--- OUTSIDE RECORDS SUMMARY | 2023-08-07 11:29 | External Medical Summary | Summary of Care ---
Author Name Unknown Organization [facility] Address [address] [facility] [address] Phone [phone] Care Team Providers Care Roof Bolting Coal Miner Name Role Phone Patricia Doran MD Primary Care Provider + Reason for Visit * Reason Onset Date Comments Forms Request 03/04/2023 Order Request 03/04/2023 Encounter Details Date Type Department Care Team Description 03/04/2023 Telephone General Internal Medicine [facility] [address] [place] [address] Patricia Doran MD [address] [place] [address] Forms Request; Order Request Allergies Active Allergy [...] Respimat 2.5 MCG/ACT Inhalation Aerosol Solution (Tiotropium [place] Monohydrate) Inhale 2 Puffs by mouth in [...] encounter Miscellaneous Notes * Telephone Encounter - Lee Ann Shen LPN - 03/23/2023 3:34 PM EDT Provider to address: NA Reason for Call: Forms Request and Order Request Contact: Telephone Call Contact Type: Information Outcome: Patient is aware and verbalizes understanding. Total Time including non face to face (minutes): 5 * Telephone Encounter - Brennan Marie LPN - 03/23/2023 3:02 PM EDT Provider to address: Silvino Doran MD Attempted to see if pt is agreeable for us to send the forms to [facility]. Reason for Call: Forms Request and Order Request Contact: Telephone Call Contact Type: Orders Outcome: Left message for patient to return call. Total Time including non face to face (minutes): 5 * Addendum Note - Patricia Doran MD [...] 03/04/23. Please fax new order if agreeable: [phone] * Telephone Encounter - Harpal Nieves CMA [...] Script needs faxed to Mohan Faust at [phone]. Rx pended. documented in this encounter Plan of Treatment Upcoming Encounters Date Type Specialty Care Team Description 03/25/2023 Office Visit Cardiology Erik Sosa DO [address] [place] [address] 04/09/2023 Office Visit Gynecology Obstetrics Josseline Ceballos CRNP [address] [place] [address] 06/17/2023 Office Visit Internal Medicine Patricia Doran MD [address] [place] [address] 08/02/2023 Office Visit Pulmonary Mc Randall MD [address] [facility] [id number] 10/15/2023 Office Visit Rheumatology Saran Boateng MD [address] [place] [address] 11/05/2023 Office Visit Cardiology Mukesh Laird DO [address] [place] [address] Scheduled Procedures Name Priority Associated Diagnoses Date/Ti [...] Additional history exists DXA Scan 06/16/2029 06/16/2022, 05/3 09/2018, 06/17/2015, Additional history exists Pap Smear Discontinued [...] this encounter Medical Devices Implanted Type Area Certified Court Interpreter Device Identifier Shelf Expiration Date Model / Serial / Lot Lens 6.0 Sa60at - [id number] Implanted:Qty: 1 on 03/23/2007 at OR [facility] Left: Eye BETTY : SURGICAL 08/06/2011 SA60AT / [id number] / documented as of this encounter [...] Advance Directives occurred with: Patient Care Teams Roof Bolting Coal Miner Relationship Specialty Start Date End Date Patricia Doran MD [address] [place] [address] [place] [address] PCP - General 12/17/08 documented as of this encounter
--- OUTSIDE RECORDS SUMMARY | 2023-08-07 11:29 | External Medical Summary | Summary of Care ---
Author Name Unknown Organization [facility] Address [address] [place] [address] Phone [phone] Care Team Providers Care Salary And Wage Administrator Name Role Phone Patricia Doran MD Primary Care Provider + Reason for Referral * Evaluate & Treat - Unlimited Visits (Within 10 days (routine)) - Authorized Specialty Diagnoses / Procedures Referred By Contac t Referred To Contact Orthopaedic Surgery / Orthopedics Diagnoses Acute pain of right knee Hx of total knee replacement, right Tressa Patten MD [address] [place] [address] Carlo Gann MD [address] [place] [address] Referral ID Status Reason Start Date Expiration Date Visits Requested Visits Authorized [id number] Authorized Specialty Services Required 04/19/2023 999 999 Question Answer Referral Priority Within 10 days (routine) What body part is the patient being seen for? Thigh/Knee What condition is the patient being seen for? Sprain/Strain/Tear/Other Comments Hx of right knee replacement with acute pain Reason for Visit * Reason Comments NEW PATIENT Right knee * Evaluate & Treat - Unlimited Visits (Within 10 days (routine)) - Authorized Specialty Diagnoses / Procedures Referred By Rolf samayoa Referred To Contact Orthopaedic Surgery / Orthopedics Diagnoses Left knee pain, unspecified chronicity Patricia Doran MD [address] [place] [address] Referral ID Status Reason Start Date Expiration Date Visits Requested Visits Authorized [id number] Authorized Specialty Services Required 04/09/2023 999 999 Encounter Details Date Type Department Care Team Description 04/19/2023 Office Visit Orthopaedics [facility] [address] [place] [address] Tressa Patten MD [address] [place] [address] Acute pain of right knee*; Hx of total knee replacement, right Allergies Active Allergy Reactions Severity Noted Date Comments Bee Venom 06/07/2015 Celecoxib 03/02/2023 Increased BP Erythromycin Base Conjunctivitis 01/17/2010 Opthalmic ointment Lisinopril 02/10/2012 cough Sulfasalazine 02/15/2020 GI upset,swealling in hands documented as of this encounter (statuses as of 04/19/2023) Medications Medication Sig Dispensed Refills Start Date [...] as of this encounter (statuses as of 04/19/2023) Active Problems Problem Noted Date Encounter for [...] as of this encounter (statuses as of 04/19/2023) Resolved Problems Problem Noted Date Resolved Date [...] as of this encounter (statuses as of 04/19/2023) Immunizations Name Administration Dates Next Due COVID-19 [...] as of this encounter Progress Notes * Tressa Patten MD - 04/19/2023 8:08 AM EDT Britni Gramajo PHD is a 67 year old female who presents for consultation to [facility] for right knee injury/pain. Consult requested by Patricia Doran MD. Britni Gramajo PHD is here with his/her History: Chief Complaint Patient presents with NEW PATIENT Right knee Nursing Notes: Myra [place], MED ASSIST 04/19/23 0810 Signed Pt presents today for right knee pain. Pt had sx on the dame knee back in 2014. Pt went to [facility] 04/06/23 and had xrays done there. Pt's pain started acting up 2 weeks ago. Britni Gramajo PHD reports that right knee pain started about 2 weeks ago. She states that she just wokeup with the pain. Only has pain with weight-bearing, no pain at rest. Denies any issues with range of motion. No fevers chills. Was swollen 2 weeks ago, but has since resolved. No locking or catching. Ambulating with a walker. Is doing physical therapy already. History of right TKA at [facility] in 2014. Review of systems: All others negative except those noted above in HPI. Review of patient's allergies indicates: Allergen Reactions [...] No current facility-administered medications for this visit. Past Medical History: Diagnosis Date Allergic rhinitis Asthma Asthma with severity to be determined Atherosclerosis of aorta ([facility]) 02/18/2021 Benign neoplasm of colon 04/16/2013 adenomatous polyp, repeat 5 yrs Bronchiectasis without complication ([facility]) 07/17/2020 Diabetes mellitus without complication ([facility]) 12/05/2018 Exudative age-related macular degeneration, left eye, with inactive choroidal neovascularization ([facility]) 12/05/2018 GENERAL OSTEOARTHROSIS 12/13/2000 Glaucoma Hypercholesterolemia Hypothyroidism Other psoriasis 12/13/2000 Pneumonia Pneumonia of right middle lobe due to Pseudomonas species ([facility]) 07/17/2020 Protein-calorie malnutrition ([facility]) 02/18/2021 Pulmonary nodules 07/17/2020 Restrictive lung disease 07/17/2020 Retinal edema 11/21/2009 Rheumatoid arthritis involving multiple sites with positive rheumatoid factor ([facility]) 02/27/2016 Senile cataract Cataract Senile Urge incontinence of urine 02/24/2019 Patient Active Problem List Diagnosis Code GENERAL OSTEOARTHROSIS M15.9 Other psoriasis L40.8 After cataract not obscuring vision H26.499 Acquired hypothyroidism E03.9 Allergic rhinitis J30.9 Retinal edema H35.81 Rheumatoid arthritis involving multiple sites with positive rheumatoid factor ([facility]) M05.79 Controlled substance agreement signed Z79.899 Diabetes mellitus without complication ([facility]) E11.9 Advanced directives, counseling/discussion Z71.89 Urge incontinence of urine N39.41 Restrictive lung disease J98.4 Bronchiectasis without complication ([facility]) J47.9 Pulmonary nodules R91.8 Moderate persistent asthma without complication J45.40 Ambulatory dysfunction R26.2 Subjective weakness R53.1 Immunodeficiency ([facility]) D84.9 Encounter for therapeutic drug monitoring Z51.81 Past Surgical History: Procedure Laterality Date ANKLE ARTHROSCOPY/SURGERY Right fusion surgery ARTHROPLASTY KNEE TOTAL Right 2015 BRONCHOSCOPY, DIAGNOSTIC N/A 10/29/2022 BRONCHOSCOPY DIAGNOSTIC WITH OR WITHOUT WASHING performed by Mariano Pickard MD at OR [facility] COLONOSCOPY, DIAGNOSTIC (RECTUM) 04/16/2014 adenomatous polyp, repeat 5 yrs/COLONOSCOPY FLEXIBLE PROXIMAL DIAGNOSTIC performed by Palomo Griffiths MD at ENDOSCOPY [facility] COLONOSCOPY, DIAGNOSTIC (RECTUM) 02/26/2021 benign adenomatous polyp, diverticulosis, repeat 5 yrs / COLONOSCOPY FLEXIBLE PROXIMAL DIAGNOSTIC performed by Tevin Razo MD at ENDOSCOPY [facility] EGD, FLEXIBLE, DIAGNOSTIC 08/28/2015 duodenal ulcer, erosive duodenitis, normal bx EGD, FLEXIBLE, DIAGNOSTIC 08/28/2015 ESOPHAGOGASTRODUODENOSCOPY (EGD), FLEXIBLE, TRANSORAL, DIAGNOSTIC performed by Palomo Griffiths MD at ENDOSCOPY [facility] EGD, FLEXIBLE, DIAGNOSTIC 02/26/2021 mild acid reflux / ESOPHAGOGASTRODUODENOSCOPY (EGD), FLEXIBLE, TRANSORAL, DIAGNOSTIC performed by Tevin Razo MD at ENDOSCOPY [facility] EGD, FLEXIBLE, DIAGNOSTIC N/A 11/05/2022 [facility], EGD, white plaques seen in hypopharynx, GE junction at 36cm mild ring at the GE junction FLUORO GUIDED SPINE INJECTION 10/05/2022 FLUROSCOPIC GUIDANCE AND LOCALIZATION OF NEEDLE OR CATHETER TIP FOR SPINE OR PARASPINOUS DIAGNOSTICperformed by Shubham Sung DO at [facility] PAP DIAGNOSTIC 09/2000 INFORMATION Left 09/13/2017 Left [...] performed by Shubham Sung DO at OR [facility] REMOVE CATARACT, INSERT LENS PROSTH 03/23/2007 EXTRACAPSULAR CATARACT REMOVAL WITH INTRAOCULAR LENS performed by ASHANTI ROSARIO at OR [facility] REPAIR DETACHED RETINA, INJECTION Left Social History Socioeconomic History Marital status: Spouse name: Yuri Number of children: 4 Years of education: Not on file Highest education level: Not on file 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 History 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 Tobacco Use Smoking status: Never Smokeless tobacco: Never Tobacco comments: No passive smoke exposures Vaping Use Vaping Use: Never used Substance and Sexual Activity Alcohol use: No Drug use: No Sexual activity: Not Currently Other Topics Concern Not on file Social History Narrative Not on file Social Determinants of Health Financial Resource Strain: Not on file Food Insecurity: Not on file Transportation Needs: Not on file Physical Activity: Not on file Stress: Not on file Social Connections: Not on file Intimate Partner Violence: Not on file Housing Stability: Not on file Family History Problem Relation Age of Onset Eye Problems Mother Glaucoma Mother Heart Disorder Mother Diabetes Mother Arthritis Father RA Heart Disorder Father Hypertension Father Cataracts Father Other (ARDS) Father Other (Diabetes, HTN) Sister Asthma Brother Diabetes Brother No Known Problems Daughter Psoriasis Daughter PsA as well No Known Problems Daughter No Known Problems Son Family History; none relevant to today's HPI Objective: Physical Exam There were no vitals filed for this visit. Estimated body mass index is 25.75 kg/m as calculated from the following: Height as of 03/18/23: 1.626 m (5' 4"). Weight as of 03/25/23: 68 kg (150 lb). General: generally well-nourished and in no acute distress HEENT: normocephalic, atraumatic, sclera anicteric. Psych: mood and affect normal , cooperative Card: Peripheral pulses: normal in affected extremity (s) Resp: equal chest rise, non-tachypneic, non-labored breathing Skin: no rash, normal Neuro: Sensation: normal on affected extremity (s) MSK: antalgic gait with walker Knee Exam, Bilateral Inspection: No obvious deformity, no redness, swelling, warmth, bruising, abrasion. normal alignment. Surgical scar from prior TKA Palpation: tenderness to palpation medial and lateral joint line ROM: 0-120 Strength: R- Strength: Extension - 5/5 Flexion - 5/5 L - Strength: Extension - 5/5 Flexion - 5/5 Radiology (I have personally reviewed the following films): 04/19/2023: Three-view x-ray right knee Right total joint arthroplasty with patellar resurfacing. No evidence of hardware complication. - per my interpretation. Awaiting formal radiology interpretation. Advised patient I will call or message them if any changes from the above. Assessment and Plan: ICD-10-CM 1. Acute pain of right knee M25.561 2. Hx of total knee replacement, right Z96.651 67-year-old female with history of right TKA in 2015 presents today for acute right knee pain for the past 2 weeks without injury. Radiographs without evidence of hardware complication. No evidence of instability, infection on exam. Recommended follow up with an orthopedic surgeon who does joint rep lacements. Also recommended reaching out to the surgeon who did the joint replacement and notifyingthem of new onset pain. Follow up primary care sports medicine as needed. The above assessment and plan were discussed at length. All questions were answered, and the patient expressed understanding. Tressa Patten MD Primary Care Sports Medicine [facility] Orthopaedics [facility] [address] [place] [address] documented in this encounter Nursing Notes * VILMA Marquez - 04/19/2023 8:07 AM EDT Pt presents today for right knee pain. Pt had sx on the dame knee back in 2014. Pt went to [facility] 04/06/23 and had xrays done there. Pt's pain started acting up 2 weeks ago. documented in this encounter Plan of Treatment Upcoming Encounters Date Type Specialty Care Team Description 05/03/2023 Office Visit Orthopedics Timothy Olea PA-C [address] [place] [id number] 06/17/2023 Office Visit Internal Medicine Patricia Doran MD [address] [facility] [place] [place] [address] 07/02/2023 Office Visit Cardiology Erik Sosa DO [address] [place] [address] 08/02/2023 Office Visit Pulmonary Mc Randall MD [address] [place] [id number] 10/15/2023 Office Visit Rheumatology Oppermann, Saran P, MD [address] [facility] [place] [address] 11/05/2023 Office Visit Cardiology Mukesh Laird, DO [address] [place] [address] Pending Results Name Type Priority Associated Diagnoses Date /Time XR KNEE 3 VIEWS Medical Imaging Routine Acute pain of right knee 04/19/2023 8:27 AM EDT Scheduled Procedures Name Priority Associated Diagnoses Date/Ti me COLONOSCOPY FLEXIBLE PROXIMAL DIAGNOSTIC Recall History of colon polyps Scheduled Referrals Name Type Priority Associated Diagnoses Order Schedule ORTHOPAEDICS REFERRAL OP Referral Within 10 days (routine) Acute pain of right knee Hx of total knee replacement, right Ordered: 04/19/2023 Health Maintenance Due Date Last Done Comments [...] this encounter Medical Devices Implanted Type Area Network Admin Device Identifier Shelf Expiration Date Model / Serial / Lot Lens 6.0 Sa60at - [id number] Implanted:Qty: 1 on 03/23/2007 at OR [facility] Left: Eye BETTY : SURGICAL 08/06/2011 SA60AT / [id number] / documented as of this encounter Visit Diagnoses Diagnosis Acute pain of right knee- Primary Hx of total knee replacement, right documented in this encounter Advance Directives Latest Code Status on File Code Status Date Activated Date Inactivated Comments Full Code 01/03/2021 8:00 PM 01/10/2021 5:07 PM This o rder reflects the patients wishes and were consensually agreed upon. Question Answer Comments Discussion of Advance Directives occurred with: Patient Care Teams Salary And Wage Administrator Relationship Specialty Start Date End Date Patricia Doran MD [address] [facility] [place] [address] PCP - General 12/17/08 documented as of this encounter
--- OUTSIDE RECORDS SUMMARY | 2023-08-07 11:29 | External Medical Summary | Summary of Care ---
Author Name Unknown Organization [facility] Address [address] [facility] [place] [address] Phone [phone] Care Team Providers Care Garbage Truck Driver Name Role Phone Patricia Doran MD Primary Care Provider + Reason for Referral * Evaluate & Treat - Unlimited Visits (Within 10 days (routine)) - Authorized Specialty Diagnoses / Procedures Referred By Rolf samayoa Referred To Contact Orthopaedic Surgery / Orthopedics Diagnoses Left knee pain, unspecified chronicity Patricia Doran MD [address] [place] [address] Referral ID Status Reason Start Date Expiration Date Visits Requested Visits Authorized [id number] Authorized Specialty Services Required 04/09/2023 999 999 Question Answer Referral Priority Within 10 days (routine) What body part is the patient being seen for? Thigh/Knee What condition is the patient being seen for? Sprain/Strain/Tear/Other Comments Significant knee pain, swealling. Hx of knee surgery in 2017 ER work up no lyme or infection 2 days back at [facility]. Worsening pain. Thanks. Reason for Visit * Reason Onset Date Comments Advice 04/06/2023 Encounter Details Date Type Department Care Team Description 04/06/2023 Telephone General Internal Medicine [facility] [address] [place] [address] Patricia Doran MD [address] [place], [place] [address] Advice Allergies Active Allergy Reactions Severity Noted Date Comments Bee Venom 06/07/2015 Celecoxib 03/02/2023 Increased BP Erythromycin Base Conjunctivitis 01/17/2010 Opthalmic ointment Lisinopril 02/10/2012 cough Sulfasalazine 02/15/2020 GI upset,swealling in hands documented as of this encounter (statuses as of 04/12/2023) Medications Medication Sig Dispensed Refills Start Date [...] as of this encounter (statuses as of 04/12/2023) Active Problems Problem Noted Date Encounter for [...] as of this encounter (statuses as of 04/12/2023) Resolved Problems Problem Noted Date Resolved Date [...] as of this encounter (statuses as of 04/12/2023) Immunizations Name Administration Dates Next Due COVID-19 [...] Referral is in.please help with scheduling at [facility] or [facility] with Dr. Gann if sooner available. * Telephone Encounter - Archana Gilliam LPN - 04/06/2023 10:44 AM EDT Call dropped during transfer. attempted to call pt back. No answer. Left message to return call. * Telephone Encounter - JULIUS Maldonado - 04/06/2023 10:41 AM EDT Reason for patient's call: Knee pain, advice on what to do Caller was transferred to [place] at the nurse line. documented in this encounter Plan of Treatment Upcoming Encounters Date Type Specialty Care Team Description 06/17/2023 Office Visit Internal Medicine Patricia Doran MD [address] [place] [address] 07/02/2023 Office Visit Cardiology Erik Sosa, DO [address] [place] [address] 08/02/2023 Office Visit Pulmonary Mc Randall MD [address] [facility] [id number] 10/15/2023 Office Visit Rheumatology Saran Boateng MD [address] [place] [address] 11/05/2023 Office Visit Cardiology Mukesh Laird, DO [address] [place] [address] Scheduled Procedures Name Priority Associated Diagnoses Date/Ti [...] this encounter Medical Devices Implanted Type Area Forest Pathology Teacher Device Identifier Shelf Expiration Date Model / Serial / Lot Lens 6.0 Sa60at - [id number] Implanted:Qty: 1 on 03/23/2007 at OR [facility] Left: Eye BETTY : SURGICAL 08/06/2011 SA60AT / [id number] / documented as of this encounter [...] Advance Directives occurred with: Patient Care Teams Garbage Truck Driver Relationship Specialty Start Date End Date Patricia Doran MD [address] [facility] [place] [address] PCP - General 12/17/08 documented as of this encounter
--- OUTSIDE RECORDS SUMMARY | 2023-08-07 11:29 | External Medical Summary | Summary of Care ---
Author Name Unknown Organization [facility] Address [address] [facility] [place] [address] Phone [phone] Care Team Providers Care Merchandise Examiner Name Role Phone Patricia Doran MD Primary Care Provider + Encounter Details Date Type Department Care Team Description 04/07/2023 Telephone General Internal Medicine [facility] [address] [place] [address] Patricia Doran MD [address] [place] [address] Allergies Active Allergy Reactions Severity Noted Date Comments Bee Venom 06/07/2015 Celecoxib 03/02/2023 Increased BP Erythromycin Base Conjunctivitis 01/17/2010 Opthalmic ointment Lisinopril 02/10/2012 cough Sulfasalazine 02/15/2020 GI upset,swealling in hands documented as of this encounter (statuses as of 04/07/2023) Medications Medication Sig Dispensed Refills Start Date [...] as of this encounter (statuses as of 04/07/2023) Active Problems Problem Noted Date Encounter for [...] as of this encounter (statuses as of 04/07/2023) Resolved Problems Problem Noted Date Resolved Date [...] as of this encounter (statuses as of 04/07/2023) Immunizations Name Administration Dates Next Due COVID-19 [...] encounter Miscellaneous Notes * Telephone Encounter - VILMA House - 04/07/2023 3:13 PM EDT My g sent in regards to Care Always from being sent to request information about oxygen and breathing, was to be following up with pulmonology due to dx of bronchiectasis, restrictive lung disease, and asthma. Awaiting answer documented in this encounter Plan of Treatment Upcoming Encounters Date Type Specialty Care Team Description 04/09/2023 Office Visit Gynecology Obstetrics Josseline Ceballos CRNP [address] [place] [address] 06/17/2023 Office Visit Internal Medicine Patricia Doran MD [address] [place] [address] 07/02/2023 Office Visit Cardiology Erik Sosa, [address] [place] [address] 08/02/2023 Office Visit Pulmonary Mc Randall MD [address] [facility] [place] [id number] 10/15/2023 Office Visit Rheumatology Saran Boateng MD [address] [place] [address] 11/05/2023 Office Visit Cardiology Mukesh Laird, [address] [place] [address] Scheduled Procedures Name Priority Associated Diagnoses Date/Ti [...] Additional history exists DXA Scan 06/16/2029 06/16/2022, 3 09/2018, 06/17/2015, Additional history exists Pap Smear [...] this encounter Medical Devices Implanted Type Area Securities Supervisor Device Identifier Shelf Expiration Date Model / Serial / Lot Lens 6.0 Sa60at - [id number] Implanted:Qty: 1 on 03/23/2007 at OR [facility] Left: Eye BETTY : SURGICAL 08/06/2011 SA60AT / [id number] / documented as of this encounter Advance Directives Latest Code Status on File Code Status Date Activated Date Inactivated Comments Full Code 01/03/2021 8:00 PM 01/10/2021 5:07 PM This o rder reflects the patients wishes and were consensually agreed upon. Question Answer Comments Discussion of Advance Directives occurred with: Patient Care Teams Merchandise Examiner Relationship Specialty Start Date End Date Patricia Doran MD [address] [place] [address] PCP - General 12/17/08 documented as of this encounter
--- OUTSIDE RECORDS SUMMARY | 2023-08-07 11:29 | External Medical Summary | Summary of Care ---
Author Name Unknown Organization [facility] [address] [facility] [address] Phone [phone] Care Team Providers Care Electric Blasting Cap Assembler Name Role Phone Patricia Doran MD Primary Care Provider + Reason for Visit * Reason Onset Date Comments Forms Request 03/04/2023 Order Request 03/04/2023 Encounter Details Date Type Department Care Team Description 03/04/2023 Telephone General Internal Medicine [facility] [address] [place] [address] Patricia Doran MD [address] [place] [address] Forms Request; Order Request Allergies Active Allergy [...] Respimat 2.5 MCG/ACT Inhalation Aerosol Solution (Tiotropium Rodney Monohydrate) Inhale 2 Puffs by mouth in [...] Miscellaneous Notes * Telephone Encounter - JULIUS Kim - 03/23/2023 12:25 PM EDT Maritza with [facility] (Mohan Faust) calling to advise they need a new rx for "portable oxygen concentrator" and "stationary oxygen concentrator" The DME that was originally sent stated oxygen in gas on 03/04/23. Please fax new order if agreeable: [phone] * Telephone Encounter - Harpal Nieves CMA [...] Script needs faxed to Mohan Faust at [phone]. Rx pended. documented in this encounter Plan of Treatment Upcoming Encounters Date Type Specialty Care Team Description 03/25/2023 Office Visit Cardiology Erik Sosa, [address] [place] [address] 04/09/2023 Office Visit Gynecology Obstetrics Josseline Ceballos CRNP [address] [place] [address] 06/17/2023 Office Visit Internal Medicine Patricia Doran MD [address] [place] [address] 08/02/2023 Office Visit Pulmonary P[facility]ashMc [facility] [address] [facility] [address] 10/15/2023 Office Visit Rheumatology Saran Boateng MD [address] [place] [address] 11/05/2023 Office Visit Cardiology Mukesh Laird DO [address] [place] [address] Scheduled Procedures Name Priority Associated Diagnoses Date/Ti [...] Additional history exists Pap Smear Discontinued 05/19/2019, 03/0 01/2009, 11/08/2008 Zoster Vaccines Completed 06/17/2020, 03/14/2020 [...] this encounter Medical Devices Implanted Type Area Marine Steam Fitter Device Identifier Shelf Expiration Date Model / Serial / Lot Lens 6.0 Sa60at - [id number] Implanted:Qty: 1 on 03/23/2007 at OR [facility] Left: Eye BETTY : SURGICAL 08/06/2011 SA60AT / [id number] / documented as of this encounter [...] Advance Directives occurred with: Patient Care Teams Electric Blasting Cap Assembler Relationship Specialty Start Date End Date Patricia Doran MD [address] [place] [address] PCP - General 12/17/08 documented as of this encounter
--- OUTSIDE RECORDS SUMMARY | 2023-08-07 11:29 | External Medical Summary | Summary of Care ---
Author Name Unknown Organization [facility] Address [address] [address] Phone [phone] Care Team Providers Care Mid Level Clinician Name Role Phone Patricia Doran MD Primary Care Provider + Reason for Visit * Reason Onset Date Comments Forms Request 03/04/2023 Order Request 03/04/2023 Encounter Details Date Type Department Care Team Description 03/04/2023 Telephone General Internal Medicine [facility] [address] [place] [address] Patricia Doran MD [address] [place] [address] Forms Request; Order Request Allergies Active Allergy [...] Respimat 2.5 MCG/ACT Inhalation Aerosol Solution (Tiotropium [place] Monohydrate) Inhale 2 Puffs by mouth in [...] encounter Miscellaneous Notes * Addendum Note - Brennan Marie LPN [...] 03/04/23. Please fax new order if agreeable: [phone] * Telephone Encounter - Harpal Nieves CMA [...] Script needs faxed to Mohan Faust at [phone]. Rx pended. documented in this encounter Plan of Treatment Upcoming Encounters Date Type Specialty Care Team Description 03/25/2023 Office Visit Cardiology Erik Sosa DO [address] [place] [address] 04/09/2023 Office Visit Gynecology Obstetrics Josseline Ceballos CRNP [address] [place] [address] 06/17/2023 Office Visit Internal Medicine Patricia Doran MD [address] [place], [place] [address] 08/02/2023 Office Visit Pulmonary Mc Randall MD [address] [place] [address] 10/15/2023 Office Visit Rheumatology Saran Boateng MD [address] [facility] [place] [address] 11/05/2023 Office Visit Cardiology Mukesh Laird, DO [address] [place] [address] Scheduled Procedures Name Priority Associated Diagnoses Date/Ti [...] this encounter Medical Devices Implanted Type Area Pole Peeler Device Identifier Shelf Expiration Date Model / Serial / Lot Lens 6.0 Sa60at - [id number] Implanted:Qty: 1 on 03/23/2007 at OR [facility] Left: Eye BETTY : SURGICAL 08/06/2011 SA60AT / [id number] / documented as of this encounter [...] Advance Directives occurred with: Patient Care Teams Mid Level Clinician Relationship Specialty Start Date End Date Patricia Doran MD [address] [place] [address] PCP - General 12/17/08 documented as of this encounter
--- OUTSIDE RECORDS SUMMARY | 2023-08-07 11:29 | External Medical Summary | Summary of Care ---
Author Name Unknown Organization [facility] Address [address] [place] [address] Phone [phone] Care Team Providers Care Vault Manager Name Role Phone Patricia Doran MD Primary Care Provider + Reason for Visit * Reason Comments Rheum Follow Up he RA Encounter Details Date Type Department Care Team Description 03/19/2023 Office Visit Rheumatology [place] [id number] [facility] [place] [address] Saran Boateng MD [facility] [employer] [facility] [place] [address] Rheumatoid arthritis involving multiple sites with positive rheumatoid factor (HCC)*; Bronchiectasis without complication (HCC); Encounter for therapeutic drug monitoring Allergies Active Allergy Reactions Severity Noted Date Comments Bee Venom 06/07/2015 Celecoxib 03/02/2023 Increased BP Erythromycin Base Conjunctivitis 01/17/2010 Opthalmic ointment Lisinopril 02/10/2012 cough Sulfasalazine 02/15/2020 GI upset,swealling in hands documented as of this encounter (statuses as of 03/19/2023) Medications Medication Sig Dispensed Refills Start Date [...] as instructed. 1 Each 3 3 Active Sodium Chloride 3 % Inhalation Nebulization Solution Inhale 3 mL via nebulizer in the morning and 3 mL at noon and 3 mL before bedtime. 360 mL 0 3 04/27/20 23 Active DULoxetine HCl 60 MG Oral Capsule Delayed Release Particles (Cymbalta) Take 1 Capsule by mouth in the morning. 1 daily. 0 3 Active ProAir HFA 108 (90 Base) MCG/ACT Inhalation Aerosol Solution Inhale by mouth 2 Puffs every 4 hours as needed for Cough, Shortness of Breath or Wheezing. 0 1 03/19/20 23 Discontinued Spiriva Respimat 2.5 MCG/ACT Inhalation Aerosol Solution (Tiotropium [place] Monohydrate) Inhale 2 Puffs by mouth in [...] as of this encounter (statuses as of 03/19/2023) Active Problems Problem Noted Date Encounter for [...] as of this encounter (statuses as of 03/19/2023) Resolved Problems Problem Noted Date Resolved Date [...] as of this encounter (statuses as of 03/19/2023) Immunizations Name Administration Dates Next Due COVID-19 [...] Pressure - - Pulse - - Temperature 36.6 C (97.8 F) 03/19/2023 1:11 PM ED T Respiratory Rate - - Oxygen Saturation - - Inhaled Oxygen Concentration - - Weight 67.1 kg (148 lb) 03/19/2023 1:11 PM EDT Height - - Body Mass Index 25.4 03/18/2023 3:06 PM EDT documented in this [...] Progress Notes * Saran Boateng MD - 03/19/2023 1:19 PM EDT Images from the original note were not included. Assessment and Plan Rheumatoid arthritis involving multiple sites with positive rheumatoid factor (HCC) Bronchiectasis without complication (HCC) Encounter for therapeutic drug monitoring She has increase activity of her hands and right foot based on exam today. Asked her to contact herinfectious disease doctor about increasing leflunomide. Plan: 1. Continue on prednisone and Plaquenil at 300 mg daily 2. Continue with labs every 3 months 3. Contact her infectious disease doctor Jose Manuel García about increasing leflunomide 4. Continues off biologic treatment while on treatment for mycobacterium infection 5. Return to clinic in 6 months or sooner pending course Rheumatology Synopsis: Disease activity: Uncontrolled Patient History History of Present Illness HPI:67 year old female presented to rheumatology clinic for Rheum Follow Up ([facility]) She was hospitalized with stroke from parainfluenza. 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 She does remain on Plaquenil, low-dose prednisone and leflunomide. She reports that based on recent eye exam her Plaquenil was reduced to 300 mg daily. She is noting increasing joint pains in her hands feet knees. Has some swelling as well. ROS: Review of Systems was asked and the following other significant symptoms are present: + weakness, fatigue, cough, SOB, joint pains/swelling Subjective Patient's past history, medications, and allergies were reviewed. Medications: Current Outpatient Medications Medication Instructions bimatoprost (LUMIGAN) 0.01 % ophthalmic solution 1 Drop, Both eyes, HS Brinzolamide-Brimonidine 1-0.2 % Ophthalmic Suspension Ophthalmic, BID(AM/PM), L eye only. Calcium 500 mg, Oral, Daily(AM), With food. Clindamycin HCl 300 MG Capsule Takes when goes to dentist Clobetasol Propionate 0.05 % External Gel (Temovate) APPLY A THIN AMOUNT TO AFFECTED AREA TWICEDAILY Compressor Nebulizer Nebulizer, Use as directed.

Pt [...] DISKUS) 500-50 MCG/DOSE inhaler 1 Puff, Inhalation, BID(AM/PM) folic acid 1 mg, Oral, Daily(AM) guaiFENesin (ROBITUSSIN) 200 mg, Oral, TID PRN Hydroxychloroquine Sulfate 200 MG Oral Tablet (Plaquenil) One and half pill daily Ipratropium-Albuterol 0.5-2.5 (3) MG/3ML Inhalation Solution (Duoneb) 3 mL, Nebulizer, QID(AM/NOON/PM/HS) Leflunomide (ARAVA) 10 mg, Oral, Daily(AM) levothyroxine (LEVOXYL) 112 mcg, Oral, Daily(AM) loratadine ODT (CLARITIN REDITAB) 10 mg, On Tongue, Daily(AM) montelukast (SINGULAIR) 10 mg, Oral, QPM-2000 MULTIVITAMINS OR TABS daily OCUVITE PO TABS Take by mouth . Orencia 250 MG Intravenous Solution Reconstituted (Abatacept) QMONTH oxygen IN GAS 2 L/min(Oxygen), Nasal, PRN, Diagnosis: MAAME, Bronchiectesis, aspergillus infection of the lung. predniSONE (DELTASONE) 2 mg, Oral, Daily(AM), Patient taking 2mg daily. Respiratory Therapy Supplies Device Please provide Acapella Device for expectoration assist as instructed. Sodium Chloride 3 % Inhalation Nebulization Solution 3 mL, Nebulizer, TID(AM/NOON/HS) Timolol Maleate 0.5 % Ophthalmic Solution (Timoptic) INSTILL 1 DROP INTO THE LEFT EYE DAILY Voriconazole 200 MG Oral Tablet (Vfend) 400 mg twice daily (every 12 hours) on day 1 and day 2,then 200 mg twice a day (every 12 hours) until end of therapy. Objective Physical Exam Temp 36.6 C (97.8 F) (Infrared ) | Wt 67.1 kg (148 lb) | LMP 05/15/2002 | BMI 25.40 kg/m | BSA 1.74 m Constitutional: No acute distress, adult female alert and oriented x3 HEENT: normal: normocephalic, atraumatic; no masses, tenderness, or adenopathy Eyes: sclera and conjunctiva normal Neck: supple, normal range of motion CV: normal rate and rhythm, no murmur, gallops or rub Chest: Has some coarse breath sounds throughout but no wheezes or rhonchi Abdomen: normal: soft, bowel sounds normal, no masses, tenderness or organomegaly Musculoskeletal: Positive synovitis of the MCPs of both hands , synovitis and tenderness of the MTPs of the right foot MSK/Joint exam (Homunculus) MSK Exam findings: Homunculus exam Studies: Labs and other studies reviewed with pertinent findings noted below: Disease Treatment Response CDAI Scoring - Patient Global: 50 mm Provider Global: 50 mm Tender: 20 Swollen: 12 CDAI: 34 CDAI (Clinical Disease Activity Index) [facility] Outcomes measures: Serial CDAI: - Serial CDAI: - Yes - Remission: - No - high disease activity - Disease Activity: Worse/Uncontrolled On csDMARD: Yes On Biologic DMARD: Yes Vaccination status: COVID: Vaccine and/or Health maintenance status Incomplete Influenza:Vaccine complete for this season Pneumococcal:Vaccine Series complete Zoster:Vaccine [...] documented in this encounter Nursing Notes * Torsten Haile LPN - 03/19/2023 1:08 PM EDT Chief Complaint Patient presents with Rheum Follow Up [facility] RA documented in this encounter Plan of Treatment Upcoming Encounters Date Type Specialty Care Team Description 03/25/2023 Office Visit Cardiology Erik Sosa, DO [address] [place] [address] 04/09/2023 Office Visit Gynecology Obstetrics Josseline Ceballos CRNP [address] [place] [address] 06/17/2023 Office Visit Internal Medicine Patricia Doran MD [address] [place] [address] 08/02/2023 Office Visit Pulmonary Mc Randall MD [address] [facility] [place] [id number] 10/15/2023 Office Visit Rheumatology Saran Boateng MD [address] [place] [address] 11/05/2023 Office Visit Cardiology Mukesh Laird DO [address] [place] [address] Scheduled Procedures Name Priority Associated Diagnoses Date/Ti [...] this encounter Medical Devices Implanted Type Area Iron Plastic Bullet Maker Device Identifier Shelf Expiration Date Model / Serial / Lot Lens 6.0 Sa60at - [id number] Implanted:Qty: 1 on 03/23/2007 at OR [facility] Left: Eye BETTY : SURGICAL 08/06/2011 [id number] / [id number] / documented as of this encounter [...] Advance Directives occurred with: Patient Care Teams Vault Manager Relationship Specialty Start Date End Date Patricia Doran MD [address] [facility] [place] [address] PCP - General 12/17/08 documented as of this encounter"
--- OUTSIDE RECORDS SUMMARY | 2023-08-07 11:29 | External Medical Summary | Summary of Care ---
Author Name Unknown Organization [facility] Address [address] [facility] [address] Phone [phone] Care Team Providers Care Dairy Quality Assurance Officer Name Role Phone Patricia Doran MD Primary Care Provider + Reason for Visit * Reason Onset Date Comments Forms Request 03/04/2023 Order Request 03/04/2023 Encounter Details Date Type Department Care Team Description 03/04/2023 Telephone General Internal Medicine [facility] [place] [address] [facility] [place] [address] Patricia Doran MD 200 [place] [address] Forms Request; Order Request Allergies Active Allergy [...] Respimat 2.5 MCG/ACT Inhalation Aerosol Solution (Tiotropium [place] Monohydrate) Inhale 2 Puffs by mouth in [...] encounter Miscellaneous Notes * Telephone Encounter - Brennan Owens LPN - 03/23/2023 3:02 PM EDT Provider to address: Silvino Doran MD Attempted to see if pt is agreeable for us to send the forms to [facility]. Reason for Call: Forms Request and Order [...] the orders. * Addendum Note - Brennan Owens LPN - 03/23/2023 1:52 PM EDTAddended by: BRENNAN OWENS on: 03/23/2023 01:52 PM Modules accepted: Orders * Telephone Encounter - Brennan Owens LPN - 03/23/2023 1:49 PM EDT Orders pended and awaiting signature. * Telephone Encounter - JULIUS Kim - 03/23/2023 12:25 PM EDT Maritza with [employer] (Mohan Faust) calling to advise they need a new rx for "portable oxygen concentrator" and "stationary oxygen concentrator" The DME that was originally sent stated oxygen in gas on 03/04/23. Please fax new order if agreeable: [phone] * Telephone Encounter - Harpal Nieves CMA [...] Script needs faxed to Mohan Faust at [phone]. Rx pended. documented in this encounter Plan of Treatment Upcoming Encounters Date Type Specialty Care Team Description 03/25/2023 Office Visit Cardiology Erik Sosa, DO [address] [place] [address] 04/09/2023 Office Visit Gynecology Obstetrics Josseline Ceballos CRNP [address] [place] [address] 06/17/2023 Office Visit Internal Medicine Patricia Doran MD [address] [place] [address] 08/02/2023 Office Visit Pulmonary Mc Randall MD [address] [facility] [place] [address] 10/15/2023 Office Visit Rheumatology Saran Boateng MD [address] [place] [address] 11/05/2023 Office Visit Cardiology Mukesh Laird, DO [address] [place] [address] Scheduled Procedures Name Priority Associated Diagnoses Date/Ti [...] Additional history exists DXA Scan 06/16/2029 06/16/2022, 053 09/2018, 06/17/2015, Additional history exists Pap Smear [...] this encounter Medical Devices Implanted Type Area Prosthetic Aides Teacher Device Identifier Shelf Expiration Date Model / Serial / Lot Lens 6.0 Sa60at - [id number] Implanted:Qty: 1 on 03/23/2007 at [facility] Left: Eye BETTY : SURGICAL 08/06/2011 SA60AT / [id number] / documented as of this encounter [...] Advance Directives occurred with: Patient Care Teams Dairy Quality Assurance Officer Relationship Specialty Start Date End Date Patricia Doran MD [address] [place] [address] PCP - General 12/17/08 documented as of this encounter
--- OUTSIDE RECORDS SUMMARY | 2023-08-07 11:29 | External Medical Summary | Summary of Care ---
Author Name Unknown Organization [facility] Address [address] [facility] [place] [address] Phone [phone] Care Team Providers Care Battery Tester Field Name Role Phone Patricia Doran MD Primary Care Provider + Reason for Referral * Evaluate & Treat - Unlimited Visits (Within 10 days (routine)) - Authorized Specialty Diagnoses / Procedures Referred By Rolf samayoa Referred To Contact Orthopaedic Surgery / Orthopedics Diagnoses Left knee pain, unspecified chronicity Patricia Doran MD [address] [place] [address] Referral ID Status Reason Start Date Expiration Date Visits Requested Visits Authorized [id number] Authorized Specialty Services Required 04/09/2023 999 999 Question Answer Referral Priority Within 10 days (routine) What body part is the patient being seen for? Thigh/Knee What condition is the patient being seen for? Sprain/Strain/Tear/Other Comments Significant knee pain, swealling. Hx of knee surgery in 2017 ER work up no lyme or infection 2 days back at [facility]. Worsening pain. Thanks. Reason for Visit * Reason Onset Date Comments Advice 04/06/2023 Encounter Details Date Type Department Care Team Description 04/06/2023 Telephone General Internal Medicine [facility] [address] [place] [address] Patricia Doran MD [address] [place] [address] Advice Allergies Active Allergy Reactions Severity Noted [...] Miscellaneous Notes * Telephone Encounter - JULIUS Stern - 04/12/2023 9:16 AM EDT Appt is scheduled 04/19/2023 rmk * Telephone Encounter - Patricia Doran MD - 04/09/2023 8:41 PM EDT I spoke with patient. Has been waiting on Ortho visit. Had knee surgey in 2017 and now has worsening knee swealling, Pain. Had to go to ER 2 day sback. Xray and work up showed no infection. Requesting sooner ortho visit. Referral is in.please help with scheduling at [place] or [place] with Dr. Gann if sooner available. * Telephone Encounter - Archana Gilliam LPN - 04/06/2023 10:44 AM EDT Call dropped during transfer. attempted to call pt back. No answer. Left message to return call. * Telephone Encounter - JULIUS Maldonado - 04/06/2023 10:41 AM EDT Reason for patient's call: Knee pain, advice on what to do Caller was transferred to Archana at the nurse line. documented in this encounter Plan of Treatment Upcoming Encounters Date Type Specialty Care Team Description 04/19/2023 Office Visit Orthopedics Tressa Patten MD [address] [place] [address] 06/17/2023 Office Visit Internal Medicine Patricia Doran MD [address] [place] [address] 07/02/2023 Office Visit Cardiology Erik Sosa, DO [address] [place] [address] 08/02/2023 Office Visit [facility] Randall [facility] [address] [facility] [address] 10/15/2023 Office Visit Rheumatology Saran Boateng MD [address] [place] [address] 11/05/2023 Office Visit Cardiology Mukesh Laird, [address] [place] [address] Scheduled Procedures Name Priority Associated Diagnoses Date/Ti [...] this encounter Medical Devices Implanted Type Area Converter Operator Device Identifier Shelf Expiration Date Model / Serial / Lot Lens 6.0 Sa60at - [id number] Implanted:Qty: 1 on 03/23/2007 at [facility] Left: Eye BETTY : SURGICAL 08/06/2011 SA60AT / [id number] / documented as of this encounter [...] Advance Directives occurred with: Patient Care Teams Battery Tester Field Relationship Specialty Start Date End Date Patriica Doran MD [address] [place] [address] PCP - General 12/17/08 documented as of this encounter
--- OUTSIDE RECORDS SUMMARY | 2023-08-07 11:30 | External Medical Summary | Summary of Care ---
Author Name Unknown Organization [facility] Address [address] [facility] [address] Phone [phone] Care Team Providers Care Treatment Supervisor Name Role Phone Patricia Doran MD Primary Care Provider + Reason for Visit * Reason Onset Date Comments Forms Request 03/04/2023 Encounter Details Date Type Department Care Team Description 03/04/2023 Telephone General Internal Medicine [facility] [address] [place] [address] Patricia Doran MD 200 [place] [address] Forms Request Allergies Active Allergy Reactions Severity Noted Date Comments Bee Venom 06/07/2015 Celecoxib 03/02/2023 Increased BP Erythromycin Base Conjunctivitis 01/17/2010 Opthalmic ointment Lisinopril 02/10/2012 cough Sulfasalazine 02/15/2020 GI upset,swealling in hands documented as of this encounter (statuses as of 03/04/2023) Medications Medication Sig Dispensed Refills Start Date [...] 03/02/2023 loratadine ODT (CLARITIN REDITAB) 10 MG TBDPIndications:Sea cyndy allergic rhinitis due to pollen Place 1 Tab on tongue daily. 30 Tab 3 03/20/2020 Active Folic Acid 1 MG Oral TabletIndications:A rthritis, rheumatoid (HCC) Take 1 Tab by mouth daily. 90 Tab 1 07/05/2020 Active ProAir HFA 108 (90 Base) MCG/ACT Inhalation Aerosol Solution Inhale by mouth 2 Puffs every 4 hours as needed for Cough, Shortness of Breath or Wheezing. 0 06/05/2021 Active EpiPen 2-Elmer 0.3 MG/0.3ML Injection Solution [...] intravenously Every Month . 0 Active Compressor NebulizerIndication s:Moderate persistent asthma without complication,Bronch iectasis without complication (HCC) Inhale via nebulizer . Use as directed. Pt has diagnosis of bronchiectasis and mild persistent asthma 1 Each 1 04/23/2022 Active Spiriva Respimat 2.5 MCG/ACT Inhalation Aerosol Solution (Tiotropium [place] Monohydrate) Inhale 2 Puffs by mouth in the morning. 4 g 11 07/16/2022 Active Additional Information Patient not taking.Reported on 03/02/2023 Clobetasol Propionate 0.05 % External Gel (Temovate) APPLY A THIN AMOUNT TO AFFECTED AREA TWICE DAILY 0 07/20/2022 Active Dexamethasone 0.5 MG/5ML Oral Elixir (Decadron) RINSE WITH 1 TEASPOONFUL FOR 2 MINUTES AND EXPECTORATE. USE TWICE DAILY 0 06/23/2022 Active Leflunomide 10 MG Oral Tablet (Arava) [...] before bedtime. 120 mL 3 03/02/2023 Active oxygen IN GASIndications:Bron chiectasis without complication (HCC),Restrictive lung disease,Moderate persistent asthma without complication Administer 2 L/min(Oxygen) into nostril as needed (Pulse ox less than 88%). 1 Each 0 03/04/2023 Active documented as of this encounter (statuses as of 03/04/2023) Active Problems Problem Noted Date Encounter for [...] as of this encounter (statuses as of 03/04/2023) Resolved Problems Problem Noted Date Resolved Date [...] as of this encounter (statuses as of 03/04/2023) Immunizations Name Administration Dates Next Due COVID-19 [...] encounter Miscellaneous Notes * Telephone Encounter - Harpal Nieves CMA [...] Script needs faxed to Mohan Faust at [phone]. Rx pended. documented in this encounter Plan of Treatment Upcoming Encounters Date Type Specialty Care Team Description 03/18/2023 Office Visit Pulmonary Mc Randall MD [address] [facility] [place] [address] 03/19/2023 Office Visit Rheumatology Saran Boateng MD [address] [place] [address] 03/25/2023 Office Visit Cardiology Erik Sosa, DO [address] [place] [address] 04/09/2023 Office Visit Gynecology Obstetrics Josseline Ceballos CRNP [address] [place] [address] 06/17/2023 Office Visit Internal Medicine Patricia Doran MD [address] [place] [address] 11/05/2023 Office Visit Cardiology Mukesh Laird, DO [address] [place] [address] Scheduled Procedures Name Priority Associated Diagnoses Date/Ti me COLONOSCOPY FLEXIBLE PROXIMAL DIAGNOSTIC Recall History of colon polyps Health Maintenance Due Date Last Done Comments DIABETES-EYE EXAM 06/20/2020 06/20/2019, , 06/24/2011, Additional history exists Depression Screening, Annual for Pts 12 and Over 05/21/2021 05/21/2020 COVID-19 Vaccine (5 - Booster) 10/20/2021 08/25/2021, 12/14/2020, 11/23/2020, Additional history exists Albumin/Creatinine Ratio 03/05/2023 022, 02/18/2021, 06/20/2019, Additional history exists Mammogram 03/05/2023 03/05/2022, 06/07, 02/20/2020, Additional history exists HbA1c 09/01/2023 03/02/2023, 07/08, 03/05/2022, Additional history exists DIABETES-FOOT EXAM 03/02/2024 03/02/2023, 0 03/05/2022, 06/17/2020, Additional history exists GFR 03/02/2024 03/02/2023, 0 11/2022, 07/31/2022, Additional history exists TSH 03/02/2024 03/02/2023, 07/08, 03/05/2022, Additional history exists Pneumococcal Vaccine: 65+ Years (4 - PPSV23 if available, else PCV20) 06/20/2024 06/20/2019, 01/20/2018, 11/08/2008 DTaP,Tdap,and Td Vaccines (3 - Td or Tdap) 02/26/2025 02/26/2015, 03/18/2011 COLONOSCOPY-EVERY 5 YRS AGES 18-100 02/26/2026 02/26/2021, 02/26/2021, 04/16/2014, Additional history exists Lipid Panel 07/24/2026 07/24/2021, 05/2020, 09/20/2019, Additional history exists DXA Scan 06/16/2029 06/16/2022, 01/06, 06/17/2015, Additional history exists Pap Smear Discontinued 05/19/2019, 01/2009, 11/08/2008 Zoster Vaccines Completed 06/17/2020, 03/14/2020 Influenza Vaccine (FLU shot) Completed 07/16/2022, 06/20/2021, 06/17/2020, Additional history exists GARDASIL-HPV IMMUNIZATION SERIES Aged Out No longer eligible based on patient's age to complete this topic Hepatitis B Aged Out No longer eligi ble based on patient's age to complete this topic MENINGOCOCCAL (MENACTRA/MENVEO) Aged Out No longer eligible based on patient's age to complete this topic documented as of this encounter Medical Devices Implanted Type Area Four Slide Operator Device Identifier Shelf Expiration Date Model / Serial / Lot Lens 6.0 Sa60at - [id number] Implanted:Qty: 1 on 03/23/2007 at OR [facility] Left: Eye BETTY : SURGICAL 08/06/2011 60AT / [id number] / documented as of this encounter [...] Advance Directives occurred with: Patient Care Teams Treatment Supervisor Relationship Specialty Start Date End Date Patricia Doran MD [address] [place] [address] PCP - General 12/17/08 documented as of this encounter
--- OUTSIDE RECORDS SUMMARY | 2023-08-07 11:30 | External Medical Summary ---
Author Name Unknown Address Unknown Organization [id number]:[facility] [place] [address] Laboratory Report Ordering Provider Test Date Status MALACHI MUSA 03/02/2023 12:27:44 Final Observation Date Value Abnormality Reference (Units ) Status SYNC LEUKOCYTES IN BLOOD BY AUTOMATED COUNT 03/02/2023 12:27:44 8.40 4.00-10.80 (K/uL) Final Segs 03/02/2023 12:27:44 61.9 40.0-75.0 (%) Final Lymphs % 03/02/2023 12:27:44 22.9 18.0-42.0 (%) Final Monos 03/02/2023 12:27:44 10.1 1.0-11.0 (%) Final Eosinophils 03/02/2023 12:27:44 4.5 0.0-6.0 (%) Final Basos 03/02/2023 12:27:44 0.6 0.0-2.0 (%) Final Absolute Segs 03/02/2023 12:27:44 5.20 1.80-7.70 (K/uL) Final Lymphs, absolute 03/02/2023 12:27:44 1.92 1.00-4.80 (K/ul) Final Monos, Abs 03/02/2023 12:27:44 0.85 0.00-1.10 (K/uL) Final Eos, Abs 03/02/2023 12:27:44 0.38 0.00-0.70 (K/uL) Final Basos, Abs 03/02/2023 12:27:44 0.05 0.00-0.20 (K/uL) Final Performing Location [facility] [place] [address]
--- OUTSIDE RECORDS SUMMARY | 2023-08-07 11:30 | External Medical Summary ---
Author Name Unknown Address Unknown Organization K09:[facility] [place] [address] Laboratory Report Ordering Provider Test Date Status MALACHI MUSA 03/02/2023 12:27:44 Final Observation Date Value Abnormality Reference (Units ) Status WBC, Total 03/02/2023 12:27:44 8.40 4.00-10.8 0 (K/uL) Final RBC 03/02/2023 12:27:44 4.48 3.85-5.15 (M/uL) Final Hemoglobin 03/02/2023 12:27:44 13.8 12.0-15.3 (g/dL) Final HCT 03/02/2023 12:27:44 43.3 36.0-45.2 (%) Final MCV 03/02/2023 12:27:44 96.7 81.5-97.5 (fL) Final MCH 03/02/2023 12:27:44 30.8 27.0-34.0 (pg) Final MCHC 03/02/2023 12:27:44 31.9 32.0-36.0 (g/dL) Final RDW 03/02/2023 12:27:44 12.7 11.5-15.5 (%) Final Platelets 03/02/2023 12:27:44 314 140-400 (K /uL) Final MPV 03/02/2023 12:27:44 9.5 6.6-11.1 ( fL) Final Performing Location [facility] [place] [address]
--- OUTSIDE RECORDS SUMMARY | 2023-08-07 11:30 | External Medical Summary | Summary of Care ---
Author Name Unknown Organization [facility] Address [address] [place] [address] Phone [phone] Care Team Providers Care Intelligence Analyst Name Role Phone Patricia Doran MD Primary Care Provider + Reason for Visit * Reason Comments Follow Up Encounter Details Date Type Department Care Team Description 03/18/2023 Office Visit Pulmonary Medicine, [facility] [address] [facility] [place] [address] Mc Randall MD [address] [place] [address] Chronic respiratory failure with hypoxia (HCC)* Allergies Active Allergy Reactions Severity Noted Date Comments Bee Venom 06/07/2015 Celecoxib 03/02/2023 Increased BP Erythromycin Base Conjunctivitis 01/17/2010 Opthalmic ointment Lisinopril 02/10/2012 cough Sulfasalazine 02/15/2020 GI upset,swealling in hands documented as of this encounter (statuses as of 03/18/2023) Medications Medication Sig Dispensed Refills Start Date [...] Respimat 2.5 MCG/ACT Inhalation Aerosol Solution (Tiotropium [place] Monohydrate) Inhale 2 Puffs by mouth in [...] than 88%). 1 Each 0 03/04/2023 Active Respiratory Therapy Supplies Device Please provide Acapella Device for expectoration assist as instructed. 1 Each 3 03/18/2023 Active Sodium Chloride 3 % Inhalation Nebulization Solution Inhale 3 mL via nebulizer in the morning and 3 mL at noon and 3 mL before bedtime. 360 mL 0 03/18/2023 3 Active documented as of this encounter (statuses as of 03/18/2023) Active Problems Problem Noted Date Encounter for [...] as of this encounter (statuses as of 03/18/2023) Resolved Problems Problem Noted Date Resolved Date [...] as of this encounter (statuses as of 03/18/2023) Immunizations Name Administration Dates Next Due COVID-19 [...] Sign Reading Time Taken Comments Blood Pressure 126/80 03/18/2023 3:06 PM EDT Pulse 103 03/18/2023 3:06 PM EDT Temperature 36.7 C (98 F) 03/18/2023 3:06 PM EDT Respiratory Rate 22 03/18/2023 3:06 PM EDT Oxygen Saturation 95% 03/18/2023 3:07 PM EDT ra, amb Inhaled Oxygen Concentration - - Weight 66.2 kg (146 lb) 03/18/2023 3:06 PM EDT Height 162.6 cm (5' 4") 03/18/2023 3:06 PM EDT Body Mass Index 25.06 03/18/2023 3:06 PM EDT documented in this [...] as of this encounter Progress Notes * Mc Randall MD - 03/18/2023 3:03 PM EDT 03/18/2023 Pulmonary Medicine, [address] [place] [id number] [phone] Britni Gramajo PHD 1955 female 67 year old Attending Physician Documentation: 67-year-old Citizen Of [place] female, complicated past medical history of advanced RA, asthma, pulmonary nodules, mediastinal adenopathy, hypothyroidism, ambulatory dysfunction, deconditioning, recent history of CVA/TIA, recovering from rehab, presenting for follow-up. Patient has been diagnosed with fungal pneumonia and MAC infection based on bronchoscopy. Being treated with voriconazole therapy. Remains on leflunomide and low-dose prednisone for management of advanced RA. 10/2022- patient had bronchoscopy performed at [facility]. Patient was started on voriconazole at 400 mg BID for aspergillus noted on bronchoscopy while prednisone and plaquenil was continued. PFT Results on 11/17/2022, per Pulmonary note: FEV1 1.73 L, 80 % of predicted FVC 2.06 L, 75 % of predicted FEV1/FVC 84 TLC 3.27 L 70 % RV 1.22 L 63 % DLCO 13.48 units 78 % Chest CT scan: 10/2022 diffuse bronchial wall thickening with scant nodularity noted AFB via bronchoscopy 2022: Culture Growth Mycobacterium avium complex by DNA probe Abnormal +Aspergillus on 10/2022 bronchoscopy 06/2022 RVP positive for rhinovirus. 02/2020: cbc with 440 absolute eosinophils 07/2020: IGA low 431, IGG/IGM normal, alpha 1 normal. Assessment Aspergillosis a. Continue with voriconazole per [facility] pulmonary management plan b. Plan for CT once therapy complete or if symptoms worsen. If this is not ordered by , I will order at next visit c. Room air rest and exercise oximetry showed adequate oxygen saturation, minimum 92%. d. Nocturnal pulse oximetry was ordered e. Hypertonic saline and Acapella device prescriptions were ordered per [facility] pulmonary medicine recommendations Mycobacterium avium complex: Management As per NTM clinic at , current plan for conservative observation Bronchiectasis without exacerbation a. Continue mucinex and flutter device Moderate, persistent asthma. ACT 19 a. PFTs remain stable b. Continue advair BID and prn albuterol Rheumatoid arthritis with immunosuppressive state a. Follows with rheumotology at b. Currently on plaquenil and prednisone-- puts her at risk for inability to clear infection History of pseudomonas pneumonia - All questions and concerns answered to patient's apparent satisfaction. Follow Up: Return in about 3 months (around 06/18/2023) for Clinic Visit. | For: Clinic Visit | Check-out note: RA Fungal Bronchitis MAC on FOB Chronic Hypoxia JHMI and Local f/u Plan: Rest and exercise Oximetry NPOX on RA C/w voriconazole, Low dose prednisone Added HTS Nebs + Acapella F/u 3 months Mc Randall MD Subjective CC: Chief Complaint Patient presents with Follow Up HPI: Nursing Notes: Sarah Moon DICK Hayes 03/18/23 1513 Addendum Pt is here for f/u MAC, aspergillosis, bronchiectasis, asthma, RA, and h/o pseudomonas pneumonia. MMRC Dyspnea Scale = 4 (I am too breathless to leave the house or I am breathless when dressing) Interm History/Respiratory Symptoms Cough: occasional, dry Hemoptysis: no Sinus Symptoms: no Hospitalizations: Was admitted in [place] 01/03-01/07/23 for pneumonia, sepsis, parainfluenza, and CVA. When discharged from hospital she was in rehab for 5 weeks. ED Trips: 01/03/23 Triggers: exertion, humidity, dust Nocturnal: occasional cough, sleeps with head elevated CPAP/BiPAP/O2: O2 2LPM as needed with exertion Flu Vaccine: 2021 Pneumovax: 2019 Prevnar: 2018 COVID 19: 09/10/20, 11/23/20, 12/14/20, 08/25/21 Objective Filed Vitals: 03/18/23 1506 03/18/23 1507 BP: 126/80 Pulse: 103 Resp: 22 Temp: 36.7 C (98 F) TempSrc: Tympanic SpO2: 95% 95% Weight: 66.2 kg (146 lb) Height: 1.626 m (5' 4") Exam: Const: No signs of acute distress present. Head/Face: Normal on inspection. Eyes: Conjunctivae clear. Pupils equal round and reactive to light. ENMT: Oropharynx: No erythema, exudate or masses. Posterior pharynx is normal. Neck: Supple and symmetric. Resp: Respiratory examination as outlined above CV: Rate is regular. Rhythm is regular. No heart murmur appreciated. Extremities: No edema of the lower limbs bilaterally. Abdomen: Positive bowel sounds. Palpation of the abdomen reveals softness, but no distension or tenderness. No palpable hepatosplenomegaly. Musculo: Walks with a normal gait. Skin: Skin is warm and dry. Neuro: Coordination normal. No involuntary movement. Psych: Patient's attitude is cooperative. Mood is normal. Affect is normal. Tests reviewed with the patient: CT CHEST WO CONTRAST Addendum Date: 10/22/2022 Areas of peripheral bronchiectasis, bronchial wall thickening and cavitary nodules have progressed when compared to the previous examination of January 07, 2021. Cavitation has developed within multiple nodules. Specifically, within the left upper lobe on image 38 series 4, within the right upper lobe on image 93 and within the left upper lobe on image 111. THIS DOCUMENT HAS BEEN ELECTRONICALLY SIGNEDBY ARMANDO MOLINA MD Result Date: 10/22/2022 IMPRESSION: 1. Areas of mosaic attenuation are present. Mosaic attenuation may be seen in the setting of bronchiolitis, asthma, infection or pulmonary edema. 2. Areas of peripheral bronchiectasis with nodularity as well as bronchial wall thickening and cavitary nodules. Findings may represent chronic infection, including fungal infection. 3. Gallstones are present. THIS DOCUMENT HAS BEEN ELECTRONICALLY SIGNED BY ARMANDO MOLINA MD XR L SPINE AP AND LATERAL Result Date: 11/29/2022 IMPRESSION 1. No acute fracture. 2. Multilevel degenerative disc changes of the spine. 3. 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 MRI T SPINE WO CONTRAST Result Date: 11/23/2022 Minimal multilevel spondylotic changes of the thoracic and lumbar spine. No high-grade spinal canalor neural foraminal narrowing. See narrative for details. ATTENDING PHYSICIAN AGREEMENT [[id number]]: I have personally reviewed the images and agree with the report without modification. MRI L SPINE WO CONTRAST Result Date: 11/23/2022 Minimal multilevel spondylotic changes of the thoracic and lumbar spine. No high-grade spinal canalor neural foraminal narrowing. See narrative for details. ATTENDING PHYSICIAN AGREEMENT [[id number]]: I have personally reviewed the images and agree with the report without modification. XR SACRUM COCCYX MINIMUM 2 VIEWS Result Date: 11/29/2022 IMPRESSION 1. No acute fracture. 2. Multilevel degenerative disc changes of the spine. 3. 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 XR CHEST 1 VIEW Result Date: 10/29/2022 IMPRESSION: No evidence of acute cardiopulmonary disease. THIS DOCUMENT HAS BEEN ELECTRONICALLY SIGNED BY SAL ROBERTS MD Available Radiologic data was reviewed by me in PACS. The images were shown to the patient and findings were discussed with the patient. HOME MEDICATIONS: Respiratory Therapy Supplies Device Sodium Chloride 3 % Inhalation Nebulization Solution oxygen IN GAS Hydroxychloroquine Sulfate 200 MG Oral Tablet (Plaquenil) Ipratropium-Albuterol 0.5-2.5 (3) MG/3ML Inhalation Solution (Duoneb) oxygen IN GAS Montelukast Sodium 10 MG Oral Tablet (Singulair) Voriconazole 200 MG Oral Tablet (Vfend) Clobetasol Propionate 0.05 % External Gel (Temovate) Dexamethasone 0.5 MG/5ML Oral Elixir (Decadron) Leflunomide 10 MG Oral Tablet (Arava) Levothyroxine Sodium 88 MCG Oral Tablet Timolol Maleate 0.5 % Ophthalmic Solution (Timoptic) Compressor Nebulizer guaiFENesin 100 MG/5ML Oral Liquid diphenhydrAMINE HCl 25 MG Oral Tablet (Benadryl) EpiPen 2-Elmer 0.3 MG/0.3ML Injection Solution Auto-injector ProAir HFA 108 (90 Base) MCG/ACT Inhalation Aerosol Solution Folic Acid 1 MG Oral Tablet loratadine ODT (CLARITIN REDITAB) 10 MG TBDP Dextran 70-Hypromellose (PF) 0.1-0.3 % Ophthalmic Solution predniSONE (DELTASONE) 1 MG Tablet Brinzolamide-Brimonidine 1-0.2 % Ophthalmic Suspension bimatoprost (LUMIGAN) 0.01 % ophthalmic solution Calcium 500 MG Tablet OCUVITE PO TABS MULTIVITAMINS OR TABS Spiriva Respimat 2.5 MCG/ACT Inhalation Aerosol Solution (Tiotropium [place] Monohydrate) Orencia 250 MG Intravenous Solution Reconstituted (Abatacept) fluticasone-salmeterol (ADVAIR DISKUS) 500-50 MCG/DOSE inhaler Clindamycin HCl 300 MG Capsule ROS: No reported history of Hemoptysis, Hematemesis, Melena No reported history of Dysuria, Hematuria, Flank Pain No reported history of chronic headache, seizures No reported history of Fall or trauma . No reported history of recent change in weight or appetite. Past Medical History: Diagnosis Date Allergic rhinitis [...] right middle lobe due to Pseudomonas species ([facility]) 07/17/2020 Protein-calorie malnutrition (HCC) 02/18/2021 Pulmonary nodules 07/17/2020 Restrictive lung disease 07/17/2020 Retinal edema 11/21/2009 Rheumatoid arthritis involving multiple sites with positive rheumatoid factor ([facility]) 02/27/2016 Senile cataract Cataract Senile Urge incontinence of urine 02/24/2019 Past Surgical History: Procedure Laterality Date ANKLE ARTHROSCOPY/SURGERY Right fusion surgery ARTHROPLASTY KNEE TOTAL Right 2015 BRONCHOSCOPY, DIAGNOSTIC N/A 10/29/2022 BRONCHOSCOPY DIAGNOSTIC WITH OR WITHOUT WASHING performed by Mariano Pickard MD at OR [facility] COLONOSCOPY, DIAGNOSTIC (RECTUM) 04/16/2014 adenomatous polyp, repeat 5 yrs/COLONOSCOPY FLEXIBLE PROXIMAL DIAGNOSTIC performed by Palomo Griffiths MD at ENDOSCOPY [facility] COLONOSCOPY, DIAGNOSTIC (RECTUM) 02/26/2021 benign adenomatous polyp, diverticulosis, repeat 5 yrs / COLONOSCOPY FLEXIBLE PROXIMAL DIAGNOSTIC performed by Tevin Razo MD at ENDOSCOPY [facility] EGD, FLEXIBLE, DIAGNOSTIC 08/28/2015 duodenal ulcer, erosive duodenitis, normal bx EGD, FLEXIBLE, DIAGNOSTIC 08/28/2015 ESOPHAGOGASTRODUODENOSCOPY (EGD), FLEXIBLE, TRANSORAL, DIAGNOSTIC performed by Palomo Griffiths MD at ENDOSCOPY [facility] EGD, FLEXIBLE, DIAGNOSTIC 02/26/2021 mild acid reflux / ESOPHAGOGASTRODUODENOSCOPY (EGD), FLEXIBLE, TRANSORAL, DIAGNOSTIC performed by Tevin Razo MD at [facility]OSCOPY [facility] FLUORO GUIDED SPINE INJECTION 10/05/2022 FLUROSCOPIC GUIDANCE AND LOCALIZATION OF NEEDLE OR CATHETER TIP FOR SPINE OR PARASPINOUS DIAGNOSTICperformed by Shubham Sung DO at [facility] PAP DIAGNOSTIC 09/2000 INFORMATION Left 09/13/2017 [...] performed by Shubham Sung DO at OR [facility] REMOVE CATARACT, INSERT LENS PROSTH 03/23/2007 EXTRACAPSULAR [...] Known Problems Daughter No Known Problems Son Review of patient's allergies indicates: Allergen Reactions Bee Venom Celebrex [Celecoxib] Increased BP Erythromycin Base Conjunctivitis Opthalmic ointment Lisinopril cough Sulfasalazine GI upset,swealling in hands documented in this encounter Nursing Notes * Venancio Rebolledo RRT - 03/18/2023 4:14 PM EDT Britni Rox PHD was identified by name, Date of : (1955), and . Vitals were obtained for testing. Body mass index is 25.06 kg/m. Pt was educated on Flutter. Pt demonstrated use.Pt verbalized using it made her more short of breath. Exercise oximetry performed on room air x 6 minutes. Pt ambulated with walker 540 feet/ 165 meters. No rest periods were required. Lowest SPO2 onroom air was 92%. * Sarah Hayes LPN - 03/18/2023 2:59 PM EDT Pt is here for f/u MAC, aspergillosis, bronchiectasis, asthma, RA, and h/o pseudomonas pneumonia. MMRC Dyspnea Scale = 4 (I am too breathless to leave the house or I am breathless when dressing) Interm History/Respiratory Symptoms Cough: occasional, dry Hemoptysis: no Sinus Symptoms: no Hospitalizations: Was admitted in [place] 01/03-01/07/23 for pneumonia, sepsis, parainfluenza, and CVA. When discharged from hospital she was in rehab for 5 weeks. ED Trips: 01/03/23 Triggers: exertion, humidity, dust Nocturnal: occasional cough, sleeps with head elevated CPAP/BiPAP/O2: O2 2LPM as needed with exertion Flu Vaccine: 2021 Pneumovax: 2019 Prevnar: 2018 COVID 19: 09/10/20, 11/23/20, 12/14/20, 08/25/21 documented in this encounter Plan of Treatment Upcoming Encounters Date Type Specialty Care Team Description 03/19/2023 Office Visit Rheumatology Saran Boateng MD [address] [place] [address] 03/25/2023 Office Visit Cardiology Erik Sosa DO [address] [place] [address] 04/09/2023 Office Visit Gynecology Obstetrics Josseline Ceballos CRNP [address] [place] [address] 06/17/2023 Office Visit Internal Medicine Patricia Doran MD [address] [place] [address] 08/02/2023 Office Visit Pulmonary Mc Randall MD [address] [place] [address] 11/05/2023 Office Visit Cardiology Mukesh Laird, DO [address] [place] [address] Scheduled Orders Name Type Priority Associated Diagnoses Orde r Schedule PULSE OX W/ REST/EXERCISE, MULTIPLE (OP) Procedures Routine Chronic respiratory failure with hypoxia (HCC) Expected: 03/18/2023, Expires: 09/18/2023 Scheduled Procedures Name Priority Associated Diagnoses Date/Ti [...] this encounter Medical Devices Implanted Type Area Sedimentationist Device Identifier Shelf Expiration Date Model / Serial / Lot Lens 6.0 Sa60at - [id number] Implanted:Qty: 1 on 03/23/2007 at OR [facility] Left: Eye BETTY : SURGICAL 08/06/2011 SA60AT / [id number] / documented as of this encounter Visit Diagnoses Diagnosis Chronic respiratory failure with hypoxia (HCC)- Primary Chronic respiratory failure documented in this encounter Advance Directives Latest Code Status on File Code Status Date Activated Date Inactivated Comments Full Code 01/03/2021 8:00 PM 01/10/2021 5:07 PM This o rder reflects the patients wishes and were consensually agreed upon. Question Answer Comments Discussion of Advance Directives occurred with: Patient Care Teams Intelligence Analyst Relationship Specialty Start Date End Date Patricia Doran MD [address] [facility] [place] [address] PCP - General 12/17/08 documented as of this encounter
--- OUTSIDE RECORDS SUMMARY | 2023-08-07 11:30 | External Medical Summary | Summary of Care ---
Author Name Unknown Organization [facility] Address [address] [place] [address] Phone [phone] Care Team Providers Care Hanging Flags Decorator Name Role Phone Patricia Doran MD Primary Care Provider + Reason for Referral * Evaluate & Treat - Unlimited Visits (Within 10 days (routine)) - Authorized Specialty Diagnoses / Procedures Referred By Contact Referred To Contact Cardiovascular Medicine / Cardiology Diagnoses Palpitations SOB (shortness of breath) Patricia Doran MD [address] [place] [address] Referral ID Status Reason Start Date Expiration Date Visits Requested Visits Authorized [id number] Authorized Specialty Services Required 03/02/[phone] Question Answer Referral Priority Within 10 days (routine) To which of the following clinics are you referring your patient? General Cardiology Clinic Comments Hx of bronchiectasis, hx of aspergillus, MAAME. Hx of tachycardia related to exertion and sob. Thanks. Reason for Visit * Reason Onset Date Comments Hospital Follow-Up States her ox ygen level drops, HR goes up, extremely tired. Gets to the point where she is sweating then HR drops down. Hospital Follow-Up 03/02/2023 Encounter Details Date Type Department Care Team Description 03/02/2023 Office Visit General Internal Medicine [place] [facility] [address] [place] [address] Patricia Doran MD [address] [place], [place] [address] Diabetes mellitus without complication (HCC)*; Hospital discharge follow-up; Acquired hypothyroidism; Restrictive lung disease; Rheumatoid arthritis involving multiple sites with positive rheumatoid factor (HCC); Moderate persistent asthma without complication; Bronchiectasis without complication (HCC); B12 deficiency; Palpitations; SOB (shortness of breath) Allergies Active Allergy Reactions Severity Noted Date Comments Bee Venom 06/07/2015 Celecoxib 03/02/2023 Increased BP Erythromycin Base Conjunctivitis 01/17/2010 Opthalmic ointment Lisinopril 02/10/2012 cough Sulfasalazine 02/15/2020 GI upset,swealling in hands documented as of this encounter (statuses as of 03/02/2023) Medications Medication Sig Dispensed Refills Start Date [...] daily. 90 Tab 1 07/05/20 20 Active ProAir HFA 108 (90 Base) MCG/ACT Inhalation Aerosol Solution Inhale by mouth 2 Puffs every 4 hours as needed for Cough, Shortness of Breath or Wheezing. 0 06/05/20 21 Active EpiPen 2-Elmer 0.3 MG/0.3ML Injection Solution [...] asthma 1 Each 1 04/23/20 22 Active Spiriva Respimat 2.5 MCG/ACT Inhalation Aerosol Solution (Tiotropium [place] Monohydrate) Inhale 2 Puffs by mouth in the morning. 4 g 11 07/16/20 22 Active Additional Information Patient not taking.Reported on 03/02/2023 Clobetasol Propionate 0.05 % External Gel (Temovate) APPLY A THIN AMOUNT TO AFFECTED AREA TWICE DAILY 0 07/20/20 22 Active Dexamethasone 0.5 MG/5ML Oral Elixir (Decadron) RINSE WITH 1 TEASPOONFUL FOR 2 MINUTES AND EXPECTORATE. USE TWICE DAILY 0 06/23/20 22 Active Leflunomide 10 MG Oral Tablet (Arava) Take 1 Tablet by mouth in the morning. 0 08/14/20 22 Active Levothyroxine Sodium 88 MCG Oral Tablet Take 112 mcg by mouth in the morning. 0 08/03/20 22 Active Timolol Maleate 0.5 % Ophthalmic Solution (Timoptic) INSTILL 1 DROP INTO THE LEFT EYE DAILY 0 08/03/20 22 Active Voriconazole 200 MG Oral Tablet (Vfend) 400 mg twice daily (every 12 hours) on day 1 and day 2, then 200 mg twice a day (every 12 hours) until end of therapy. 90 Tablet 2 11/05/19 23 Active Montelukast Sodium 10 MG Oral Tablet (Singulair)Indica tions:Allergic rhinitis Take 1 Tablet by mouth every evening. 90 Tablet 1 12/30/19 23 Active oxygen IN GAS Administer 2 L/min(Oxygen) into nostril as needed for Shortness of Breath. Diagnosis: MAAME, Bronchiectesis, aspergillus infection of the lung. 1 Each 0 02/27/20 23 Active Hydroxychloroquin e Sulfate 200 MG Oral Tablet (Plaquenil) One and half pill daily 60 Tablet 3 03/02/20 23 Active Ipratropium-Albut rand 0.5-2.5 (3) MG/3ML Inhalation Solution (Duoneb) Inhale 3 mL via nebulizer in the morning and 3 mL at noon and 3 mL in the evening and 3 mL before bedtime. 120 mL 3 03/02/20 23 Active Hydroxychloroquin e Sulfate 200 MG Oral Tablet (Plaquenil) Take 2 Tablets by mouth in the morning. 0 023 Discontinued(Me dication/Dose Changed) Atorvastatin Calcium 40 MG Oral Tablet (Lipitor)Indicati ons:Lacunar infarction (HCC) Take 1 Tablet (40 mg) by mouth in the morning. 30 Tablet 11 07/20/20 22 023 Discontinued Bimatoprost 0.03 % Ophthalmic Solution (Lumigan) INSTILL 1 DROP INTO EACH EYE NIGHTLY 0 08/04/20 22 023 Discontinued Chlorhexidine Gluconate 0.12 % Mouth/Throat Solution (Periogard) RINSE WITH 1 CAPFUL ORALLY FOR 30 SECONDS TWICE DAILY 0 07/17/20 22 023 Discontinued levoFLOXacin 750 MG Oral Tablet (Levaquin) Take 1 Tablet by mouth in the morning. 10 Tablet 0 10/23/19 23 023 Discontinued Benzonatate 100 MG Oral Capsule Take 1 Capsule by mouth 3 times a day as needed for Cough. Please keep out of reach of children. 60 Capsule 1 10/23/19 23 023 Discontinued Celecoxib 100 MG Oral Capsule (CeleBREX) TAKE ONE CAPSULE BY MOUTH EVERY MORNING FOR PAIN 30 Capsule 1 02/20/20 23 023 Discontinued documented as of this encounter (statuses as of 03/02/2023) Active Problems Problem Noted Date Encounter for [...] as of this encounter (statuses as of 03/02/2023) Resolved Problems Problem Noted Date Resolved Date [...] as of this encounter (statuses as of 03/02/2023) Immunizations Name Administration Dates Next Due COVID-19 [...] Sign Reading Time Taken Comments Blood Pressure 102/72 03/02/2023 11:05 AM EDT Pulse 84 03/02/2023 11:05 AM EDT Temperature 36.5 C (97.7 F) 03/02/2023 1 1:05 AM EDT Respiratory Rate - - Oxygen Saturation 96% 03/02/2023 11: 05 AM EDT Inhaled Oxygen Concentration - - Weight 67.1 kg (147 lb 14.4 oz) 023 11:05 AM EDT Height 165.1 cm (5' 5") 03/02/2023 11:0 5 AM EDT Body Mass Index 24.61 03/02/2023 11:05 AM EDT documented in this encounter Functional Status [...] this encounter Patient Instructions * Patient Instructions* Roxanne Aaron LPN - 03/02/2023 11:05 AM EDT Diabetes: Keeping Feet Healthy Inspect your feet every day for signs of a problem. Diabetes can damage nerves in your feet and cause neuropathy. This condition makes it hard for you to feel injuries or sore spots. Diabetes can also change blood flow, making it harder for small problems, like a blister, to heal properly. In fact, minor injuries can quickly become serious infections that send you to the hospital. Practice self-care to protect your feet and keep them healthy. Take Special Care Inspect your feet daily for problems such as redness, blisters, cracks, dry skin, or numbness. Use a mirror to see the bottoms of your feet. Or, ask for help. Manage your diabetes. Monitor and control your blood sugar. Take all your medications as prescribed. Avoid walking barefoot, even indoors. Wash your feet with warm water and mild soap. Dry well, especially between toes. Dont treat corns or calluses yourself. Talk to your doctor or crusher operator (a doctor who specializes in foot care) if you need assistance trimming your toenails. Use moisturizing cream or lotion if you have dry skin, but dont use it between toes. Dont use heating pads on your feet. If you have neuropathy, you could get a burn and not feel it. Stop smoking. Smoking restricts blood flow and can make it harder for wounds to heal. Have Regular Checkups Foot problems can develop quickly. So be sure to follow your healthcare teams schedule for regular checkups. During office visits, take off your shoes and socks as soon as you get in the exam room. Ask your healthcare provider to examine your feet for problems. This will make it easier to find and treat small skin irritations before they get worse. Regular checkups can also help keep track of the blood flow and feeling in your feet. If you have neuropathy, you may need to have checkups more often. Wear Proper Footwear Wearing proper footwear is very important. If areas of your feet have been damaged by too much pressure, your healthcare provider may recommend changing your footwear. In some cases, avoiding high heels or tight work boots may be all thats needed. Or, your healthcare provider may recommend special shoes or custom inserts. These help protect your feet and keep existing irritations from getting worse. If you need special footwear, ask your healthcare provider if you qualify for [employer] diabetic shoe program. Make Sure Shoes and Socks Fit Any pair of shoes--new or old--should feel comfortable as soon as you put them on. There shouldnt be any rubbing when you walk. Wear the right shoe for any activity. For instance, a running shoe is designed to keep your feet injury-free while jogging. Buy shoes at the end of the day, when your feet are larger. Make sure they provide support without feeling too loose. Make sure your socks fit, t oo. Wear soft, seamless, well-padded socks for activity. Cotton or microfiber socks are best to help to absorb sweat. To protect your feet, avoid shoes that are open-toed or open-heeled. If you have questions about what kinds of shoes and socks are best, talk to your healthcare team. Get Regular Exercise Regular exercise improves blood flow in your feet. It also increases foot strength and flexibility.Gentle exercises, like walking or riding a stationary bicycle, are best. You can also do special foot exercises. Just be sure to talk with your healthcare provider before starting any exercise program. Also mention if any exercise causes pain, redness, or other signs of foot problems. Note: If you have any kind of break in the skin of your foot or ankle, keep the area clean. Then call your doctor--especially if the area doesnt appear to be healing. 8834-2526 [employer], [address] [place] [address]. All rights reserved. This information is not intended as a substitute for professional medical care. Always follow your healthcare professional's instructions. documented in this encounter Progress Notes * Patricia Doran MD - 03/02/2023 11:20 AM EDT Images from the original note were not included. History of Present Illness Britni Gramajo PHD is a 67 year old female that presents for Hospital Follow-Up (States her oxygen leveldrops, HR goes up, extremely tired. Gets to the point where she is sweating then HR drops down.) and Hospital Follow-Up Pt is here for the hospital follow up. Chart reviewed from the hospital including admission note, Hand P, consult notes, labs, EKG, imaging and discharge note including discharge meds. Patient states she is feeling better since went back home. Pt was admitted to the [facility] in [place] on 01/03/23 and was discharged on 01/07/23 . Admission Diagnosis : parainfluenze type 3, Pneumonia, CVA, sepsis secondary to Ecoli. Pt had left sided weakness in UE and LE. Pt also had slurred speech. Had syncopal episode. Pt had extensive work up including Ct Head, MRI, EKG, xray chest, CT Chest, labs. Pt was seen by Neurologist. Prior to admission pt was seen by Dr. Kassandra Corral at [facility] in 11/26. Pt has been followed up by block and case maker and specialists. Pt was also Seen by Pulmonary in [place] in 11/26 and was advised follow up after PFT and see dr. Lemon. Pt will make f/u with him. Imagin10/16/[address] IMPRESSION: 1. Areas of mosaic attenuation are present. Mosaic attenuation may be seen in the setting of bronchiolitis, asthma, infection or pulmonary edema. 2. Areas of peripheral bronchiectasis with nodularity as well as bronchial wall thickening and cavitary nodules. Findings may represent chronic infection, including fungal infection. 3. Gallstones are present. States at home with minimal excertion , with PT, with brushing or other routine day to day things, feels tired, sob, and HR goes in 110 to 130. Use of Oxygen as needed helps her when has drop in saturation and tachycardic. States was seen by pulm in [facility]hab and at discharge they gave her a script forO2 concentrator to use oxygen 2 lit /min as needed. Physical Exam Vitals: 03/02/23 1105 Temp: 36.5 C (97.7 F) Pulse: 84 SpO2: 96% BP: 102/72 BMI: 24.61 BP Readings from Last 3 Encounters: 03/02/23 102/72 12/14/22 110/62 10/29/22 126/75 Wt Readings from Last 3 Encounters: 03/02/23 67.1 kg (147 lb 14.4 oz) 12/14/22 67.1 kg (148 lb) 10/29/22 68 kg (150 lb) BMI Readings from Last 3 Encounters: 03/02/23 24.61 kg/m 12/14/22 24.63 kg/m 10/29/22 24.96 kg/m Ht Readings from Last 3 Encounters: 03/02/23 1.651 m (5' 5") 12/14/22 1.651 m (5' 5") 10/29/22 1.651 m (5' 5") Seems in little distress. Accompained by her Dr. winnie SALTER: PERRBRISEYDA, EOMI, anicteric sclera, b/l tympanic membrane is pearly white, no erythema, no pharyngeal erythema, no lymphadenopathy, neck supple CVS: RRR, no murmurs, rubs or gallops, s1 s 2normal. RESP: clear to auscultation, no wheezing or crackles ABD: soft, NT/ND EXT: no edema, cyanosis, peripheral pulses palpable bilaterally No large joint swelling, no redness, range of motion normal. Skin dry Gait normal. Mood stable No focal weakness I have reviewed the following results: CMP, Lipid Panel and Hemoglobin A1C Assessment and Plan Diabetes mellitus without complication (HCC) (Primary) - DIABETES FOOT EXAM - HEMOGLOBIN A1C; Future; Expected date: 03/02/2023 - ALBUMIN / CREATININE RATIO, URINE; Future; Expected date: 03/02/2023 Hospital discharge follow-up - DISCH MED RECON CUR MED LIS - DISCH MED RECON CUR MED LIS Acquired hypothyroidism - TSH; Future; Expected date: 03/02/2023 Restrictive lung disease Rheumatoid arthritis involving multiple sites with positive rheumatoid factor (HCC) - COMPREHENSIVE METABOLIC PANEL; Future; Expected date: 03/02/2023 - CBC WITH WBC DIFFERENTIAL; Future; Expected date: 03/02/2023 Moderate persistent asthma without complication continue duoneb. Bronchiectasis without complication (HCC) Follow up with pulmonary. B12 deficiency - VITAMIN B12; Future; Expected date: 03/02/2023 Palpitations - EXTERNAL EKG 8 TO 15 DAYS HOME ENROLLMENT; Future; Expected date: 03/03/2023 - CARDIOLOGY REFERRAL OP SOB (shortness of breath) - EXTERNAL EKG 8 TO 15 DAYS HOME ENROLLMENT; Future; Expected date: 03/03/2023 - CARDIOLOGY REFERRAL OP Other orders - Ipratropium-Albuterol 0.5-2.5 (3) MG/3ML Inhalation Solution (Duoneb); Inhale 3 mL via nebulizer in the morning and 3 mL at noon and 3 mL in the evening and 3 mL before bedtime. Wrap-Up Time: I spent a total of 40-54 minutes (exact time 40 mins) on the date of service in preparation, delivery, and documentation of the care provided to Britni Gramajo PHD excluding any time spent in the performance of separately billed services. * Roxanne Aaron LPN - 03/02/2023 11:05 AM EDT DM Foot Exam completed today. Provider aware. Roxanne Aaron LPN Socks and Shoes Removed for Annual Diabetic Foot Screening RIGHT FOOT: No Reddened, Cracking, Or Open Areas Noted. RIGHT Dorsalis Pedis Pulse: Palpable RIGHT Posterior Tibial Pulse: Palpable RIGHT Monofilament:Patient reports feeling monofilament pressure on plantar surface of foot LEFT FOOT: No Reddened, Cracking or Open Areas Noted. LEFT Dorsalis Pedis Pulse: Palpable LEFT Posterior Tibial Pulse: Palpable LEFT Monofilament:Patient reports feeling monofilament pressure on plantar surface of foot Do you need diabetic shoes: No documented in this encounter Nursing Notes * Roxanne Aaron LPN - 03/02/2023 11:04 AM EDT Chief Complaint Patient presents with Hospital Follow-Up States her oxygen level drops, HR goes up, extremely tired. Gets to the point where she is sweatingthen HR drops down. Zio XT patch applied per order. Patient will wear for 14 days. Went through instruction booklet with patient and allowed time for any questions to be asked and answered. Patient tolerated application process well. Will wear patch #[id number] until 02/28/2023 at approximately 12:10pm. documented in this encounter Plan of Treatment Upcoming Encounters Date Type Specialty Care Team Description 03/18/2023 Office Visit Pulmonary PrakashMc MD [address] [place] [address] 03/19/2023 Office Visit Rheumatology Saran Boateng MD [address] [place] [address] 03/25/2023 Office Visit Cardiology rEik Sosa, DO [address] [place] [address] 04/09/2023 Office Visit Gynecology Obstetrics Josseline Ceballos CRNP [address] [place] [address] 06/17/2023 Office Visit Internal Medicine Patricia Doran MD [address] [facility] [place] [address] 11/05/2023 Office Visit Cardiology Mukesh Laird, DO [address] [place] [address] Pending Results Name Type Priority Associated Diagnoses Date /Time HEMOGLOBIN A1C Lab Routine Diabetes mellitus without complication (HCC) 03/02/2023 12:27 PM EDT TSH Lab Routine Acquired hypothyroidism 03/02/2023 12:27 PM EDT COMPREHENSIVE METABOLIC PANEL Lab Routine Rheumatoid arthritis involving multiple sites with positive rheumatoid factor (HCC) 03/02/2023 12:27 PM EDT VITAMIN B12 Lab Routine B12 deficiency 03/02/2023 12:27 PM EDT Scheduled Orders Name Type Priority Associated Diagnoses Orde r Schedule HEMOGLOBIN A1C Lab Routine Diabetes mellitus without complication (HCC) Expected: 03/02/2023 (Approximate), Expires: 04/01/2024 ALBUMIN / CREATININE RATIO, URINE Lab Routine Diabetes mellitus without complication (HCC) Expected: 03/02/2023 (Approximate), Expires: 03/02/2024 TSH Lab Routine Acquired hypothyroidism Expected: 03/02/2023 (Approximate), Expires: 03/01/2024 COMPREHENSIVE METABOLIC PANEL Lab Routine Rheumatoid arthritis involving multiple sites with positive rheumatoid factor (HCC) Expected: 03/02/2023 (Approximate), Expires: 03/01/2024 VITAMIN B12 Lab Routine B12 deficiency Expected: 03/02/2023 (Approximate), Expires: 03/01/2024 EXTERNAL EKG 8 TO 15 DAYS HOME ENROLLMENT Holter Routine Palpitations SOB (shortness of breath) Expected: 03/03/2023 (Approximate), Expires: 03/02/2024 Scheduled Procedures Name Priority Associated Diagnoses Date/Ti [...] 10/20/2021 08/25/2021, 12/14/2020, 11/23/2020, Additional history exists HbA1c 01/28/2023 07/31/2022, 02/06, 07/24/2021, Additional history exists Albumin/Creatinine Ratio 03/05/2023 022, 02/18/2021, 06/20/2019, Additional history exists Mammogram 03/05/2023 03/05/2022, 06/07, 02/20/2020, Additional history exists TSH 07/31/2023 07/31/2022, 02/06, 07/24/2021, Additional history exists GFR 11/07/2023 11/06/2022, 07/08, 06/08/2022, Additional history exists DIABETES-FOOT EXAM 03/02/2024 03/02/2023, 0 03/05/2022, 06/17/2020, Additional history exists Pneumococcal Vaccine: 65+ Years [...] this encounter Medical Devices Implanted Type Area Small Arms Artillery Repairer Device Identifier Shelf Expiration Date Model / Serial / Lot Lens 6.0 Sa60at - [id number] Implanted:Qty: 1 on 03/23/2007 at OR [facility] Left: Eye BETTY : SURGICAL 08/06/2011 SA60AT / [id number] / documented as of this encounter Procedures Procedure Name Priority Date/Time Associated Diagnosis Comments DIFFERENTIAL, AUTOMATED Routine 03/02/2023 12:27 PM EDT Rheumatoid arthritis involving multiple sites with positive rheumatoid factor (HCC) CBC WITH WBC DIFFERENTIAL Routine 03/02/2023 12:27 PM EDT Rheumatoid arthritis involving multiple sites with positive rheumatoid factor (HCC) CBC Routine 03/02/2023 12:27 PM EDT Rheumatoid arthritis involving multiple sites with positive rheumatoid factor (HCC) documented in this encounter Results * DIFFERENTIAL, AUTOMATED (03/02/2023 12:27 PM EDT) WBC 8.40 4.00 - 10.80 K/uL 03/02/2023 12:39 PM EDT [facility]- Neutrophils % 61.9 40.0 - 75.0 % 03/02/2023 12:39 PM EDT [facility]- Lymphocytes % 22.9 18.0 - 42.0 % 03/02/2023 12:39 PM EDT [facility]- Monocytes % 10.1 1.0 - 11.0 % 03/02/2023 12:39 PM EDT [facility]- Eosinophils % 4.5 0.0 - 6.0 % 03/02/2023 12:39 PM EDT [facility]- Basophils % 0.6 0.0 - 2.0 % 03/02/2023 12:39 PM EDT [facility]- Absolute Neutrophils 5.20 1.80 - 7.70 K/uL 03/02/2023 12:39 PM EDT [facility]- Absolute Lymphocytes 1.92 1.00 - 4.80 K/ul 03/02/2023 12:39 PM EDT [facility]- Absolute Monocytes 0.85 0.00 - 1.10 K/uL 03/02/2023 12:39 PM EDT [facility]- Absolute Eosinophils 0.38 0.00 - 0.70 K/uL 03/02/2023 12:39 PM EDT [facility]- Absolute Basophils 0.05 0.00 - 0.20 K/uL 03/02/2023 12:39 PM EDT [facility]- Blood Venous blood specimen / Unknown Venipuncture / Unknown 03/02/2023 12:27 PM EDT 03/02/2023 12:27 PM EDT Patricia Doran MD LAB BLOOD ORDERA BLES [facility] [address]- [address] [place] [address] * CBC (03/02/2023 12:27 PM EDT) WBC 8.40 4.00 - 10.80 K/uL 03/02/2023 12:39 PM [address]T [address] RBC 4.48 3.85 - 5.15 M/uL 03/02/2023 12:39 PM EDT [place] [address] HGB 13.8 12.0 - 15.3 g/dL 03/02/2023 12:39 PM EDT [place] [address] HCT 43.3 36.0 - 45.2 % 03/02/2023 12:39 PM EDT [address] MCV 96.7 81.5 - 97.5 fL 03/02/2023 12:39 PM EDT [address] MCH 30.8 27.0 - 34.0 pg 03/02/2023 12:39 PM EDT [place] [address] MCHC 31.9 32.0 - 36.0 g/dL 03/02/2023 12:39 PM EDT [place] [address] RDW 12.7 11.5 - 15.5 % 03/02/2023 12:39 PM EDT [address] PLT 314 140 - 400 K/uL 03/02/2023 12:39 PM EDT [place] [address] MPV 9.5 6.6 - 11.1 fL 03/02/2023 12:39 PM EDT [place] [address] Blood Venous blood specimen / Unknown Venipuncture / Unknown 03/02/2023 12:27 PM EDT 03/02/2023 12:27 PM EDT Patricia Doran MD LAB BLOOD ORDERA BLES [place] [address] [place] [address] documented in this encounter Visit Diagnoses Diagnosis Diabetes mellitus without complication (HCC)- Primary Type II or unspecified type diabetes mellitus without mention of complication, not stated as uncontrolled Hospital discharge follow-up Other follow-up examination Acquired hypothyroidism Unspecified hypothyroidism Restrictive lung disease Other diseases of lung, not elsewhere classified Rheumatoid arthritis involving multiple sites with positive rheumatoid factor (HCC) Moderate persistent asthma without complication Unspecified asthma Bronchiectasis without complication (HCC) Bronchiectasis without acute exacerbation B12 deficiency Other B-complex deficiencies Palpitations SOB (shortness of breath) Shortness of breath documented in this encounter Advance Directives Latest Code Status on File Code Status Date Activated Date Inactivated Comments Full Code 01/03/2021 8:00 PM 01/10/2021 5:07 PM This o rder reflects the patients wishes and were consensually agreed upon. Question Answer Comments Discussion of Advance Directives occurred with: Patient Care Teams Hanging Flags Decorator Relationship Specialty Start Date End Date Patricia Doran MD [address] [place] [address] [id number] PCP - General 12/17/08 documented as of this encounter
--- OUTSIDE RECORDS SUMMARY | 2023-08-07 11:30 | External Medical Summary | Summary of Care ---
Author Name Unknown Organization [facility] Address [address] [address] Phone [phone] Care Team Providers Care Skiver Uppers Or Linings Name Role Phone Patricia Doran MD Primary Care Provider + Reason for Visit * Reason Onset Date Comments Test Results 03/03/2023 Encounter Details Date Type Department Care Team Description 03/03/2023 Telephone General Internal Medicine [facility] [address] [place] [address] Patricia Doran MD [address] [place] [address] Test Results Allergies Active Allergy Reactions Severity Noted Date Comments Bee Venom 06/07/2015 Celecoxib 03/02/2023 Increased BP Erythromycin Base Conjunctivitis 01/17/2010 Opthalmic ointment Lisinopril 02/10/2012 cough Sulfasalazine 02/15/2020 GI upset,swealling in hands documented as of this encounter (statuses as of 03/03/2023) Medications Medication Sig Dispensed Refills Start Date [...] Respimat 2.5 MCG/ACT Inhalation Aerosol Solution (Tiotropium [place] Monohydrate) Inhale 2 Puffs by mouth in [...] before bedtime. 120 mL 3 03/02/2023 Active documented as of this encounter (statuses as of 03/03/2023) Active Problems Problem Noted Date Encounter for [...] as of this encounter (statuses as of 03/03/2023) Resolved Problems Problem Noted Date Resolved Date [...] as of this encounter (statuses as of 03/03/2023) Immunizations Name Administration Dates Next Due COVID-19 [...] Telephone Encounter - Harpal Nieves CMA - 03/03/2023 2:07 PM EDT Patient aware and verbalized understanding * Telephone Encounter - Harpal Nieves CMA - 03/03/2023 2:06 PM EDT ----- Message from Patricia Doran MD sent at 03/03/2023 11:38 AM EDT ----- All recent labs normal. TSH still low. Can repeat labs in 2 months. Hba1c 5.5. Continue all current meds and keep all scheduled visit. documented in this encounter Plan of Treatment Upcoming Encounters Date Type Specialty Care Team Description 03/18/2023 Office Visit Pulmonary [facility] [address] [facility] [id number] 03/19/2023 Office Visit Rheumatology Saran Boateng MD [address] [place] [address] 03/25/2023 Office Visit Cardiology Erik Sosa DO [address] [place] [address] 04/09/2023 Office Visit Gynecology Obstetrics Josseline Ceballos CRNP [address] [place] [address] 06/17/2023 Office Visit Internal Medicine Patricia Doran MD [address] [facility] [place] [address] 11/05/2023 Office Visit Cardiology Mukesh Laird DO [address] [place] [address] Scheduled Procedures Name Priority Associated Diagnoses Date/Ti [...] 06/17/2020, Additional history exists GFR 03/02/2024 03/02/2023, 03/11/2022, 07/31/2022, Additional history exists TSH 03/02/2024 03/02/2023, 07/08, 03/05/2022, Additional history exists Pneumococcal Vaccine: 65+ Years (4 - PPSV23 if available, else PCV20) 06/20/2024 06/20/2019, 01/20/2018, 11/08/2008 DTaP,Tdap,and Td Vaccines (3 - Td or Tdap) 02/26/2025 02/26/2015, 03/18/2011 COLONOSCOPY-EVERY 5 YRS AGES 18-100 02/26/2026 02/26/2021, 02/26/2021, 04/16/2014, Additional history exists Lipid Panel 07/24/2026 07/24/2021, 0 05/2020, 09/20/2019, Additional history exists DXA Scan [...] this encounter Medical Devices Implanted Type Area Cutter Head Sharpener Device Identifier Shelf Expiration Date Model / Serial / Lot Lens 6.0 Sa60at - [id number] Implanted:Qty: 1 on 03/23/2007 at OR [facility] Left: Eye BETTY : SURGICAL 08/06/2011 SA60AT / [id number] / documented as of this encounter Advance Directives Latest Code Status on File Code Status Date Activated Date Inactivated Comments Full Code 01/03/2021 8:00 PM 01/10/2021 5:07 PM This o rder reflects the patients wishes and were consensually agreed upon. Question Answer Comments Discussion of Advance Directives occurred with: Patient Care Teams Skiver Uppers Or Linings Relationship Specialty Start Date End Date Patricia Doran MD [address] [place] [address] PCP - General 12/17/08 documented as of this encounter
--- OUTSIDE RECORDS SUMMARY | 2023-08-07 11:30 | External Medical Summary ---
Author Name Unknown Address Unknown Organization [id number]:[facility] [place] - [address] [place] [address] Laboratory Report Ordering Provider Test Date Status MALACHI MUSA 03/02/2023 12:27:44 Final Observation Date Value Abnormality Reference (Units ) Status BUN 03/02/2023 12:27:44 11 6-20 (mg/dL) Final Creatinine 03/02/2023 12:27:44 0.8 0.5-1.0 (mg/dL) Final Glomerular filtration rate/1.73 sq M.predicted [Volume Rate/Area] in Serum, Plasma or Blood by Creatinine-based formula (CKD-EPI) 03/02/2023 12:27:44 80 >=60 (mL/min) Final eGFR is calculated based on the CKD-EPI 2020 equation SODIUM 03/02/2023 12:27:44 140 135-146 (m mol/L) Final Potassium 03/02/2023 12:27:44 4.4 3.5-5.1 (m mol/L) Final Cl 03/02/2023 12:27:44 106 98-107 (mm ol/L) Final CO2 03/02/2023 12:27:44 21 Below low normal 22- 32 (mmol/L) Final Anion gap 03/02/2023 12:27:44 13 7-15 (mmol /L) Final Glucose 03/02/2023 12:27:44 121 Above high normal 70 -120 (mg/dL) Final Albumin 03/02/2023 12:27:44 4.0 3.8-5.0 (g /dL) Final AST (Aspartate aminotransferase) 03/02/2023 12:27:44 25 10-35 (U/L) Fin al Alk Phos 03/02/2023 12:27:44 70 35-130 (U/ L) Final Bilirubin, Total 03/02/2023 12:27:44 0.2 <=1 .2 (mg/dL) Final Calcium 03/02/2023 12:27:44 9.2 8.4-10.2 ( mg/dL) Final Protein 03/02/2023 12:27:44 6.8 6.0-8.3 (g /dL) Final ALT (Alanine aminotransferase) 03/02/2023 12:27:44 20 10-35 (U/L) Phil cleaning Performing Location [facility] - [facility] [address] [facility] [address]
--- OUTSIDE RECORDS SUMMARY | 2023-08-07 11:30 | External Medical Summary ---
Author Name Unknown Address Unknown Organization [id number]:[facility] [place] [address] [place] [address] Laboratory Report Ordering Provider Test Date Status MALACHI MUSA 03/02/2023 12:27:44 Final Observation Date Value Abnormality Reference (Units ) Status HbA1C 03/02/2023 12:27:44 5.5 4.0-5.6 (% ) Final The use of HbA1c to monitor glycemic status is based on normal hemoglobin and HbA composition. This test should not be used in patients with abnormal hemoglobin that affects the half life of the red blood cell or the in vivo glycation rates. Glucose, estimated average 03/02/2023 12:27:44 111 <126 (mg/dL) Final Performing Location [facility] - [address] [place] [address]
--- OUTSIDE RECORDS SUMMARY | 2023-08-07 11:30 | External Medical Summary ---
Author Name Unknown Address Unknown Organization [id number]:[facility] [place] [address] [place] [address] Laboratory Report Ordering Provider Test Date Status MALACHI MUSA 03/02/2023 12:27:44 Final Observation Date Value Abnormality Reference (Units ) Status Vitamin B12 03/02/2023 12:27:44 >2000 Above high normal 232-1245 (pg/mL) Final Performing Location [facility] - [address] [place] [address]
--- OUTSIDE RECORDS SUMMARY | 2023-08-07 11:31 | External Medical Summary | Summary of Care ---
Author Name Unknown Organization [facility] Address [address] [facility] [place] [address] Phone [phone] Care Team Providers Care Visual Supervisor Name Role Phone Patricia Doran MD Primary Care Provider + Reason for Visit * Reason Onset Date Comments Test Results 02/24/2023 AFB culture Encounter Details Date Type Department Care Team Description 02/24/2023 Telephone Pulmonary Medicine, [facility] [address] [facility] [place] [address] Mariano Pickard [facility] [address] [facility] [address] Test Results (AFB culture) Allergies Active Allergy Reactions Severity Noted Date Comments Bee Venom 06/07/2015 Erythromycin Base Conjunctivitis 01/17/2010 Opthalmic ointment Lisinopril 02/10/2012 cough Sulfasalazine 02/15/2020 GI upset,swealling in hands documented as of this encounter (statuses as of 02/24/2023) Medications Medication Sig Dispensed Refills Start Date [...] mouth daily. 90 Tab 1 07/05/2020 Active Hydroxychloroquine Sulfate 200 MG Oral Tablet (Plaquenil) Take 2 Tablets by mouth in the morning. 0 Active ProAir HFA 108 (90 Base) MCG/ACT [...] Respimat 2.5 MCG/ACT Inhalation Aerosol Solution (Tiotropium [place] Monohydrate) Inhale 2 Puffs by mouth in the morning. 4 g 11 07/16/2022 Active Atorvastatin Calcium 40 MG Oral Tablet (Lipitor)Indication s:Lacunar infarction (HCC) Take 1 Tablet (40 mg) by mouth in the morning. 30 Tablet 11 07/20/2022 Active Additional Information Patient not taking.Reported on 10/29/2022 Bimatoprost 0.03 % Ophthalmic Solution (Lumigan) INSTILL 1 DROP INTO EACH EYE NIGHTLY 0 08/04/2022 Active Chlorhexidine Gluconate 0.12 % Mouth/Throat Solution (Periogard) RINSE WITH 1 CAPFUL ORALLY FOR 30 SECONDS TWICE DAILY 0 07/17/2022 Active Clobetasol Propionate 0.05 % External Gel (Temovate) APPLY A THIN AMOUNT TO AFFECTED AREA TWICE DAILY 0 07/20/2022 Active Dexamethasone 0.5 MG/5ML Oral Elixir (Decadron) RINSE WITH 1 TEASPOONFUL FOR 2 MINUTES AND EXPECTORATE. USE TWICE DAILY 0 06/23/2022 Active Leflunomide 10 MG Oral Tablet (Arava) Take 1 Tablet by mouth in the morning. 0 08/14/2022 Active Levothyroxine Sodium 112 MCG Oral Tablet (Levoxyl) Take 1 Tablet by mouth in the morning. 0 08/03/2022 Active Timolol Maleate 0.5 % Ophthalmic Solution (Timoptic) INSTILL 1 DROP INTO THE LEFT EYE DAILY 0 08/03/2022 Active levoFLOXacin 750 MG Oral Tablet (Levaquin) Take 1 Tablet by mouth in the morning. 10 Tablet 0 10/23/2022 Active Benzonatate 100 MG Oral Capsule Take 1 Capsule by mouth 3 times a day as needed for Cough. Please keep out of reach of children. 60 Capsule 1 10/23/2022 Active Voriconazole 200 MG Oral Tablet (Vfend) 400 mg twice daily (every 12 hours) on day 1 and day 2, then 200 mg twice a day (every 12 hours) until end of therapy. 90 Tablet 2 11/04/2022 Active Montelukast Sodium 10 MG Oral Tablet (Singulair)Indicati ons:Allergic rhinitis Take 1 Tablet by mouth every evening. 90 Tablet 1 12/29/2022 Active Celecoxib 100 MG Oral Capsule (CeleBREX) TAKE ONE CAPSULE BY MOUTH EVERY MORNING FOR PAIN 30 Capsule 1 02/19/2023 Active documented as of this encounter (statuses as of 02/24/2023) Active Problems Problem Noted Date Encounter for [...] as of this encounter (statuses as of 02/24/2023) Resolved Problems Problem Noted Date Resolved Date [...] as of this encounter (statuses as of 02/24/2023) Immunizations Name Administration Dates Next Due COVID-19 [...] Split, I IV3, With Preserve, Inj 06/10/2015,08/04/2013 TDAP (age 11 and older)(Adacel) 03/18/2011 Zoster [...] encounter Miscellaneous Notes * Telephone Encounter - Jaden Boyer - 02/24/2023 3:15 PM EDT Pt is scheduled for March 18 at 3:00pm. Patient is aware. * Telephone Encounter - Kim Fonseca LPN - 02/24/2023 9:06 AM EDT AFB from 10/29/22 are still preliminary, but the susceptibilities from [facility] are back on the specimen. Please review and advise if treatment is needed. Pt was scheduled for follow up on 03/19/23 with Archana Millard, but the appointment has been cancelled and not rescheduled. Please reach out to the patient to schedule a follow up with Dr. Randall in March. documented in this encounter Plan of Treatment Upcoming Encounters Date Type Specialty Care Team Description 03/18/2023 Office Visit Pulmonary Mc Randall MD [address] [place] [address] 03/19/2023 Office Visit Rheumatology Saran Boateng MD [address] [facility], [place] [address] 04/09/2023 Office Visit Gynecology Obstetrics Josseline Ceballos CRNP [address] [place] [address] 11/05/2023 Office Visit Cardiology Mukesh Laird DO [address] [place] [address] Scheduled Procedures Name Priority Associated Diagnoses Date/Ti me COLONOSCOPY FLEXIBLE PROXIMAL DIAGNOSTIC Recall History of colon polyps Health Maintenance Due Date Last Done Comments DIABETES-EYE EXAM 06/20/2020 06/20/2019, , 06/24/2011, Additional history exists DTaP,Tdap,and Td Vaccines (2 - Td or Tdap) 03/18/2021 03/18/2011 Depression Screening, Annual for Pts 12 and Over 05/21/2021 05/21/2020 COVID-19 Vaccine (5 - Booster) 10/20/2021 08/25/2021, 12/14/2020, 11/23/2020, Additional history exists HbA1c 01/28/2023 07/31/2022, 02/06, 07/24/2021, Additional history exists Albumin/Creatinine Ratio 03/05/2023 022, 02/18/2021, 06/20/2019, Additional history exists DIABETES-FOOT EXAM 03/05/2023 03/05/2022, 1 , 06/20/2019 Mammogram 03/05/2023 03/05/2022, 06/07, 02/20/2020, Additional history exists TSH 07/31/2023 07/31/2022, 02/06, 07/24/2021, Additional history exists GFR 11/07/2023 11/06/2022, 07/08, 06/08/2022, Additional history exists Pneumococcal Vaccine: 65+ Years (4 - PPSV23 if available, else PCV20) 06/20/2024 06/20/2019, 01/20/2018, 11/08/2008 COLONOSCOPY-EVERY 5 YRS AGES 18-100 02/26/2026 02/26/2021, [...] this encounter Medical Devices Implanted Type Area Back Tender Fourdrinier Device Identifier Shelf Expiration Date Model / Serial / Lot Lens 6.0 Sa60at - [id number] Implanted:Qty: 1 on 03/23/2007 at OR [facility] Left: Eye BETTY : SURGICAL 08/06/2011 SA60AT / [id number] / documented as of this encounter Advance Directives Latest Code Status on File Code Status Date Activated Date Inactivated Comments Full Code 01/03/2021 8:00 PM 01/10/2021 5:07 PM This o rder reflects the patients wishes and were consensually agreed upon. Question Answer Comments Discussion of Advance Directives occurred with: Patient Care Teams Visual Supervisor Relationship Specialty Start Date End Date Patricia Doran MD [address] [facility] [place] [address] PCP - General 12/17/08 documented as of this encounter
--- OUTSIDE RECORDS SUMMARY | 2023-08-07 11:31 | External Medical Summary | Summary of Care ---
Author Name Unknown Organization [facility] Address [address] [facility] [place] [address] Phone [phone] Care Team Providers Care Senior Systems Software Engineer Name Role Phone Patricia Doran MD Primary Care Provider + Reason for Visit * Reason Onset Date Comments Referral 02/25/2023 Appointment 02/25/2023 Order Request 02/25/2023 Encounter Details Date Type Department Care Team Description 02/25/2023 Telephone General Internal Medicine [facility] [place] [address] [facility] [place] [address] Patrciia Doran MD [address] [place] [address] Referral; Appointment; Order Request Allergies Active Allergy Reactions Severity Noted Date Comments Bee Venom 06/07/2015 Erythromycin Base Conjunctivitis 01/17/2010 Opthalmic ointment Lisinopril 02/10/2012 cough Sulfasalazine 02/15/2020 GI upset,swealling in hands documented as of this encounter (statuses as of 02/26/2023) Medications Medication Sig Dispensed Refills Start Date [...] Respimat 2.5 MCG/ACT Inhalation Aerosol Solution (Tiotropium [place] Monohydrate) Inhale 2 Puffs by mouth in [...] FOR PAIN 30 Capsule 1 02/19/2023 Active oxygen IN GAS Administer 2 L/min(Oxygen) into nostril as needed for Shortness of Breath. Diagnosis: MAAME, Bronchiectesis, aspergillus infection of the lung. 1 Each 0 02/26/2023 Active documented as of this encounter (statuses as of 02/26/2023) Active Problems Problem Noted Date Encounter for [...] as of this encounter (statuses as of 02/26/2023) Resolved Problems Problem Noted Date Resolved Date [...] as of this encounter (statuses as of 02/26/2023) Immunizations Name Administration Dates Next Due COVID-19 [...] encounter Miscellaneous Notes * Telephone Encounter - Roxanne Aaron LPN - 02/26/2023 3:58 PM EDT Patient will need to be seen before order for oxygen can be placed. He will need a walking pulse oxtest done and it will need sent with the order along with the chart notes. * Telephone Encounter - Patricia Doran MD - 02/26/2023 3:52 PM EDT Noted. We may have to put the script for portable oxygen differently or under DME. Diagnosis as per in previous script. Pt needs hospital follow up and after that Can send a note. Please help pt with scheduling. Also pt and her who is a physican were asking for a script eventhough not covered under medicare. Can we check how much would be the cost out of pocket without coverage? * Telephone Encounter - JULIUS Bridges - 02/26/2023 12:43 PM EDT Andrew stating she received a fax for Oxygen for patient and unsure what the order is asking for. She also states it was sent without any office notes or testing and the script itself is not even valid. She is leaving at 1 pm today, can leave message. * Telephone Encounter - JULIUS Alejandre - 02/26/2023 11:25 AM EDT Called pt, scheduled ZIO visit on 03/02. Faxed O2 order to [facility] [employer] [facility] 02/26 * Telephone Encounter - Patricia Doran MD - 02/26/2023 8:17 AM EDT Orders for ZIO and oxygen signed. Pt can come for nurse visit or schedule hospital follow up with me next week and we can put zio same day unless long wait to see me.please help with scheduling and can fax the order to requested supplier, I believe she preferred [facility] * Telephone Encounter - Brennan Marie LPN - 02/25/2023 5:06 PM EDT Provider to address: Patricia Doran MD Reason for Call: Referral, Appointment, and Order Request Contact: Telephone Call Contact Type: Care Coordination Outcome: Pt informed and verbalized understanding. Oxygen order pended. Pt does not have a preference for the supplier. Routing this to Scheduling to move up appointment times. She requested the soonest possible appointment for the zio monitor, whether that is a nurse visit or a follow up visit will depend on scheduling. Total Time including non face to face (minutes): 20 * Telephone Encounter - Patricia Doran MD - 02/25/2023 4:[address] Gramajo has chronic lung changes, MAAME, Aspergillus, Bronchiectesis.hx of CVA, significant leg weakness. Pt and her who is a physician states since she came back from her hospital stay and rehab stay in [facility], her HR goes in 120 to 130's and use of oxygen 2 lit/min as needed helps her to improve tachycardia and helps with her sob. O2 sat at times drops to 88 to 90 with excertion. Pt was using oxygen at rehab facility. Requesting continuation of oxygen 2 lit/min as needed and portable oxygen. They do prefer [facility] supply. Please pend the script. Needs sooner visit with cardiology And with me for hospital follow up. Please help with scheduling. Pt also will need zio monitor while waiting for visit with cardiology. Can do at hospital f/u visitwith me or can come sooner for nurse visit. documented in this encounter Plan of Treatment Upcoming Encounters Date Type Specialty Care Team Description 03/02/2023 Nurse Only Ancillary Nurse Pasha Alvarez [address] [place] [address] 03/18/2023 Office Visit Pulmonary Mc Randall MD [address] [facility] [place] [address] 03/19/2023 Office Visit Rheumatology Saran Boateng MD [address] [facility] [place], [place] [address] 04/09/2023 Office Visit Gynecology Obstetrics Josseline Ceballos CRNP [address] [place] [address] 11/05/2023 Office Visit Cardiology Mukesh Laird DO [address] [place] [address] Scheduled Orders Name Type Priority Associated Diagnoses Orde r Schedule EXTERNAL EKG 8 TO 15 DAYS Holter Routine Palpitations Expected: 02/27/2023 (Approximate), Expires: 02/27/2024 Scheduled Procedures Name Priority Associated Diagnoses Date/Ti [...] Additional history exists Pap Smear Discontinued 05/19/2019, 0301/2009, 11/08/2008 Zoster Vaccines Completed 06/17/2020, 03/14/2020 Influenza [...] this encounter Medical Devices Implanted Type Area Manager Fashion Device Identifier Shelf Expiration Date Model / Serial / Lot Lens 6.0 Sa60at - [id number] Implanted:Qty: 1 on 03/23/2007 at OR [facility] Left: Eye BETTY : SURGICAL 08/06/2011 SA60AT / [id number] / documented as of this encounter Visit Diagnoses Diagnosis Palpitations- Primary documented in this encounter Advance Directives Latest Code Status on File Code Status Date Activated Date Inactivated Comments Full Code 01/03/2021 8:00 PM 01/10/2021 5:07 PM This o rder reflects the patients wishes and were consensually agreed upon. Question Answer Comments Discussion of Advance Directives occurred with: Patient Care Teams Senior Systems Software Engineer Relationship Specialty Start Date End Date Patricia Doran MD [address] [facility] [place] [address] PCP - General 12/17/08 documented as of this encounter
--- OUTSIDE RECORDS SUMMARY | 2023-08-07 11:31 | External Medical Summary | Summary of Care ---
Author Name Unknown Organization [facility] Address [address] [facility] [place] [address] Phone [phone] Care Team Providers Care Sales And Marketing Engineer Name Role Phone Patricia Doran MD Primary Care Provider + Reason for Visit * Reason Onset Date Comments Referral 02/25/2023 Appointment 02/25/2023 Order Request 02/25/2023 Encounter Details Date Type Department Care Team Description 02/25/2023 Telephone General Internal Medicine [facility] [place] [address] [facility] [place] [address] Patricia Doran MD [address] [place] [address] Referral; Appointment; Order Request Allergies Active Allergy Reactions Severity Noted Date Comments Bee Venom 06/07/2015 Erythromycin Base Conjunctivitis 01/17/2010 Opthalmic ointment Lisinopril 02/10/2012 cough Sulfasalazine 02/15/2020 GI upset,swealling in hands documented as of this encounter (statuses as of 03/01/2023) Medications Medication Sig Dispensed Refills Start Date [...] Respimat 2.5 MCG/ACT Inhalation Aerosol Solution (Tiotropium [place] Monohydrate) Inhale 2 Puffs by mouth in [...] as of this encounter (statuses as of 03/01/2023) Active Problems Problem Noted Date Encounter for [...] as of this encounter (statuses as of 03/01/2023) Resolved Problems Problem Noted Date Resolved Date [...] as of this encounter (statuses as of 03/01/2023) Immunizations Name Administration Dates Next Due COVID-19 [...] Miscellaneous Notes * Telephone Encounter - JULIUS Alejandre - 03/01/2023 11:20 AM EDT Called pt, canceled nurse visit 03/02, scheduled hosp f/u with Dr Doran at 11am 03/02. Sorry for confusion! 03/01 * Telephone Encounter - Roxanne Aaron LPN [...] hospital stay and rehab stay in [facility], her HR goes in 120 to 130's [...] Date Type Specialty Care Team Description 03/02/2023 Office Visit Internal Medicine Patricia Doran MD [address] [facility] [place] [address] 03/18/2023 Office Visit Pulmonary Mc Randall MD [address] [facility] [place] [id number] 03/19/2023 Office Visit Rheumatology Saran Boateng MD [address] [facility] [place], [place] [address] 04/09/2023 Office Visit Gynecology Obstetrics Josseline Ceballos CRNP [address] [place] [address] 11/05/2023 Office Visit Cardiology Mukesh Laird DO [address] [place] [address] Scheduled Orders Name Type Priority Associated Diagnoses [...] this encounter Medical Devices Implanted Type Area X Ray Physician Device Identifier Shelf Expiration Date Model / Serial / Lot Lens 6.0 Sa60at - [id number] Implanted:Qty: 1 on 03/23/2007 at [facility] Left: Eye BETTY : SURGICAL 08/06/2011 SA60AT / [id number] / documented as of this encounter Visit Diagnoses Diagnosis Palpitations- Primary documented in this encounter Advance Directives Latest Code Status on File Code Status Date Activated Date Inactivated Comments Full Code 01/03/2021 8:00 PM 01/10/2021 5:07 PM This o rder reflects the patients wishes and were consensually agreed upon. Question Answer Comments Discussion of Advance Directives occurred with: Patient Care Teams Sales And Marketing Engineer Relationship Specialty Start Date End Date Patricia Doran MD [address] [place] [address] PCP - General 12/17/08 documented as of this encounter
--- OUTSIDE RECORDS SUMMARY | 2023-08-07 11:31 | External Medical Summary | Summary of Care ---
Author Name Unknown Organization [facility] Address [address] [facility] [place] [address] Phone [phone] Care Team Providers Care Currency Counter Name Role Phone Lencho Doran MD Primary Care Provider + Reason for Visit * Reason Comments eRx-Medication Refill Encounter Details Date Type Department Care Team Description 02/19/2023 Refill General Internal Medicine [facility] [address] Lencho Doran MD [address] [facility] [place] [address] Allergies Active Allergy Reactions Severity Noted Date Comments Bee Venom 06/07/2015 Erythromycin Base Conjunctivitis 01/17/2010 Opthalmic ointment Lisinopril 02/10/2012 cough Sulfasalazine 02/15/2020 GI upset,swealling in hands documented as of this encounter (statuses as of 02/19/2023) Medications Medication Sig Dispensed Refills Start Date [...] mouth daily. 90 Tab 1 0 Active Hydroxychloroquin e Sulfate 200 MG Oral Tablet (Plaquenil) Take 2 Tablets by mouth in the morning. 0 Active ProAir HFA 108 (90 Base) MCG/ACT Inhalation Aerosol Solution Inhale by mouth 2 Puffs every 4 hours as needed for Cough, Shortness of Breath or Wheezing. 0 1 Active EpiPen 2-Elmer 0.3 MG/0.3ML Injection Solution [...] persistent asthma 1 Each 1 2 Active Spiriva Respimat 2.5 MCG/ACT Inhalation Aerosol Solution (Tiotropium [place] Monohydrate) Inhale 2 Puffs by mouth in the morning. 4 g 11 2 Active Atorvastatin Calcium 40 MG Oral Tablet (Lipitor)Indicati ons:Lacunar infarction (HCC) Take 1 Tablet (40 mg) by mouth in the morning. 30 Tablet 11 2 Active Additional Information Patient not taking.Reported on 10/29/2022 Bimatoprost 0.03 % Ophthalmic Solution (Lumigan) INSTILL 1 DROP INTO EACH EYE NIGHTLY 0 2 Active Chlorhexidine Gluconate 0.12 % Mouth/Throat Solution (Periogard) RINSE WITH 1 CAPFUL ORALLY FOR 30 SECONDS TWICE DAILY 0 2 Active Clobetasol Propionate 0.05 % External Gel (Temovate) APPLY A THIN AMOUNT TO AFFECTED AREA TWICE DAILY 0 2 Active Dexamethasone 0.5 MG/5ML Oral Elixir (Decadron) RINSE WITH 1 TEASPOONFUL FOR 2 MINUTES AND EXPECTORATE. USE TWICE DAILY 0 2 Active Leflunomide 10 MG Oral Tablet (Arava) Take 1 Tablet by mouth in the morning. 0 2 Active Levothyroxine Sodium 112 MCG Oral Tablet (Levoxyl) Take 1 Tablet by mouth in the morning. 0 2 Active Timolol Maleate 0.5 % Ophthalmic Solution (Timoptic) INSTILL 1 DROP INTO THE LEFT EYE DAILY 0 2 Active levoFLOXacin 750 MG Oral Tablet (Levaquin) Take 1 Tablet by mouth in the morning. 10 Tablet 0 3 Active Benzonatate 100 MG Oral Capsule Take 1 Capsule by mouth 3 times a day as needed for Cough. Please keep out of reach of children. 60 Capsule 1 3 Active Voriconazole 200 MG Oral Tablet (Vfend) 400 mg twice daily (every 12 hours) on day 1 and day 2, then 200 mg twice a day (every 12 hours) until end of therapy. 90 Tablet 2 3 Active Montelukast Sodium 10 MG Oral Tablet (Singulair)Indica tions:Allergic rhinitis Take 1 Tablet by mouth every evening. 90 Tablet 1 3 Active Celecoxib 100 MG Oral Capsule (CeleBREX) TAKE ONE CAPSULE BY MOUTH EVERY MORNING FOR PAIN 30 Capsule 1 3 Active Celecoxib 100 MG Oral Capsule (CeleBREX) Take 1 Capsule by mouth in the morning. for pain. 30 Capsule 1 3 023 Discontinued documented as of this encounter (statuses as of 02/19/2023) Active Problems Problem Noted Date Encounter for [...] as of this encounter (statuses as of 02/19/2023) Resolved Problems Problem Noted Date Resolved Date [...] as of this encounter (statuses as of 02/19/2023) Immunizations Name Administration Dates Next Due COVID-19 [...] encounter Miscellaneous Notes * Telephone Encounter - Pb Barbosa RPh - 02/19/2023 6:38 PM EDTSigned Prescriptions: Disp Refills Celecoxib 100 MG Oral Capsule (CeleBREX) 30 Cap*1 Sig: TAKE ONE CAPSULE BY MOUTH EVERY MORNING FOR PAINAuthorizing Provider: LENCHO DORAN User: PB BARBOSA documented in this encounter Plan of Treatment Upcoming Encounters Date Type Specialty Care Team Description 03/19/2023 Office Visit Rheumatology Saran Boateng MD [address] [facility], [place] [address] 04/09/2023 Office Visit Gynecology Obstetrics Josseline Ceballos CRNP [address] [place] [address] 11/05/2023 Office Visit Cardiology Mukesh Laird, DO [address] [place] [address] Scheduled Procedures Name Priority Associated Diagnoses Date/Ti [...] this encounter Medical Devices Implanted Type Area Patent Clerk Device Identifier Shelf Expiration Date Model / Serial / Lot Lens 6.0 Sa60at - [id number] Implanted:Qty: 1 on 03/23/2007 at [place] [facility] Left: Eye BETTY : SURGICAL 08/06/2011 SA60AT / [id number] / documented as of this encounter Advance Directives Latest Code Status on File Code Status Date Activated Date Inactivated Comments Full Code 01/03/2021 8:00 PM 01/10/2021 5:07 PM This o rder reflects the patients wishes and were consensually agreed upon. Question Answer Comments Discussion of Advance Directives occurred with: Patient Care Teams Currency Counter Relationship Specialty Start Date End Date Lencho Doran MD 200 [place] [address] PCP - General 12/17/08 documented as of this encounter
--- OUTSIDE RECORDS SUMMARY | 2023-08-07 11:31 | External Medical Summary | Summary of Care ---
Author Name Unknown Organization [facility] Address [address] [facility] [place] [address] Phone [phone] Care Team Providers Care Anthropology Instructor Name Role Phone Patricia Doran MD Primary Care Provider + Reason for Visit * Reason Onset Date Comments Referral 02/25/2023 Appointment 02/25/2023 Order Request 02/25/2023 Encounter Details Date Type Department Care Team Description 02/25/2023 Telephone General Internal Medicine [facility] [place] [address] [facility] [place] [address] Patricia Doran MD 200 [place] [address] Referral; Appointment; Order Request Allergies Active Allergy [...] Respimat 2.5 MCG/ACT Inhalation Aerosol Solution (Tiotropium [place] Monohydrate) Inhale 2 Puffs by mouth in [...] her hospital stay and rehab stay in [facility], her HR goes in 120 to 130's [...] 03/02/2023 Nurse Only Ancillary Nurse Pasha Alvarez [facility] [address] [place] [place] [address] 03/18/2023 Office Visit Pulmonary Mc Randall [facility] [address] [facility] [phone] 03/19/2023 Office Visit Rheumatology Saran Boateng MD [address] [place] [address] 04/09/2023 Office Visit Gynecology Obstetrics Josseline Ceballos CRNP [address] [place] [address] 11/05/2023 Office Visit Cardiology Mukesh Laird DO [address] [place] [address] Scheduled Orders Name Type Priority Associated Diagnoses [...] this encounter Medical Devices Implanted Type Area Baker Operator Automatic Device Identifier Shelf Expiration Date Model / Serial / Lot Lens 6.0 Sa60at - [id number] Implanted:Qty: 1 on 03/23/2007 at [facility] Left: Eye BETTY : SURGICAL 08/06/2011 SA60AT / [id number] / documented as of this encounter Visit Diagnoses Diagnosis Palpitations- Primary documented in this encounter Advance Directives Latest Code Status on File Code Status Date Activated Date Inactivated Comments Full Code 01/03/2021 8:00 PM 01/10/2021 5:07 PM This o rder reflects the patients wishes and were consensually agreed upon. Question Answer Comments Discussion of Advance Directives occurred with: Patient Care Teams Anthropology Instructor Relationship Specialty Start Date End Date Patricia Doran MD 200 [place] [address] PCP - General 12/17/08 documented as of this encounter
--- OUTSIDE RECORDS SUMMARY | 2023-08-07 11:31 | External Medical Summary | Summary of Care ---
Author Name Unknown Organization [facility] Address [address] [facility] [place] [address] Phone [phone] Care Team Providers Care Aviculturist Name Role Phone Patricia Doran MD Primary Care Provider + Reason for Visit * Reason Onset Date Comments Referral 02/25/2023 Appointment 02/25/2023 Order Request 02/25/2023 Encounter Details Date Type Department Care Team Description 02/25/2023 Telephone General Internal Medicine [facility] [place] [address] [facility] [place] [address] Patricia Doran MD 200 [place] [address] Referral; Appointment; Order Request Allergies Active Allergy [...] Respimat 2.5 MCG/ACT Inhalation Aerosol Solution (Tiotropium [place] Monohydrate) Inhale 2 Puffs by mouth in [...] as needed for Shortness of Breath. Diagnosis: AMAME, Bronchiectesis, aspergillus infection of the lung. 1 [...] her hospital stay and rehab stay in [facility], her HR goes in 120 to 130's [...] 03/02/2023 Nurse Only Ancillary Nurse Pasha Alvarez [address] [place] [address] 03/18/2023 Office Visit Pulmonary Mc Randall MD [address] [facility] [place] [id number] 03/19/2023 Office Visit Rheumatology Saran Boateng MD [address] [place] [address] 04/09/2023 Office Visit Gynecology Obstetrics Josseline Ceballos CRNP [address] [place] [address] 11/05/2023 Office Visit Cardiology Mukesh Laird DO [address] [place] [address] Scheduled Orders Name Type Priority Associated Diagnoses [...] this encounter Medical Devices Implanted Type Area Ballet Soloist Device Identifier Shelf Expiration Date Model / Serial / Lot Lens 6.0 Sa60at - [id number] Implanted:Qty: 1 on 03/23/2007 at [facility] Left: Eye BETTY : SURGICAL 08/06/2011 SA60AT / [id number] / documented as of this encounter Visit Diagnoses Diagnosis Palpitations- Primary documented in this encounter Advance Directives Latest Code Status on File Code Status Date Activated Date Inactivated Comments Full Code 01/03/2021 8:00 PM 01/10/2021 5:07 PM This o rder reflects the patients wishes and were consensually agreed upon. Question Answer Comments Discussion of Advance Directives occurred with: Patient Care Teams Aviculturist Relationship Specialty Start Date End Date Patricia Doran MD [address] [facility] [place] [address] PCP - General 12/17/08 documented as of this encounter
--- OUTSIDE RECORDS SUMMARY | 2023-08-07 11:31 | External Medical Summary | Summary of Care ---
Author Name Unknown Organization [facility] Address [address] [facility] [place] [address] Phone [phone] Care Team Providers Care Loan Funder Name Role Phone Patricia Doran MD Primary Care Provider + Reason for Visit * Reason Onset Date Comments Referral 02/25/2023 Appointment 02/25/2023 Order Request 02/25/2023 Encounter Details Date Type Department Care Team Description 02/25/2023 Telephone General Internal Medicine [facility] [place] 200 [facility] [place] [address] Patricia Doran MD 200 [place] [address] Referral; Appointment; Order Request Allergies Active Allergy [...] Respimat 2.5 MCG/ACT Inhalation Aerosol Solution (Tiotropium [place] Monohydrate) Inhale 2 Puffs by mouth in [...] Miscellaneous Notes * Telephone Encounter - JULIUS Bridges - [...] her hospital stay and rehab stay in [facility], her HR goes in 120 to [...] Nurse Pasha Alvarez [address] [place] [address] 03/18/2023 Office Visit Pulmonary Mc Randall MD [address] [place] [phone] 03/19/2023 Office Visit Rheumatology Saran Boateng MD [address] [facility] [place] [address] 04/09/2023 Office Visit Gynecology Obstetrics Josseline Ceballos CRNP [address] [place] [address] 11/05/2023 Office Visit Cardiology Mukesh Laird DO [address] [place] [address] Scheduled Orders Name Type Priority Associated Diagnoses [...] this encounter Medical Devices Implanted Type Area Pet Food Deboner Device Identifier Shelf Expiration Date Model / Serial / Lot Lens 6.0 Sa60at - [id number] Implanted:Qty: 1 on 03/23/2007 at [facility] Left: Eye BETTY : SURGICAL 08/06/2011 60MEGGAN / [id number] / documented as of this encounter Visit Diagnoses Diagnosis Palpitations- Primary documented in this encounter Advance Directives Latest Code Status on File Code Status Date Activated Date Inactivated Comments Full Code 01/03/2021 8:00 PM 01/10/2021 5:07 PM This o rder reflects the patients wishes and were consensually agreed upon. Question Answer Comments Discussion of Advance Directives occurred with: Patient Care Teams Loan Funder Relationship Specialty Start Date End Date Patricia Doran MD [address] [facility] [place] [address] PCP - General 12/17/08 documented as of this encounter
--- OUTSIDE RECORDS SUMMARY | 2023-08-07 11:31 | External Medical Summary | Summary of Care ---
Author Name Unknown Organization [facility] Address [address] [facility] [place] [address] Phone [phone] Care Team Providers Care Curve Cleaner Name Role Phone Patricia Doran MD Primary Care Provider + Reason for Visit * Reason Onset Date Comments Referral 02/25/2023 Appointment 02/25/2023 Order Request 02/25/2023 Encounter Details Date Type Department Care Team Description 02/25/2023 Telephone General Internal Medicine [facility] [place] 200 [facility] [place] [address] Patricia Doran MD 200 [place] [address] Referral; Appointment; Order Request Allergies Active Allergy [...] Respimat 2.5 MCG/ACT Inhalation Aerosol Solution (Tiotropium [place] Monohydrate) Inhale 2 Puffs by mouth in [...] Telephone Encounter - Patricia Doran MD - 03/01/2023 3:13 PM EDT Noted. thanks * Telephone Encounter - JULIUS Alejandre - 03/01/2023 11:20 AM EDT Called pt, canceled nurse visit 03/02, scheduled hosp f/u with Dr Doran at 11am 03/02. Sorry for confusion! 03/01 * Telephone Encounter - Roxanne Aarno LPN - 02/26/2023 3:58 PM EDT Patient [...] her hospital stay and rehab stay in [facility], her HR goes in 120 to 130's [...] Internal Medicine Patricia Doran MD 200 [facility] [place] [address] 03/18/2023 Office Visit Pulmonary Mc Randall MD [address] [facility] [place] [phone] 03/19/2023 Office Visit Rheumatology Saran Boateng MD [address] [place] [address] 04/09/2023 Office Visit Gynecology Obstetrics Josseline Ceballos CRNP [address] [place] [address] 11/05/2023 Office Visit Cardiology Mukesh Laird, [address] [place] [address] Scheduled Orders Name Type Priority Associated Diagnoses [...] this encounter Medical Devices Implanted Type Area Surgical Lead Device Identifier Shelf Expiration Date Model / Serial / Lot Lens 6.0 Sa60at - [id number] Implanted:Qty: 1 on 03/23/2007 at OR [facility] Left: Eye BETTY : SURGICAL 08/06/2011 SA60AT / [id number] / documented as of this encounter Visit Diagnoses Diagnosis Palpitations- Primary documented in this encounter Advance Directives Latest Code Status on File Code Status Date Activated Date Inactivated Comments Full Code 01/03/2021 8:00 PM 01/10/2021 5:07 PM This o rder reflects the patients wishes and were consensually agreed upon. Question Answer Comments Discussion of Advance Directives occurred with: Patient Care Teams Curve Cleaner Relationship Specialty Start Date End Date Patricia Doran MD [address] [place] [address], [place] [address] PCP - General 12/17/08 documented as of this encounter
--- NOTE | 2023-08-07 11:34 | Emergency Department Note ---
Impression & Plan Pneumonia, Fever, Immunosuppression, Vertigo, Headache ED Provider Note NAME: PINKY CLARK AGE: 67 SEX: F : 1955 ARRIVES VIA: Walk-In INFORMANT: Patient, ED PROVIDER(S): James Melgra MD CHIEF COMPLAINT: Headache, fever, vertigo MEDICAL DECISION MAKING: Patient presents due to concern for headache fever and associated vertigo. 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 IV established blood obtained along with blood cultures procalcitonin CT of the head meclizine Zofran and IV fluids. Upon reassessment the patient did not have significant improvement in symptoms. Patient was ordered some IV Compazine. Patient's blood work shows a white count of 11 with a normal H&H and platelet count. Kidney function is unremarkable with normal electrolytes procalcitonin is not elevated. Urinalysis does show possible infection given nitrites leuks whites and bacteria. Patient was noted to have a right-sided nodule and after discussing with Dr. Navas with radiology this is new from previous chest x- ray and believes that this is likely inflammatory/infectious in nature. Given this concern in light of the patient's fever right-sided chest pain and associated history of immunosuppressant drug therapy patient was ordered IV cefepime to cover for Pseudomonas as well as typical lung pathology and this would also cover for the urine. Patient also was ordered Doxy for atypical coverage. CT head shows no acute findings within the brain but did show possible sinusitis. MRSA swab ordered and negative. Patient's bio fire positive for enterorhinovirus. I did speak with the on-call hospitalist service Ganesh Marshall PA-C and patient was admitted by Dr. Osullivan. Discussion w/ other healthcare providers: Dr. Navas with radiology Margarita Marshall PA-C and Dr. Osullivan inpatient medicine [facility] Prior /Outside records reviewed: I reviewed a discharge summary from January 03, 2021. Patient was discharged by Dr. Lerma. Patient did present to due to concern for bilateral lower extremity paraplegia and left-sided weakness. Patient was thought to have concern for transverse myelitis and was subsequently transferred to [facility]. Differential diagnosis: Benign positional vertigo, dehydration, hypovolemia, anemia, infection, hypoglycemia, electrolyte abnormalities, arrhythmia, tox among others were considered. Diagnostics, as interpreted by me: ECG: , Rate of 73, left axis deviation no ST elevations. TBI noted in aVL Cardiac monitoring: An order was placed for continuous cardiac monitoring. The monitor shows a rate of 88 with sinus rhythm. Patient was placed on pulse oximetry Medical decision rules: None Imaging studies: I informally interpreted the patient's chest x-ray which does not show obvious pneumothorax with formal report to follow. I informally interpreted the patient's CT head which does not show obvious ICH. HPI: Patient presents due to concern for headache fever. The patient states that she initially began with some right-sided shoulder discomfort/chest pain. Patient states that that began on Wednesday with some associated fever Tmax of 101. Patient has been taking Tylenol "[id number]." Patient does have a known history of RA on immunosuppressive therapy and did have a recent history of aspergillosis of the lungs treated with 6 months of antifungal therapy. Patient denies any falls or trauma. No exertional symptoms or shortness of breath. Patient denies any leg/calf pain. She did state that she also has had some right-sided chest pain. Patient did have some nausea and associated vomiting x 2 on . Patient still feels nauseated but no vomiting today. Patient is still eating. Patient states on she developed some vertigo that seem to occur all of a sudden and is worse with movement. at bedside provides some additional history noting that she had 1 episode of nystagmus that seemed to dissipate. Patient's headache is on the top of her head. PAST MEDICAL HISTORY: See Below PAST SURGICAL HISTORY: See Below SOCIAL HISTORY: See Below HOME MEDICATIONS: See Below ALLERGIES: See Below VITALS: See Below PHYSICAL EXAMINATION: GENERAL: NAD, non-toxic. Wearing a mask EYE EXAM: Normal conjunctiva. PERRL, no anisocoria and EOM's grossly intact w/o pain. No obvious nystagmus. OROPHARYNX: Moist mucus membranes, grossly normal dentition. NECK: Supple, no nuchal rigidity, no adenopathy, non-tender. No signs of meningismus. FROM of the neck with good chin to chest and neck extension. No stridor. No carotid bruits appreciated. LUNGS: Clear to auscultation. Normal chest wall mechanics. HEART: NSR, no MRG. ABDOMEN: Abdomen soft, non-tender, no masses, no rebound or guarding. BACK: No CVA TTP. SKIN: No rashes and no bruising. UPPER EXTREMITIES: Upper extremities are grossly normal. LOWER EXTREMITIES: Grossly normal, no edema. NEURO EXAM: A&O x3, cranial nerves II-XII grossly intact, normal speech, moves all 4 extremities. Good [id number], no drift and no sensory deficits. Past Med/Surg History Medical History Difficulty swallowing reason for EGD Macular degeneration Glaucoma Hearing deficit History of COVID-19 x2--last 02/2022--pt states she has been experiencing long covid symptoms--unable to walk for long periods without using a walker Carotid artery disease duplex 02/15/19 atherosclerosis of left common carotid and left ICA without significant stenosis Unequal blood pressure in upper extremities Rheumatoid arthritis Hypothyroidism Diabetes mellitus type 2, controlled diet controlled only Dyslipidemia Asthma inhaler prn Hypertension Surgical History History of surgery on lower extremity repair on fibula History of ankle surgery right ankle fusion--hardware in place History of total right knee replacement (TKR) History of colonoscopy History of tooth extraction History of wisdom tooth extraction Status post glaucoma surgery left History of bilateral cataract extraction History of cardiac cath 02/2019 @ [facility]--no stents placed History of bronchoscopy Family History Other No family history of adverse response to anesthesia Social History Smoking Status: Never smoker Second Hand Exposure: No; Do You Dip or Chew Tobacco: No; Hx Alcohol Use: No Hx Substance Use: No Preferred Language: Bangladeshi Communication Ability: Effective Outsole Caser Required: No Beliefs That Will Affect Care: None marital status: Current Living Situation: Spouse How many Children do You have: 4 Feels Safe at Home: Yes Assistive Devices: Glasses and Walker Allergies Allergies Allergy/AdvReac Type Severity Reaction Status Date / Time bee venom protein (honey bee) Allergy Severe swelling. Verified 08/07/23 15:41 sob Sulfa (Sulfonamide Allergy Severe Difficulty Verified 08/07/23 15:41 Antibiotics) Breathing erythromycin base Allergy Intermediate swelling Verified 08/07/23 15:41 of eyes nickel Allergy Mild rash with Verified 08/07/23 15:41 nickel earrings lisinopril AdvReac Intermediate cough Verified 08/07/23 15:41 Home Meds Home Medications Medication Instructions Recorded Confirmed bimatoprost 0.03 % eye drops 1 drp OPB HS 02/14/19 08/07/23 clindamycin HCl 300 mg capsule 300 mg PO UD PRN PRIOR TO DENTAL 02/14/19 08/07/23 VISITS epinephrine 0.3 mg/0.3 mL 0.3 mg IM DIRECTED PRN SEVERE 02/14/19 08/07/23 injection, auto-injector (EpiPen) ALLERGIC REACTION folic acid 1 mg tablet 1 mg PO QAM 02/14/19 08/07/23 montelukast 10 mg tablet 10 mg PO PM 02/14/19 08/07/23 (Singulair) multivitamin 1 tab PO DAILY 02/14/19 08/07/23 prednisone 1 mg tablet 2 mg PO QAM 02/14/19 08/07/23 hydroxychloroquine 200 mg tablet 300 mg PO QAM 01/02/21 08/07/23 duloxetine 60 mg capsule,delayed 60 mg PO QAM 11/05/22 08/07/23 release leflunomide 10 mg tablet 15 mg PO QAM 11/05/22 08/07/23 brinzolamide 1 %-brimonidine 0.2 % 1 drp OPL BID 08/07/23 08/07/23 eye drops,suspension calcium carbonate 500 mg calcium 500 mg PO QAM 08/07/23 08/07/23 (1,250 mg) tablet clobetasol 0.05 % topical cream 1 applic topical BID PRN Skin 08/07/23 08/07/23 Irritation dexamethasone sodium phosphate 4 4 mg DIRECTED 08/07/23 08/07/23 mg/mL injection solution dextran 70-hypromellose 0.1 %-0.3 1 drp OPB DIRECTED PRN 08/07/23 08/07/23 % eye drops NEEDED PER [facility] diphenhydramine HCl 25 mg capsule 50 mg PO DIRECTED PRN INSECT 08/07/23 08/07/23 (Benadryl) STING ALLERGIC REACTION fluticasone 500 mcg-salmeterol 50 1 inh inhalation BID 08/07/23 08/07/23 mcg/dose blistr powdr for inhalation (Advair Diskus) guaifenesin 100 mg/5 mL oral liquid 200 mg PO TID PRN Cough 08/07/23 08/07/23 ipratropium 0.5 mg-albuterol 3 mg 3 ml inhalation QID 08/07/23 08/07/23 (2.5 mg base)/3 mL nebulization soln levothyroxine 88 mcg tablet 88 mcg PO QAM 08/07/23 08/07/23 loratadine 10 mg tablet (Claritin) 10 mg PO DAILY PRN Congestion 08/07/23 08/07/23 timolol maleate 0.5 % eye drops 1 drp OPL DAILY 08/07/23 08/07/23 vitamin A-vitamin C-vit E-min 1 tab PO DAILY 08/07/23 08/07/23 tablet Results & Data (ED) Vital Signs Vital Signs - 24 hr 08/07/23 11:26 08/07/23 11:48 08/07/23 12:08 Temperature 36.7 C Temperature Source Temporal Artery Scan Pulse Rate 81 74 Pulse Rate [Right Finger] 75 Pulse Rate from SpO2 Sensor 74 Pulse Rhythm Pulse Rhythm [Right Finger] Regular Pulse Strength [Right Finger] Normal Respiratory Rate 18 21 21 Respiratory Effort / Characteristics Non-Labored Spontaneous Non-Labored Spontaneous Respiratory Depth Normal Normal Respiratory Pattern Regular Regular Blood Pressure 135/82 Blood Pressure [Right Arm] Blood Pressure Mean 99 Blood Pressure Mean [Right Arm] Blood Pressure Position Sitting Blood Pressure Position [Right Arm] Pulse Oximetry 95 97 96 Oxygen Delivery Method Room Air Room Air Room Air Sepsis Recent Fever Within 48 Hours No Sepsis New/Unexplained Change in Mental Status N/A Sepsis Action Taken by Nursing No Action Required 08/07/23 12:09 08/07/23 12:10 08/07/23 12:20 Temperature Temperature Source Pulse Rate 73 74 74 Pulse Rate [Right Finger] Pulse Rate from SpO2 Sensor 74 74 Pulse Rhythm Pulse Rhythm [Right Finger] Pulse Strength [Right Finger] Respiratory Rate 15 17 Respiratory Effort / Characteristics Respiratory Depth Respiratory Pattern Blood Pressure Blood Pressure [Right Arm] Blood Pressure Mean Blood Pressure Mean [Right Arm] Blood Pressure Position Blood Pressure Position [Right Arm] Pulse Oximetry 96 95 Oxygen Delivery Method Room Air Room Air Sepsis Recent Fever Within 48 Hours Sepsis New/Unexplained Change in Mental Status Sepsis Action Taken by Nursing 08/07/23 12:24 08/07/23 12:30 08/07/23 12:40 Temperature Temperature Source Pulse Rate 73 74 75 Pulse Rate [Right Finger] Pulse Rate from SpO2 Sensor 74 75 Pulse Rhythm Regular Pulse Rhythm [Right Finger] Pulse Strength [Right Finger] Respiratory Rate 19 24 19 Respiratory Effort / Characteristics Respiratory Depth Respiratory Pattern Blood Pressure 141/100 H Blood Pressure [Right Arm] Blood Pressure Mean 113 Blood Pressure Mean [Right Arm] Blood Pressure Position Blood Pressure Position [Right Arm] Pulse Oximetry 96 95 95 Oxygen Delivery Method Room Air Room Air Room Air Sepsis Recent Fever Within 48 Hours Sepsis New/Unexplained Change in Mental Status Sepsis Action Taken by Nursing 08/07/23 12:43 08/07/23 12:50 08/07/23 13:00 Temperature Temperature Source Pulse Rate 72 73 77 Pulse Rate [Right Finger] Pulse Rate from SpO2 Sensor 72 73 Pulse Rhythm Pulse Rhythm [Right Finger] Pulse Strength [Right Finger] Respiratory Rate 27 H 23 23 Respiratory Effort / Characteristics Respiratory Depth Respiratory Pattern Blood Pressure Blood Pressure [Right Arm] Blood Pressure Mean Blood Pressure Mean [Right Arm] Blood Pressure Position Blood Pressure Position [Right Arm] Pulse Oximetry 96 96 Oxygen Delivery Method Room Air Sepsis Recent Fever Within 48 Hours Sepsis New/Unexplained Change in Mental Status Sepsis Action Taken by Nursing 08/07/23 13:10 08/07/23 13:20 08/07/23 13:30 Temperature Temperature Source Pulse Rate 73 76 78 Pulse Rate [Right Finger] Pulse Rate from SpO2 Sensor Pulse Rhythm Pulse Rhythm [Right Finger] Pulse Strength [Right Finger] Respiratory Rate 24 20 20 Respiratory Effort / Characteristics Respiratory Depth Respiratory Pattern Blood Pressure Blood Pressure [Right Arm] Blood Pressure Mean Blood Pressure Mean [Right Arm] Blood Pressure Position Blood Pressure Position [Right Arm] Pulse Oximetry 96 Oxygen Delivery Method Room Air Sepsis Recent Fever Within 48 Hours Sepsis New/Unexplained Change in Mental Status Sepsis Action Taken by Nursing 08/07/23 13:40 08/07/23 13:50 08/07/23 14:29 Temperature Temperature Source Pulse Rate 76 79 84 Pulse Rate [Right Finger] Pulse Rate from SpO2 Sensor Pulse Rhythm Pulse Rhythm [Right Finger] Pulse Strength [Right Finger] Respiratory Rate 22 22 18 Respiratory Effort / Characteristics Respiratory Depth Respiratory Pattern Blood Pressure Blood Pressure [Right Arm] Blood Pressure Mean Blood Pressure Mean [Right Arm] Blood Pressure Position Blood Pressure Position [Right Arm] Pulse Oximetry Oxygen Delivery Method Sepsis Recent Fever Within 48 Hours Sepsis New/Unexplained Change in Mental Status Sepsis Action Taken by Nursing 08/07/23 14:30 08/07/23 14:40 08/07/23 14:50 Temperature Temperature Source Pulse Rate 82 82 84 Pulse Rate [Right Finger] Pulse Rate from SpO2 Sensor 81 83 84 Pulse Rhythm Pulse Rhythm [Right Finger] Pulse Strength [Right Finger] Respiratory Rate 19 19 23 Respiratory Effort / Characteristics Respiratory Depth Respiratory Pattern Blood Pressure Blood Pressure [Right Arm] Blood Pressure Mean Blood Pressure Mean [Right Arm] Blood Pressure Position Blood Pressure Position [Right Arm] Pulse Oximetry 94 93 96 Oxygen Delivery Method Room Air Sepsis Recent Fever Within 48 Hours Sepsis New/Unexplained Change in Mental Status Sepsis Action Taken by Nursing 08/07/23 14:59 08/07/23 15:00 08/07/23 15:10 Temperature 36.8 C Temperature Source Oral Pulse Rate 86 83 Pulse Rate [Right Finger] Pulse Rate from SpO2 Sensor 85 Pulse Rhythm Pulse Rhythm [Right Finger] Pulse Strength [Right Finger] Respiratory Rate 18 21 16 Respiratory Effort / Characteristics Non-Labored Spontaneous Respiratory Depth Normal Respiratory Pattern Regular Blood Pressure 162/94 H Blood Pressure [Right Arm] 162/94 H Blood Pressure Mean 116 Blood Pressure Mean [Right Arm] 116 Blood Pressure Position Blood Pressure Position [Right Arm] Lying Pulse Oximetry 95 93 Oxygen Delivery Method Room Air Room Air Sepsis Recent Fever Within 48 Hours Sepsis New/Unexplained Change in Mental Status Sepsis Action Taken by Nursing 08/07/23 15:20 08/07/23 15:30 08/07/23 15:40 Temperature Temperature Source Pulse Rate 85 86 87 Pulse Rate [Right Finger] Pulse Rate from SpO2 Sensor Pulse Rhythm Pulse Rhythm [Right Finger] Pulse Strength [Right Finger] Respiratory Rate 19 22 23 Respiratory Effort / Characteristics Respiratory Depth Respiratory Pattern Blood Pressure Blood Pressure [Right Arm] Blood Pressure Mean Blood Pressure Mean [Right Arm] Blood Pressure Position Blood Pressure Position [Right Arm] Pulse Oximetry Oxygen Delivery Method Sepsis Recent Fever Within 48 Hours Sepsis New/Unexplained Change in Mental Status Sepsis Action Taken by Nursing 08/07/23 15:50 08/07/23 16:00 08/07/23 16:00 Temperature Temperature Source Pulse Rate 84 82 Pulse Rate [Right Finger] 89 Pulse Rate from SpO2 Sensor Pulse Rhythm Pulse Rhythm [Right Finger] Regular Pulse Strength [Right Finger] Normal Respiratory Rate 21 20 24 Respiratory Effort / Characteristics Non-Labored Spontaneous Respiratory Depth Normal Respiratory Pattern Regular Blood Pressure Blood Pressure [Right Arm] 135/87 Blood Pressure Mean Blood Pressure Mean [Right Arm] 103 Blood Pressure Position Blood Pressure Position [Right Arm] Lying Pulse Oximetry 97 Oxygen Delivery Method Room Air Sepsis Recent Fever Within 48 Hours Sepsis New/Unexplained Change in Mental Status Sepsis Action Taken by Nursing 08/07/23 16:07 08/07/23 16:10 08/07/23 16:20 Temperature Temperature Source Pulse Rate 86 84 89 Pulse Rate [Right Finger] Pulse Rate from SpO2 Sensor Pulse Rhythm Pulse Rhythm [Right Finger] Pulse Strength [Right Finger] Respiratory Rate 21 19 Respiratory Effort / Characteristics Respiratory Depth Respiratory Pattern Blood Pressure Blood Pressure [Right Arm] Blood Pressure Mean Blood Pressure Mean [Right Arm] Blood Pressure Position Blood Pressure Position [Right Arm] Pulse Oximetry Oxygen Delivery Method Sepsis Recent Fever Within 48 Hours Sepsis New/Unexplained Change in Mental Status Sepsis Action Taken by Nursing 08/07/23 16:30 08/07/23 16:40 08/07/23 16:43 Temperature Temperature Source Pulse Rate 87 86 89 Pulse Rate [Right Finger] Pulse Rate from SpO2 Sensor Pulse Rhythm Pulse Rhythm [Right Finger] Pulse Strength [Right Finger] Respiratory Rate 21 22 23 Respiratory Effort / Characteristics Respiratory Depth Respiratory Pattern Blood Pressure 135/87 Blood Pressure [Right Arm] Blood Pressure Mean 103 Blood Pressure Mean [Right Arm] Blood Pressure Position Blood Pressure Position [Right Arm] Pulse Oximetry 95 96 Oxygen Delivery Method Room Air Room Air Sepsis Recent Fever Within 48 Hours Sepsis New/Unexplained Change in Mental Status Sepsis Action Taken by Nursing 08/07/23 16:50 08/07/23 17:00 08/07/23 17:00 Temperature Temperature Source Pulse Rate 84 86 Pulse Rate [Right Finger] 87 Pulse Rate from SpO2 Sensor Pulse Rhythm Pulse Rhythm [Right Finger] Regular Pulse Strength [Right Finger] Normal Respiratory Rate 22 23 22 Respiratory Effort / Characteristics Non-Labored Spontaneous Respiratory Depth Normal Respiratory Pattern Regular Blood Pressure 125/74 Blood Pressure [Right Arm] 125/74 Blood Pressure Mean 91 Blood Pressure Mean [Right Arm] 91 Blood Pressure Position Blood Pressure Position [Right Arm] Lying Pulse Oximetry 96 96 Oxygen Delivery Method Room Air Room Air Sepsis Recent Fever Within 48 Hours Sepsis New/Unexplained Change in Mental Status Sepsis Action Taken by Nursing 08/07/23 17:10 08/07/23 17:20 Temperature Temperature Source Pulse Rate 87 88 Pulse Rate [Right Finger] Pulse Rate from SpO2 Sensor Pulse Rhythm Pulse Rhythm [Right Finger] Pulse Strength [Right Finger] Respiratory Rate 21 29 H Respiratory Effort / Characteristics Respiratory Depth Respiratory Pattern Blood Pressure Blood Pressure [Right Arm] Blood Pressure Mean Blood Pressure Mean [Right Arm] Blood Pressure Position Blood Pressure Position [Right Arm] Pulse Oximetry 95 Oxygen Delivery Method Room Air Sepsis Recent Fever Within 48 Hours Sepsis New/Unexplained Change in Mental Status Sepsis Action Taken by [facility] Medications Current Medication List: was personally reviewed by me Laboratory Data Attestation: I reviewed the patient's lab results. 08/07/23 13:34 08/07/23 13:06 Lab Results 08/07/23 08/07/23 08/07/23 Range/Units 13:06 13:18 13:34 WBC 11.24 H (4.8-10.8) K/ul RBC 4.18 L (4.20-5.40) M/uL Hgb 12.5 (12.0-16.0) g/dl Hct 38.9 (37.0-47.0) % MCV 93.1 (80.0-100.0) fL MCH 29.9 (25.0-34.0) pg MCHC 32.1 (32.0-36.0) g/dL RDW Std Deviation 43.6 (36.4-46.3) fL RDW Coeff of Refugio 12.7 (11.5-14.5) % Plt Count 261 (130-400) K/uL MPV 9.5 (9.4-12.4) fL Immature Gran % (Auto) 0.4 % Neut % (Auto) 67.9 % Lymph % (Auto) 17.4 % Franklin % (Auto) 9.8 % Eos % (Auto) 4.2 % Baso % (Auto) 0.3 % Neut # (Auto) 7.63 H (1.40-6.50) K/uL Lymph # (Auto) 1.96 (1.20-3.40) K/uL Franklin # (Auto) 1.10 H (0.11-0.59) K/uL Eos # (Auto) 0.47 (0.00-0.50) K/uL Baso # (Auto) 0.03 (0.00-0.20) K/uL Immature Gran # (Auto) 0.05 (0.01-0.20) K/uL Sodium 140 (136-145) mmol/L Potassium 3.7 (3.5-5.1) mmol/L Chloride 108 H (98-107) mmol/L Carbon Dioxide 24 (21-32) mmol/L Anion Gap 8 (3-11) BUN 11 (6-23) mg/dl Creatinine 0.75 (0.6-1.2) mg/dl Est Cr Clr Drug Dosing 72.2 ml/min Est GFR ( Amer) 95.6 ml/min Est GFR (Non-Af Amer) 82.5 ml/min BUN/Creatinine Ratio 14.7 (10-20) Glucose 95 (70-99(Fasting)) mg/dl Lactate 1.0 (0.4-2.0) mmol/L Calcium 8.6 (8.6-10.3) mg/dl Magnesium 2.0 (1.7-2.4) mg/dl Total Bilirubin 0.6 (0.2-1.0) mg/dl AST 16 (13-39) U/L ALT 15 (7-52) U/L Alkaline Phosphatase 85 (34-104) U/L Troponin I High Sens 5.2 (0-14) pg/ml Total Protein 7.1 (6.0-8.3) gm/dl Albumin 3.3 L (3.4-5.0) gm/dl Globulin 3.8 (2.5-4.0) gm/dl Albumin/Globulin Ratio 0.9 (0.9-2) Procalcitonin 0.33 (0-0.5) ng/ml Urine Color Urine Appearance (Clear) Urine pH (4.5-7.5) Ur Specific Parker (1.000-1.030) Urine Protein (Negative) Urine Glucose (UA) (Negative) Urine Ketones (Negative) Urine Blood (Negative) Urine Nitrite (Negative) Urine Bilirubin (Negative) Urine Urobilinogen (Negative) Ur Leukocyte Esterase (Negative) Urine WBC (Auto) (0-5) /hpf Urine RBC (Auto) (0-4) /hpf U Hyaline Cast (Auto) (0-5) /lpf U Epithel Cells (Auto) (0-5) /lpf Urine Bacteria (Auto) (Negative) Nasal Screen MRSA (PCR) (Negative) Adenovirus (PCR) (NotDetected) B. pertussis DNA (PCR) (NotDetected) B.parapertussis DNA PCR (NotDetected) C. pneumoniae DNA (PCR) (NotDetected) Coronavirus OC43 (PCR) (NotDetected) Coronavirus HKU1 (PCR) (NotDetected) Coronavirus 229E (PCR) (NotDetected) SARS-CoV-2 (PCR) (NotDetected) Coronavirus NL63 (PCR) (NotDetected) Human Metapneumovir PCR (NotDetected) Influenza Type A (PCR) (NotDetected) Influenza Type B (PCR) (NotDetected) M. pneumoniae (PCR) (NotDetected) Parainfluenza 1 (PCR) (NotDetected) Parainfluenza 2 (PCR) (NotDetected) Parainfluenza 3 (PCR) (NotDetected) Parainfluenza 4 (PCR) (NotDetected) RSV (PCR) (NotDetected) Entero/Rhino (PCR) (NotDetected) 08/07/23 08/07/23 Range/Units 14:57 17:11 WBC (4.8-10.8) K/ul RBC (4.20-5.40) M/uL Hgb (12.0-16.0) g/dl Hct (37.0-47.0) % MCV (80.0-100.0) fL MCH (25.0-34.0) pg MCHC (32.0-36.0) g/dL RDW Std Deviation (36.4-46.3) fL RDW Coeff of Refugio (11.5-14.5) % Plt Count (130-400) K/uL MPV (9.4-12.4) fL Immature Gran % (Auto) % Neut % (Auto) % Lymph % (Auto) % Franklin % (Auto) % Eos % (Auto) % Baso % (Auto) % Neut # (Auto) (1.40-6.50) K/uL Lymph # (Auto) (1.20-3.40) K/uL Franklin # (Auto) (0.11-0.59) K/uL Eos # (Auto) (0.00-0.50) K/uL Baso # (Auto) (0.00-0.20) K/uL Immature Gran # (Auto) (0.01-0.20) K/uL Sodium (136-145) mmol/L Potassium (3.5-5.1) mmol/L Chloride (98-107) mmol/L Carbon Dioxide (21-32) mmol/L Anion Gap (3-11) BUN (6-23) mg/dl Creatinine (0.6-1.2) mg/dl Est Cr Clr Drug Dosing ml/min Est GFR ( Amer) ml/min Est GFR (Non-Af Amer) ml/min BUN/Creatinine Ratio (10-20) Glucose (70-99(Fasting)) mg/dl Lactate (0.4-2.0) mmol/L Calcium (8.6-10.3) mg/dl Magnesium (1.7-2.4) mg/dl Total Bilirubin (0.2-1.0) mg/dl AST (13-39) U/L ALT (7-52) U/L Alkaline Phosphatase (34-104) U/L Troponin I High Sens (0-14) pg/ml Total Protein (6.0-8.3) gm/dl Albumin (3.4-5.0) gm/dl Globulin (2.5-4.0) gm/dl Albumin/Globulin Ratio (0.9-2) Procalcitonin (0-0.5) ng/ml Urine Color Yellow Urine Appearance Clear (Clear) Urine pH 5.5 (4.5-7.5) Ur Specific Parker 1.014 (1.000-1.030) Urine Protein Negative (Negative) Urine Glucose (UA) Negative (Negative) Urine Ketones Negative (Negative) Urine Blood Negative (Negative) Urine Nitrite Positive A (Negative) Urine Bilirubin Negative (Negative) Urine Urobilinogen Negative (Negative) Ur Leukocyte Esterase Trace H (Negative) Urine WBC (Auto) 5-10 H (0-5) /hpf Urine RBC (Auto) 0-4 (0-4) /hpf U Hyaline Cast (Auto) 0 (0-5) /lpf U Epithel Cells (Auto) 10-20 H (0-5) /lpf Urine Bacteria (Auto) 4+ H (Negative) Nasal Screen MRSA (PCR) Negative (Negative) Adenovirus (PCR) Not Detected (NotDetected) B. pertussis DNA (PCR) Not Detected (NotDetected) B.parapertussis DNA PCR Not Detected (NotDetected) C. pneumoniae DNA (PCR) Not Detected (NotDetected) Coronavirus OC43 (PCR) Not Detected (NotDetected) Coronavirus HKU1 (PCR) Not Detected (NotDetected) Coronavirus 229E (PCR) Not Detected (NotDetected) SARS-CoV-2 (PCR) Not Detected (NotDetected) Coronavirus NL63 (PCR) Not Detected (NotDetected) Human Metapneumovir PCR Not Detected (NotDetected) Influenza Type A (PCR) Not Detected (NotDetected) Influenza Type B (PCR) Not Detected (NotDetected) M. pneumoniae (PCR) Not Detected (NotDetected) Parainfluenza 1 (PCR) Not Detected (NotDetected) Parainfluenza 2 (PCR) Not Detected (NotDetected) Parainfluenza 3 (PCR) Not Detected (NotDetected) Parainfluenza 4 (PCR) Not Detected (NotDetected) RSV (PCR) Not Detected (NotDetected) Entero/Rhino (PCR) DETECTED A* (NotDetected) Administered Medications Discontinued Medications Acetaminophen (Acetaminophen 500 Mg Tab) 1,000 mg PO NOW STA Stop: 08/07/23 14:20 Last Admin: 08/07/23 15:01 Dose: 1,000 mg Documented By: XEROX MACHINE OPERATOR Doxycycline Hyclate (Doxycycline Hyclate 100 Mg Cap) 100 mg PO NOW STA Stop: 08/07/23 15:41 Last Admin: 08/07/23 16:16 Dose: 100 mg Documented By: ALEX Sodium Chloride (Nss) 1,000 mls @ 999 mls/hr IV .Q1H1M SERENITY Stop: 08/07/23 13:00 Last Infusion: 08/07/23 15:02 Dose: Infused Documented By: XEROX MACHINE OPERATOR Admin: 08/07/23 12:41 Dose: 999 mls/hr Documented By: XEROX MACHINE OPERATOR Cefepime HCl (Maxipime) 2,000 mg in 20 mls @ 5 mls/min IV NOW STA; Protocol Stop: 08/07/23 15:43 Last Admin: 08/07/23 16:17 Dose: 5 mls/min Documented By: ALEX Meclizine HCl (Meclizine Hcl 25 Mg Tab) 25 mg PO NOW STA Stop: 08/07/23 11:49 Last Admin: 08/07/23 12:39 Dose: 25 mg Documented By: XEROX MACHINE OPERATOR Ondansetron HCl (Ondansetron Inj 2 Mg/Ml 2 Ml Vial) 4 mg IV NOW STA Stop: 08/07/23 11:49 Last Admin: 08/07/23 12:39 Dose: 4 mg Documented By: XEROX MACHINE OPERATOR Prochlorperazine (Prochlorperazine 5 Mg/Ml 2 Ml Vial) 5 mg IV NOW STA Stop: 08/07/23 14:20 Last Admin: 08/07/23 15:01 Dose: 5 mg Documented By: XEROX MACHINE OPERATOR Imaging Data Radiologist's Impression: Chest X-Ray 08/07/23 11:48 XR chest 1V portable CLINICAL HISTORY: Sepsis COMPARISON STUDY: Chest radiograph February 14, 2019. Chest CT February 15, 2019. FINDINGS: There is no pneumothorax or pleural effusion. Cardiomediastinal silhouette is stable. Right perihilar opacity is noted, including a 1.2 cm right midlung nodular opacity is present. Mild interstitial thickening within the periphery of the left midlung favors scarring. There is no evidence for pulmonary edema. IMPRESSION: Right perihilar opacity, including a 1.2 cm nodular opacity. The findings may reflect an infectious process however follow-up PA and lateral chest radiographs in one month to ensure resolution are recommended. ACT 112: Negative or not required by law. Electronically signed by: Michael Navas M.D. 08/07/2023 12:[address] 08/07/23 11:48 CT OF THE HEAD WITHOUT CONTRAST CLINICAL HISTORY: top head JOSHI; h/o aspergillosis COMPARISON STUDY: Head CT and MRI of the brain January 02, 2021. CT DOSE: 547.75 mGy.cm TECHNIQUE: Helical axial images of the head were obtained without IV contrast. Automated exposure control was utilized for the study. A dose lowering technique was utilized adhering to the principles of ALARA. FINDINGS: No acute intracranial hemorrhage, midline shift or mass effect is present. White matter hypodensities are similar to prior head CT and favor small vessel disease. The ventricular system is unremarkable. The basal cisterns are patent. No extra-axial collections are present. There are no findings to suggest acute dural sinus thrombosis or acute territorial infarct. No significant calvarial abnormalities are present. Left globe prosthesis is incidentally noted. Secretions within the right maxillary and right sphenoid sinuses are present. There is an air-fluid level within the right sphenoid sinus. Minimal posterior right ethmoid sinus mucosal thickening. IMPRESSION: 1. No acute intracranial findings. 2. Right sphenoid and maxillary sinus secretions with air-fluid levels. This may reflect acute sinusitis. ACT 112: Negative or not required by law. Electronically signed by: Michael Navas M.D. 08/07/2023 2:29 PM Discharge Plan Visit Data Chief Complaint: Vertigo Stated Complaint: VERTIGO, FEVER, HEADACHE ED Provider: James Melgar Discharge Problem: Pneumonia, Fever, Immunosuppression, Vertigo, Headache Forms Stand Alone Forms: [facility], Later [facility] Prescriptions Prescriptions: No Action multivitamin Tablet 1 tab PO DAILY clindamycin HCl 300 mg Capsule 300 mg PO UD PRN (Reason: PRIOR TO DENTAL VISITS) Rx Instructions: TAKES WHEN GOES TO DENTIST bimatoprost 0.03 % drops 1 drp OPB HS prednisone 1 mg tablet 2 mg PO QAM folic acid 1 mg Tablet 1 mg PO QAM montelukast [Singulair] 10 mg Tablet 10 mg PO PM epinephrine [EpiPen] 0.3 mg/0.3 mL Auto-Injector 0.3 mg IM DIRECTED PRN (Reason: SEVERE ALLERGIC REACTION) duloxetine 60 mg Capsule,Delayed Release(Dr/Ec) 60 mg PO QAM leflunomide 10 mg Tablet 15 mg PO QAM hydroxychloroquine 200 mg tablet 300 mg PO QAM ipratropium-albuterol [DuoNeb] 0.5 mg-3 mg(2.5 mg base)/3 mL Solution For Nebulization 3 ml INHALATION QID clobetasol 0.05 % Cream 1 applic TOPICAL BID PRN (Reason: Skin Irritation) guaifenesin 100 mg/5 mL Liquid 200 mg PO TID PRN (Reason: Cough) levothyroxine 88 mcg tablet 88 mcg PO QAM calcium carbonate [Calcium 500] 500 mg calcium (1,250 mg) Tablet 500 mg PO QAM diphenhydramine HCl [Benadryl] 25 mg Capsule 50 mg PO DIRECTED PRN (Reason: INSECT STING ALLERGIC REACTION) Rx Instructions: TAKE 50 MG AT ONSET OF SUSPECTED INSECT STING ALLERGIC REACTION, THEN REPEAT IN 4-6 HRS NEEDED. fluticasone propion-salmeterol [Advair Diskus] 500-50 mcg/dose Blister With Device 1 inh INHALATION BID dexamethasone sodium phosphate 4 mg/mL solution 4 mg DIRECTED Rx Instructions: USE DIRECTED timolol maleate 0.5 % Drops 1 drp OPL DAILY loratadine [Claritin] 10 mg Tablet 10 mg PO DAILY PRN (Reason: Congestion) Ocuvite Tablet 1 tab PO DAILY dextran 70-hypromellose 0.1-0.3 % Drops 1 drp OPB DIRECTED PRN (Reason: NEEDED PER [facility]) brinzolamide-brimonidine 1-0.2 % Drops,Suspension 1 drp OPL BID Referrals Referrals: Patricia Doran MD [Primary Care Provider] - Discharge Problem: Pneumonia Qualifiers: Pneumonia type: due to unspecified organism Laterality: right Lung location: u nspecified part of lung Qualified Code(s): J18.9 - Pneumonia, unspecified organism Fever Qualifiers: Fever type: due to other condition Qualified Code(s): R50.81 - Fever presenting with conditions classified elsewhere Headache Qualifiers: Headache type: unspecified Headache chronicity pattern: acute headache I ntractability: intractable Qualified Code(s): R51.9 - Headache, unspecified
[2023-08-07] MEDS ORDERED: ONDANSETRON INJ 2 MG/ML 2 ML VIAL IV STA (11:48)
[2023-08-07] MEDS ORDERED: MECLIZINE HCL 25 MG TAB PO STA (11:48)
[2023-08-07] MEDS ORDERED: SODIUM CHLORIDE 0.9% 1,000 ML IV SCH (12:00)
--- NOTE | 2023-08-07 12:47 | XRay Report ---
XR chest 1V portable CLINICAL HISTORY: Sepsis COMPARISON STUDY: Chest radiograph February 14, 2019. Chest CT February 15, 2019. FINDINGS: There is no pneumothorax or pleural effusion. Cardiomediastinal silhouette is stable. Right perihilar opacity is noted, including a 1.2 cm right midlung nodular opacity is present. Mild i nterstitial thickening within the periphery of the left midlung favors scarring. There is no evidence for pulmonary edema. IMPRESSION: Right perihilar opacity, including a 1.2 cm nodular opacity. The findings may reflect an infectious process however follow-up PA and lateral chest radiographs in one month to ensure resoluti on are recommended. ACT 112: Negative or not required by law. Electronically signed by: Michael Navas M.D. 08/07/2023 12:44 PM
[2023-08-07 13:46] LABS: Albumin Globulin Ratio 0.9 (0.9-2); Albumin Level 3.3 gm/dl (3.4-5.0); BUN Creatinine Ratio 14.7 (10-20); Bilirubin,Total 0.6 mg/dl (0.2-1.0); Calcium 8.6 mg/dl (8.6-10.3); Creatinine Clr Calc Pharmacy 72.2 ml/min; Est GFR (African American) 95.6 ml/min; Est GFR (Non-African American) 82.5 ml/min; Globulin 3.8 gm/dl (2.5-4.0); Potassium 3.7 mmol/L (3.5-5.1); Total Protein 7.1 gm/dl (6.0-8.3)
[2023-08-07 14:07] LABS: Basophils # (auto) 0.03 K/uL (0.00-0.20); Basophils % (auto) 0.3 %; Eosinophils # (auto) 0.47 K/uL (0.00-0.50); Eosinophils % (auto) 4.2 %; Hematocrit (blood only) 38.9 % (37.0-47.0); Hemoglobin 12.5 g/dl (12.0-16.0); Immature Granulocytes # (auto) 0.05 K/uL (0.01-0.20); Immature Granulocytes % (auto) 0.4 %; Lymphocytes # (auto) 1.96 K/uL (1.20-3.40); Lymphocytes % (auto) 17.4 %; Mean Corpuscular Hemoglobin 29.9 pg (25.0-34.0); Mean Corpuscular Hgb Conc 32.1 g/dL (32.0-36.0); Mean Corpuscular Volume 93.1 fL (80.0-100.0); Mean Platelet Volume 9.5 fL (9.4-12.4); Monocytes % (auto) 9.8 %; Neutrophils # (auto) 7.63 K/uL (1.40-6.50); Neutrophils % (auto) 67.9 %; Platelet Count 261 K/uL (130-400); RDW Coefficient of Variation 12.7 % (11.5-14.5); RDW Standard Deviation 43.6 fL (36.4-46.3); Red Blood Count 4.18 M/uL (4.20-5.40); White Blood Count 11.24 K/ul (4.8-10.8)
[2023-08-07] MEDS ORDERED: PROCHLORPERAZINE 5 MG/ML 2 ML VIAL IV STA (14:19)
[2023-08-07] MEDS ORDERED: ACETAMINOPHEN 500 MG TAB PO STA (14:19)
--- NOTE | 2023-08-07 14:31 | CT Scan Report ---
CT OF THE HEAD WITHOUT CONTRAST CLINICAL HISTORY: top head JOSHI; h/o aspergillosis COMPARISON STUDY: Head CT and MRI of the brain January 02, 2021. CT DOSE: 547.75 mGy.cm TECHNIQUE: Helical axial images of the head were obtained without IV contrast. Automated exposure con trol was utilized for the study. A dose lowering technique was utilized adhering to the principles o f ALARA. FINDINGS: No acute intracranial hemorrhage, midline shift or mass effect is present. White matter hyp odensities are similar to prior head CT and favor small vessel disease. The ventricular system is unr emarkable. The basal cisterns are patent. No extra-axial collections are present. There are no findin gs to suggest acute dural sinus thrombosis or acute territorial infarct. No significant calvarial abn ormalities are present. Left globe prosthesis is incidentally noted. Secretions within the right maxi llary and right sphenoid sinuses are present. There is an air-fluid level within the right sphenoid s inus. Minimal posterior right ethmoid sinus mucosal thickening. IMPRESSION: 1. No acute intracranial findings. 2. Right sphenoid and maxillary sinus secretions with air-fluid levels. This may reflect acute sinusi tis. ACT 112: Negative or not required by law. Electronically signed by: Michael Navas M.D. 08/07/2023 2:29 PM
[2023-08-07 15:32] LABS: Appearance Urine Clear (Clear); Bacteria Urine Automated 4+ (Negative); Bilirubin Urine Negative (Negative); Blood Urine Negative (Negative); Cast Urine Automated 0 /lpf (0-5); Color Urine Yellow; Glucose Urine UA Negative (Negative); Ketones Urine Negative (Negative); Leukocyte Esterase Urine Trace (Negative); Nitrite Urine Positive (Negative); Protein Urine Negative (Negative); RBC Urine Automated 0-4 /hpf (0-4); Specific Gravity Urine 1.014 (1.000-1.030); Urobilinogen Urine Negative (Negative); pH Urine 5.5 (4.5-7.5)
[2023-08-07] MEDS ORDERED: CEFEPIME 2,000 MG/20 ML VIAL IV STA (15:40)
[2023-08-07] MEDS ORDERED: DOXYCYCLINE HYCLATE 100 MG CAP PO STA (15:40)
[2023-08-07 16:14] LABS: Adenovirus PCR Not Detected (NotDetected); Bordetella parapertussis PCR Not Detected (NotDetected); Bordetella pertussis PCR Not Detected (NotDetected); Chlamydia pneumoniae PCR Not Detected (NotDetected); Coronavirus 229E PCR Not Detected (NotDetected); Coronavirus CoV-2 (COVID19)PCR Not Detected (NotDetected); Coronavirus HKU1 PCR Not Detected (NotDetected); Coronavirus NL63 PCR Not Detected (NotDetected); Coronavirus OC43PCR Not Detected (NotDetected); Human Metapneumovirus PCR Not Detected (NotDetected); Influenza A PCR Not Detected (NotDetected); Influenza B PCR Not Detected (NotDetected); Mycoplasma pneumoniae PCR Not Detected (NotDetected); Parainfluenza Virus 1 PCR Not Detected (NotDetected); Parainfluenza Virus 2 PCR Not Detected (NotDetected); Parainfluenza Virus 3 PCR Not Detected (NotDetected); Parainfluenza Virus 4 PCR Not Detected (NotDetected); Respiratory Syncytial VirusPCR Not Detected (NotDetected)
[2023-08-07 16:32] LABS: Rhinovirus/Enterovirus PCR DETECTED (NotDetected)
--- NOTE | 2023-08-07 17:59 | History & Physical Report ---
Date of Service August 07, 2023 Assessment & Plan (1) Fever: (2) Dizziness: (3) Acute sinusitis: (4) Immunocompromised state: Plan: 67-year-old female with history of bronchiectasis, recent fungal pneumonia/MAC, status post 6-month course of voriconazole, Bronchial asthma, Rheumatoid arthritis on chronic prednisone 2 mg daily, history of CVA Presenting with fever, headache, dizziness since last Wednesday. FEVER, IN THE SETTING OF CHRONIC PREDNISONE USE, POSSIBLE ETIOLOGIES INCLUDE: ACUTE BACTERIAL SINUSITIS RHINOVIRUS INFECTION Blood culture: Pending IV Zosyn RULE OUT PNEUMONIA History of bronchiectasis, recent fungal/MAC infection History of bronchial asthma Denies sputum production CT chest ordered We will consult ID Respiratory status stable Continue usual Singulair RULE OUT UTI Urine culture: Pending PERSISTENT DIZZINESS, RULE OUT ACUTE CVA History of CVA Will order brain MRI Monitor closely History of rheumatoid arthritis Currently quiescent Continue prednisone, leflunomide, Cymbalta, Plaquenil Hypothyroidism Continue levothyroxine History of cataract Continue eyedrops DVT prophylaxis Lovenox subcu CODE STATUS Full code per patient Disposition Lives with family at home plan of care discussed with patient and her Dr. Gramajo over the phone in detail and at length all questions answered They are understanding, agreeable, comfortable with the plan of care History of Present Illness Chief Complaint: Fever, headache, dizziness, etc. Primary Care Provider: Patricia Doran MD 67-year-old female with history of bronchiectasis, recent fungal pneumonia/MAC, status post 6-month course of voriconazole, Bronchial asthma, Rheumatoid arthritis on chronic prednisone 2 mg daily, history of CVA Presenting with fever, headache, dizziness since last Wednesday. Patient reports that she started to have headache last Wednesday mostly in the frontal region. Symptoms persisted and progressed since that time, and beginning was associated with fever and headaches. She also has increased cough but no sputum production, chest pain. This morning, patient presented to the primary care physician who referred her to the ER for further evaluation in light of her chronic prednisone use, immunocompromise state. At the ER, patient was received afebrile, with stable vital signs. She had leukocytosis of 11,000. CT head did not show any signs of acute CVA, but did show right maxillary/sphenoid sinuses fluid collection suggestive of acute sinusitis. Chest x-ray showing right perihilar opacity. She was given IV cefepime plus doxycycline as well as meclizine, Compazine, Zofran for dizziness. On exam, patient seen resting in bed, comfortable, no distress, appears somewhat weak. States she feels somewhat improved since admission. Dizziness may occur with movement or even while resting. No other neurologic focal deficit. She denies having any sore throat, abdominal pain, problems with urination or bowel movement. No other symptoms Allergies Allergy/AdvReac Type Severity Reaction Status Date / Time bee venom protein (honey bee) Allergy Severe swelling. Verified 08/07/23 15:41 sob Sulfa (Sulfonamide Allergy Severe Difficulty Verified 08/07/23 15:41 Antibiotics) Breathing erythromycin base Allergy Intermediate swelling Verified 08/07/23 15:41 of eyes nickel Allergy Mild rash with Verified 08/07/23 15:41 nickel earrings lisinopril AdvReac Intermediate cough Verified 08/07/23 15:41 Home Medications Medication Instructions Recorded Confirmed Type bimatoprost 0.03 % eye drops 1 drp OPB HS 02/14/19 08/07/23 History clindamycin HCl 300 mg capsule 300 mg PO UD PRN PRIOR TO DENTAL 02/14/19 08/07/23 History VISITS epinephrine 0.3 mg/0.3 mL 0.3 mg IM DIRECTED PRN SEVERE 02/14/19 08/07/23 History injection, auto-injector (EpiPen) ALLERGIC REACTION folic acid 1 mg tablet 1 mg PO QAM 02/14/19 08/07/23 History montelukast 10 mg tablet 10 mg PO PM 02/14/19 08/07/23 History (Singulair) multivitamin 1 tab PO DAILY 02/14/19 08/07/23 History prednisone 1 mg tablet 2 mg PO QAM 02/14/19 08/07/23 History hydroxychloroquine 200 mg tablet 300 mg PO QAM 01/02/21 08/07/23 History duloxetine 60 mg capsule,delayed 60 mg PO QAM 11/05/22 08/07/23 History release leflunomide 10 mg tablet 15 mg PO QAM 11/05/22 08/07/23 History brinzolamide 1 %-brimonidine 0.2 % 1 drp OPL BID 08/07/23 08/07/23 History eye drops,suspension calcium carbonate 500 mg calcium 500 mg PO QAM 08/07/23 08/07/23 History (1,250 mg) tablet clobetasol 0.05 % topical cream 1 applic topical BID PRN Skin 08/07/23 08/07/23 History Irritation dexamethasone sodium phosphate 4 4 mg DIRECTED 08/07/23 08/07/23 History mg/mL injection solution dextran 70-hypromellose 0.1 %-0.3 1 drp OPB DIRECTED PRN 08/07/23 08/07/23 History % eye drops NEEDED PER [facility] diphenhydramine HCl 25 mg capsule 50 mg PO DIRECTED PRN INSECT 08/07/23 08/07/23 History (Benadryl) STING ALLERGIC REACTION fluticasone 500 mcg-salmeterol 50 1 inh inhalation BID 08/07/23 08/07/23 History mcg/dose blistr powdr for inhalation (Advair Diskus) guaifenesin 100 mg/5 mL oral liquid 200 mg PO TID PRN Cough 08/07/23 08/07/23 History ipratropium 0.5 mg-albuterol 3 mg 3 ml inhalation QID 08/07/23 08/07/23 History (2.5 mg base)/3 mL nebulization soln levothyroxine 88 mcg tablet 88 mcg PO QAM 08/07/23 08/07/23 History loratadine 10 mg tablet (Claritin) 10 mg PO DAILY PRN Congestion 08/07/23 08/07/23 History timolol maleate 0.5 % eye drops 1 drp OPL DAILY 08/07/23 08/07/23 History vitamin A-vitamin C-vit E-min 1 tab PO DAILY 08/07/23 08/07/23 History tablet Past Med/Surg History Medical History Difficulty swallowing reason for EGD Macular degeneration Glaucoma Hearing deficit History of COVID-19 x2--last 02/2022--pt states she has been experiencing long covid symptoms--unable to walk for long periods without using a walker Carotid artery disease duplex 02/15/19 atherosclerosis of left common carotid and left ICA without significant stenosis Unequal blood pressure in upper extremities Rheumatoid arthritis Hypothyroidism Diabetes mellitus type 2, controlled diet controlled only Dyslipidemia Asthma inhaler prn Hypertension Surgical History History of surgery on lower extremity repair on fibula History of ankle surgery right ankle fusion--hardware in place History of total right knee replacement (TKR) History of colonoscopy History of tooth extraction History of wisdom tooth extraction Status post glaucoma surgery left History of bilateral cataract extraction History of cardiac cath 02/2019 @ [facility]--no stents placed History of bronchoscopy Family History Other No family history of adverse response to anesthesia Social History Smoking Status: Never smoker Second Hand Exposure: No; Do You Dip or Chew Tobacco: No; Hx Alcohol Use: No Hx Substance Use: No Preferred Language: Turkmen Communication Ability: Effective Documentation Improvement Specialist Required: No Beliefs That Will Affect Care: None marital status: Current Living Situation: Spouse How many Children do You have: 4 Feels Safe at Home: Yes Assistive Devices: Glasses and Walker Review of Systems Review of Systems: all noted and negative except for above Physical Exam Physical Exam: General- oriented x 3, not in distress, speaks in sentences with no effort or accessory muscle use Head- atraumatic Eyes- PERRL, EOMI, anicteric ENT- oropharynx clear No maxillary tenderness Ears: No discharge or tenderness Neck- supple, positive few cervical lymphadenopathy, no adenopathy, no thyromegaly; carotids +2/2, no bruits appreciated Lungs-positive mild rales at the bases, no wheezing Heart- normal rate, regular rhythm; no murmur, no gallop, no rub appreciated Abdomen- normal bowel sounds, nondistended, soft, nontender, no masses or hepat osplenomegaly Extremities- no pretibial edema, no calf tenderness; peripheral pulses intact Neuro- alert, oriented x 3; CN 2-12 grossly intact; motor 5/5 bilaterally;sensation 100% on all extremities; no other gross focal neurologic deficits Skin- warm & dry Results & Data Results & Data Vital Signs (Past 12 Hours) Vital Signs Temp Pulse Pulse Resp BP BP Pulse Ox 08/07/23 17:20 88 29 H 95 08/07/23 17:10 87 21 08/07/23 17:00 86 22 125/74 96 08/07/23 17:00 87 23 125/74 96 08/07/23 16:50 84 22 08/07/23 16:43 89 23 135/87 96 08/07/23 16:40 86 22 08/07/23 16:30 87 21 95 08/07/23 16:20 89 19 08/07/23 16:10 84 21 08/07/23 16:07 86 08/07/23 16:00 89 24 135/87 97 08/07/23 16:00 82 20 08/07/23 15:50 84 21 08/07/23 15:40 87 23 08/07/23 15:30 86 22 08/07/23 15:20 85 19 08/07/23 15:10 83 16 08/07/23 15:00 86 21 162/94 H 93 08/07/23 14:59 36.8 C 18 162/94 H 95 08/07/23 14:50 84 23 96 08/07/23 14:40 82 19 93 08/07/23 14:30 82 19 94 08/07/23 14:29 84 18 08/07/23 13:50 79 22 08/07/23 13:40 76 22 08/07/23 13:30 78 20 08/07/23 13:20 76 20 08/07/23 13:10 73 24 96 08/07/23 13:00 77 23 08/07/23 12:50 73 23 96 08/07/23 12:43 72 27 H 96 08/07/23 12:40 75 19 141/100 H 95 08/07/23 12:30 74 24 95 08/07/23 12:24 73 19 96 08/07/23 12:20 74 17 95 08/07/23 12:10 74 15 96 08/07/23 12:09 73 08/07/23 12:08 74 21 96 08/07/23 11:48 75 21 97 08/07/23 11:26 36.7 C 81 18 135/82 95 O2 Del Method 08/07/23 17:20 Room Air 08/07/23 17:10 08/07/23 17:00 Room Air 08/07/23 17:00 Room Air 08/07/23 16:50 08/07/23 16:43 Room Air 08/07/23 16:40 08/07/23 16:30 Room Air 08/07/23 16:20 08/07/23 16:10 08/07/23 16:07 08/07/23 16:00 Room Air 08/07/23 16:00 08/07/23 15:50 08/07/23 15:40 08/07/23 15:30 08/07/23 15:20 08/07/23 15:10 08/07/23 15:00 Room Air 08/07/23 14:59 Room Air 08/07/23 14:50 08/07/23 14:40 08/07/23 14:30 Room Air 08/07/23 14:29 08/07/23 13:50 08/07/23 13:40 08/07/23 13:30 08/07/23 13:20 08/07/23 13:10 Room Air 08/07/23 13:00 08/07/23 12:50 Room Air 08/07/23 12:43 08/07/23 12:40 Room Air 08/07/23 12:30 Room Air 08/07/23 12:24 Room Air 08/07/23 12:20 Room Air 08/07/23 12:10 Room Air 08/07/23 12:09 08/07/23 12:08 Room Air 08/07/23 11:48 Room Air 08/07/23 11:26 Room Air all noted and reviewed including below Code Status & VTE Plan VTE Prophylaxis Plan VTE Prophylaxis will be ordered: Yes
--- NOTE | 2023-08-07 19:05 | Magnetic Resonance Report ---
MRI OF THE BRAIN WITHOUT CONTRAST CLINICAL HISTORY: severe dizziness, r/o CVA COMPARISON STUDY: MRI of the brain January 02, 2021. Head CT performed earlier today. TECHNIQUE: Utilizing a 1.5 Kellie magnet and dedicated coil, multiplanar, multiecho imaging of the bra in was performed without IV contrast. FINDINGS: There are no foci of restricted diffusion to suggest acute infarct. No acute intracranial h emorrhage, midline shift or mass effect is present. Brain volume is normal. Ventricular system is nor mal. Basal cisterns are patent. There are no extra-axial collections. Flow-voids for the major intrac ranial vessels are present. White matter T2 hyperintense foci are similar to MRI of January 02, 2021 an d suggest small vessel disease. No intracranial masses are identified on this unenhanced exam. Left g lobe prosthesis is incidentally noted. There are secretions within the right maxillary and ethmoid si nuses. IMPRESSION: 1. No acute intracranial findings. 2. Secretions within the right maxillary and sphenoid sinuses. The findings may reflect acute sinusit is. ACT 112: Negative or not required by law. Electronically signed by: Michael Navas M.D. 08/07/2023 7:03 PM
--- OUTSIDE RECORDS SUMMARY | 2023-08-07 20:14 | External Medical Summary | Summary of Care ---
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 Name Role Phone Patricia Doran MD Primary Care Provider + Reason for Visit * Reason Comments Acute Encounter Details Date Type Department Care Team (Late st Contact Info) Description 08/07/2023 10:40 AM EST Office Visit Family Practice [facility] [address] [address] Breezy Delarosa MD [address] [place] [address] Fever, unspecified fever cause*; Vertigo; Nausea and vomiting, unspecified vomiting type; Acute non intractable tension-type headache Allergies Active Allergy Reactions Criticality Noted Date Comments Bee Venom 06/07/2015 Celecoxib 03/02/2023 Increased BP Erythromycin Base Conjunctivitis 01/17/2010 Opthalmic ointment Lisinopril 02/10/2012 cough Sulfasalazine 02/15/2020 GI upset,swealling in hands documented as of this encounter (statuses as of 08/07/2023) Medications Medication Sig Dispensed Refills Start Date [...] as of this encounter (statuses as of 08/07/2023) Active Problems Problem Noted Date Diagnosed Date [...] as of this encounter (statuses as of 08/07/2023) Resolved Problems Problem Noted Date Diagnosed Date [...] as of this encounter (statuses as of 08/07/2023) Immunizations Name Administration Dates Next Due COVID-19 [...] Sign Reading Time Taken Comments Blood Pressure 104/60 08/07/2023 10:53 AM EST Pulse 80 08/07/2023 10:53 AM EST Temperature 37.3 C (99.1 F) 08/07/2023 10:[address] Respiratory Rate - - Oxygen Saturation - [...] or making decisions? (5 years old or older) No 01/03/2021 documented as of this encounter Progress Notes * Breezy Delarosa MD - 08/07/2023 11:06 AM EST Chief Complaint Patient presents with Acute SUBJECTIVE: Britni Nietol PHD is a 67 year old female with PMH as below who presents for acute. Since has had acute headache, nausea, and vertigo, feels room spinning all the time. Can't look at me today orturn head w/o vertigo. She notes did have nausea and vomiting x1. Has a chronic cough, but slightlyworse with sob ,estrada. She notes headache is frontal, tylenol helps minimally. Has t max to 101. She n otes can't walk well due to nausea and vertigo which is severe. No falls. Had sick grandchild with uri this past week Reports not had vertigo prior to . Patient Active Problem List Diagnosis Code GENERAL OSTEOARTHROSIS M15.9 Other psoriasis L40.8 After cataract not obscuring vision H26.499 Acquired hypothyroidism E03.9 Allergic rhinitis J30.9 Retinal edema H35.81 Rheumatoid arthritis involving multiple sites with positive rheumatoid factor ([facility]) M05.79 Controlled substance agreement signed Z79.899 Advanced directives, counseling/discussion Z71.89 Urge incontinence of urine N39.41 Restrictive lung disease J98.4 Bronchiectasis without complication ([facility]) J47.9 Pulmonary nodules R91.8 Moderate persistent asthma without complication J45.40 Ambulatory dysfunction R26.2 Subjective weakness R53.1 Immunodeficiency ([facility]) D84.9 Encounter for therapeutic drug monitoring Z51.81 Current Outpatient Medications Medication Sig Dispense Refill Clindamycin HCl 300 MG Capsule Takes when goes to dentist Calcium 500 MG Tablet Take 1 Tablet by mouth in the morning. With food.. 100 Tab 11 predniSONE (DELTASONE) 1 MG Tablet Take 2 Tablets by mouth in the morning. Patient taking 2mg daily. . fluticasone-salmeterol (ADVAIR DISKUS) 500-50 MCG/DOSE inhaler Inhale 1 Puff by mouth 2 times a day. 1 Each 5 Folic Acid 1 MG Oral Tablet Take 1 Tab by mouth daily. 90 Tab 1 Levothyroxine Sodium 88 MCG Oral Tablet Take 112 mcg by mouth in the morning. Montelukast Sodium 10 MG Oral Tablet (Singulair) Take 1 Tablet by mouth every evening. 90 Tablet 1 DULoxetine HCl 60 MG Oral Capsule Delayed Release Particles (Cymbalta) Take 1 Capsule by mouth in the morning. 1 daily. Leflunomide 10 MG Oral Tablet (Arava) Take 1.5 tabs daily 135 Tablet 4 MULTIVITAMINS OR TABS daily 0 OCUVITE PO TABS Take by mouth . bimatoprost (LUMIGAN) 0.01 % ophthalmic solution Instill 1 Drop into both eyes at bedtime. 3 mL 12 Brinzolamide-Brimonidine 1-0.2 % Ophthalmic Suspension Instill into eye 2 times a day. L eye only. Dextran 70-Hypromellose (PF) 0.1-0.3 % Ophthalmic Solution Instill 0.1 Drops into both eyes as needed. loratadine ODT (CLARITIN REDITAB) [address] 1 Tab on tongue daily. 30 Tab 3 EpiPen 2-Elmer 0.3 MG/0.3ML Injection Solution Auto-injector [...] THIN AMOUNT TO AFFECTED AREA TWICE DAILY Timolol Maleate 0.5 % Ophthalmic Solution (Timoptic) INSTILL 1 DROP INTO THE LEFT EYE DAILY oxygen IN GAS Administer 2 L/min(Oxygen) into nostril as needed for Shortness of Breath. Diagnosis:MAAME, Bronchiectesis, aspergillus infection of the lung. (Patient not taking: Reported on 06/17/2023) 1 Each 0 Hydroxychloroquine Sulfate 200 MG [...] expectoration assist as instructed. 1 Each 3 dexAMETHasone Sodium Phosphate 4 MG/ML Injection Solution (Decadron) To use with ionophoresis as per physical therapy. PT states needs 120 mg. 30 mL 0 No current facility-administered medications for this visit. Review of patient's allergies indicates: Allergen Reactions Bee Venom Celebrex [Celecoxib] Increased BP Erythromycin Base Conjunctivitis Opthalmic ointment Lisinopril cough Sulfasalazine GI upset,swealling in hands Health Maintenance Due Topic Date Due Hepatitis B (1 of 3 - Risk 3-dose series) Never done Depression Screening 05/21/2021 Mammogram 03/05/2023 Influenza Vaccine (FLU shot) (1) 05/07/2023 COVID-19 Vaccine ( season) 2023 ROS: CONSTITUTIONAL: No change in weight and No weakness EYE: No recent significant change in vision EARS: No ear pain, No drainage, and No recent change in hearing NOSE: No history of frequent colds or sinusitis, No nasal stuffiness, No history of Hay Fever, and No significant epistaxis PULMONARY: No cough, sputum, or hemoptysis, No wheezing, No rales, No shortness of breath, and No recent change in breathing CARDIOVASCULAR: No chest pain, No shortness of breath, No dyspnea on exertion, No orthopnea, No paroxysmal nocturnal dyspnea, No edema, No palpitations, and No syncope \\ ALL OTHER SYSTEMS NEGATIVE I reviewed social, PMH, PSH, and family history and updated where needed. Social History Socioeconomic History Marital status: Spouse [...] Resource Strain: Not on file Food Insecurity: No Food Insecurity (03/14/2020) Hunger Vital Sign Worried About Running Out of Food in the Last Year: Never true Ran Out of Food in the Last Year: Never true Transportation Needs: Not on file Physical Activity: Not on file Stress: Not on file Social Connections: Not on file Intimate Partner Violence: Not on file Housing Stability: Not on file Past Medical History: Diagnosis Date Allergic rhinitis Asthma Asthma with severity to be determined Atherosclerosis of aorta ([facility]) 02/18/2021 Benign neoplasm of colon 04/16/2013 adenomatous polyp, repeat 5 yrs Bronchiectasis without complication ([facility]) 07/17/2020 Diabetes mellitus without complication ([facility]) 12/05/2018 Exudative age-related macular degeneration, left eye, with inactive choroidal neovascularization ([facility]) 12/05/2018 GENERAL OSTEOARTHROSIS 12/13/2000 Glaucoma Hypercholesterolemia Hypothyroidism Other psoriasis 12/13/2000 Pneumonia Pneumonia of right middle lobe due to Pseudomonas species ([facility]) 07/17/2020 Protein-calorie malnutrition ([facility]) 02/18/2021 Pulmonary nodules 07/17/2020 Restrictive lung disease 07/17/2020 Retinal edema 11/21/2009 Rheumatoid arthritis involving multiple sites with positive rheumatoid factor ([facility]) 02/27/2016 Senile cataract Cataract Senile Urge incontinence of urine 02/24/2019 Past Surgical History: Procedure Laterality Date ANKLE ARTHROSCOPY/SURGERY Right fusion surgery ARTHROPLASTY KNEE TOTAL Right 2015 BRONCHOSCOPY, DIAGNOSTIC N/A 10/29/2022 BRONCHOSCOPY DIAGNOSTIC WITH OR WITHOUT WASHING performed by Mariano Pickard MD at OR [facility] COLONOSCOPY, DIAGNOSTIC (RECTUM) 04/16/2014 adenomatous polyp, repeat 5 yrs/COLONOSCOPY FLEXIBLE PROXIMAL DIAGNOSTIC performed by Palomo Griffiths MD at ENDOSCOPY [facility] COLONOSCOPY, DIAGNOSTIC (RECTUM) 02/26/2021 benign adenomatous polyp, diverticulosis, repeat 5 yrs / COLONOSCOPY FLEXIBLE PROXIMAL DIAGNOSTIC performed by Tevin Razo MD at ENDOSCOPY [facility] EGD, FLEXIBLE, DIAGNOSTIC 08/28/2015 duodenal ulcer, erosive duodenitis, normal bx EGD, FLEXIBLE, DIAGNOSTIC 08/28/2015 ESOPHAGOGASTRODUODENOSCOPY (EGD), FLEXIBLE, TRANSORAL, DIAGNOSTIC performed by Palomo Griffiths MD at ENDOSCOPY [facility] EGD, FLEXIBLE, DIAGNOSTIC 02/26/2021 mild acid reflux / ESOPHAGOGASTRODUODENOSCOPY (EGD), FLEXIBLE, TRANSORAL, DIAGNOSTIC performed by Tevin Razo MD at ENDOSCOPY [facility] EGD, FLEXIBLE, DIAGNOSTIC N/A 11/05/2022 [facility], EGD, white plaques seen in hypopharynx, GE junction at 36cm mild ring at the GE junction FLUORO GUIDED SPINE INJECTION 10/05/2022 FLUROSCOPIC GUIDANCE AND LOCALIZATION OF NEEDLE OR CATHETER TIP FOR SPINE OR PARASPINOUS DIAGNOSTICperformed by Shubham Sung DO at [facility] 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 MACHINE SERVICE REPAIRER PAP DIAGNOSTIC 09/2000 INFORMATION Left 09/13/2017 Left [...] performed by Shubham Sung DO at OR [facility] REMOVE CATARACT, INSERT LENS PROSTH 03/23/2007 EXTRACAPSULAR [...] Known Problems Daughter No Known Problems Son OBJECTIVE: PHYSICAL EXAM: BP 104/60 | Pulse 80 | Temp 37.3 C (99.1 F) | LMP 05/15/2002 General: alert, healthy, and ill looking uncomfortable Head: Normocephalic, No masses, lesions, tenderness or abnormalities Eye Exam: PERRLA, conjunctiva are pink and non-injected, sclera clear Ears: External ears normal, Canals clear, TM's Normal Heart: regular rate & rhythm, no murmur, no gallops, PMI non-displaced, S-1 normal, and S-2 normal Neuro: trouble turning head, moving all extremities, but in wheelchair Psych: normal affect, no flight of ideas or tangential thought, good eye contact, no pressured speech I reviewed last gfr, glucose, lft ASSESSMENT: R50.9 Fever, unspecified fever cause (primary encounter diagnosis) R42 Vertigo R11.2 Nausea and vomiting, unspecified vomiting type G44.209 Acute non intractable tension-type headache PLAN: Fever, unspecified fever cause (Primary) Given headache, nausea, and acute vertigo concern for acute infection as cause. Given vertigo whichis new onset and fever, suggest ER now for imaging of brain and stat labs. She is also immunosuppressed and more reason to suspect infection, maybe viral but given vertigo, vomiting, trouble walking and ill looking suggest stat labs and imaging They agree to go to ER Report called to ER Vertigo As above Nausea and vomiting, unspecified vomiting type As above Acute non intractable tension-type headache As above Follow Up: Return if symptoms worsen or fail to improve. Breezy Delarosa MD documented in this encounter Nursing Notes * Lucia Villafuerte LPN - 08/07/2023 10:52 AM EST Has had a fever since Wednesday. did have some dizziness. Complaining of cough, sob with cough. Headache. documented in this encounter Plan of Treatment Upcoming Encounters Date Type Department Care Team (Late st Contact Info) Description 10/15/2023 11:00 AM EST Office Visit Rheumatology [place] [id number] [facility] [place] [address] Saran Boateng MD [address] [place] [address] 11/05/2023 2:30 PM EST Office Visit Cardiology, [facility] [address] [place] [address] Mukesh Laird, [address] [place] [address] 12/30/2023 10:00 AM EDT Office Visit General Internal Medicine [facility] [address] [facility] [place] [address] Patricia Doran MD [address] [facility] [place] [address] Scheduled Procedures Name Priority Associated Diagnoses Date/Ti [...] Vaccines Completed 06/17/2020, 03/14/2020 Albumin/Creatinine Ratio Discontinued 2 022, 02/18/2021, 06/20/2019, Additional history exists Diabetic Foot Exam Discontinued 03/02/2023, 0 03/05/2022, 06/17/2020, Additional history exists Diabetic Eye Exam Discontinued 07/01/2023, , 06/04/2023, Additional history exists GARDASIL-HPV IMMUNIZATION SERIES Aged Out No longer eligible based on patient's age to complete this topic MENINGOCOCCAL (MENACTRA/MENVEO) Aged Out No longer eligible based on patient's age to complete this topic documented as of this encounter Medical Devices Implanted Type Area Practice Performance Manager Device Identifier Shelf Expiration Date Model / Serial / Lot Lens 6.0 Sa60at - [id number] Implanted:Qty: 1 on 03/23/2007 at OR [facility] Left: Eye BETTY : SURGICAL 08/06/2011 SA60AT / [id number] / documented as of this encounter Visit Diagnoses Diagnosis Fever, unspecified fever cause- Primary Vertigo Dizziness and giddiness Nausea and vomiting, unspecified vomiting type Acute non intractable tension-type headache documented in this encounter Advance Directives Latest Code Status on File Code Status Date Activated Date Inactivated Comments Full Code 01/03/2021 8:00 PM 01/10/2021 5:07 PM This o rder reflects the patients wishes and were consensually agreed upon. Question Answer Comments Discussion of Advance Directives occurred with: Patient Care Teams Metal Bed Assembler Relationship Specialty Start Date End Date Patricia Doran MD [address] [facility] [place], [place] [address] PCP - General 12/17/08 documented as of this encounter"
[2023-08-07] MEDS ORDERED: LORazepam 0.5 MG TAB PO PRN (20:21)
[2023-08-07] MEDS ORDERED: guaiFENesin SUGAR FREE 100 MG/5 ML UDC PO PRN (20:21)
[2023-08-07] MEDS ORDERED: ONDANSETRON INJ 2 MG/ML 2 ML VIAL IV PRN (20:21)
[2023-08-07] MEDS ORDERED: PIPER/TAZO 4.5g in D5W MINI-B 100 ML IV ONE (21:00)
[2023-08-07] MEDS: MONTELUKAST SODIUM 10 MG TABLET PO SCH (22:13)
[2023-08-07] MEDS: BRIMONIDINE TARTRATE 0.2% 5ML OPL SCH (22:13)
[2023-08-07] MEDS: BRINZOLAMIDE (AZOPT) OPS 10 ML BTL OPL SCH (22:13)
[2023-08-07] MEDS: NSS + 20MEQ KCL 20 MEQ/1,000 ML BAG IV SCH (22:13)
[2023-08-07] MEDS: ACETAMINOPHEN 325 MG TAB PO PRN (23:28)
[2023-08-08] MEDS: PIPERACILLIN/TAZOBACTAM 4.5 GM in DEXTROSE 5% MINI-B 100 ML IV SCH ×3 (05:29→21:26)
[2023-08-08] MEDS: LEVOTHYROXINE SODIUM 88 MCG TABLET PO SCH (05:29)
[2023-08-08] MEDS: ACETAMINOPHEN 325 MG TAB PO PRN (07:59)
[2023-08-08] MEDS: LEFLUNOMIDE 10 MG TAB PO SCH (08:08)
[2023-08-08] MEDS: HYDROXYCHLOROQUINE SULFATE 200 MG TAB PO SCH (08:09)
[2023-08-08] MEDS: predniSONE 1 MG TAB PO SCH (08:09)
[2023-08-08] MEDS: DULoxetine HCL 60 MG CAP PO SCH (08:12)
[2023-08-08] MEDS: BRINZOLAMIDE (AZOPT) OPS 10 ML BTL OPL SCH ×2 (08:13→21:25)
[2023-08-08] MEDS: BRIMONIDINE TARTRATE 0.2% 5ML OPL SCH ×2 (08:13→21:25)
[2023-08-08] MEDS: TIMOLOL MALEATE 0.5% OP SOLN 5 ML BTL OP SCH (08:14)
[2023-08-08] MEDS: MECLIZINE HCL 25 MG TAB PO PRN (08:41)
[2023-08-08 10:43] LABS: Basophils # (auto) 0.06 K/uL (0.00-0.20); Basophils % (auto) 0.5 %; Eosinophils # (auto) 0.45 K/uL (0.00-0.50); Eosinophils % (auto) 3.9 %; Hematocrit (blood only) 39.2 % (37.0-47.0); Hemoglobin 12.7 g/dl (12.0-16.0); Immature Granulocytes # (auto) 0.03 K/uL (0.01-0.20); Immature Granulocytes % (auto) 0.3 %; Lymphocytes # (auto) 1.61 K/uL (1.20-3.40); Lymphocytes % (auto) 14.1 %; Mean Corpuscular Hemoglobin 29.7 pg (25.0-34.0); Mean Corpuscular Hgb Conc 32.4 g/dL (32.0-36.0); Mean Corpuscular Volume 91.8 fL (80.0-100.0); Mean Platelet Volume 9.6 fL (9.4-12.4); Monocytes # (auto) 0.95 K/uL (0.11-0.59); Monocytes % (auto) 8.3 %; Neutrophils # (auto) 8.31 K/uL (1.40-6.50); Neutrophils % (auto) 72.9 %; Platelet Count 320 K/uL (130-400); RDW Coefficient of Variation 12.8 % (11.5-14.5); RDW Standard Deviation 42.6 fL (36.4-46.3); Red Blood Count 4.27 M/uL (4.20-5.40); White Blood Count 11.41 K/ul (4.8-10.8)
[2023-08-08 10:54] LABS: BUN Creatinine Ratio 12.2 (10-20); Calcium 8.4 mg/dl (8.6-10.3); Est GFR (African American) 85.8 ml/min; Potassium 3.8 mmol/L (3.5-5.1)
[2023-08-08] MEDS ORDERED: OPTIRAY 320 125ml IV ONE (10:59)
--- NOTE | 2023-08-08 11:41 | CT Scan Report ---
CT ANGIOGRAPHY OF THE CHEST, PULMONARY EMBOLUS PROTOCOL CLINICAL HISTORY: Right-sided chest pain. Shortness of breath. Evaluate for pneumonia and pulmonary e mboli. COMPARISON STUDY: Chest CT February 15, 2019. Chest radiograph August 07, 2023. TECHNIQUE: Following IV administration of 72 mL of Optiray, helical axial images of the chest were ob tained utilizing the pulmonary embolus protocol. Maximal intensity projections and sagittal and sally nal reformats were viewed on an independent 3D workstation. IV contrast was administered without com plication. Automated exposure control was utilized for the study. A dose lowering technique was uti lized adhering to the principles of ALARA. CT DOSE: 494.81 mGy.cm FINDINGS: No pulmonary emboli are identified. There is no thoracic aortic dissection. Size of the he art is normal. There is no pericardial effusion. Mildly enlarged right paratracheal lymph node measur es 1.3 cm in short axis diameter. Central airways are patent. Right middle lobe and lingular bronchie ctasis is noted. Associated airspace opacities within the right middle lobe and lingula favor scarrin g. There is also suspected bronchiectasis within the lung apices. Note is made of a 4.8 x 2.5 cm irre gular opacity within the anterior segment of the right upper lobe. This may slightly extend into the right middle lobe. This corresponds to the finding on chest radiograph of August 07, 2023. There is no cavitation within this opacity. There is mild adjacent groundglass opacity. There is no pneumothor ax. No pleural effusion is present. IMPRESSION: 1. No pulmonary emboli identified. 2. 4.8 x 2.5 cm irregular subpleural focus of consolidation with mild adjacent groundglass opacity wi thin the anterior segment of the right upper lobe which corresponds to the finding on chest radiograp h of August 07, 2023. This is highly suggestive of an infectious process. This likely reflects bacte rial pneumonia. However, other etiologies such as a fungal infection could appear similar. A neoplast ic etiology is considered much less likely however a chest CT in 2 months to ensure resolution is rec ommended. 3. Right middle lobe and lingular bronchiectasis, shown on prior exam. Several additional foci of bro nchiectasis. The findings raise the possibility of a chronic infectious process. 4. Mildly enlarged right paratracheal lymph nodes which can be assessed on follow-up CT. These are pr obably reactive. ACT 112: Positive. There are findings on this exam that require communication between the performing entity and the patient following Patient Test Result Information Act ([place] Act 112) guidelines. Electronically signed by: Michael Navas M.D. 08/08/2023 11:39 AM
[2023-08-08] MEDS: NSS + 20MEQ KCL 20 MEQ/1,000 ML BAG IV SCH (12:00)
--- NOTE | 2023-08-08 13:06 | Electrocardiogram Report ---
Test Reason : Blood Pressure : / mmHG Vent. Rate : 073 BPM Atrial Rate : 073 BPM P-R Int : 186 ms QRS Dur : 088 ms QT Int : 378 ms P-R-T Axes : 048 -16 081 degrees QTc Int : 416 ms Normal sinus rhythm Normal ECG When compared with ECG of 01-JAN-2021 23:57, MS interval has decreased Criteria for Inferior infarct are no longer Present Nonspecific T wave abnormality no longer evident in Inferior leads Confirmed by Efren Hernandez ([id number]) on 08/08/2023 1:05:45 PM Referred By: REFERRED SELF Confirmed By:Efren Hernandez
--- NOTE | 2023-08-08 14:35 | Hospitalist Progress Note ---
Date of Service August 08, 2023 Assessment & Plan (1) Fever: (2) Dizziness: (3) Acute sinusitis: (4) Immunocompromised state: Plan: 67-year-old female with history of bronchiectasis, recent fungal pneumonia/MAC, status post 6-month course of voriconazole, Bronchial asthma, Rheumatoid arthritis on chronic prednisone 2 mg daily, history of CVA Presenting with fever, headache, dizziness since last Wednesday. FEVER, IN THE SETTING OF CHRONIC PREDNISONE USE, POSSIBLE ETIOLOGIES INCLUDE: ACUTE BACTERIAL SINUSITIS RHINOVIRUS INFECTION Blood culture: Pending IV Zosyn RIGHT UPPER LOBE PNEUMONIA History of bronchiectasis, recent fungal/MAC infection History of bronchial asthma Denies sputum production CT chest: 1. No pulmonary emboli identified. 2. 4.8 x 2.5 cm irregular subpleural focus of consolidation with mild adjacent groundglass opacity within the anterior segment of the right upper lobe which corresponds to the finding on chest radiograph of August 07, 2023. This is highly suggestive of an infectious process. This likely reflects bacterial pneumonia. However, other etiologies such as a fungal infection could appear similar. A neoplastic etiology is considered much less likely however a chest CT in 2 months to ensure resolution is recommended. 3. Right middle lobe and lingular bronchiectasis, shown on prior exam. Several additional foci of bronchiectasis. The findings raise the possibility of a chronic infectious process. 4. Mildly enlarged right paratracheal lymph nodes which can be assessed on follow-up CT. These are probably reactive. add Doxycycline continue IV Zosyn consult ID Respiratory status stable Continue usual Singulair RULE OUT UTI Urine culture: Pending PERSISTENT DIZZINESS, RULE OUT ACUTE CVA History of CVA Brain MRI: no acute CVA Monitor closely History of rheumatoid arthritis Currently quiescent Continue prednisone, leflunomide, Cymbalta, Plaquenil Hypothyroidism Continue levothyroxine History of cataract Continue eyedrops DVT prophylaxis Lovenox subcu CODE STATUS Full code per patient Disposition Lives with family at home plan of care discussed with patient and her Dr. Gramajo in detail and at length all questions answered They are understanding, agreeable, comfortable with the plan of care Admission and Anticipated Discharge Date Admission Date: August 07, 2023 Subjective ff up for fever, etc seen resting in bed, comfortable in good spirits states she slept well noted by family to be confused in the evening, resolved feels somewhat improved states headache is somewhat better dizziness better no cough, dyspnea reports pain over the right upper, lateral chest worse with inspiration had 1 loose BM this morning no dysuria no other symptoms Review of Systems Review of Systems: all noted and negative except for above Physical Exam Physical Exam: General- oriented x 3, not in distress, speaks in sentences with no effort or a ccessory muscle use Eyes- anicteric Neck- no JVD Lungs- clear breath sounds bilaterally, no rales/wheezes Heart- normal rate, regular rhythm; no murmurs Abdomen- normal bowel sounds, nondistended, soft, nontender Extremities- no pretibial edema, no calf tenderness Neuro- alert, oriented x 3; no gross focal neurologic deficits Skin- warm & dry Results & Data Results & Data Vital Signs (Past 12 Hours) Vital Signs Temp Pulse Pulse Resp BP BP Pulse Ox 08/08/23 11:05 36.8 C 77 17 123/46 L 96 08/08/23 08:04 36.9 C 79 17 138/82 94 08/08/23 08:00 08/08/23 07:22 69 08/08/23 03:02 36.8 C 78 18 123/72 95 O2 Del Method 08/08/23 11:05 Room Air 08/08/23 08:04 Room Air 08/08/23 08:00 Room Air 08/08/23 07:22 08/08/23 03:02 Room Air all noted and reviewed including below
[2023-08-08] MEDS ORDERED: SODIUM CHLORIDE 0.9% 1,000 ML IV SCH (14:45)
[2023-08-08] MEDS: ENOXAPARIN INJ 40 MG/0.4 ML SYR SQ SCH (16:29)
[2023-08-08] MEDS: DOXYCYCLINE HYCLATE 100 MG CAP PO SCH ×2 (16:30→21:26)
[2023-08-08] MEDS: MONTELUKAST SODIUM 10 MG TABLET PO SCH (21:26)
[2023-08-09] MEDS: NSS + 20MEQ KCL 20 MEQ/1,000 ML BAG IV SCH ×2 (01:23→14:14)
[2023-08-09] MEDS: LEVOTHYROXINE SODIUM 88 MCG TABLET PO SCH (04:39)
[2023-08-09] MEDS: PIPERACILLIN/TAZOBACTAM 4.5 GM in DEXTROSE 5% MINI-B 100 ML IV SCH ×3 (04:40→20:23)
[2023-08-09 04:44] LABS: Basophils # (auto) 0.08 K/uL (0.00-0.20); Eosinophils # (auto) 0.64 K/uL (0.00-0.50); Eosinophils % (auto) 7.8 %; Hematocrit (blood only) 35.1 % (37.0-47.0); Hemoglobin 11.6 g/dl (12.0-16.0); Immature Granulocytes # (auto) 0.03 K/uL (0.01-0.20); Immature Granulocytes % (auto) 0.4 %; Lymphocytes # (auto) 2.42 K/uL (1.20-3.40); Lymphocytes % (auto) 29.5 %; Mean Corpuscular Hemoglobin 29.6 pg (25.0-34.0); Mean Corpuscular Volume 89.5 fL (80.0-100.0); Mean Platelet Volume 9.5 fL (9.4-12.4); Monocytes % (auto) 9.8 %; Neutrophils # (auto) 4.23 K/uL (1.40-6.50); Neutrophils % (auto) 51.5 %; Platelet Count 275 K/uL (130-400); RDW Coefficient of Variation 12.7 % (11.5-14.5); RDW Standard Deviation 41.2 fL (36.4-46.3); Red Blood Count 3.92 M/uL (4.20-5.40)
[2023-08-09 05:00] LABS: BUN Creatinine Ratio 10.5 (10-20); Calcium 8.5 mg/dl (8.6-10.3); Creatinine Clr Calc Pharmacy 71.3 ml/min; Est GFR (African American) 94.1 ml/min; Est GFR (Non-African American) 81.2 ml/min; Potassium 3.9 mmol/L (3.5-5.1)
[2023-08-09] MEDS: ACETAMINOPHEN 325 MG TAB PO PRN ×2 (05:59→11:32)
[2023-08-09] MEDS: BRINZOLAMIDE (AZOPT) OPS 10 ML BTL OPL SCH ×2 (08:40→20:28)
[2023-08-09] MEDS: BRIMONIDINE TARTRATE 0.2% 5ML OPL SCH ×2 (08:40→20:28)
[2023-08-09] MEDS: predniSONE 1 MG TAB PO SCH (08:41)
[2023-08-09] MEDS: TIMOLOL MALEATE 0.5% OP SOLN 5 ML BTL OP SCH (08:41)
[2023-08-09] MEDS: DOXYCYCLINE HYCLATE 100 MG CAP PO SCH ×2 (08:41→20:27)
[2023-08-09] MEDS: LEFLUNOMIDE 10 MG TAB PO SCH (08:42)
[2023-08-09] MEDS: HYDROXYCHLOROQUINE SULFATE 200 MG TAB PO SCH (08:42)
[2023-08-09] MEDS: DULoxetine HCL 60 MG CAP PO SCH (08:42)
[2023-08-09] MEDS: MECLIZINE HCL 25 MG TAB PO PRN (08:48)
[2023-08-09 13:16] LABS: Adenovirus F 40/41 PCR Not Detected (NotDetected); Astrovirus PCR Not Detected (NotDetected); Campylobacter PCR Not Detected (NotDetected); Cryptosporidium PCR Not Detected (NotDetected); Cyclospora cayetanensis PCR Not Detected (NotDetected); Entamoeba histolytica PCR Not Detected (NotDetected); Enteroaggregative E.coli(EAEC) Not Detected (NotDetected); Enteropathogenic E.coli (EPEC) Not Detected (NotDetected); Enterotoxigenic E.coli (ETEC) Not Detected (NotDetected); Giardia lamblia PCR Not Detected (NotDetected); Norovirus GI/GII PCR Not Detected (NotDetected); Plesiomonas shigelloides PCR Not Detected (NotDetected); Rotavirus A PCR Not Detected (NotDetected); Salmonella PCR Not Detected (NotDetected); Sapovirus PCR Not Detected (NotDetected); Shiga-like Toxin E.coli (STEC) Not Detected (NotDetected); Shigella/Enteroinvasive E.coli Not Detected (NotDetected); Vibrio cholerae PCR Not Detected (NotDetected); Vibrio species PCR Not Detected (NotDetected); Yersinia enterocolitica PCR Not Detected (NotDetected)
[2023-08-09] MEDS: IBUPROFEN 200 MG TAB PO PRN (14:13)
--- NOTE | 2023-08-09 14:21 | Infectious Disease Consult ---
Date of Service August 09, 2023 Telehealth Information I performed this visit using a real-time telehealth connection between my location and the patients location ([facility]). After connecting through interactive tele-video, patient was identified by name and date of and/or wristband check.Patient (or authorized healthcare security systems sales representative) was informed that this was a telemedicine visit and it was being conducted confidentially over secure lines. My office door was closed and no one else was present in the room with me.Patient (or authorized healthcare security systems sales representative) provided consent to proceed with the visit, expressed an understanding of privacy and security of the telemedicine visit, and gave permission to have a hospital security systems sales representative in the room in order to assist with the visit and to conduct portions of the visit, as needed. I informed the patient (or authorized healthcare security systems sales representative) that I reviewed their record and presented the opportunity for them to ask any questions regarding the visit today. The patient agreed to participate. Assessment & Plan (1) Rhinovirus infection: (2) Acute sinusitis: (3) Mycobacterium avium infection: (4) Rheumatoid arthritis: (5) Asymptomatic bacteriuria: Plan - My concern for acute bacterial pneumonia is low. Patient likely has acute Rhinovirus bronchopneumonitis with labyrinthitis. The changes in the lungs are chronic, though the Rt upper infiltrates are new (compared with CT scan done at [facility] in early June 2023) which makes acute bacterial pneumonia a possibility especially with new onset pleuritic chest pain. I am not concerned about UTI as she is asymptomatic, this is likely asymptomatic bacteruria. Finally, the headache and vertigo could also still be secondary to acute sinusitis which was further demonstrated on MRI head. Therefore, I would recommend the following: - Please discontinue all current antibiotics and start on oral Levofloxacin 750 mg once daily. Treat with oral Levofloxacin for a total duration of 7 days with anticipated end date of Aug 14, 2023, to treat both sinusitis and presumed bacterial pneumonia. - I will et her an appointment in our clinic in the next 2 weeks to discuss the need to treat her MAC infection. - Thank you for consulting the ID team, we will sign off for now. History of Present Illness History of Present Illness Mrs. 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 The illness was associated headache and later fever. She also mentioned having chronic dry cough and shortness of breath mainly on exertion. On presentation, she was afebrile, hypertensive, but not tachycardic and saturating 95% at room air. Initial workup showed RSV panel positive for rhinovirus, with leukocytosis of 11.2 (ANC 7.6). MRI head showed right sphenoid and maxillary sinus secretions with air-fluid levels, otherwise no acute abnormalities. CTA chest showed 4.8 x 2.5 cm irregular subpleural consolidation with mild adjacent ground-glass opacity in the right upper lobe which is highly suggestive of an infectious process. It further demonstrated right middle lobe and lingular bronchiectasis as well as enlarged right paratracheal lymph nodes. Id team was consulted for further recommendations and to help with the management of possible pneumonia. Allergies Allergy/AdvReac Type Severity Reaction Status Date / Time bee venom protein (honey bee) Allergy Severe swelling. Verified 08/07/23 15:41 sob Sulfa (Sulfonamide Allergy Severe Difficulty Verified 08/07/23 15:41 Antibiotics) Breathing erythromycin base Allergy Intermediate swelling Verified 08/07/23 15:41 of eyes nickel Allergy Mild rash with Verified 08/07/23 15:41 nickel earrings lisinopril AdvReac Intermediate cough Verified 08/07/23 15:41 Home Medications Medication Instructions Recorded Confirmed Type bimatoprost 0.03 % eye drops 1 drp OPB HS 02/14/19 08/07/23 History clindamycin HCl 300 mg capsule 300 mg PO UD PRN PRIOR TO DENTAL 02/14/19 08/07/23 History VISITS epinephrine 0.3 mg/0.3 mL 0.3 mg IM DIRECTED PRN SEVERE 02/14/19 08/07/23 History injection, auto-injector (EpiPen) ALLERGIC REACTION folic acid 1 mg tablet 1 mg PO QAM 02/14/19 08/07/23 History montelukast 10 mg tablet 10 mg PO PM 02/14/19 08/07/23 History (Singulair) multivitamin 1 tab PO DAILY 02/14/19 08/07/23 History prednisone 1 mg tablet 2 mg PO QAM 02/14/19 08/07/23 History hydroxychloroquine 200 mg tablet 300 mg PO QAM 01/02/21 08/07/23 History duloxetine 60 mg capsule,delayed 60 mg PO QAM 11/05/22 08/07/23 History release leflunomide 10 mg tablet 15 mg PO QAM 11/05/22 08/07/23 History brinzolamide 1 %-brimonidine 0.2 % 1 drp OPL BID 08/07/23 08/07/23 History eye drops,suspension calcium carbonate 500 mg calcium 500 mg PO QAM 08/07/23 08/07/23 History (1,250 mg) tablet clobetasol 0.05 % topical cream 1 applic topical BID PRN Skin 08/07/23 08/07/23 History Irritation dexamethasone sodium phosphate 4 4 mg DIRECTED 08/07/23 08/07/23 History mg/mL injection solution dextran 70-hypromellose 0.1 %-0.3 1 drp OPB DIRECTED PRN 08/07/23 08/07/23 History % eye drops NEEDED PER [facility] diphenhydramine HCl 25 mg capsule 50 mg PO DIRECTED PRN INSECT 08/07/23 08/07/23 History (Benadryl) STING ALLERGIC REACTION fluticasone 500 mcg-salmeterol 50 1 inh inhalation BID 08/07/23 08/07/23 History mcg/dose blistr powdr for inhalation (Advair Diskus) guaifenesin 100 mg/5 mL oral liquid 200 mg PO TID PRN Cough 08/07/23 08/07/23 History ipratropium 0.5 mg-albuterol 3 mg 3 ml inhalation QID 08/07/23 08/07/23 History (2.5 mg base)/3 mL nebulization soln levothyroxine 88 mcg tablet 88 mcg PO QAM 08/07/23 08/07/23 History loratadine 10 mg tablet (Claritin) 10 mg PO DAILY PRN Congestion 08/07/23 08/07/23 History timolol maleate 0.5 % eye drops 1 drp OPL DAILY 08/07/23 08/07/23 History vitamin A-vitamin C-vit E-min 1 tab PO DAILY 08/07/23 08/07/23 History tablet Patient History Medical History Difficulty swallowing reason for EGD Macular degeneration Glaucoma Hearing deficit History of COVID-19 x2--last 02/2022--pt states she has been experiencing long covid symptoms--unable to walk for long periods without using a walker Carotid artery disease duplex 02/15/19 atherosclerosis of left common carotid and left ICA without significant stenosis Unequal blood pressure in upper extremities Rheumatoid arthritis Hypothyroidism Diabetes mellitus type 2, controlled diet controlled only Dyslipidemia Asthma inhaler prn Hypertension Surgical History History of surgery on lower extremity repair on fibula History of ankle surgery right ankle fusion--hardware in place History of total right knee replacement (TKR) History of colonoscopy History of tooth extraction History of wisdom tooth extraction Status post glaucoma surgery left History of bilateral cataract extraction History of cardiac cath 02/2019 @ [facility]--no stents placed History of bronchoscopy Family History Other No family history of adverse response to anesthesia Social History Smoking Status: Never smoker Second Hand Exposure: No; Do You Dip or Chew Tobacco: No; Hx Alcohol Use: No Hx Substance Use: No Preferred Language: P[place] Communication Ability: Effective Adjunct Faculty Required: No Beliefs That Will Affect Care: None marital status: Current Living Situation: Spouse and Family How many Children do You have: 4 Other Information That Helps Us Care for You: No Feels Safe at Home: Yes Safety Concerns: Feels Safe At This Time Assistive Devices: Glasses and Walker Review of Systems Constitutional: No more fatigue, fever or chills HEENT: no sore throat, no nasal discharge Cardiovascular: no chest pain, or palpitations Respiratory: No SOB or cough Gastrointestinal: No nausea, vomiting, diarrhea or abdominal pain : No dysuria or hesitancy, no urinary discharge Musculoskeletal/Skin: no rash or myalgia Neurologic: headache resolved but still have vertigo Physical Exam Couldn't be performed as the consult was conducted via Telemed. Results & Data Vital Signs (Past 12 Hours) Vital Signs Temp Pulse Pulse Resp BP Pulse Ox O2 Del Method 08/09/23 11:44 36.8 C 67 16 170/98 H 91 Room Air 08/09/23 08:01 36.8 C 75 16 137/83 95 Room Air 08/09/23 07:43 77 08/09/23 03:49 36.9 C 80 16 152/93 H 94 Room Air Laboratory Results MICROBIOLOGY: 08/07: 2 sets of blood culture negative to date 08/07: Urine culture growing E coli Diagnostic Findings CTA chest on 08/08: 1. No pulmonary emboli identified. 2. 4.8 x 2.5 cm irregular subpleural focus of consolidation with mild adjacent groundglass opacity within the anterior segment of the right upper lobe which corresponds to the finding on chest radiograph of August 07, 2023. This is highly suggestive of an infectious process. This likely reflects bacterial pneu monia. However, other etiologies such as a fungal infection could appear similar. A neoplastic etiology is considered much less likely however a chest CT in 2 months to ensure resolution is recommended. 3. Right middle lobe and lingular bronchiectasis, shown on prior exam. Several additional foci of bronchiectasis. The findings raise the possibility of a chronic infectious process. 4. Mildly enlarged right paratracheal lymph nodes which can be assessed on follow-up CT. These are probably reactive. (2) Acute sinusitis Sinusitis location: unspecified location Recurrence: not specified as recurrent Qualified Code(s): J01.90 - Acute sinusitis, unspecified (4) Rheumatoid arthritis Rheumatoid arthritis location: unspecified site Rheumatoid factor presence: unspecified presence Qualified Code(s): M06.9 - Rheumatoid arthritis, unspecified
[2023-08-09] MEDS: ENOXAPARIN INJ 40 MG/0.4 ML SYR SQ SCH (16:58)
[2023-08-09] MEDS: MONTELUKAST SODIUM 10 MG TABLET PO SCH (20:27)
--- NOTE | 2023-08-09 20:52 | Hospitalist Progress Note ---
Date of Service August 09, 2023 Assessment & Plan (1) Fever: (2) Pneumonia: (3) Rhinovirus infection: Plan: (1) Fever: (2) Dizziness: (3) Acute sinusitis: (4) Immunocompromised state: Plan: 67-year-old female with history of bronchiectasis, recent fungal pneumonia/MAC, status post 6-month course of voriconazole, Bronchial asthma, Rheumatoid arthritis on chronic prednisone 2 mg daily, history of CVA Presenting with fever, headache, dizziness since last Wednesday. FEVER, IN THE SETTING OF CHRONIC PREDNISONE USE, POSSIBLE ETIOLOGIES INCLUDE: ACUTE BACTERIAL SINUSITIS RHINOVIRUS INFECTION Blood culture: Negative so far IV Zosyn RIGHT UPPER LOBE PNEUMONIA History of bronchiectasis, recent fungal/MAC infection History of bronchial asthma Denies sputum production CT chest: 1. No pulmonary emboli identified. 2. 4.8 x 2.5 cm irregular subpleural focus of consolidation with mild adjacent groundglass opacity within the anterior segment of the right upper lobe which corresponds to the finding on chest radiograph of August 07, 2023. This is highly suggestive of an infectious process. This likely reflects bacterial pneumonia. However, other etiologies such as a fungal infection could appear similar. A neoplastic etiology is considered much less likely however a chest CT in 2 months to ensure resolution is recommended. 3. Right middle lobe and lingular bronchiectasis, shown on prior exam. Several additional foci of bronchiectasis. The findings raise the possibility of a chronic infectious process. 4. Mildly enlarged right paratracheal lymph nodes which can be assessed on follow-up CT. These are probably reactive. Clinically improving Continue IV Zosyn plus doxycycline consulte, with recommendationsd ID Respiratory status stable Continue usual Singulair UTI Urine culture: E. coli On antibiotics per above PERSISTENT DIZZINESS, RULE OUT ACUTE CVA History of CVA Brain MRI: no acute CVA Resolving Diarrhea Check stool for C. difficile and panel History of rheumatoid arthritis Currently quiescent Continue prednisone, leflunomide, Cymbalta, Plaquenil Hypothyroidism Continue levothyroxine History of cataract Continue eyedrops DVT prophylaxis Lovenox subcu CODE STATUS Full code per patient Disposition Lives with family at home plan of care discussed with patient and her daughter at bedside n detail and at length all questions answered They are understanding, agreeable, comfortable with the plan of care Admission and Anticipated Discharge Date Admission Date: August 07, 2023 Subjective Follow-up for fever, etc. Seen resting in bed, comfortable, not distressed Seems stronger States she feels that she is improving Headache also seems to be improving Has occasional cough, no shortness of breath, still having some right upper chest wall pain Positive diarrhea, no abdominal pain, no nausea vomiting No other new symptoms Review of Systems Review of Systems: all noted and negative except for above Physical Exam Physical Exam: General- oriented x 3, not in distress, speaks in sentences with no effort or accessory muscle use Eyes- anicteric Neck- no JVD Lungs- clear breath sounds bilaterally, no rales/wheezes Heart- normal rate, regular rhythm; no murmurs Abdomen- normal bowel sounds, nondistended, soft, nontender Extremities- no pretibial edema, no calf tenderness Neuro- alert, oriented x 3; no gross focal neurologic deficits Skin- warm & dry Results & Data Results & Data Vital Signs (Past 12 Hours) Vital Signs Temp Pulse Pulse Resp BP Pulse Ox O2 Del Method 08/09/23 20:23 36.4 C 69 16 140/84 95 Room Air 08/09/23 16:25 36.3 C L 69 16 166/101 H 95 Nasal Cannula 08/09/23 15:00 72 08/09/23 11:44 36.8 C 67 16 170/98 H 91 Room Air O2 Flow Rate 08/09/23 20:23 08/09/23 16:25 4 08/09/23 15:00 08/09/23 11:44 all noted and reviewed including below (1) Fever Fever type: due to other condition Qualified Code(s): R50.81 - Fever presenting with conditions classified elsewhere (2) Pneumonia Laterality: right Lung location: unspecified part of lung Pneumonia type: due to unspecified organism Qualified Code(s): J18.9 - Pneumonia, unspecified organism
[2023-08-10] MEDS: NSS + 20MEQ KCL 20 MEQ/1,000 ML BAG IV SCH ×3 (04:01→21:14)
[2023-08-10] MEDS: PIPERACILLIN/TAZOBACTAM 4.5 GM in DEXTROSE 5% MINI-B 100 ML IV SCH (04:01)
[2023-08-10 05:06] LABS: Basophils # (auto) 0.09 K/uL (0.00-0.20); Basophils % (auto) 1.2 %; Eosinophils # (auto) 0.81 K/uL (0.00-0.50); Eosinophils % (auto) 10.5 %; Hematocrit (blood only) 36.9 % (37.0-47.0); Immature Granulocytes # (auto) 0.02 K/uL (0.01-0.20); Immature Granulocytes % (auto) 0.3 %; Lymphocytes # (auto) 2.89 K/uL (1.20-3.40); Lymphocytes % (auto) 37.4 %; Mean Corpuscular Hemoglobin 29.4 pg (25.0-34.0); Mean Corpuscular Hgb Conc 32.5 g/dL (32.0-36.0); Mean Corpuscular Volume 90.4 fL (80.0-100.0); Mean Platelet Volume 9.2 fL (9.4-12.4); Monocytes # (auto) 0.77 K/uL (0.11-0.59); Neutrophils # (auto) 3.14 K/uL (1.40-6.50); Neutrophils % (auto) 40.6 %; Platelet Count 338 K/uL (130-400); RDW Coefficient of Variation 12.5 % (11.5-14.5); RDW Standard Deviation 41.2 fL (36.4-46.3); Red Blood Count 4.08 M/uL (4.20-5.40); White Blood Count 7.72 K/ul (4.8-10.8)
[2023-08-10 05:20] LABS: BUN Creatinine Ratio 8.8 (10-20); Calcium 8.9 mg/dl (8.6-10.3); Creatinine Clr Calc Pharmacy 79.6 ml/min; Est GFR (African American) 104.9 ml/min; Est GFR (Non-African American) 90.5 ml/min
[2023-08-10] MEDS: LEVOTHYROXINE SODIUM 88 MCG TABLET PO SCH (06:35)
[2023-08-10] MEDS: BRINZOLAMIDE (AZOPT) OPS 10 ML BTL OPL SCH ×2 (09:03→22:11)
[2023-08-10] MEDS: BRIMONIDINE TARTRATE 0.2% 5ML OPL SCH ×2 (09:03→22:11)
[2023-08-10] MEDS: DULoxetine HCL 60 MG CAP PO SCH (09:04)
[2023-08-10] MEDS: ADVANCED PROBIOTIC 1250 MG CAPSULE PO SCH (09:04)
[2023-08-10] MEDS: HYDROXYCHLOROQUINE SULFATE 200 MG TAB PO SCH (09:04)
[2023-08-10] MEDS: TIMOLOL MALEATE 0.5% OP SOLN 5 ML BTL OP SCH (09:05)
[2023-08-10] MEDS: predniSONE 1 MG TAB PO SCH (09:05)
[2023-08-10] MEDS: LEFLUNOMIDE 10 MG TAB PO SCH (09:05)
[2023-08-10] MEDS: ACETAMINOPHEN 325 MG TAB PO PRN ×2 (11:06→19:50)
[2023-08-10] MEDS: amLODIPine BESYLATE 5 MG TAB PO SCH (11:48)
[2023-08-10] MEDS: levoFLOXacin 750 MG TAB PO SCH (11:48)
[2023-08-10] MEDS: IBUPROFEN 200 MG TAB PO PRN (13:16)
[2023-08-10] MEDS: ENOXAPARIN INJ 40 MG/0.4 ML SYR SQ SCH (16:09)
--- NOTE | 2023-08-10 19:05 | Hospitalist Progress Note ---
Date of Service August 10, 2023 Assessment & Plan (1) Fever: (2) Pneumonia: (3) Rhinovirus infection: Plan: (1) Fever: (2) Dizziness: (3) Acute sinusitis: (4) Immunocompromised state: Plan: 67-year-old female with history of bronchiectasis, recent fungal pneumonia/MAC, status post 6-month course of voriconazole, Bronchial asthma, Rheumatoid arthritis on chronic prednisone 2 mg daily, history of CVA Presenting with fever, headache, dizziness since last Wednesday. FEVER, IN THE SETTING OF CHRONIC PREDNISONE USE, POSSIBLE ETIOLOGIES INCLUDE: ACUTE BACTERIAL SINUSITIS RHINOVIRUS INFECTION Blood culture: Negative so far IV Zosyn RIGHT UPPER LOBE PNEUMONIA History of bronchiectasis, recent fungal/MAC infection History of bronchial asthma Denies sputum production CT chest: 1. No pulmonary emboli identified. 2. 4.8 x 2.5 cm irregular subpleural focus of consolidation with mild adjacent groundglass opacity within the anterior segment of the right upper lobe which corresponds to the finding on chest radiograph of August 07, 2023. This is highly suggestive of an infectious process. This likely reflects bacterial pneumonia. However, other etiologies such as a fungal infection could appear similar. A neoplastic etiology is considered much less likely however a chest CT in 2 months to ensure resolution is recommended. 3. Right middle lobe and lingular bronchiectasis, shown on prior exam. Several additional foci of bronchiectasis. The findings raise the possibility of a chronic infectious process. 4. Mildly enlarged right paratracheal lymph nodes which can be assessed on follow-up CT. These are probably reactive. Clinically improving, respiratory status stable Patient given IV Zosyn plus doxycycline, ID consulted, recommend to transition to Levaquin 750 mg p.o. daily total duration of 7 days with anticipated end date of August 14, 2023 She will need an ID appointment at [facility] in [place] in 2 weeks to discuss need to treat her MAC infection Patient also requested that her machinist apprentice wood, bronchiectasis specialist at [facility] be contacted and updated with her current condition- DR Edward Champion- [phone]-left a voicemail, awaiting callback, please follow-up tomorrow UTI unlikely Likely secondary to colonization, asymptomatic bacteriuria per ID Urine culture: E. coli Currently on Levaquin PERSISTENT DIZZINESS, RULE OUT ACUTE CVA History of CVA Brain MRI: no acute CVA Resolved DIARRHEA Resolved Stool PCR, C. difficile panel: Negative HISTORY OF RHEUMATOID ARTHRITIS Currently quiescent Continue prednisone, leflunomide, Cymbalta, Plaquenil HYPOTHYROIDISM Continue levothyroxine HISTORY OF CATARACT Continue eyedrops DVT prophylaxis Lovenox subcu CODE STATUS Full code per patient Disposition Lives with family at home PT OT ordered Anticipate discharge to home when medically stable Admission and Anticipated Discharge Date Admission Date: August 07, 2023 Subjective Follow-up for pneumonia, acute sinusitis, etc. She is sitting up in bed, comfortable, not distressed Appears brighter, stronger States she feels improved day by day Headache and dizziness mostly resolved No cough, still has some right upper lung pleuritic chest pain No sputum, hemoptysis Abdominal pain, diarrhea resolving No other new symptom Review of Systems Review of Systems: all noted and negative except for above Physical Exam Physical Exam: General- oriented x 3, not in distress, speaks in sentences with no effort or accessory muscle use Eyes- anicteric Neck- no JVD Lungs- clear breath sounds bilaterally, no rales/wheezes Heart- normal rate, regular rhythm; no murmurs Abdomen- normal bowel sounds, nondistended, soft, nontender Extremities- no pretibial edema, no calf tenderness Neuro- alert, oriented x 3; no gross focal neurologic deficits Skin- warm & dry Results & Data Results & Data Vital Signs (Past 12 Hours) Vital Signs Temp Pulse Pulse Resp BP Pulse Ox O2 Del Method 08/10/23 15:47 36.9 C 72 16 120/78 95 Room Air 08/10/23 15:27 63 08/10/23 11:24 63 08/10/23 11:23 36.8 C 63 16 161/98 H 95 Room Air 08/10/23 07:50 36.6 C 67 16 164/109 H 95 Room Air all noted and reviewed including below (1) Fever Fever type: due to other condition Qualified Code(s): R50.81 - Fever presenting with conditions classified elsewhere (2) Pneumonia Laterality: right Lung location: unspecified part of lung Pneumonia type: due to unspecified organism Qualified Code(s): J18.9 - Pneumonia, unspecified organism
[2023-08-10] MEDS: MONTELUKAST SODIUM 10 MG TABLET PO SCH (22:13)
[2023-08-11 04:45] LABS: Basophils # (auto) 0.09 K/uL (0.00-0.20); Basophils % (auto) 1.2 %; Eosinophils % (auto) 8.1 %; Hematocrit (blood only) 38.4 % (37.0-47.0); Hemoglobin 12.5 g/dl (12.0-16.0); Immature Granulocytes # (auto) 0.04 K/uL (0.01-0.20); Immature Granulocytes % (auto) 0.5 %; Lymphocytes # (auto) 2.59 K/uL (1.20-3.40); Lymphocytes % (auto) 34.9 %; Mean Corpuscular Hemoglobin 29.3 pg (25.0-34.0); Mean Corpuscular Hgb Conc 32.6 g/dL (32.0-36.0); Mean Corpuscular Volume 89.9 fL (80.0-100.0); Monocytes # (auto) 0.74 K/uL (0.11-0.59); Neutrophils # (auto) 3.36 K/uL (1.40-6.50); Neutrophils % (auto) 45.3 %; Platelet Count 378 K/uL (130-400); RDW Coefficient of Variation 12.3 % (11.5-14.5); RDW Standard Deviation 40.6 fL (36.4-46.3); Red Blood Count 4.27 M/uL (4.20-5.40); White Blood Count 7.42 K/ul (4.8-10.8)
[2023-08-11] MEDS: LEVOTHYROXINE SODIUM 88 MCG TABLET PO SCH (04:55)
[2023-08-11 05:06] LABS: BUN Creatinine Ratio 5.9 (10-20); Calcium 8.7 mg/dl (8.6-10.3); Creatinine Clr Calc Pharmacy 80.2 ml/min; Est GFR (African American) 104.9 ml/min; Est GFR (Non-African American) 90.5 ml/min; Potassium 3.9 mmol/L (3.5-5.1)
[2023-08-11] MEDS: HYDROXYCHLOROQUINE SULFATE 200 MG TAB PO SCH (08:39)
[2023-08-11] MEDS: ADVANCED PROBIOTIC 1250 MG CAPSULE PO SCH (08:40)
[2023-08-11] MEDS: predniSONE 1 MG TAB PO SCH (08:40)
[2023-08-11] MEDS: DULoxetine HCL 60 MG CAP PO SCH (08:40)
[2023-08-11] MEDS: amLODIPine BESYLATE 5 MG TAB PO SCH (08:40)
[2023-08-11] MEDS: LEFLUNOMIDE 10 MG TAB PO SCH (08:41)
[2023-08-11] MEDS: BRINZOLAMIDE (AZOPT) OPS 10 ML BTL OPL SCH (08:42)
[2023-08-11] MEDS: BRIMONIDINE TARTRATE 0.2% 5ML OPL SCH (08:42)
[2023-08-11] MEDS: TIMOLOL MALEATE 0.5% OP SOLN 5 ML BTL OP SCH (08:42)
[2023-08-11] MEDS: MECLIZINE HCL 25 MG TAB PO PRN (09:30)
[2023-08-11] MEDS: levoFLOXacin 750 MG TAB PO SCH (10:31)
[2023-08-11 11:44] VITALS: BP 127/84; PULSE 72; RESP 17; TEMP 97.7; O2SAT 93
[2023-08-11] MEDS ORDERED: ONDANSETRON 2 MG OD TAB PO PRN (12:32)
--- NOTE | 2023-08-11 16:52 | Discharge Summary ---
Date of Service August 11, 2023 Admission HPI Per Admitting Provider 67-year-old female with history of bronchiectasis, recent fungal pneumonia/MAC, status post 6-month course of voriconazole, Bronchial asthma, Rheumatoid arthritis on chronic prednisone 2 mg daily, history of CVA Presenting with fever, headache, dizziness since last Wednesday. Patient reports that she started to have headache last Wednesday mostly in the frontal region. Symptoms persisted and progressed since that time, and beginning was associated with fever and headaches. She also has increased cough but no sputum production, chest pain. This morning, patient presented to the primary care physician who referred her to the ER for further evaluation in light of her chronic prednisone use, immunocompromise state. At the ER, patient was received afebrile, with stable vital signs. She had leukocytosis of 11,000. CT head did not show any signs of acute CVA, but did show right maxillary/sphenoid sinuses fluid collection suggestive of acute sinusitis. Chest x-ray showing right perihilar opacity. She was given IV cefepime plus doxycycline as well as meclizine, Compazine, Zofran for dizziness. On exam, patient seen resting in bed, comfortable, no distress, appears somewhat weak. States she feels somewhat improved since admission. Dizziness may occur with movement or even while resting. No other neurologic focal deficit. She denies having any sore throat, abdominal pain, problems with urination or bowel movement. No other symptoms Admission Exam Per Admitting Provider General- oriented x 3, not in distress, speaks in sentences with no effort or accessory muscle use Head- atraumatic Eyes- PERRL, EOMI, anicteric ENT- oropharynx clear No maxillary tenderness Ears: No discharge or tenderness Neck- supple, positive few cervical lymphadenopathy, no adenopathy, no thyromegaly; carotids +2/2, no bruits appreciated Lungs-positive mild rales at the bases, no wheezing Heart- normal rate, regular rhythm; no murmur, no gallop, no rub appreciated Abdomen- normal bowel sounds, nondistended, soft, nontender, no masses or hepatosplenomegaly Extremities- no pretibial edema, no calf tenderness; peripheral pulses intact Neuro- alert, oriented x 3; CN 2-12 grossly intact; motor 5/5 bilaterally;sensation 100% on all extremities; no other gross focal neurologic deficits Skin- warm & dry Principal Diagnosis Right upper lobe pneumonia Acute sinusitis Discharge Exam Constitutional: WD/WN, vitals as above, NAD, sitting up in bed, pleasant, conversing easily Respiratory: normal respiratory effort, lungs clear to auscultation, no wheeze, rales, rhonchi. Normal insp/exp effort, no accessory muscle use Cardiovascular: RRR, no murmur, no edema Vessels: no JVD or carotid bruit Chest: normal inspection of chest Abdomen: normal bowel sounds, soft, nontender, no hepatosplenomegaly Musculoskeletal: no cyanosis or clubbing, extremities motor strength 5/5 Skin: no rashes, warm and dry normal turgor Neurologic: PERRL, EOMI, accommodation nl, no face palsy, no dysarthria CN's II- XI intact bilaterally and moves all extremities Psychiatric: A+Ox3, euthymic affect Discharge Data Allergies Allergy/AdvReac Type Severity Reaction Status Date / Time bee venom protein (honey bee) Allergy Severe swelling. Verified 08/07/23 15:41 sob Sulfa (Sulfonamide Allergy Severe Difficulty Verified 08/07/23 15:41 Antibiotics) Breathing erythromycin base Allergy Intermediate swelling Verified 08/07/23 15:41 of eyes nickel Allergy Mild rash with Verified 08/07/23 15:41 nickel earrings lisinopril AdvReac Intermediate cough Verified 08/07/23 15:41 Consultations 08/07/23 15:53 ED Decision to Admit Stat 08/07/23 20:21 Consult Infectious Diseases Routine 08/11/23 13:39 Burn CD for patient Routine Ordered Studies 08/07/23 11:48 CT head/brain wo con Stat 08/07/23 17:47 MRI Brain [MR brain wo con] Stat 08/08/23 10:31 CT angio chest PE protocol Stat Hospital Course (1) Fever: (2) Pneumonia: (3) Rhinovirus infection: 67-year-old female with history of bronchiectasis, recent fungal pneumonia/MAC, status post 6-month course of voriconazole, Bronchial asthma, Rheumatoid arthritis on chronic prednisone 2 mg daily, history of CVA Presenting with fever, headache, dizziness CT chest with contrast on admission did not show any PE. She was found to have 4.8 X 2.5 cm consolidation in right upper lobe suggestive of infectious process. CT head showed right sphenoid and maxillary sinusitis with air-fluid level Patient was treated with antibiotic during hospitalization. Infectious disease was consulted for comanagement Patient was recommended to be placed on Levaquin for total of 7 days. Patient to follow-up with infectious disease as outpatient for management of MAC in about 3 weeks. Patient was also noted to be hypertensive during the hospitalization for which she was started on amlodipine 5 mg once a day Patient was recommended to check her blood pressure regularly at home and follow-up with her PCP regarding long-term blood pressure management. Instructions were discussed with her over the phone as well. Answers questions/queries. Please note the above document was generated using voice recognition software. It may contain grammatical, syntax or spelling errors. Any formal questions or concerns about the content, text or information contained within the body of this dictation should be directly addressed to the provider for clarification Total Time Total Time Spent Total Time Spent (In Minutes): 45 Total Time Includes: Examination of the Patient, Discharge Planning, Medication Reconciliation, Communication With Other Providers and Other Discharge Plan Discharge Items Patient Disposition: Home - Self-Care Reason For Visit: FEVER, ACTURE SINUSITIS Discharge Diagnosis: Rhinovirus infection Acute sinusitis Right upper lobe pneumonia Activity: Resume your previous activity Non-emergency contact: Primary Care Provider Call non-emergency contact if: you have any medication questions Follow-up/Referrals: Patricia Doran MD [Primary Care Provider] - (Date & Time 08/17/2023 11:00 AM Provider Leticia Mckeon MD Department General Internal Medicine [facility] ) Shahriar Muro MD [Physician] - 09/01/23 10:00 am (This is a video appointment. You will receive an email with instructions on how to connect to the appointment. ) Diet: Regular Addtl Attending Provider Instructions: You were admitted to the hospital due to right upper lobe pneumonia, sinusitis and possible Labyrinthitis. You were evaluated by infectious disease during the hospitalization; they recommend Levaquin for 3 more [address]. Please repeat [address] chest without contrast in 6 to 8 weeks to follow-up on the right upper lobe pneumonia. Your blood pressure during the hospitalization was found to be on a higher side. Please measure your blood pressure at home on a sitting position with both feet on the ground with your arms reported. Please rest for 5 minutes prior to taking your blood pressure. If your blood pressure is still persistently above 140/90; restart taking amlodipine 5 mg once a day. Please discuss with your primary care doctor regarding this as well. An appointment is set up with your primary care doctor for next week. An appointment with [facility] infectious disease doctor has also been set up. Pending Studies at Discharge: No Stand-Alone Forms: My [facility] [address], Smoking Cessation Medications and DC Order Prescriptions: New amlodipine [Norvasc] 5 mg Tablet 5 mg PO QAM 30 Days Qty: 30 0RF levofloxacin 750 mg Tablet 750 mg PO DAILY@1100 3 Days Qty: 3 0RF Continued multivitamin Tablet 1 tab PO DAILY clindamycin HCl 300 mg Capsule 300 mg PO UD PRN (Reason: PRIOR TO DENTAL VISITS) Rx Instructions: TAKES WHEN GOES TO DENTIST bimatoprost 0.03 % drops 1 drp OPB HS prednisone 1 mg tablet 2 mg PO QAM folic acid 1 mg Tablet 1 mg PO QAM montelukast [Singulair] 10 mg Tablet 10 mg PO PM epinephrine [EpiPen] 0.3 mg/0.3 mL Auto-Injector 0.3 mg IM DIRECTED PRN (Reason: SEVERE ALLERGIC REACTION) duloxetine 60 mg Capsule,Delayed Release(Dr/Ec) 60 mg PO QAM leflunomide 10 mg Tablet 15 mg PO QAM hydroxychloroquine 200 mg tablet 300 mg PO QAM ipratropium-albuterol 0.5 mg-3 mg(2.5 mg base)/3 mL Solution For Nebulization 3 ml INHALATION QID clobetasol 0.05 % Cream 1 applic TOPICAL BID PRN (Reason: Skin Irritation) guaifenesin 100 mg/5 mL Liquid 200 mg PO TID PRN (Reason: Cough) levothyroxine 88 mcg tablet 88 mcg PO QAM calcium carbonate 500 mg calcium (1,250 mg) Tablet 500 mg PO QAM diphenhydramine HCl [Benadryl] 25 mg Capsule 50 mg PO DIRECTED PRN (Reason: INSECT STING ALLERGIC REACTION) Rx Instructions: TAKE 50 MG AT ONSET OF SUSPECTED INSECT STING ALLERGIC REACTION, THEN REPEAT IN 4-6 HRS NEEDED. fluticasone propion-salmeterol [Advair Diskus] 500-50 mcg/dose Blister With Device 1 inh INHALATION BID dexamethasone sodium phosphate 4 mg/mL solution 4 mg DIRECTED Rx Instructions: USE DIRECTED timolol maleate 0.5 % Drops 1 drp OPL DAILY loratadine [Claritin] 10 mg Tablet 10 mg PO DAILY PRN (Reason: Congestion) vitamin A-vitamin C-vit E-min Tablet 1 tab PO DAILY dextran 70-hypromellose 0.1-0.3 % Drops 1 drp OPB DIRECTED PRN (Reason: NEEDED PER [facility]) brinzolamide-brimonidine 1-0.2 % Drops,Suspension 1 drp OPL BID Discharge Orders: Discharge Order (Routine); Ordered 08/11/23 Ordered By: Kel Vuong Admission Data Admit Date/Time: 08/07/23 17:47 Attending Provider: Kel Vuong Admit Provider: Arnold Holloway Primary Care Provider: Patricia Doran Other Providers: Jose Carlos Osullivan; Eric Dent; Ben Brice; Harjinder Preston I.; Baldemar Villalpando II; Anabella Morton; Fletcher Mehta; Sudarshan Alonso; Shahriar Muro; Arnold Holloway Other Interventions: Discharge Summary Assessment (RN) Last Done: 08/11/23 14:27
[2023-08-11] MEDS ORDERED: BIMATOPROST 0.01% OP SOLN 2.5 ML BTL OPB SCH (21:00)
== END 2023-08-11 15:33 | disposition home or self-care (01) | DRG 194 ==
LOC: ED 11:20 → EDINP 17:47 → SUATTDRO 17:47 → EDINP 20:21 → 2W 21:43
DX: D84.821 Immunodeficiency due to drugs; B34.8 Other viral infections of unspecified site; Z86.19 Personal history of other infectious and parasitic diseases; Z98.1 Arthrodesis status; E03.9 Hypothyroidism, unspecified; M06.9 Rheumatoid arthritis, unspecified; J47.9 Bronchiectasis, uncomplicated; R42 Dizziness and giddiness; J18.9 Pneumonia, unspecified organism; Z88.1 Allergy status to other antibiotic agents; E11.9 Type 2 diabetes mellitus without complications; Z79.52 Long term (current) use of systemic steroids; I10 Essential (primary) hypertension; J01.80 Other acute sinusitis; N39.0 Urinary tract infection, site not specified; Z88.2 Allergy status to sulfonamides